=== PATIENT | female | born 1965 | race Caucasian/White ===

== ENCOUNTER → 2017-09-02 09:56 | Outpatient (POV) | payer BC, SELFPAY ==
[2017-09-02 10:11] VITALS: BP 137/92; PULSE 94; RESP 18; O2SAT 99
--- NOTE | 2017-09-02 13:48 | HMH.PMCON ---
Assessment and Plan (1) Facet arthropathy Current visit: Yes Status: Chronic Category: Medical Code(s): M46.90 - Unspecified inflammatory spondylopathy, site unspecified - Assessment and plan all Dx Assessment and Plan for all problems:: We will plan a medial branch block/facet joint injection L4-L5 L5-S1 bilaterally. Patient is not on any anticoagulation therapy. Patient is continuing to do home stretching exercises. I will follow-up with the patient after her injection we will reassess her symptoms at that time. We will also call her in baclofen 10 mg 1 p.o. 3 times daily as needed. I discussed the risks of this medication with the patient and possible side effects. Patient has been instructed to call the office if she starts exhibiting any of these. This note was dictated using voice recognition software and may contain errors or omissions HPI - Data of Consult Consult date: 09/02/17 Requesting Physician: Quita Mohan APRN Primary Care Provider: Thaddeus Morales MD Family Provider: Referral Provider, MD - Consult Narrative Reason for consult: Low back pain History of present illness: Ms. Canales is a 51 year old female who presents today for consultation in regards to her low back pain and muscle spasms. Patient fell on the ice in 2013 and this is when she remembers her pain beginning. Patient states walking and sleeping increase her pain while rest decreases her pain. Patient states she has had extreme muscle spasms with no relief from gabapentin, Skelaxin, Flexeril. Patient also tried and failed TENS unit. Patient has been seen by Dr. Alfonso and was determined not a surgical candidate. Patient's tried and failed chiropractic therapy, physical therapy, massage therapy. Patient rates the pain a 5 out of 10 today. Patient also failed ibuprofen and medication therapies. Patient is interested in injection therapy to help alleviate her pain symptoms. Patient has a recent MRI showing facet hypertrophy bilaterally throughout her lumbar spine. States her pain is very axial in nature. Patient states that when she makes a twisting movement that is when her pain increases. Patient does not have radiation of pain down her legs. CC: Quita Mohan APRN [facility] History I have reviewed the patient's past medical history: Yes Other Medical History: Reports: Arthritis Other Surgeries: Yes: Cholecystectomy - *Social History Educational Level: Completed College Smoking Status: Never smoker Alcohol Intake: never Occupational Status: employed Housing: house - Psychiatric History Expresses thoughts of harming self/others: None Suicide Plan Description: No Plan *Family Hx:: Unable to obtain Review of Systems - Review of Systems ROS General: no recent weight change, no fever, no sleep disturbances Respiratory: no cough, no shortness of air, no recurring pulmonary infections Cardiovascular/Peripheral Vascular: No chest pain, No palpitations, no edema, no shortness of breath. Gastrointestinal: no incontinence, normal bowel movements reported Genitourinary: no incontinence Musculoskeletal: Back pain, muscle spasms Psychiatric: normal mood/ affect Neurological: [denies weakness in extremities], [denies balance issues] Meds Home Medications Medication Instructions Recorded Confirmed Type Naltrexone HCl/Bupropion HCl 1 each PO DAILY 09/02/17 09/02/17 History [Contrave ER 8-90 mg Tablet] Vortioxetine Hydrobromide 10 mg PO BID 09/02/17 09/02/17 History [Trintellix] Allergies Allergy/AdvReac Type Severity Reaction Status Date / Time Bumble Bee Allergy Severe DIFFICULTY Uncoded 03/12/17 15:02 BREATHING Objective Vital signs: Pulse Resp BP Pulse Ox 94 H 18 137/92 99 09/02/17 10:11 09/02/17 10:11 09/02/17 10:11 09/02/17 10:11 Narrative: Physical Exam General: Alert and oriented x3, no acute distress, pleasant and cooperative, [on room ai
--- NOTE | 2017-09-02 14:08 | P.CONS_ITS ---
Assessment and Plan (1) Facet arthropathy Current visit: Yes Status: Chronic Category: Medical Code(s): M46.90 - Unspecified inflammatory spondylopathy, site unspecified - Assessment and plan all Dx Assessment and Plan for all problems:: We will plan a medial branch block/facet joint injection L4-L5 L5-S1 bilaterally. Patient is not on any anticoagulation therapy. Patient is continuing to do home stretching exercises. I will follow-up with the patient after her injection we will reassess her symptoms at that time. We will also call her in baclofen 10 mg 1 p.o. 3 times daily as needed. I discussed the risks of this medication with the patient and possible side effects. Patient has been instructed to call the office if she starts exhibiting any of these. This note was dictated using voice recognition software and may contain errors or omissions HPI - Data of Consult Consult date: 09/02/17 Requesting Physician: Quita Mohan APRN Primary Care Provider: Thaddeus Morales MD Family Provider: Referral Provider, MD - Consult Narrative Reason for consult: Low back pain History of present illness: Ms. Canales is a 51 year old female who presents today for consultation in regards to her low back pain and muscle spasms. Patient fell on the ice in 2013 and this is when she remembers her pain beginning. Patient states walking and sleeping increase her pain while rest decreases her pain. Patient states she has had extreme muscle spasms with no relief from gabapentin, Skelaxin, Flexeril. Patient also tried and failed TENS unit. Patient has been seen by Dr. Alfonso and was determined not a surgical candidate. Patient's tried and failed chiropractic therapy, physical therapy, massage therapy. Patient rates the pain a 5 out of 10 today. Patient also failed ibuprofen and medication therapies. Patient is interested in injection therapy to help alleviate her pain symptoms. Patient has a recent MRI showing facet hypertrophy bilaterally throughout her lumbar spine. States her pain is very axial in nature. Patient states that when she makes a twisting movement that is when her pain increases. Patient does not have radiation of pain down her legs. CC: Quita Mohan APRN [facility] History I have reviewed the patient's past medical history: Yes Other Medical History: Reports: Arthritis Other Surgeries: Yes: Cholecystectomy - *Social History Educational Level: Completed College Smoking Status: Never smoker Alcohol Intake: never Occupational Status: employed Housing: house - Psychiatric History Expresses thoughts of harming self/others: None Suicide Plan Description: No Plan *Family Hx:: Unable to obtain Review of Systems - Review of Systems ROS General: no recent weight change, no fever, no sleep disturbances Respiratory: no cough, no shortness of air, no recurring pulmonary infections Cardiovascular/Peripheral Vascular: No chest pain, No palpitations, no edema, no shortness of breath. Gastrointestinal: no incontinence, normal bowel movements reported Genitourinary: no incontinence Musculoskeletal: Back pain, muscle spasms Psychiatric: normal mood/ affect Neurological: [denies weakness in extremities], [denies balance issues] Meds Home Medications Medication Instructions Recorded Confirmed Type Naltrexone HCl/Bupropion HCl 1 each PO DAILY 09/02/17 09/02/17 History [Contrave ER 8-90 mg Tablet] Vortioxetine Hydrobromide 10 mg PO BID 09/02/17 09/02/17 History [Tri
== END ==
PROVIDERS: PCP Internal Medicine Adolescent Medicine; Visit Provider Clinical Nurse Specialist Family Health
DX: M46.90 Unspecified inflammatory spondylopathy, site unspecified (principal)
CPT/HCPCS: 99202

== ENCOUNTER → 2017-10-14 08:57 | Outpatient (POV) | payer BC, SELFPAY ==
[2017-10-14 09:25] VITALS: BP 135/75; PULSE 83; RESP 18; O2SAT 98; BMI 45.4
--- NOTE | 2017-10-14 09:28 | HMH.PAINSOAP ---
[facility] Pain Management SOAP Note Subjective:: Patient is a pleasant 51-year-old white female who presents today for follow-up after recent lumbar medial branch block bilaterally at L3-L4 L4-L5 L5-S1. She states she had 90% relief of her pain she also had complete relief of her muscle spasms during this time. Patient states she was much more functional. Patient would like to repeat the branch block and potentially go for a rhizotomy of these levels. I believe that that would be beneficial for her. Patient's tried and failed conservative therapy including chiropractic therapy, physical therapy, massage therapy, medications, anti-inflammatories and muscle relaxers. Patient does take baclofen to help with some of her muscle spasms. Patient did not have to take this to her after her medial branch block. ROS General: no recent weight change, no fever, no sleep disturbances Respiratory: no cough, no shortness of air, no recurring pulmonary infections Cardiovascular/Peripheral Vascular: No chest pain, No palpitations, no edema, no shortness of breath. Gastrointestinal: no incontinence, normal bowel movements reported Genitourinary: no incontinence Musculoskeletal: Back pain Psychiatric: normal mood/ affect Neurological: [denies weakness in extremities], [denies balance issues] Objective:: Physical Exam General: Alert and oriented x3, no acute distress, pleasant and cooperative, [on room air] Lungs: Resps E/U, Symmetrical chest expansion, Eyes: PERRL Musculoskeletal: Flexion and extension of lumbar spine somewhat guarded secondary to pain, deep tendon reflexes normal, strength in upper and lower extremities [5/5], lightly antalgic gait noted, positive facet loading bilaterally of the lumbar spine Neurological: speech clear, concrete boom operator 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 Given the efficacy of the last injection I believe this would be beneficial. Patient may want to move forward with an RFA. Patient is not on any anticoagulation therapy. This note was dictated using voice recognition software and may contain errors or omissions
--- NOTE | 2017-10-14 09:31 | P.CONS_ITS ---
[facility] Pain Management SOAP Note Subjective:: Patient is a pleasant 51-year-old white female who presents today for follow-up after recent lumbar medial branch block bilaterally at L3-L4 L4-L5 L5-S1. She states she had 90% relief of her pain she also had complete relief of her muscle spasms during this time. Patient states she was much more functional. Patient would like to repeat the branch block and potentially go for a rhizotomy of these levels. I believe that that would be beneficial for her. Patient's tried and failed conservative therapy including chiropractic therapy, physical therapy, massage therapy, medications, anti-inflammatories and muscle relaxers. Patient does take baclofen to help with some of her muscle spasms. Patient did not have to take this to her after her medial branch block. ROS General: no recent weight change, no fever, no sleep disturbances Respiratory: no cough, no shortness of air, no recurring pulmonary infections Cardiovascular/Peripheral Vascular: No chest pain, No palpitations, no edema, no shortness of breath. Gastrointestinal: no incontinence, normal bowel movements reported Genitourinary: no incontinence Musculoskeletal: Back pain Psychiatric: normal mood/ affect Neurological: [denies weakness in extremities], [denies balance issues] Objective:: Physical Exam General: Alert and oriented x3, no acute distress, pleasant and cooperative, [ on room air] Lungs: Resps E/U, Symmetrical chest expansion, Eyes: PERRL Musculoskeletal: Flexion and extension of lumbar spine somewhat guarded secondary to pain, deep tendon reflexes normal, strength in upper and lower extremities [5/5], lightly antalgic gait noted, positive facet loading bilaterally of the lumbar spine Neurological: speech clear, 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 Given the efficacy of the last injection I believe this would be beneficial. Patient may want to move forward with an RFA. Patient is not on any anticoagulation therapy. This note was dictated using voice recognition software and may contain errors or omissions
== END ==
PROVIDERS: PCP Internal Medicine Adolescent Medicine; Visit Provider Clinical Nurse Specialist Family Health
DX: M47.816 Spondylosis without myelopathy or radiculopathy, lumbar region (principal)
CPT/HCPCS: 99212

== ENCOUNTER → 2017-11-11 15:06 | Outpatient (POV) | payer BC, SELFPAY ==
[2017-11-11 15:20] VITALS: BP 123/66; PULSE 84; RESP 18; O2SAT 98; BMI 46.3
--- NOTE | 2017-11-12 10:11 | P.CONS_ITS ---
[facility] Pain Management SOAP Note Subjective:: Patient is a pleasant 51-year-old white female who presents today for follow-up after most recent lumbar medial branch block. Patient had 100% relief for over 3 days. This is the patient's second successful medial branch block. Patient would like to move forward with a RFA of the L3-L4 L4-L5 L5-S1 levels. Patient states that her pain is slowly returning. 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 She rates her pain a 5 out of 10 today. ROS General: no recent weight change, no fever, no sleep disturbances Respiratory: no cough, no shortness of air, no recurring pulmonary infections Cardiovascular/Peripheral Vascular: No chest pain, No palpitations, no edema, no shortness of breath. Gastrointestinal: no incontinence, normal bowel movements reported Genitourinary: no incontinence Musculoskeletal: Back pain Psychiatric: normal mood/ affect Neurological: [denies weakness in extremities], [denies balance issues] Objective:: Physical Exam General: Alert and oriented x3, no acute distress, pleasant and cooperative, [ on room air] Lungs: Resps E/U, Symmetrical chest expansion, Eyes: PERRL Musculoskeletal: Flexion and extension of lumbar spine somewhat guarded secondary to pain, deep tendon reflexes normal, strength in upper and lower extremities [5/5], slightly antalgic gait noted Neurological: speech clear, citrix lead equal, no gross sensory deficits Assessment:: Degenerative disc disease of lumbar spine with lumbar spondylosis and facet arthropathy Plan:: We will schedule an RFA of the L3-L4 L4-L5 and L5-S1 levels. We will start with the right side in 2 weeks later we will complete the left side. Patient is not on any anticoagulation therapy. I will follow-up the patient after her RFA. This note was dictated using voice recognition software and may contain errors or omissions
== END ==
PROVIDERS: PCP Internal Medicine Adolescent Medicine; Visit Provider Clinical Nurse Specialist Family Health
DX: M51.36 Other intervertebral disc degeneration, lumbar region (principal); M47.896 Other spondylosis, lumbar region; M54.06 Panniculitis affecting regions of neck and back, lumbar region
CPT/HCPCS: 99213

== ENCOUNTER → 2018-05-03 09:53 | Outpatient (CLI) | payer BC, SELFPAY ==
[2018-05-03 10:19] LABS: Basophils # 0.1 K/mm3 (0-0.2); Basophils % 0.5 % (0.1-2.0); Eosinophils # 0.1 K/mm3 (0.0-0.4); Eosinophils % 1.3 % (0.1-12.0); Hematocrit 46.2 % (37.0-47.0); Hemoglobin 14.7 g/dL (12.2-16.2); Lymphocytes # 2.7 K/mm3 (0.7-4.5); Lymphocytes % 25.5 % (10-50); Mean Corpuscular HGB Conc 31.8 g/dL (31.8-35.4); Mean Corpuscular Hemoglobin 28.8 pg (27.0-31.2); Mean Corpuscular Volume 90.8 fl (81-99); Mean Platelet Volume 6.7 fl (7.4-10.4); Monocytes # 0.5 K/mm3 (0.1-1.0); Neutrophils # 7.3 K/mm3 (1.8-7.8); Neutrophils % 67.7 % (37.0-80.0); Platelet Count 386 K/mm3 (142-424); Red Blood Count 5.09 M/mm3 (4.20-5.40); Red Cell Distribution Width 14.8 % (11.5-17.5); White Blood Count 10.8 K/mm3 (4.8-10.8)
[2018-05-03 14:05] LABS: Alanine Aminotransferase 30 U/L (12-78); Albumin Level 3.4 gm/dL (3.4-5.0); Alkaline Phosphatase 98 U/L (46-116); Anion Gap 9.7 mEq/L (5-15); Aspartate Amino Transferase 16 U/L (15-37); Bilirubin,Total 0.3 mg/dL (0.2-1.0); Blood Urea Nitrogen 11 mg/dL (7-18); Calcium 9.1 mg/dL (8.5-10.1); Carbon Dioxide 32 mmol/L (21.0-32.0); Chloride 104 mmol/L (98-107); Chol/HDL Ratio 3.3 (1-3.5); Cholesterol 207 mg/dL (140-200); Creatinine,Serum 0.75 mg/dL (0.55-1.02); Estimated Glomerular Filt Rate 81 ml/min (>60); GFR (African American) 98 ML/MIN (>60); Globulin 3.5 gm/dl (1.3-3.2); Glucose 89 mg/dL (74-106); HDL Cholesterol 62 mg/dL (29-89); LDL Cholesterol 135 mg/dL (0-130); Potassium 4.7 mmoL/L (3.5-5.1); Sodium 141 mmol/L (136-145); Thyroid Stimulating Hormone 2.52 uIU/ml (0.358-3.740); Total Protein,Serum 6.9 gm/dL (6.4-8.2); Triglycerides 51 mg/dL (30-200); VLDL Cholesterol 10 mg/dL (0-40)
[2018-05-05 08:40] LABS: Vitamin B12 1308 pg/mL (232-1245)
== END ==
PROVIDERS: Visit Provider Internal Medicine Adolescent Medicine
DX: E78.5 Hyperlipidemia, unspecified (principal); E53.8 Deficiency of other specified B group vitamins; G47.30 Sleep apnea, unspecified
CPT/HCPCS: 36415; 80053; 80061; 82607; 84443; 85025

== ENCOUNTER → 2018-05-15 16:01 | Outpatient (CLI) | payer BC, SELFPAY ==
--- NOTE | 2018-05-15 16:04 | MM_ITS ---
MM Dig screening mamm BI w/CAD CAD Screening COMPARISON: Digital mammograms with CAD 10/12/2015 and 11/01/2011 INDICATION: There is a history of breast cancer patient maternal grandmother diagnosed before menopause. TECHNIQUE: Standard CC and MLO images were obtained. R2 CAD reviewed. FINDINGS: The breasts are composed primarily of fat with minimal scattered fibroglandular densities in each breast. Again noted are stable well-defined nodular densities in the outer quadrants of each breast. There is no new or suspicious lesion in either breast and there are no suspicious microcalcifications. There are stable nodes in both axilla. IMPRESSION: Fatty type breast parenchyma with no suspicious lesion seen BI-RADS Category: 2 Benign Finding(s) RECOMMENDED FOLLOW-UP: 1YR - 1 YEAR FOLLOW-UP (A letter has been sent to the patient regarding results of the study.)
== END ==
PROVIDERS: PCP Internal Medicine Adolescent Medicine; Visit Provider Internal Medicine Adolescent Medicine
DX: Z12.31 Encounter for screening mammogram for malignant neoplasm of breast (principal)
CPT/HCPCS: 77067

== ENCOUNTER → 2018-12-27 07:55 | Outpatient (CLI) | payer BC, SELFPAY ==
[2018-12-27 08:21] LABS: Basophils # 0.1 K/mm3 (0-0.2); Basophils % 0.6 % (0.1-2.0); Eosinophils # 0.2 K/mm3 (0.0-0.4); Eosinophils % 2.2 % (0.1-12.0); Hematocrit 46.1 % (37.0-47.0); Hemoglobin 13.8 g/dL (12.2-16.2); Lymphocytes # 2.1 K/mm3 (0.7-4.5); Lymphocytes % 19.8 % (10-50); Mean Corpuscular HGB Conc 29.8 g/dL (31.8-35.4); Mean Corpuscular Hemoglobin 28.1 pg (27.0-31.2); Mean Corpuscular Volume 94.3 fl (81-99); Mean Platelet Volume 7.5 fl (7.4-10.4); Monocytes # 0.6 K/mm3 (0.1-1.0); Monocytes % 5.9 % (1.7-9.3); Neutrophils # 7.7 K/mm3 (1.8-7.8); Neutrophils % 71.4 % (37.0-80.0); Platelet Count 403 K/mm3 (142-424); Red Blood Count 4.89 M/mm3 (4.20-5.40); Red Cell Distribution Width 15.5 % (11.5-17.5); White Blood Count 10.8 K/mm3 (4.8-10.8)
[2018-12-27 10:00] LABS: Alanine Aminotransferase 34 U/L (12-78); Albumin Level 3.3 gm/dL (3.4-5.0); Alkaline Phosphatase 93 U/L (46-116); Anion Gap 8.7 mEq/L (5-15); Aspartate Amino Transferase 26 U/L (15-37); Bilirubin,Total 0.3 mg/dL (0.2-1.0); Blood Urea Nitrogen 10 mg/dL (7-18); Calcium 8.3 mg/dL (8.5-10.1); Carbon Dioxide 31 mmol/L (21.0-32.0); Chloride 106 mmol/L (98-107); Chol/HDL Ratio 3.1 (1-3.5); Cholesterol 205 mg/dL (140-200); Estimated Glomerular Filt Rate 87 ml/min (>60); Free Thyroxine Index 2.4 ug/dL (5.93-13.13); GFR (African American) 106 ML/MIN (>60); Globulin 3.4 gm/dl (1.3-3.2); Glucose 99 mg/dL (74-106); HDL Cholesterol 66 mg/dL (29-89); LDL Cholesterol 128 mg/dL (0-130); Potassium 4.7 mmoL/L (3.5-5.1); Sodium 141 mmol/L (136-145); T4 (Thyroxine) 8.1 ug/dl (4.7-13.3); Total Protein,Serum 6.7 gm/dL (6.4-8.2); Triglycerides 55 mg/dL (30-200); Triiodothryronine (T3) Uptake 30 % (31-39); VLDL Cholesterol 11 mg/dL (0-40)
[2018-12-30 07:14] LABS: Vitamin B12 1036 pg/mL (232-1245)
== END ==
PROVIDERS: Visit Provider Internal Medicine Adolescent Medicine
DX: E78.5 Hyperlipidemia, unspecified (principal); E53.8 Deficiency of other specified B group vitamins; G47.30 Sleep apnea, unspecified
CPT/HCPCS: 36415; 80053; 80061; 82607; 84436; 84443; 84479; 85025

== ENCOUNTER → 2018-12-30 17:46 | Outpatient (CLI) | payer BC, SELFPAY | PROVIDERS: Visit Provider Podiatrist | DX: B35.1 Tinea unguium (principal) | CPT/HCPCS: 87220 ==

== ENCOUNTER → 2019-04-06 16:48 | Outpatient (CLI) | payer BC, SELFPAY ==
--- NOTE | 2019-04-06 16:52 | XR_ITS ---
PROCEDURE: XR FOOT WT BEARING LT 3V CLINICAL INDICATION: Comparison View COMPARISON: No exams were available for comparison FINDINGS: No fracture or dislocation. No lytic or blastic change. There is normal mineralization. The joint spaces are well-preserved. No significant degenerative/arthritic changes. No erosive changes evident. Other findings:Mild pes planus with small calcaneal spur. Minimal hypertrophic changes are present at the proximal aspect of the proximal phalanx of the great toe IMPRESSION: Mild pes planus with small calcaneal spur Dictated by: Edu Martínez MD 04/07/2019 05:12 Electronically signed by Edu Martínez MD in [place] 04/07/2019 05:12
--- NOTE | 2019-04-06 16:52 | XR_ITS ---
PROCEDURE: XR FOOT WT BEARING RT 3V CLINICAL INDICATION: pain COMPARISON: No exams were available for comparison FINDINGS: No fracture or dislocation. No lytic or blastic change. There is normal mineralization. The joint spaces are well-preserved. No significant degenerative/arthritic changes. No erosive changes evident. Other findings:There is mild pes planus. There is a small calcaneal spur. IMPRESSION: Mild pes planus and small calcaneal spur Dictated by: Edu Martínez MD 04/07/2019 05:11 Electronically signed by Edu Martínez MD in [place] 04/07/2019 05:11
== END ==
PROVIDERS: PCP Internal Medicine Adolescent Medicine; Visit Provider Podiatrist
DX: M79.672 Pain in left foot (principal); M79.671 Pain in right foot
CPT/HCPCS: 73630

== ENCOUNTER → 2019-08-24 11:18 | Outpatient (CLI) | payer BC, SELFPAY ==
--- NOTE | 2019-08-24 11:22 | XR_ITS ---
PROCEDURE: XR ELBOW RT MIN 3V CLINICAL INDICATION: RT ELBOW PAIN Posttraumatic pain COMPARISON: No exams were available for comparison FINDINGS: No fracture or dislocation. No lytic or blastic change. There is normal mineralization. The joint spaces are well-preserved. No significant degenerative/arthritic changes. No erosive changes evident. Other findings:There is a well-circumscribed calcific density along the lateral epicondyle and may be related to old injury. IMPRESSION: No acute findings. Dictated by: Edu Martínez MD 08/24/2019 11:31 Electronically signed by Edu Martínez MD in [place] 08/24/2019 11:31
== END ==
PROVIDERS: PCP Internal Medicine Adolescent Medicine; Visit Provider Internal Medicine Adolescent Medicine
DX: M25.521 Pain in right elbow (principal)
CPT/HCPCS: 73080

== ENCOUNTER → 2019-09-21 11:32 | Outpatient (CLI) | payer BC, SELFPAY ==
[2019-09-21 12:18] LABS: Basophils % 0.4 % (0.1-2.0); Eosinophils # 0.3 K/mm3 (0.0-0.4); Eosinophils % 2.5 % (0.1-12.0); Hematocrit 46.6 % (37.0-47.0); Hemoglobin 15.4 g/dL (12.2-16.2); Lymphocytes # 2.4 K/mm3 (0.7-4.5); Mean Corpuscular HGB Conc 33.1 g/dL (31.8-35.4); Mean Corpuscular Hemoglobin 29.8 pg (27.0-31.2); Mean Corpuscular Volume 90.2 fl (81-99); Mean Platelet Volume 7.4 fl (7.4-10.4); Monocytes # 0.6 K/mm3 (0.1-1.0); Monocytes % 5.3 % (1.7-9.3); Neutrophils # 8.6 K/mm3 (1.8-7.8); Neutrophils % 71.9 % (37.0-80.0); Platelet Count 369 K/mm3 (142-424); Red Blood Count 5.16 M/mm3 (4.20-5.40); Red Cell Distribution Width 15.1 % (11.5-17.5)
[2019-09-21 12:54] LABS: Chloride 104 mmol/L (98-107)
[2019-09-21 12:55] LABS: Potassium 4.6 mmoL/L (3.5-5.1); Sodium 139 mmol/L (136-145)
[2019-09-21 12:57] LABS: Alanine Aminotransferase 35 U/L (12-78); Aspartate Amino Transferase 33 U/L (14-36)
[2019-09-21 12:58] LABS: Albumin/Globulin Ratio 1.4 (1.1-1.8); Alkaline Phosphatase 88 U/L (38-126); Anion Gap 9.6 mEq/L (5-15); Bilirubin,Total 0.5 mg/dl (0.2-1.3); Calcium 9.1 mg/dl (8.4-10.2); Carbon Dioxide 30 mmol/L (22.0-30.0); Chol/HDL Ratio 2.9 (1-3.5); Cholesterol 208 mg/dl (140-200); Globulin 2.9 g/dL (1.3-3.2); Glucose 105 mg/dl (74-100); HDL Cholesterol 71 mg/dl (40-60); Total Protein,Serum 6.9 g/dl (6.3-8.2); Triglycerides 75 mg/dl (30-150); VLDL Cholesterol 15 mg/dL (0-40)
[2019-09-21 13:09] LABS: Direct LDL Cholesterol 130.33 mg/dL (100-129)
[2019-09-21 15:22] LABS: Blood Urea Nitrogen 11 mg/dl (7-17); Estimated Glomerular Filt Rate 65 ml/min (>60); GFR (African American) 79 ML/MIN (>60)
[2019-09-21 23:40] LABS: Hemoglobin A1C 5.9 % (4.0-6.0)
== END ==
PROVIDERS: Visit Provider Internal Medicine Adolescent Medicine
DX: E78.5 Hyperlipidemia, unspecified (principal); E66.01 Morbid (severe) obesity due to excess calories; E53.8 Deficiency of other specified B group vitamins; M47.816 Spondylosis without myelopathy or radiculopathy, lumbar region
CPT/HCPCS: 36415; 80053; 80061; 83036; 84443; 85025

== ENCOUNTER → 2019-10-29 08:55 | Outpatient (CLI) | payer BC, SELFPAY ==
--- NOTE | 2019-10-29 09:01 | MM_ITS ---
PROCEDURE: MM DIG SCREENING MAMM BI W/CAD Digital Breast Tomosynthesis Included CLINICAL INDICATION: SCREENING There is a history of breast cancer patient's paternal aunt just before menopause. COMPARISON: MG [facility] DIGITAL MAMM-SCREEN BILATERAL from 11/01/2011 MG [facility] DIG MAMM-SCREEN CHRISTINE from 10/12/2015 MG [facility] MM Dig screening mamm BI w/CAD from 05/15/2018 TECHNIQUE: Standard CC and MLO images and 3D Tomosynthesis was obtained. R2 CAD reviewed. FINDINGS: Scattered fibroglandular densities are seen throughout both breasts. There are stable benign-appearing nodular densities in each breast. Most if not all of these are likely intramammary nodes. Again noted are multiple. There is no suspicious lesion and no suspicious microcalcifications. Benign-appearing nodes in both axilla. IMPRESSION: Fibrofatty parenchyma with no suspicious lesions seen BI-RAD Category: 2 Benign Finding(s) FOLLOW-UP: 1YR 1 Year Follow-up (A letter has been sent to the patient regarding results of the study.) Dictated Dr. Bao Christiansen MD 10/30/2019 13:22 Dr. Bao Escobar MD in [place] 10/30/2019 13:22
--- NOTE | 2019-10-29 09:41 | MR_ITS ---
PROCEDURE: MR ELBOW RT WO CON CLINICAL INDICATION: RIGHT LATERAL EPICONDYLITIS PT fell and landed on elbow [id number] ago. Radial sided elbow pain. Pain when bending and extending. Pain worse when bending. Swelling around joint. Prior x-ray 08/24/2019 COMPARISON: CR XR ELBOW RT MIN 3V from 08/24/2019 TECHNIQUE: Routine multiplanar multi echo sequences are performed without gadolinium enhancement. FINDINGS: There is mild degree of motion artifact which somewhat obscures fine detail. There is some increased T2 signal along the olecranon with soft tissue thickening at this area suggesting olecranon bursitis or trauma. Small elbow joint effusion is present. The radial head has an unremarkable appearance. The lateral collateral ligament appears intact. There is increased T2 signal at the region of the common extensor tendon suggesting the lateral epicondylitis.. No fractures or dislocation. IMPRESSION: Small elbow joint effusion with findings compatible with lateral epicondylitis. Soft tissue thickening with increased T2 signal at the olecranon which could be due to trauma or olecranon bursitis. Dictated b Edu Martínez MD 11/02/2019 10:43 Edu Martínez MD in [place] 11/02/2019 10:43
== END ==
PROVIDERS: PCP Internal Medicine Adolescent Medicine; Visit Provider Internal Medicine Adolescent Medicine
DX: Z12.31 Encounter for screening mammogram for malignant neoplasm of breast (principal); M77.11 Lateral epicondylitis, right elbow
CPT/HCPCS: 73221; 77063; 77067

== ENCOUNTER 2019-11-23 13:00 | Outpatient (RCR) | payer BC, SELFPAY ==
--- NOTE | 2019-10-28 12:01 | HMH.OTOPEV ---
OT Inpatient Evaluation Rehab OT Outpatient Eval Start: 10/28/19 11:39 Freq: Status: Active Protocol: Document 10/28/19 11:39 KIMBERLYCARL (Rec: 10/28/19 12:01 NIYAH [id number]) Electronically Signed By Allyn Saleem OT 10/28/19 11:39 Outpatient Therapy Subjective History Subjective History 53 year old female referred to OP OT services for R elbow pain. Patient recently had R elbow pain after falling out of chair in August 2019. X-ray completed on August 2019 with no finding. Patient verbalize having MRI on 10/29/19 per PCP. Patient verbalize pain during R elbow extension, lifting any weight and difficulty sleeping at night. Chief Complaint Pain Symptom Type Ache,Throb Symptoms Relieved By Ice Symptoms Aggravated By Physical Activity Prior Functional Limitations None Current Functional Limitations Reaching,Lifting,Sleeping Symptom Description Constant and Continuous Level of pain today (0-10) 2 Pain scale - at its best (0-10) 2 Pain scale - at its worst (0-10) 7 Shoulder/Elbow Eval Shoulder Objective Measurements Elbow Objective Measurements Elbow ROM Right full ROM elbow exam standard right Elbow Extension Active Range of Motion ( 0 degrees) Elbow Flexion Active Range of Motion ( 150 degrees) Elbow Pronation of Forearm Range of 90 Motion (degrees) Elbow Supination of Forearm Range of 70 Motion (degrees) Left full ROM elbow exam standard right Elbow MMT Right Elbow Flexion Strength Grade 3+ Fair+ Brachialis Strength Grade (Flexion) 3+ Fair+ Elbow Special Tests Resistive Tennis Elbow (Cozen's) Test Positive Right OT Outpatient Assessment Impairments Problems/Impairments Impaired Range of Motion, Impaired Strength,Subjective C /O Pain Prognosis Rehab Potential Good Clinical Impression Consistent with Diagnosis Yes Short Term Goals Number of Weeks 2 Decreased Palpation Tenderness Yes Increase Range of Motion Yes: R elbow supination 80. Increase Strength Yes: R elbow strength 4- to 4/ 5 throughout. R project manager strength 50# Decrease Subjective C/O Pain Yes: 5/10 at worst Patient to be Ind w/ HEP Yes: AAROM with stretching Patient to be Ind w/ Advanced HEP Yes: Strengthening Nursing Home Goals [place]
== END 2019-11-23 14:00 | disposition home or self-care (01) ==
LOC: OT 13:00
PROVIDERS: PCP Internal Medicine Adolescent Medicine; Visit Provider Internal Medicine Adolescent Medicine
DX: M25.521 Pain in right elbow (principal)
CPT/HCPCS: 97014; 97033; 97035; 97110; 97164; 97165; 97530; G0283

== ENCOUNTER 2019-12-16 12:29 | Emergency (ER) | payer BC, SELFPAY ==
[2019-12-16 12:30] VITALS: BP 166/121; PULSE 93; RESP 18; TEMP 36.7; O2SAT 93; BMI 47.0
--- NOTE | 2019-12-16 12:37 | ECG_ITS ---
APPROVED REPORT Exam: Resting ECG HR:87 bpm ECG Measurements Heart Rate 87 AXES AL 134 P 63 QRSd 76 QRS 78 QT 376 T 61 QTc 452 <Conclusion> Normal sinus rhythm Normal ECG Electronically signed by : Thaddeus Morales, 12/19/2019 06:31:08
--- NOTE | 2019-12-16 12:41 | XR_ITS ---
PROCEDURE: XR CHEST 2V CLINICAL HISTORY: syncope COMPARISON: No exams were available for comparison FINDINGS: The cardiomediastinal silhouette and pulmonary vascularity are within normal limits. The lungs are clear without infiltrates, suspicious nodules, or pleural effusions. Degenerative changes thoracic spine IMPRESSION: No acute findings. Dictated by: Edu Martínez MD 12/16/2019 14:37 Edu Martínez MD in [place] 12/16/2019 14:37
--- NOTE | 2019-12-16 12:42 | CT_ITS ---
PROCEDURE: CT CERVICAL SPINE WO CON CLINICAL INDICATION: fall Neck injury with pain, contusion/abrasion or hematoma, cervical sprain/strain the COMPARISON: No exams were available for comparison TECHNIQUE: Axial images obtained with sagittal and coronal reformats. All CT scans at the facility use one or more dose reduction, viz: automated exposure control, ma/kV adjustment per patient size (including targeted exams where dose is matched to indication, i.e. head), or iterative reconstruction technique. Axial spiral CT scanning performed of the cervical spine beginning at the base of the skull and continuing to the upper T-spine. 3-D multiplanar reconstruction with 3-D manipulation of volumetric data set in image rendering was completed by the radiologist and/or technologist with the supervision of the radiologist on independent workstation. FINDINGS: There is normal alignment. No acute fracture or dislocation is evident. There is mild degenerative disc disease at C4-C5 and C5-C6 with anterior osteophytes at C5-C6. There is degenerative disc disease at C6-C7 with narrowing of the canal and with uncovertebral hypertrophy with bilateral foraminal narrowing as well as anterior osteophytes. There appears to be an old fracture of the spinous process of T1. The scattered small nodes are present in the neck. IMPRESSION: 1. No acute fracture. 2. Cervical spondylosis as described above. 3. Old spinous process fracture of T1 Dictated by: Edu Martínez MD 12/16/2019 13:55 Edu Martínez MD in [facility] 12/16/2019 13:55
--- NOTE | 2019-12-16 12:42 | CT_ITS ---
PROCEDURE: CT HEAD/BRAIN WO CON CLINICAL INDICATION: fall Head injury with headache/pain, contusion, abrasion or hematoma, dizziness, syncope COMPARISON: No exams were available for comparison TECHNIQUE: Axial images obtained. All CT scans at the facility use one or more dose reduction, viz: automated exposure control, ma/kV adjustment per patient size (including targeted exams where dose is matched to indication, i.e. head), or iterative reconstruction technique. FINDINGS: No midline shift mass effect or acute intracranial hemorrhage is evident. The lateral ventricles are slightly prominent. There are no previous studies to compare. There is a small right frontal scalp hematoma. No acute calvarial fracture, sinus air-fluid level, or mastoid effusion. IMPRESSION: 1. No acute intracranial findings. 2. Mild prominence of the lateral ventricles. This is of questionable clinical significance. MRI without and with contrast on outpatient basis may provide further evaluation. 3. Right frontal scalp hematoma Dictated by: Edu Martínez MD 12/16/2019 13:52 Edu Martínez MD in [place] 12/16/2019 13:52
--- NOTE | 2019-12-16 12:51 | HMH.EDGENADL ---
ED Disposition Clinical Impression: Vertigo, Near syncope Disposition: Home, Self-Care Condition on Discharge: Good Instructions: DI for Syncope in Adults (Fainting), DI for Vertigo Additional Instructions: Phenergan and Antivert as prescribed. Follow-up with your primary care provider within 1 to 2 days. Return if unable to walk, repetitive vomiting, loss of vision, problems with speech, numbness or weakness of arms or legs. Prescriptions: Promethazine HCl [Phenergan 25mg tab] 25 mg PO Q6HP PRN #10 tab PRN Reason: Nausea And Vomiting Transmission Status: Received by [id number] Meclizine HCl [Antivert 25mg tablet] 25 mg PO TIDP PRN #15 tab PRN Reason: Vertigo Transmission Status: Received by [id number] Referrals: Thaddeus Morales MD [Primary Care Provider] - - Critical Care Critical Care Time: No Attestation: On , the high probability of a clinically significant, sudden or life threatening deterioration of the following system(s) required my full and direct attention, intervention and personal management. The time I documented below is in addition to time spent performing reported procedures but includes the following listed in this critical care notation. Medical Decision Making - Medical Records Medical records reviewed: Yes: I reviewed the patient's medical records. - Diogenes Inquiry Pt receiving controlled substance: No Vital Signs: 12/16/19 12:30 12/16/19 13:00 12/16/19 13:30 Temperature 98.1 F Temperature Source Oral Pulse Rate Pulse Rate [Right] 93 H 86 81 Respiratory Rate 18 20 20 Blood Pressure Blood Pressure [Right Arm] 166/121 H 149/98 H 147/100 H Blood Pressure Mean [Right Arm] 136 115 115 Blood Pressure Source [Right Arm] Automatic Cuff Blood Pressure Position [Right Arm] Sitting Sitting 02 Sat by Pulse Oximetry 93 L 92 L 97 Oxygen Delivery Method Room Air Room Air 12/16/19 15:17 Temperature 98.1 F Temperature Source Oral Pulse Rate 79 Pulse Rate [Right] Respiratory Rate 19 Blood Pressure 152/99 H Blood Pressure [Right Arm] Blood Pressure Mean [Right Arm] Blood Pressure Source [Right Arm] Blood Pressure Position [Right Arm] 02 Sat by Pulse Oximetry Oxygen Delivery Method Room Air - Lab Data Lab results reviewed: Yes: I reviewed the patient's lab results. Lab Results 12/16/19 12:45: WBC 14.1 H, RBC 5.02, Hgb 15.2, Hct 45.4, MCV 90.5, MCH 30.3, MCHC 33.5, RDW 15.3, Plt Count 397, MPV 7.4, Neut % (Auto) 77.9, Lymph % (Auto) 15.0, Long % (Auto) 4.6, Eos % (Auto) 1.9, Baso % (Auto) 0.5, Neut # (Auto) 11.0 H, Lymph # (Auto) 2.1, Long # (Auto) 0.7, Eos # (Auto) 0.3, Baso # (Auto) 0.1 12/16/19 12:45: Sodium 140, Potassium 4.3, Chloride 107, Carbon Dioxide 26, Anion Gap 11.3, BUN 11, Creatinine 0.80, Estimated Creat Clear 77, Estimated GFR 74, Est GFR ( Amer) 90, Glucose 126 H, Calcium 8.9, Total Bilirubin 0.4, AST 30, ALT 32, Alkaline Phosphatase 92, Troponin I < 0.01, Total Protein 7.4, Albumin 4.0, Globulin 3.4 H, Albumin/Globulin Ratio 1.2 Result diagrams: 12/16/19 12:45 12/16/19 12:45 Orders (Tests/Meds): ED MEDICATIONS Discontinued Medications Generic Name Dose Route Start Last Admin Trade Name Freq PRN Reason Stop Dose Admin Meclizine HCl 25 mg 12/16/19 13:04 12/16/19 13:10 Antivert 25mg Tablet PO 12/16/19 13:05 25 mg ONCE ONE Administration Promethazine HCl 12.5 mg 12/16/19 13:04 12/16/19 13:10 Phenergan 25mg/Ml 1ml Vial IV 12/16/19 13:05 12.5 mg ONCE ONE Administration Sodium Chloride 25 ml 12/16/19 13:04 12/16/19 13:10 Sod Chlor 0.9% 25ml Bag IV 12/16/19 13:05 25 ml ONCE ONE Administration ORDERS Category Date Time Status Troponin I Q3H Lab 12/16/19 15:45 Ordered Troponin I Q3H Lab 12/16/19 18:45 Ordered - Radiology Data #1 Image(s): Chest Image Reviewed: Yes I reviewed the patient's radiology image Preliminary Findings: Normal/NAD - CT Data
[2019-12-16 12:56] LABS: Basophils # 0.1 K/mm3 (0-0.2); Basophils % 0.5 % (0.1-2.0); Eosinophils # 0.3 K/mm3 (0.0-0.4); Eosinophils % 1.9 % (0.1-12.0); Hematocrit 45.4 % (37.0-47.0); Hemoglobin 15.2 g/dL (12.2-16.2); Lymphocytes # 2.1 K/mm3 (0.7-4.5); Mean Corpuscular HGB Conc 33.5 g/dL (31.8-35.4); Mean Corpuscular Hemoglobin 30.3 pg (27.0-31.2); Mean Corpuscular Volume 90.5 fl (81-99); Mean Platelet Volume 7.4 fl (7.4-10.4); Monocytes # 0.7 K/mm3 (0.1-1.0); Monocytes % 4.6 % (1.7-9.3); Neutrophils % 77.9 % (37.0-80.0); Platelet Count 397 K/mm3 (142-424); Red Blood Count 5.02 M/mm3 (4.20-5.40); Red Cell Distribution Width 15.3 % (11.5-17.5); White Blood Count 14.1 K/mm3 (4.8-10.8)
[2019-12-16 12:58] LABS: Chloride 107 mmol/L (98-107); Sodium 140 mmol/L (136-145)
[2019-12-16 12:59] LABS: Potassium 4.3 mmoL/L (3.5-5.1)
[2019-12-16 13:00] VITALS: BP 149/98; PULSE 86; RESP 20; O2SAT 92
[2019-12-16 13:01] LABS: Alanine Aminotransferase 32 U/L (12-78); Alkaline Phosphatase 92 U/L (38-126); Aspartate Amino Transferase 30 U/L (14-36); Bilirubin,Total 0.4 mg/dl (0.2-1.3); Blood Urea Nitrogen 11 mg/dl (7-17); Creatinine Clearance Estimated 77 mL/min (50-200); Estimated Glomerular Filt Rate 74 ml/min (>60); GFR (African American) 90 ML/MIN (>60)
[2019-12-16 13:02] LABS: Albumin/Globulin Ratio 1.2 (1.1-1.8); Anion Gap 11.3 mEq/L (5-15); Calcium 8.9 mg/dl (8.4-10.2); Carbon Dioxide 26 mmol/L (22.0-30.0); Globulin 3.4 g/dL (1.3-3.2); Glucose 126 mg/dl (74-100); Total Protein,Serum 7.4 g/dl (6.3-8.2)
[2019-12-16 13:14] LABS: Troponin I < 0.01 ng/ml (0.00-0.034)
--- NOTE | 2019-12-16 13:14 | PC.NURSE ---
PT GONE TO CT
[2019-12-16 13:30] VITALS: BP 147/100; PULSE 81; RESP 20; O2SAT 97
[2019-12-16 15:17] VITALS: BP 152/99; PULSE 79; RESP 19; TEMP 36.7; O2SAT 100
== END 2019-12-16 15:21 | disposition home or self-care (01) ==
PROVIDERS: Emergency Provider Emergency Medicine; PCP Internal Medicine Adolescent Medicine
DX: R55 Syncope and collapse (principal); F33.1 Major depressive disorder, recurrent, moderate; F17.210 Nicotine dependence, cigarettes, uncomplicated; Z90.49 Acquired absence of other specified parts of digestive tract; W18.39XA Other fall on same level, initial encounter; Y92.019 Unspecified place in single-family (private) house as the place of occurrence of the external cause
CPT/HCPCS: 70450; 71046; 72125; 80053; 84484; 85025; 93005; 96374; 99284

== ENCOUNTER 2020-07-27 09:25 | Emergency (ER) | payer BC, SELFPAY ==
[2020-07-27 09:31] VITALS: BP 138/73; PULSE 90; RESP 17; TEMP 36.8; O2SAT 100; BMI 48.0
[2020-07-27 09:41] VITALS: BP 129/74; PULSE 93; RESP 16; TEMP 36.8
--- NOTE | 2020-07-27 09:41 | HMH.EDUTC ---
[facility] [place] Disposition Clinical Impression: Encounter for laboratory testing for COVID-19 virus Disposition: Home, Self-Care Condition on Discharge: Good Instructions: DI for COVID-19 (Suspected or Confirmed ), COVID-19: Testing and Tracing, Preventing the Spread of Coronavirus Discharge Instructions Additional Instructions: *Monitor Temp, Over the counter Motrin or Tylenol as directed/as needed Tylenol every 4 hours and Motrin every 6 hours (as long as your family doctor has told you that you can take it) for fever or pain. and straight to ER if unable to lower temp less than 101.0 after medication given Follow up IMMEDIATELY for new or worsening symptoms or no Noticeable improvement over the next 48-72 hours. 911 for difficulty breathing or swallowing You were tested for today for COVID19 your test result should be back in the next 24-48 hours, you may call to the [facility] to see if your test results are back in the next 48 hours [phone] [facility] hours are 9am-9pm You was given a handout with instructions for Self Quarantine and Self isolation for while you wait on test results and what to do if they are positive If you are positive the Health Dept will be contacting you also Referrals: Thaddeus Morales MD [Primary Care Provider] - As needed Time of Disposition: 09:43 Medical Decision Making - Diogenes Inquiry Pt receiving controlled substance: No Diogenes was queried for this patient: No Vital Signs: 07/27/20 09:31 07/27/20 09:41 Temperature 98.2 F 98.2 F Temperature Source Oral Pulse Rate 93 H Pulse Rate [Right] 90 Respiratory Rate 17 16 Blood Pressure 129/74 Blood Pressure [Right Arm] 138/73 Blood Pressure Mean [Right Arm] 94 Blood Pressure Source [Right Arm] Automatic Cuff Blood Pressure Position [Right Arm] Sitting 02 Sat by Pulse Oximetry 100 Oxygen Delivery Method Room Air Orders (Tests/Meds): ORDERS Category Date Time Status Covid-19 Nasal PCR ([facility]) Routine Lab 07/27/20 09:[address] [facility] HPI - General Stated complaint: covid test Time Seen by Provider: 07/27/20 09:42 Mode of Arrival: Ambulatory Source of Information: Patient Limitations: No Limitations Description of Symptoms (Recalled from Triage Doc. by RN): covid test for procedure. HEENT Symptoms (Recalled from RN notes): No Resp Symptoms (Recalled from RN notes): No Skin Symptoms (Recalled from RN notes): No MS Symptoms (Recalled from RN notes): No Functional Status (Recalled from RN notes): na - History of Present Illness Provider Complaint: Patient states that she is having procedure done on Saturday at [facility] and they wanted her to have a COVID test before they can do the procedure so she came in to get it Denies known exposure or any symptoms - Related Data Home Medications Medication Instructions Recorded Confirmed venlafaxine 225 mg tablet,extended 225 mg PO QHS 05/27/18 04/06/19 release 24 hr Previous Rx's Medication Instructions Recorded diclofenac sodium 1 % topical gel 4 g TOPICAL QID PRN #30 g 04/06/19 meloxicam 7.5 mg tablet 7.5 mg PO ONCE #30 tab 04/06/19 methylprednisolone 4 mg tablets in See Rx Instructions PO PER PKG DIR 04/06/19 a dose pack #21 tab Meclizine HCl [Antivert 25mg 25 mg PO TIDP PRN #15 tab 12/16/19 tablet] Promethazine HCl [Phenergan 25mg 25 mg PO Q6HP PRN #10 tab 12/16/19 tab] Allergies Allergy/AdvReac Type Severity Reaction Status Date / Time bumble bee Allergy Uncoded 12/30/18 15:06 - Worker's Comp Is this a Worker's Comp case?: No [facility] History - Hepatitis A Screen Drug use history?: No High risk sexual behaviors?: No History of sexually transmitted infection?: No Currently employed?: No Childcare worker?: No Do you have indoor plumbing?: Yes Do you have electricity?: Yes Attestation statement:: This patient has been screened for Hepatitis A risk factors. I have reviewed the patient's past medical history: Yes Medical History: Report
== END 2020-07-27 09:47 | disposition home or self-care (01) ==
PROVIDERS: Emergency Provider Nurse Practitioner; PCP Internal Medicine Adolescent Medicine
DX: Z20.822 Contact with and (suspected) exposure to COVID-19 (principal)
CPT/HCPCS: 99202; G0463; U0003

== ENCOUNTER → 2021-02-22 08:26 | Outpatient (CLI) | payer BC, SELFPAY | PROVIDERS: PCP Radiology Diagnostic Radiology; Visit Provider Nurse Practitioner | DX: Z20.822 Contact with and (suspected) exposure to COVID-19 (principal) | CPT/HCPCS: C9803; U0003; U0005 ==

== ENCOUNTER → 2021-03-01 12:43 | Outpatient (CLI) | payer BC, SELFPAY ==
--- NOTE | 2021-03-01 12:48 | XR_ITS ---
PROCEDURE: XR KNEE RT 3V CLINICAL INDICATION: RT KNEE PAIN COMPARISON: No exams were available for comparison FINDINGS: No fracture or dislocation. No lytic or blastic change. There are mild osteoarthritic changes involving the medial compartment. May be a small suprapatellar effusion. IMPRESSION: Mild osteoarthritis with possible small suprapatellar effusion Dictated by: Edu Martínez MD 03/01/2021 13:57 Edu Martínez MD in [place] 03/01/2021 13:57
== END ==
PROVIDERS: PCP Internal Medicine Adolescent Medicine; Visit Provider Internal Medicine Adolescent Medicine
DX: M25.561 Pain in right knee (principal)
CPT/HCPCS: 73562

== ENCOUNTER → 2021-04-06 08:56 | Outpatient (CLI) | payer BC, SELFPAY ==
--- NOTE | 2021-04-06 09:00 | XR_ITS ---
FINAL REPORT CLINICAL HISTORY: right knee pain osteoarthritis, pain x several mos COMPARISON: 03/01/2021 FINDINGS: RIGHT KNEE Four views demonstrate no acute fracture or dislocation. There are mild degenerative changes. A large joint effusion is present. No soft tissue abnormality is seen. IMPRESSION: Large joint effusion. Reviewed, Interpreted and Dictated by Edward Santoyo III, MD Transcribed by Rashida Hernandez Authenticated by Edward Santoyo III, MD on 04/06/2021 10:05:42 AM [facility]
== END ==
PROVIDERS: PCP Internal Medicine Adolescent Medicine; Visit Provider Orthopaedic Surgery
DX: M25.561 Pain in right knee (principal)
CPT/HCPCS: 73564

== ENCOUNTER 2021-06-30 10:30 | Outpatient (RCR) | payer BC, SELFPAY | END 2021-06-30 10:35 | disposition home or self-care (01) | LOC: PT 10:30 | PROVIDERS: PCP Internal Medicine Adolescent Medicine; Visit Provider Orthopaedic Surgery | DX: M25.561 Pain in right knee (principal); M23.91 Unspecified internal derangement of right knee | CPT/HCPCS: 97033; 97035; 97110; 97163; 97164 ==

== ENCOUNTER 2021-07-25 12:12 | Emergency (ER) | payer BC, SELFPAY ==
[2021-07-25 13:45] VITALS: BP 160/89; PULSE 91; RESP 18; TEMP 36.7; O2SAT 95; BMI 47.0
--- NOTE | 2021-07-25 14:03 | HMH.EDUTC ---
[facility] [place] Disposition Clinical Impression: Thrush Disposition: Home, Self-Care Condition on Discharge: Good Instructions: DI for Thrush, Nystatin, Thrush-Adult Additional Instructions: Drink plenty of fluids. Take tylenol for discomfort Take the medications as directed. Follow up with your regular doctor. GO TO THE ER FOR ANY WORSENING SYMPTOMS Swish the nystatin around in your mouth then spit it out. If your throat was involved, you could swallow it, but that does not seem like the case at this time. Prescriptions: Fluconazole [Diflucan 150mg tab] 150 mg PO ONCE #1 tab Transmission Status: Received by [facility] Nystatin [Nystatin Susp 500,000 Units/5mL Udc] 5 ml PO QID 7 Days #140 ml Transmission Status: Received by [facility] Referrals: Thaddeus Morales MD [Primary Care Provider] - Time of Disposition: 14:13 Medical Decision Making - Medical Records Medical records reviewed: No: I reviewed the patient's medical records. - Diogenes Inquiry Pt receiving controlled substance: No Vital Signs: 07/25/21 13:45 07/25/21 14:21 Temperature 98.1 F 98.1 F Temperature Source Oral Pulse Rate 97 H Pulse Rate [Left] 91 H Respiratory Rate 18 18 Blood Pressure 160/89 H Blood Pressure [Right Arm] 160/89 H Blood Pressure Mean [Right Arm] 112 02 Sat by Pulse Oximetry 95 [facility] [place] HPI - General Stated complaint: possible oral thrush Time Seen by Provider: 07/25/21 14:00 Mode of Arrival: Ambulatory Source of Information: Patient Limitations: No Limitations Description of Symptoms (Recalled from Triage Doc. by RN): started 1 month ago. raw feeling in throat, top of mouth, inside of lips HEENT Symptoms (Recalled from RN notes): Yes Resp Symptoms (Recalled from RN notes): No Skin Symptoms (Recalled from RN notes): No MS Symptoms (Recalled from RN notes): No Functional Status (Recalled from RN notes): wnl - History of Present Illness Provider Complaint: She states that she has a white coating on her tongue and inside her cheeks. - Related Data Home Medications Medication Instructions Recorded Confirmed venlafaxine 225 mg tablet,extended 225 mg PO QHS 03/05/19 01/13/22 release 24 hr Previous Rx's Medication Instructions Recorded diclofenac sodium 1 % topical gel 4 g TOPICAL QID PRN #30 g 04/06/19 meloxicam 7.5 mg tablet 7.5 mg PO ONCE #30 tab 04/06/19 methylprednisolone 4 mg tablets in See Rx Instructions PO PER PKG DIR 04/06/19 a dose pack #21 tab Meclizine HCl [Antivert 25mg 25 mg PO TIDP PRN #15 tab 12/16/19 tablet] Promethazine HCl [Phenergan 25mg 25 mg PO Q6HP PRN #10 tab 12/16/19 tab] Fluconazole [Diflucan 150mg tab] 150 mg PO ONCE #1 tab 07/25/21 Nystatin [Nystatin Susp 500,000 5 ml PO QID 7 Days #140 ml 07/25/21 Units/5mL Udc] Allergies Allergy/AdvReac Type Severity Reaction Status Date / Time bumble bee Allergy Uncoded 04/06/21 10:17 - Worker's Comp Is this a Worker's Comp case?: No [facility] History - Hepatitis A Screen Attestation statement:: This patient has been screened for Hepatitis A risk factors. I have reviewed the patient's past medical history: Yes Medical History: Reports:: Depression Denies:: Cancer, Diabetes Mellitus Type 1, Diabetes Mellitus Type 2, MRSA, Seizures Other Medical History: Reports: Arthritis Comment: facet arthropathy Laterality Cases: Bilateral: ACL Repair Other Surgeries: Yes: Cholecystectomy Amputation: No Fractures: No - Social History Smoking Status: Never smoker Tobacco Type: cigarettes # Packs/Day (cigarettes): 1 Alcohol Intake: never Substance Use Type: denies use Occupational Status: employed Housing: house Household Members: spouse - Psychiatric History Pschychiatric History:: Reports:: Depression Family Hx:: Coronary Artery Disease ROS Obtained: Yes All systems reviewed & no additional complaints - Constitutional Constitutional: Denies chills, Denies
[2021-07-25 14:21] VITALS: BP 160/89; PULSE 97; RESP 18; TEMP 36.7
== END 2021-07-25 14:22 | disposition home or self-care (01) ==
PROVIDERS: Emergency Provider Nurse Practitioner Family; PCP Internal Medicine Adolescent Medicine
DX: B37.9 Candidiasis, unspecified (principal); M19.90 Unspecified osteoarthritis, unspecified site; F32.A Depression, unspecified; Z79.51 Long term (current) use of inhaled steroids; Z79.52 Long term (current) use of systemic steroids; Z79.899 Other long term (current) drug therapy; Z91.030 Bee allergy status; Z82.49 Family history of ischemic heart disease and other diseases of the circulatory system
CPT/HCPCS: 99213; G0463

== ENCOUNTER 2021-09-03 10:35 | Emergency (ER) | payer BC, SELFPAY ==
[2021-09-03 10:40] VITALS: BP 140/87; PULSE 101; RESP 20; TEMP 36.8; O2SAT 95; BMI 47.0
--- NOTE | 2021-09-03 11:01 | HMH.EDUTC ---
[facility] [place] Disposition Clinical Impression: Sinusitis Qualifiers: Sinusitis location: unspecified location Chronicity: unspecified Qualified Code(s): J32.9 - Chronic sinusitis, unspecified Disposition: Home, Self-Care Condition on Discharge: Good Instructions: Sinusitis, DI for Sinusitis, Sore Throat Additional Instructions: *Monitor Temp, Over the counter Motrin or Tylenol as directed/as needed Tylenol every 4 hours and Motrin every 6 hours (as long as your family doctor has told you that you can take it) for fever or pain. and straight to ER if unable to lower temp less than 101.0 after medication given *Warm salt water gargles may help to soothe the throat *Throat Lozenges *Warm fluids like tea with honey may help to soothe the throat *Sleep elevated *Humidifier/Vaporizer *Flonase 2 sprays in each nostril daily but be aware that it may take 2-3 days before you notice improvement *Bromfed may cause drowsiness. Know how it effects you (your child) before driving, caring for small child, or sending your child to school. Not other antihistamines/allergy medications while taking bromfed Your throat swab was sent for culture. Those results are typically sent to your primary care. Be sure to follow up in 2-3 days with your family doctor/primary care physician if no improvement so they can review those result and treat if necessary. If you don?t have a primary care doctor, I recommend you get one but in the mean time, you will have to return to a walk in clinic Follow up IMMEDIATELY for new or worsening symptoms or no Noticeable improvement over the next 48-72 hours. 911 for difficulty breathing or swallowing You were tested for today for COVID19 your test result should be back in the next 24-48 hours, your test results will be available for viewing on the [facility] My Health Portal Make sure to take your Vitamins Vit. C Vit D and Zinc if you can take them Prescriptions: Amoxicillin/Potassium Clav [Amox-Clav 875-125 mg Tablet] 1 tab PO BID #14 tab Transmission Status: [facility] methylPREDNISolone [Medrol 4mg tab] 4 mg PO DIRECTED #21 tab Transmission Status: Pending to [facility] Referrals: Thaddeus Morales MD [Primary Care Provider] - As needed Forms: Work/School Release Time of Disposition: 11:23 Medical Decision Making - Diogenes Inquiry Pt receiving controlled substance: No Diogenes was queried for this patient: No Vital Signs: 09/03/21 10:40 Temperature 98.2 F Temperature Source Oral Pulse Rate [Right Brachial] 101 H Respiratory Rate 20 Blood Pressure [Right Arm] 140/87 Blood Pressure Mean [Right Arm] 104 Blood Pressure Source [Right Arm] Automatic Cuff Blood Pressure Position [Right Arm] Sitting 02 Sat by Pulse Oximetry 95 Oxygen Delivery Method Room Air - Lab Data Lab results reviewed: Yes: I reviewed the patient's lab results. Lab Results 09/03/21 10:45: Group A Strep Rapid Negative Orders (Tests/Meds): ORDERS Category Date Time Status Strep Screen Confirmation Stat Micro 09/03/21 10:45 Received [facility] [place] HPI - General Stated complaint: Sore throat,congestion Time Seen by Provider: 09/03/21 11:01 Mode of Arrival: Ambulatory Source of Information: Patient Limitations: No Limitations Description of Symptoms (Recalled from Triage Doc. by RN): PATIENT C/O SORE THROAT, SINUS CONGESTION/DRAINAGE, AND COUGH SINCE SATURDAY HEENT Symptoms (Recalled from RN notes): Yes Resp Symptoms (Recalled from RN notes): Yes Skin Symptoms (Recalled from RN notes): No MS Symptoms (Recalled from RN notes): No Functional Status (Recalled from RN notes): WNL - History of Present Illness Provider Complaint: Patient states that she started feeling bad on Sat State that she was having sore throat, sinus congestion and pressure and cough State that feels like she is swallowing glass States feels like it does when she has strep throat - Related Data Home Medications Medication Instruc
[2021-09-03 11:16] LABS: Strep Scrn Group A (Rapid) Negative (Negative)
[2021-09-03 11:21] VITALS: BP 140/87; PULSE 101; RESP 20; TEMP 36.8; O2SAT 95
== END 2021-09-03 11:31 | disposition home or self-care (01) ==
PROVIDERS: Emergency Provider Nurse Practitioner; PCP Internal Medicine Adolescent Medicine
DX: J32.9 Chronic sinusitis, unspecified (principal)
CPT/HCPCS: 87430; 99212; C9803; G0463; U0003; U0005

== ENCOUNTER → 2022-05-04 11:08 | Outpatient (CLI) | payer BC, SELFPAY ==
--- NOTE | 2022-05-04 11:36 | XR_ITS ---
FINAL REPORT CLINICAL HISTORY: COUGH pre op COMPARISON: 12/16/2019 FINDINGS: Two views of the chest show lungs to be clear. Pulmonary vascularity is normal. Heart and mediastinum are unremarkable. No pleural effusion is present. IMPRESSION: No active disease. Reviewed, Interpreted and Dictated by Israel Devlin MD Transcribed by Rashida Hernandez Authenticated and [facility]
--- NOTE | 2022-05-04 11:52 | ECG_ITS ---
APPROVED REPORT Exam: Resting ECG HR:96 bpm ECG Measurements Heart Rate 96 AXES ID 138 P 62 QRSd 75 QRS 88 QT 336 T 33 QTc 390 Conclusion SINUS RHYTHM NONSPECIFIC T-WAVE ABNORMALITY BORDERLINE ECG UNCONFIRMED REPORT Electronically signed by : Thaddeus Morales MD 05/05/2022 12:08:56
[2022-05-04 12:03] LABS: Basophils # 0.1 K/mm3 (0-0.2); Eosinophils # 0.2 K/mm3 (0.0-0.4); Eosinophils % 1.2 % (0.1-12.0); Hematocrit 47.1 % (37.0-47.0); Hemoglobin 15.3 g/dL (12.2-16.2); Lymphocytes # 2.8 K/mm3 (0.7-4.5); Lymphocytes % 21.4 % (10-50); Mean Corpuscular HGB Conc 32.5 g/dL (31.8-35.4); Mean Corpuscular Hemoglobin 29.5 pg (27.0-31.2); Mean Corpuscular Volume 90.7 fl (81-99); Mean Platelet Volume 7.2 fl (7.4-10.4); Monocytes # 0.9 K/mm3 (0.1-1.0); Monocytes % 6.8 % (1.7-9.3); Neutrophils # 9.2 K/mm3 (1.8-7.8); Neutrophils % 69.6 % (37.0-80.0); Platelet Count 336 K/mm3 (142-424); Red Blood Count 5.19 M/mm3 (4.20-5.40); Red Cell Distribution Width 15.1 % (11.5-17.5); White Blood Count 13.2 K/mm3 (4.8-10.8)
[2022-05-04 12:39] LABS: Hemoglobin A1C 6.1 % (4.0-6.0)
[2022-05-04 13:07] LABS: Alanine Aminotransferase 41 U/L (12-78); Albumin Level 4.1 g/dl (3.5-5.0); Albumin/Globulin Ratio 1.5 (1.1-1.8); Alkaline Phosphatase 87 U/L (38-126); Anion Gap 10.6 mEq/L (5-15); Aspartate Amino Transferase 37 U/L (14-36); Bilirubin,Total 0.3 mg/dl (0.2-1.3); Blood Urea Nitrogen 15 mg/dl (7-17); Calcium 8.6 mg/dl (8.4-10.2); Carbon Dioxide 28 mmol/L (22.0-30.0); Chloride 108 mmol/L (98-107); Chol/HDL Ratio 3.4 (1-3.5); Cholesterol 202 mg/dl (140-200); Estimated Glomerular Filt Rate 74 ml/min (>60); GFR (African American) 89 ML/MIN (>60); Globulin 2.7 g/dL (1.3-3.2); Glucose 97 mg/dl (74-100); HDL Cholesterol 59 mg/dl (40-60); Potassium 4.6 mmoL/L (3.5-5.1); Sodium 142 mmol/L (136-145); Total Protein,Serum 6.8 g/dl (6.3-8.2); Triglycerides 78 mg/dl (30-150); VLDL Cholesterol 16 mg/dL (0-40)
[2022-05-04 13:18] LABS: Direct LDL Cholesterol 126.65 mg/dL (100-129); Total Iron Binding Capacity 391 ug/dL (265-497)
[2022-05-04 13:19] LABS: Intact Parathyroid Hormone 148.3 pg/mL (7.5-53.5)
[2022-05-04 13:37] LABS: Thyroid Stimulating Hormone 3.55 uIU/mL (0.465-4.68)
[2022-05-04 17:41] LABS: Iron 61 ug/dL (37-170)
[2022-05-04 18:18] LABS: Ferritin 44.1 ng/ml (11.1-264)
[2022-05-07 02:14] LABS: Vitamin B1 132.2 nmol/L (66.5-200.0)
[2022-05-12 07:58] LABS: Vitamin E Gamma Tocopherol 2.2 mg/L (0.5-5.5)
[2022-05-12 08:38] LABS: Vitamin A 30.1 ug/dL (20.1-62.0)
[2022-05-16 14:38] LABS: Methylmalonic Acid 358 nmol/L (0-378)
== END ==
LOC: LAB 11:11
PROVIDERS: PCP Internal Medicine Adolescent Medicine; Visit Provider Nurse Practitioner Family
DX: Z01.818 Encounter for other preprocedural examination (principal); E55.9 Vitamin D deficiency, unspecified; E66.9 Obesity, unspecified; Z68.42 Body mass index [BMI] 45.0-49.9, adult; Z79.899 Other long term (current) drug therapy
CPT/HCPCS: 36415; 71046; 80053; 80061; 82131; 82306; 82728; 82746; 83036; 83540; 83550; 83970; 84425; 84443; 84446; 84590; 85025; 93005

== ENCOUNTER → 2022-08-15 08:46 | Outpatient (CLI) | payer BC, SELFPAY ==
[2022-08-15 10:03] LABS: Alanine Aminotransferase 59 U/L (12-78); Albumin Level 4.1 g/dl (3.5-5.0); Albumin/Globulin Ratio 1.6 (1.1-1.8); Alkaline Phosphatase 88 U/L (38-126); Anion Gap 20.4 mEq/L (5-15); Aspartate Amino Transferase 52 U/L (14-36); Bilirubin,Total 0.5 mg/dl (0.2-1.3); Blood Urea Nitrogen 16 mg/dl (7-17); Calcium 9.2 mg/dl (8.4-10.2); Carbon Dioxide 24 mmol/L (22.0-30.0); Chloride 98 mmol/L (98-107); Estimated Glomerular Filt Rate 86 ml/min (>60); GFR (African American) 104 ML/MIN (>60); Globulin 2.6 g/dL (1.3-3.2); Glucose 92 mg/dl (74-100); Potassium 4.4 mmoL/L (3.5-5.1); Sodium 138 mmol/L (136-145); Total Protein,Serum 6.7 g/dl (6.3-8.2)
[2022-08-15 10:14] LABS: Intact Parathyroid Hormone 104.1 pg/mL (7.5-53.5)
[2022-08-15 10:21] LABS: 25-OH Vitamin D, Total 27.4 ng/mL (30-100)
[2022-08-15 11:35] LABS: Vitamin B12 > 1000 pg/mL (239-931)
== END ==
PROVIDERS: PCP Internal Medicine Adolescent Medicine; Visit Provider Internal Medicine Adolescent Medicine
DX: E53.8 Deficiency of other specified B group vitamins (principal); E55.9 Vitamin D deficiency, unspecified; Z79.899 Other long term (current) drug therapy
CPT/HCPCS: 36415; 80053; 82306; 82607; 83970

== ENCOUNTER → 2022-09-14 09:42 | Outpatient (CLI) | payer BC, SELFPAY ==
[2022-09-14 10:33] LABS: Basophils # 0.1 K/mm3 (0-0.2); Basophils % 0.7 % (0.1-2.0); Eosinophils # 0.2 K/mm3 (0.0-0.4); Eosinophils % 1.9 % (0.1-12.0); Hematocrit 47.7 % (37.0-47.0); Hemoglobin 15.4 g/dL (12.2-16.2); Lymphocytes % 19.9 % (10-50); Mean Corpuscular HGB Conc 32.2 g/dL (31.8-35.4); Mean Corpuscular Hemoglobin 28.9 pg (27.0-31.2); Mean Corpuscular Volume 89.8 fl (81-99); Mean Platelet Volume 8.4 fl (7.4-10.4); Monocytes # 0.7 K/mm3 (0.1-1.0); Neutrophils % 70.5 % (37.0-80.0); Platelet Count 317 K/mm3 (142-424); Red Blood Count 5.32 M/mm3 (4.20-5.40); Red Cell Distribution Width 14.5 % (11.5-17.5); White Blood Count 9.9 K/mm3 (4.8-10.8)
[2022-09-14 10:59] LABS: Alanine Aminotransferase 34 U/L (12-78); Albumin Level 3.9 g/dl (3.5-5.0); Albumin/Globulin Ratio 1.4 (1.1-1.8); Alkaline Phosphatase 75 U/L (38-126); Anion Gap 14.9 mEq/L (5-15); Aspartate Amino Transferase 40 U/L (14-36); Bilirubin,Total 0.4 mg/dl (0.2-1.3); Blood Urea Nitrogen 14 mg/dl (7-17); Carbon Dioxide 27 mmol/L (22.0-30.0); Chloride 104 mmol/L (98-107); Chol/HDL Ratio 3.4 (1-3.5); Cholesterol 169 mg/dl (140-200); Estimated Glomerular Filt Rate 103 ml/min (>60); GFR (African American) 125 ML/MIN (>60); Globulin 2.7 g/dL (1.3-3.2); Glucose 106 mg/dl (74-100); HDL Cholesterol 49 mg/dl (40-60); Potassium 3.9 mmoL/L (3.5-5.1); Sodium 142 mmol/L (136-145); Total Protein,Serum 6.6 g/dl (6.3-8.2); Triglycerides 74 mg/dl (30-150); VLDL Cholesterol 15 mg/dL (0-40)
[2022-09-14 11:14] LABS: Direct LDL Cholesterol 97.23 mg/dL (100-129)
[2022-09-14 11:15] LABS: Iron 71 ug/dL (37-170)
[2022-09-14 11:19] LABS: Free T4 (Free Thyroxine) 1.26 ng/dl (0.78-2.19)
[2022-09-14 11:20] LABS: 25-OH Vitamin D, Total 41.4 ng/mL (30-100)
[2022-09-14 11:32] LABS: Thyroid Stimulating Hormone 1.46 uIU/mL (0.465-4.68)
[2022-09-14 12:04] LABS: Ferritin 68.2 ng/ml (11.1-264)
[2022-09-14 12:17] LABS: Hemoglobin A1C 5.6 % (4.0-6.0)
[2022-09-14 12:25] LABS: Total Iron Binding Capacity 306 ug/dL (265-497)
[2022-09-15 19:35] LABS: Prealbumin 15 mg/dL (10-36)
[2022-09-18 15:27] LABS: Vitamin B1 140.4 nmol/L (66.5-200.0)
[2022-09-20 22:51] LABS: Vitamin A 23.8 ug/dL (20.1-62.0)
[2022-10-10 23:58] LABS: Methylmalonic Acid 140 nmol/L (0-378)
== END ==
PROVIDERS: PCP Internal Medicine Adolescent Medicine; Visit Provider Nurse Practitioner Family
DX: Z90.3 Acquired absence of stomach [part of] (principal)
CPT/HCPCS: 36415; 80053; 80061; 82306; 82728; 82746; 83036; 83540; 83550; 83921; 84134; 84425; 84439; 84443; 84590; 85025

== ENCOUNTER → 2022-11-30 08:14 | Outpatient (CLI) | payer BC, SELFPAY ==
--- NOTE | 2022-11-30 08:17 | FL_ITS ---
FINAL REPORT CLINICAL HISTORY: VOMITING gastric sleave surgery 3 months ago. fluoro time: 1.15 DAP 2704.12 FINDINGS: UPPER GI SERIES, SINGLE CONTRAST HISTORY: Status post gastric sleeve 5 months prior, vomiting. TECHNIQUE: The patient ingested thick and thin barium contrast. Spot and overhead films were performed. A total of 50 images were saved. FINDINGS: There is a small sliding type hiatal hernia identified. Motility is normal. There are postoperative changes of gastric sleeve. There is no leak or obstruction. No gastric filling defects are seen. The duodenal bulb and sweep appear unremarkable. There is gastroesophageal reflux to the thoracic inlet. 13 mm barium tablet passes easily through the esophagus and into the stomach. FLUOROSCOPY TIME: 1 minute 15 seconds Fluoro dose: 2704.12 DAP in uGym2 IMPRESSION: Small sliding-type hiatal hernia with gastroesophageal reflux. Postoperative changes of gastric sleeve without evidence of leak or obstruction. Reviewed, Interpreted and Dictated by Edward Santoyo III, MD Transcribed by Radha Kilgore PA-C Authenticated and [facility]
--- NOTE | 2022-11-30 09:11 | XR_ITS ---
FINAL REPORT CLINICAL HISTORY: VOMITING FINDINGS: ABDOMEN SINGLE VIEW There is a nonspecific, nonobstructive bowel gas pattern. No abnormal dilatation is identified. There is a moderate amount of retained stool throughout the colon. There is no abnormal calcification. IMPRESSION: Moderate stool burden. Reviewed, Interpreted and Dictated by Edward Santoyo III, MD Transcribed by Rashida Hernandez Authenticated and [facility]
== END ==
LOC: RAD 08:14
PROVIDERS: PCP Internal Medicine Adolescent Medicine; Visit Provider Nurse Practitioner Family
DX: R11.10 Vomiting, unspecified (principal); Z98.890 Other specified postprocedural states
CPT/HCPCS: 74018; 74240

== ENCOUNTER → 2023-02-22 10:31 | Outpatient (CLI) | payer BC, SELFPAY ==
[2023-02-27 06:13] LABS: Vitamin B1 97.9 nmol/L (66.5-200.0)
== END ==
PROVIDERS: PCP Internal Medicine Adolescent Medicine; Visit Provider Nurse Practitioner Family
DX: R63.8 Other symptoms and signs concerning food and fluid intake (principal)
CPT/HCPCS: 36415; 84425

== ENCOUNTER 2023-04-04 07:58 | Outpatient (CLI) | payer BC, SELFPAY ==
[2023-04-04 08:23] LABS: Basophils # 0.1 K/mm3 (0-0.2); Basophils % 0.8 % (0.1-2.0); Eosinophils # 0.1 K/mm3 (0.0-0.4); Eosinophils % 1.2 % (0.1-12.0); Hematocrit 48.6 % (37.0-47.0); Hemoglobin 15.9 g/dL (12.2-16.2); Lymphocytes # 1.9 K/mm3 (0.7-4.5); Lymphocytes % 19.8 % (10-50); Mean Corpuscular HGB Conc 32.8 g/dL (31.8-35.4); Mean Corpuscular Hemoglobin 30.6 pg (27.0-31.2); Mean Corpuscular Volume 93.4 fl (81-99); Monocytes # 0.5 K/mm3 (0.1-1.0); Monocytes % 4.8 % (1.7-9.3); Neutrophils # 7.2 K/mm3 (1.8-7.8); Neutrophils % 73.3 % (37.0-80.0); Platelet Count 358 K/mm3 (142-424); Red Blood Count 5.21 M/mm3 (4.20-5.40); Red Cell Distribution Width 14.1 % (11.5-17.5); White Blood Count 9.8 K/mm3 (4.8-10.8)
--- NOTE | 2023-04-04 08:49 | XR_ITS ---
FINAL REPORT CLINICAL HISTORY: acute pain, LT HIP PAIN COMPARISON: None FINDINGS: AP and frog leg views of the left hip were obtained. There is no prior exam for comparison. There is no acute fracture or dislocation. Mild degenerative changes present in the hips bilaterally and in the lower lumbar spine. Soft tissues are within normal limits. IMPRESSION: No acute osseous abnormality of the left hip. Mild degenerative change as described. Reviewed, Interpreted and Dictated by Edward Santoyo III, MD Transcribed by Triny Kingsley Authenticated and [facility]
--- NOTE | 2023-04-04 08:49 | XR_ITS ---
FINAL REPORT CLINICAL HISTORY: acute pain LT HIP PAIN,LOW BACK PAIN COMPARISON: 10/12/2015 FINDINGS: 5 views of the lumbar spine were obtained. There is no evidence of fracture or dislocation. The vertebral alignment is normal. Moderate degenerative changes present with multilevel osteophytes and facet osteoarthropathy. No paraspinous soft tissue abnormalities identified. Postoperative changes present in the right upper quadrant. IMPRESSION: No acute bony abnormality. Moderate degenerative change as described. Reviewed, Interpreted and Dictated by Edward Santoyo III, MD Transcribed by Triny Kingsley Authenticated and [facility]
--- NOTE | 2023-04-04 08:49 | XR_ITS ---
FINAL REPORT CLINICAL HISTORY: acute pain, LT SHOULDER PAIN,LT HIP PAIN COMPARISON: None FINDINGS: LEFT SHOULDER Three views demonstrate no acute fracture or dislocation. Mild acromioclavicular degenerative changes present. The visualized bony structures are well aligned. No soft tissue abnormality is seen. IMPRESSION: No acute process. Reviewed, Interpreted and Dictated by Edward Santoyo III, MD Transcribed by Triny Kingsley Authenticated and [facility]
[2023-04-04 08:56] LABS: Chloride 107 mmol/L (98-107)
[2023-04-04 08:57] LABS: Erythrocyte Sedimentation Rate 13 mm/hr (0-30); Potassium 4.2 mmoL/L (3.5-5.1); Sodium 141 mmol/L (136-145)
[2023-04-04 08:59] LABS: Alanine Aminotransferase 24 U/L (12-78); Albumin Level 3.9 g/dl (3.5-5.0); Albumin/Globulin Ratio 1.4 (1.1-1.8); Alkaline Phosphatase 69 U/L (38-126); Anion Gap 10.2 mEq/L (5-15); Aspartate Amino Transferase 31 U/L (14-36); Bilirubin,Total 0.6 mg/dl (0.2-1.3); Blood Urea Nitrogen 13 mg/dl (7-17); Calcium 9.1 mg/dl (8.4-10.2); Carbon Dioxide 28 mmol/L (22.0-30.0); Creatine Kinase 48 U/L (30-135); Estimated Glomerular Filt Rate 86 ml/min (>60); GFR (African American) 104 ML/MIN (>60); Globulin 2.7 g/dL (1.3-3.2); Glucose 104 mg/dl (74-100); Total Protein,Serum 6.6 g/dl (6.3-8.2)
[2023-04-04 09:05] LABS: C-Reactive Protein 16.8 mg/L (0-4)
[2023-04-04 09:30] LABS: Thyroid Stimulating Hormone 1.96 uIU/mL (0.465-4.68)
[2023-04-05 16:57] LABS: Aldolase 3.8 U/L (3.3-10.3)
== END 2023-04-04 23:59 ==
LOC: LAB 07:59
PROVIDERS: PCP Internal Medicine Adolescent Medicine; Visit Provider Internal Medicine Adolescent Medicine
DX: M25.512 Pain in left shoulder (principal); M25.552 Pain in left hip; G72.9 Myopathy, unspecified
CPT/HCPCS: 36415; 72110; 73030; 73502; 80053; 82085; 82550; 84443; 85025; 85651; 86140

== ENCOUNTER 2023-04-25 13:20 | Emergency (ER) | payer BC, SELFPAY ==
[2023-04-25 14:00] VITALS: BP 153/91; PULSE 67; RESP 18; TEMP 36.9; O2SAT 96; BMI 33.6
--- NOTE | 2023-04-25 14:14 | EXP.UTC ---
Discharge Plan Disposition Patient Disposition: Home, Self-Care Condition: Good Prescriptions Prescriptions: New amoxicillin [amoxicillin] 875 mg tablet 875 mg PO Q12H Qty: 20 0RF benzonatate [benzonatate] 100 mg capsule 100 mg PO TIDP PRN (Reason: Cough) Qty: 30 0RF methylprednisolone 4 mg Tablets,Dose Pack 4 mg PO DIRECTED 6 Days Qty: 21 0RF Rx Instructions: Take 1 pack as directed for 6 days Referrals Follow up/Referrals: Thaddeus Morales MD [Primary Care Provider] - See instructions Activity Restrictions/Add. Instructions Additional Instructions/Restrictions: Drink plenty of fluids. Take tylenol or ibuprofen for pain or fever. Take the medications as directed. Follow up with your regular doctor. GO TO THE ER FOR ANY WORSENING SYMPTOMS Clinical Impressions Clinical Impression: Pharyngitis Stand Alone Forms Stand Alone Forms: Work/School Release Instructions Patient Instructions: Sore Throat, DI for Pharyngitis/Tonsillopharyngitis -- Adult Discharge ED Provider: Hussein Givens [facility] General Stated complaint: sore throat body aches Time Seen by Provider: 04/25/23 14:14 History of Present Illness Provider Complaint: She states that since yesterday she has had sore throat, malaise, and chills. She has been exposed to both influenza and strep throat. Related Data Previous Rx's Medication Instructions Recorded amoxicillin 875 mg tablet 875 mg PO Q12H #20 tabs 04/25/23 benzonatate 100 mg capsule 100 mg PO TIDP PRN Cough #30 caps 04/25/23 methylprednisolone 4 mg tablets in 4 mg PO DIRECTED 6 days #21 tabs 04/25/23 a dose pack Allergies Allergy/AdvReac Type Severity Reaction Status Date / Time bee venom protein (honey bee) Allergy Verified 04/25/23 14:31 [facility] Disclaimer: The information contained in this section may have been updated after the patient was seen, as this information can be updated by other users. Social History Smoking Status: Never smoker second hand exposure: Yes alcohol intake: never substance use type: denies use current occupational status: other Travel in the last 8 weeks: None household members: spouse housing: house current occupational exposures/hazards: No ROS Obtained: Yes All systems reviewed & no additional complaints except as documented Constitutional Constitutional: Reports chills and Reports fever(s) Eyes Eyes: Denies eye discharge ENT Ears, Nose, Mouth, and Throat: Reports as per HPI Cardiovascular Cardiovascular: Denies chest pain Respiratory Respiratory: Denies chest congestion and Reports cough Gastrointestinal Gastrointestingal: Reports nausea; Denies abdominal pain, constipation, cramping, diarrhea or vomiting Musculoskeletal Musculoskeletal: Denies arthralgias Integumentary/Breasts Skin/Breast: Denies rash Neurologic Neurologic: Denies paresthesias Physical Exam General General appearance: alert and in no apparent distress Head Head exam: atraumatic, normocephalic and normal inspection Eye Eye exam: Present normal appearance, PERRL and EOMI ENT ENT exam: Present mucous membranes moist and normal external ear exam Expanded ENT Exam TM/Canal exam: Bilateral TM: erythema and bulging Nose exam: Absent sinus tenderness Mouth exam: Present normal external inspection; Absent drooling Teeth exam: Present normal inspection Throat exam: Present tonsillar erythema, tonsillomegaly and tonsillar exudate Neck Neck exam: Present normal inspection, full ROM and trachea midline; Absent tenderness, meningismus or lymphadenopathy Chest Chest inspection: Present normal inspection and symmetric chest wall rise; Absent tenderness Respiratory Respiratory exam: Present normal lung sounds bilaterally; Absent respiratory distress, wheezes or stridor Cardiovascular Cardiovascular exam: Present regular rate and normal rhythm; Absent systolic murmur or diastolic murmur Abdominal Exam Abdominal exam: Present soft and normal bowel sounds; Absent distention, tenderness, guarding, rebound or rigidity Extremities Exam Extremities exam: Present normal inspection and normal capillary refill; Absent calf tenderness Back Exam Back exam: Present normal inspection and full ROM; Absent tenderness, CVA tenderness (R) or CVA tenderness (L) Neurological Exam Neurological exam: Present alert, oriented X3 and CN II-XII intact Psychiatric Psychiatric exam: Present normal affect and normal mood Skin Skin exam: Present warm, dry, intact and normal color Medical Decision Making Medical Records Medical records reviewed: No I reviewed the patient's medical records. Diogenes Inquiry Pt receiving controlled substance: No Lab Data Lab results reviewed: Yes I reviewed the patient's lab results.
[2023-04-25 14:47] LABS: UTC Strep Screen (Rapid) Negative (Negative)
[2023-04-25 14:48] LABS: UTC Influenza A Antigen Negative (Negative); UTC Influenza B Antigen Negative (Negative)
[2023-04-25 14:54] VITALS: BP 153/91; PULSE 67; RESP 18; TEMP 36.9; O2SAT 96
== END 2023-04-25 14:54 | disposition home or self-care (01) ==
PROVIDERS: Emergency Provider Nurse Practitioner Family; PCP Internal Medicine Adolescent Medicine
DX: J02.9 Acute pharyngitis, unspecified (principal); R50.9 Fever, unspecified; R53.81 Other malaise; M79.18 Myalgia, other site; Z20.818 Contact with and (suspected) exposure to other bacterial communicable diseases; Z20.828 Contact with and (suspected) exposure to other viral communicable diseases
CPT/HCPCS: 87804; 87880; 99212; 99214; G0463

== ENCOUNTER 2023-06-20 17:00 | Outpatient (RCR) | payer BC, SELFPAY | END 2023-06-20 18:00 | disposition home or self-care (01) | LOC: PT 17:00 | PROVIDERS: PCP Internal Medicine Adolescent Medicine; Visit Provider Physician Assistant Surgical | DX: M51.36 Other intervertebral disc degeneration, lumbar region (principal); M70.62 Trochanteric bursitis, left hip | CPT/HCPCS: 97010; 97014; 97110; 97140; 97163; 97530; G0283 ==

== ENCOUNTER 2023-07-25 10:53 | Outpatient (CLI) | payer BC, SELFPAY ==
--- NOTE | 2023-07-25 11:04 | MR_ITS ---
FINAL REPORT TECHNIQUE: Multiplanar MR without contrast CLINICAL HISTORY: CHRONIC LOW BACK PAIN. NKI. FINDINGS: Sagittal images show normal vertebral height. Alignment is normal. There are abnormal marrow signal changes at T11 and L1, greater than typically seen with discogenic change. L1-2: Broad-based right paracentral and lateral disc protrusion results in right lateral canal stenosis. L2-3: Mild annular disc bulge without canal stenosis. L3-4: Moderate annular disc bulge with facet arthropathy. Moderate central canal stenosis and mild bilateral neural foraminal narrowing. L4-5: Moderate annular disc bulge with facet arthropathy. Moderate central canal stenosis and moderate bilateral neural foraminal narrowing. L5-S1: Mild annular disc bulge and facet arthropathy. IMPRESSION: Moderate multilevel degenerative disc disease with findings most pronounced on the right at L1-2 and centrally at L4-5. Abnormal marrow signal changes at T11 and to a lesser extent L1. Recommend MRI of the thoracic spine with and without contrast to further investigate. Reviewed, Interpreted and Dictated by Ralf Felix MD Transcribed by Rashida Hernandez Authenticated and [facility]
== END 2023-07-25 23:59 | disposition home or self-care (01) ==
LOC: RAD 10:54
PROVIDERS: PCP Internal Medicine Adolescent Medicine; Visit Provider Physician Assistant Surgical
DX: M54.50 Low back pain, unspecified (principal)
CPT/HCPCS: 72148; 76376

== ENCOUNTER 2023-08-05 07:07 | Outpatient (CLI) | payer BC, SELFPAY ==
[2023-08-05 07:58] LABS: Basophils # 0.1 K/mm3 (0-0.2); Basophils % 0.7 % (0.1-2.0); Eosinophils # 0.1 K/mm3 (0.0-0.4); Eosinophils % 1.7 % (0.1-12.0); Hematocrit 48.6 % (37.0-47.0); Hemoglobin 15.2 g/dL (12.2-16.2); Lymphocytes # 1.8 K/mm3 (0.7-4.5); Lymphocytes % 23.1 % (10-50); Mean Corpuscular HGB Conc 31.4 g/dL (31.8-35.4); Mean Corpuscular Hemoglobin 29.5 pg (27.0-31.2); Mean Corpuscular Volume 94.1 fl (81-99); Mean Platelet Volume 7.7 fl (7.4-10.4); Monocytes # 0.5 K/mm3 (0.1-1.0); Monocytes % 5.9 % (1.7-9.3); Neutrophils # 5.3 K/mm3 (1.8-7.8); Neutrophils % 68.5 % (37.0-80.0); Platelet Count 307 K/mm3 (142-424); Red Blood Count 5.16 M/mm3 (4.20-5.40); White Blood Count 7.7 K/mm3 (4.8-10.8)
[2023-08-05 09:11] LABS: Free T4 (Free Thyroxine) 1.17 ng/dl (0.78-2.19)
[2023-08-05 09:12] LABS: 25-OH Vitamin D, Total 28.1 ng/mL (30-100)
[2023-08-05 09:54] LABS: Chloride 108 mmol/L (98-107); Potassium 3.6 mmoL/L (3.5-5.1); Sodium 140 mmol/L (136-145)
[2023-08-05 09:56] LABS: Alanine Aminotransferase 20 U/L (12-78); Alkaline Phosphatase 71 U/L (38-126); Aspartate Amino Transferase 31 U/L (14-36); Bilirubin,Total 0.7 mg/dl (0.2-1.3); Blood Urea Nitrogen 14 mg/dl (7-17); Estimated Glomerular Filt Rate 74 ml/min (>60); GFR (African American) 89 ML/MIN (>60)
[2023-08-05 09:57] LABS: Anion Gap 11.6 mEq/L (5-15); Carbon Dioxide 24 mmol/L (22.0-30.0); Iron 103 ug/dL (37-170)
[2023-08-05 10:06] LABS: Total Iron Binding Capacity 278 ug/dL (265-497)
[2023-08-05 10:28] LABS: Thyroid Stimulating Hormone 2.61 uIU/mL (0.465-4.68)
[2023-08-05 10:32] LABS: Ferritin 104 ng/ml (11.1-264)
[2023-08-05 11:56] LABS: Hemoglobin A1C 5.3 % (4.0-6.0)
[2023-08-05 12:20] LABS: Albumin/Globulin Ratio 1.6 (1.1-1.8); Calcium 9.4 mg/dl (8.4-10.2); Globulin 2.5 g/dL (1.3-3.2); Glucose 93 mg/dl (74-100); Total Protein,Serum 6.5 g/dl (6.3-8.2)
[2023-08-05 13:32] LABS: Folate 2.89 ng/mL
[2023-08-06 07:11] LABS: Prealbumin 15 mg/dL (10-36)
[2023-08-10 14:19] LABS: Vitamin E Alpha Tocopherol 10.1 mg/L (7.0-25.1); Vitamin E Gamma Tocopherol 2.1 mg/L (0.5-5.5)
== END 2023-08-05 23:59 | disposition home or self-care (01) ==
PROVIDERS: PCP Internal Medicine Adolescent Medicine; Visit Provider Nurse Practitioner Family
DX: R11.10 Vomiting, unspecified (principal); Z90.3 Acquired absence of stomach [part of]; E55.9 Vitamin D deficiency, unspecified; Z79.899 Other long term (current) drug therapy
CPT/HCPCS: 36415; 80053; 82306; 82728; 82746; 83036; 83540; 83550; 84134; 84439; 84443; 84446; 84590; 85025

== ENCOUNTER 2023-09-18 08:19 | Outpatient (CLI) | payer BC, SELFPAY ==
--- NOTE | 2023-09-18 08:22 | MM_ITS ---
PROCEDURE INFORMATION: Exam: MG Bilateral Screening 3D Mammography Exam date and time: 09/18/2023 8:36 AM Age: 57 years old Clinical indication: Screening examination TECHNIQUE: Imaging protocol: Bilateral Screening tomosynthesis and 2D mammography including computer-aided detection (CAD) when performed. COMPARISON: 1. MG MM DIG SCREENING MAMM BI W/CAD 10/29/2019 9:02 AM 2. MG SCBI MM Dig screening mamm BI w/CAD 05/15/2018 4:12 PM FINDINGS: MAMMOGRAPHY: Breast composition: There are scattered areas of fibroglandular density. Mass: None. Architectural distortion: None. Calcifications: No suspicious calcifications. Asymmetric density: None. Skin thickening: None. Axillary adenopathy: None. IMPRESSION: No mammographic evidence of malignancy. Annual screening is recommended unless otherwise clinically indicated. ASSESSMENT: BI-RADS Category 1: Negative
== END 2023-09-18 23:59 | disposition home or self-care (01) ==
LOC: RAD 08:20
PROVIDERS: PCP Internal Medicine Adolescent Medicine; Visit Provider Internal Medicine Adolescent Medicine
DX: Z12.31 Encounter for screening mammogram for malignant neoplasm of breast (principal)
CPT/HCPCS: 77063; 77067

== ENCOUNTER 2023-11-12 07:16 | Outpatient (CLI) | payer BC, SELFPAY ==
[2023-11-12 07:48] LABS: Basophils # 0.1 K/mm3 (0-0.2); Basophils % 1.4 % (0.1-2.0); Eosinophils # 0.2 K/mm3 (0.0-0.4); Eosinophils % 2.6 % (0.1-12.0); Hematocrit 51.1 % (37.0-47.0); Hemoglobin 15.9 g/dL (12.2-16.2); Lymphocytes # 2.3 K/mm3 (0.7-4.5); Lymphocytes % 27.5 % (10-50); Mean Corpuscular HGB Conc 31.1 g/dL (31.8-35.4); Mean Corpuscular Hemoglobin 30.7 pg (27.0-31.2); Mean Corpuscular Volume 98.8 fl (81-99); Mean Platelet Volume 8.5 fl (7.4-10.4); Monocytes # 0.5 K/mm3 (0.1-1.0); Monocytes % 5.8 % (1.7-9.3); Neutrophils # 5.3 K/mm3 (1.8-7.8); Neutrophils % 62.6 % (37.0-80.0); Platelet Count 356 K/mm3 (142-424); Red Blood Count 5.17 M/mm3 (4.20-5.40); Red Cell Distribution Width 14.4 % (11.5-17.5); White Blood Count 8.5 K/mm3 (4.8-10.8)
[2023-11-12 08:32] LABS: Albumin Level 3.9 g/dl (3.5-5.0); Chloride 107 mmol/L (98-107); Potassium 4.6 mmoL/L (3.5-5.1); Sodium 139 mmol/L (136-145)
[2023-11-12 08:35] LABS: Alanine Aminotransferase 20 U/L (12-78); Albumin/Globulin Ratio 1.6 (1.1-1.8); Alkaline Phosphatase 59 U/L (38-126); Anion Gap 6.6 mEq/L (5-15); Aspartate Amino Transferase 27 U/L (14-36); Bilirubin,Total 0.8 mg/dl (0.2-1.3); Blood Urea Nitrogen 15 mg/dl (7-17); Carbon Dioxide 30 mmol/L (22.0-30.0); Cholesterol 215 mg/dl (140-200); Estimated Glomerular Filt Rate 74 ml/min (>60); GFR (African American) 89 ML/MIN (>60); Globulin 2.5 g/dL (1.3-3.2); Iron 88 ug/dL (37-170); Total Protein,Serum 6.4 g/dl (6.3-8.2); Triglycerides 55 mg/dl (30-150); VLDL Cholesterol 11 mg/dL (0-40)
[2023-11-12 08:36] LABS: Calcium 9.1 mg/dl (8.4-10.2); Chol/HDL Ratio 2.9 (1-3.5); Glucose 81 mg/dl (74-100); HDL Cholesterol 74 mg/dl (40-60)
[2023-11-12 08:46] LABS: Total Iron Binding Capacity 306 ug/dL (265-497)
[2023-11-12 08:47] LABS: Direct LDL Cholesterol 116.16 mg/dL (100-129)
[2023-11-12 08:52] LABS: Free T4 (Free Thyroxine) 1.25 ng/dl (0.78-2.19)
[2023-11-12 09:06] LABS: Thyroid Stimulating Hormone 3.34 uIU/mL (0.465-4.68)
[2023-11-12 09:10] LABS: Ferritin 75.8 ng/ml (11.1-264)
[2023-11-12 09:44] LABS: 25-OH Vitamin D, Total 30.3 ng/mL (30-100)
[2023-11-12 09:58] LABS: Hemoglobin A1C 5.1 % (4.0-6.0)
[2023-11-12 13:36] LABS: Folate 4.49 ng/mL
[2023-11-14 08:27] LABS: Prealbumin 19 mg/dL (10-36)
[2023-11-15 11:15] LABS: Vitamin B1 119.6 nmol/L (66.5-200.0)
[2023-11-18 15:11] LABS: Vitamin A 40.9 ug/dL (20.1-62.0); Vitamin E Alpha Tocopherol 11.9 mg/L (7.0-25.1); Vitamin E Gamma Tocopherol 2.6 mg/L (0.5-5.5)
[2023-11-20 16:13] LABS: Methylmalonic Acid 161 nmol/L (0-378)
== END 2023-11-12 23:59 | disposition home or self-care (01) ==
LOC: LAB 07:17
PROVIDERS: PCP Internal Medicine Adolescent Medicine; Visit Provider Nurse Practitioner Family
DX: E55.9 Vitamin D deficiency, unspecified (principal)
CPT/HCPCS: 36415; 80050; 80053; 80061; 82306; 82728; 82746; 83036; 83540; 83550; 83921; 84134; 84425; 84439; 84443; 84446; 84590; 85025

== ENCOUNTER 2023-11-20 16:13 | Outpatient (CLI) | payer BC, SELFPAY ==
--- NOTE | 2023-11-20 16:17 | CT_ITS ---
PROCEDURE INFORMATION: Exam: CT Abdomen And Pelvis Without Contrast Exam date and time: 11/20/2023 4:17 PM Age: 57 years old Clinical indication: Abdominal pain; Additional info: Lower abd pain. TECHNIQUE: Imaging protocol: Computed tomography of the abdomen and pelvis without contrast. Radiation optimization: All CT scans at this facility use at least one of these dose optimization techniques: automated exposure control; mA and/or kV adjustment per patient size (includes targeted exams where dose is matched to clinical indication); or iterative reconstruction. COMPARISON: CR XR HIP LT 2-3V W/PELVIS 04/04/2023 9:05 AM FINDINGS: Lungs: Lung bases are clear. Liver: Normal. No mass. Gallbladder and biliary ducts: Status post cholecystectomy. No evident bile duct dilatation allowing for prior cholecystectomy. Pancreas: Normal. No ductal dilation. Spleen: Normal. No splenomegaly. Adrenal glands: A 2.6 cm low-density left adrenal nodule with a density of -11 consistent with a fat containing adenoma. Kidneys and ureters: Normal. No hydronephrosis. Stomach and bowel: Multiple diverticula of the sigmoid. Associated wall thickening and adjacent Rocio sigmoidal fat stranding that potentially may be associated with a mildly inflamed diverticula suggesting diverticulitis. Gastric sleeve procedure. GI tract structures otherwise unremarkable with no evident wall thickening allowing for incomplete distention. Appendix: Appendix is normal. No evidence of appendicitis. Intraperitoneal space: Unremarkable. No free air. No significant fluid collection. Vasculature: Unremarkable. No abdominal aortic aneurysm. Lymph nodes: Unremarkable. No enlarged lymph nodes. Urinary bladder: Unremarkable as visualized. Reproductive: Enlarged right ovary measuring 5.4 x 4.3 x 4.2 cm. Bones/joints: Unremarkable. No acute fracture. Soft tissues: Unremarkable. IMPRESSION: 1. Diverticulosis. Associated thickening of the sigmoid with adjacent fat stranding suggesting possible diverticulitis in the proper clinical setting. 2. Enlarged inhomogeneous right ovary. This might be due to a hemorrhagic cyst but a developing mass also possible. Advise further assessment with trans abdominal and transvaginal ultrasound of the pelvis and including Doppler assessment. 3. Additional nonemergent findings as above. COMMENTS: Consistent with the [place]'s Incidental Findings Committee white paper (J Am Rachel Radiol 2017): For any incidental adrenal lesion greater than or equal to 1 cm but less than or equal to 4 cm classified in this report as benign, likely benign, or containing fat (including classification as an adenoma or myelolipoma), no follow-up imaging is recommended per consensus recommendations based on imaging criteria. Further lab evaluation could be pursued if warranted based on clinical findings.
== END 2023-11-20 23:59 | disposition home or self-care (01) ==
LOC: RAD 16:14
PROVIDERS: PCP Internal Medicine Adolescent Medicine; Visit Provider Internal Medicine Adolescent Medicine
DX: R10.9 Unspecified abdominal pain (principal)
CPT/HCPCS: 74176

== ENCOUNTER 2023-11-22 15:02 | Outpatient (CLI) | payer BC, SELFPAY ==
--- NOTE | 2023-11-22 15:07 | US_ITS ---
PROCEDURE: US TRANSVAGINAL CLINICAL INDICATION: COMPARISON: CT CT ABDOMEN PELVIS WO CON from 11/20/2023 FINDINGS: Transvaginal sonographic images of the pelvis were obtained. UTERUS: 6.5cm x 4.4cmx 3.5cm midline with a combined endometrial thickness of 7.4mm. There is a small anterior fibroid measuring 0.85 cm x 0.42 cm x 0.51 cm. There is a 2nd fibroid anteriorly measuring 0.92 cm x 1.0 cm x 0.78 cm LEFT OVARY: 3.1cmx2.1cmx2.2cm with a volume of 7.2ml. RIGHT OVARY: 5.7 cmx 4.5cmx3.8 cm enlarged with a volume of 50.1ml. Within the right ovary is an inhomogeneous solid-appearing mass with central echogenicity measuring 3.5 cm x 3.2 cm x 2.9 cm. A malignant neoplasm cannot be ruled out. Both ovaries are seen . Doppler flow to both ovaries are seen. There is no fluid in the cul-de-sac. IMPRESSION: 1. Midline uterus normal in shape and size. The endometrium appears slightly thickened for a postmenopausal woman measuring 7.4 mm. 2. There are 2 small anterior fibroids measuring 1.0 cm and 0.85 cm. 3. The left ovary is seen and appears atrophic. 4. The right ovary is enlarged and within the right ovary is a 3.5 cm inhomogeneous mass. A malignant neoplasm cannot be ruled out. 5. No fluid in the cul-de-sac. 6. Suggest a gynecology consult. Dictated by: Marcelo Gomez MD 11/22/2023 17:50 Marcelo Gomez MD in [place] 11/22/2023 17:50
== END 2023-11-22 23:59 | disposition home or self-care (01) ==
LOC: RAD 15:02
PROVIDERS: PCP Internal Medicine Adolescent Medicine; Visit Provider Internal Medicine Adolescent Medicine
DX: N83.201 Unspecified ovarian cyst, right side (principal)
CPT/HCPCS: 76830

== ENCOUNTER 2023-11-26 11:07 | Outpatient (CLI) | payer BC, SELFPAY ==
[2023-11-27 12:37] LABS: CA 19-9 9 U/mL (0-35); CEA 7.6 ng/mL (0.0-4.7); Cancer Antigen (CA) 125 6.2 U/mL (0.0-38.1)
== END 2023-11-26 23:59 | disposition home or self-care (01) ==
LOC: LAB 11:08
PROVIDERS: PCP Internal Medicine Adolescent Medicine; Visit Provider Internal Medicine Adolescent Medicine
DX: N83.8 Other noninflammatory disorders of ovary, fallopian tube and broad ligament (principal)
CPT/HCPCS: 36415; 82378; 86301; 86316

== ENCOUNTER 2023-12-10 08:35 | Outpatient (CLI) | payer BC, SELFPAY ==
--- NOTE | 2023-12-10 08:38 | XR_ITS ---
FINAL REPORT TECHNIQUE: Bone densitometry calculations of the lumbar spine and left hip were obtained. CLINICAL HISTORY: SCREENING FINDINGS: Using L1-4, the bone mineral density of the spine is 1.143 g/cm2, corresponding to T-score of 0.9. Using the left hip, the bone mineral density of the femoral neck is 0.796 g/cm2, corresponding to a T-score of -0.5. NOTE: T-score: Standard deviation compared with peak bone mass of young adult mean. *Following the recommendations of the International Society of Bone densitometry, classification of hip BMD is based on the lower of two T-scores; total hip or femoral neck. IMPRESSION: Normal bone mineral density of the lumbar spine and hip. Reviewed, Interpreted and Dictated by Israel Devlin MD Transcribed by Triny Kingsley Authenticated and [facility]
== END 2023-12-10 23:59 | disposition home or self-care (01) ==
LOC: RAD 08:35
PROVIDERS: PCP Internal Medicine Adolescent Medicine; Visit Provider Internal Medicine Adolescent Medicine
DX: Z13.820 Encounter for screening for osteoporosis (principal); Z12.4 Encounter for screening for malignant neoplasm of cervix
CPT/HCPCS: 77080

== ENCOUNTER 2024-07-22 11:00 | Outpatient (RCR) | payer BC, SELFPAY | END 2024-07-22 23:59 | disposition home or self-care (01) | LOC: PT 11:00 | PROVIDERS: PCP Internal Medicine Adolescent Medicine; Visit Provider Physician Assistant | DX: S20.20XA Contusion of thorax, unspecified, initial encounter (principal); S29.019A Strain of muscle and tendon of unspecified wall of thorax, initial encounter | CPT/HCPCS: 97014; 97035; 97110; 97140; 97163; 97530; G0283 ==

== ENCOUNTER 2024-11-20 10:30 | Outpatient (CLI) | payer BC, SELFPAY ==
--- OUTSIDE RECORDS SUMMARY | 2024-06-27 17:30 | XMS_ITS ---
Author Organization [facility] Address [address] [place] [address] Care Team Providers Care Gamb Cutter Name Role Phone Andrew Thaddeus Primary Care Provider Migration, Provider Unavailable Unavailable Allergies Allergen (clinical drug ingredient) Drug/Non Drug Allergy documented on EMR Reaction Allergy Type Onset Date Status BEE STINGS (uncoded) Unknown Allergy Active REASON FOR VISIT [facility] Encounter Medications Medication SIG (Take, Route, Frequency, Duration) Notes Start Date End Date Status Centrum Silver Women 50+ THERAPEUTIC MULTIPLE VITAMINS WITH MINERALS 1 TAB(S) ORALLY ONCE A DAY *Please review and pick correct strength-formulati on from [facility] options. If intended option is not shown, discontinue and re-order from Quick Search* Active Calcium Citrate 950 MG (200 MG ELEMENTAL CALCIUM) 1 TAB(S) ORALLY 2 TIMES A DAY *Please review and pick correct strength-formulati on from [employer]pan options. If intended option is not shown, discontinue and re-order from Quick Search* Active EpiPen 2-Jordon 0.3 MG/0.3ML 0.3 mg intramuscularly once prn prn 08/04/2012 Active Flonase Allergy Relief 50 MCG/ACT 2 spray(s) intranasally once a day; Duration: 30 day(s) prn 07/04/2020 Active Gemtesa 75 MG 1 tab(s) orally once a day; Duration: 30 day(s) 12/04/2023 Active Vitamin D2 50 MCG 1 CAP(S) ORALLY ONCE A DAY *Please review and pick correct strength-formulati on from [employer] options. If intended option is not shown, discontinue and re-order from Quick Search* Active Doxycycline Hyclate 100 MG 1 cap(s) orally 2 times a day; Duration: 10 days 04/29/2024 Active MiraLax - DIRECTED ORALLY ONCE A DAY *Please review and pick correct strength-formulati on from [employer] options. If intended option is not shown, discontinue and re-order from Quick Search* Active Amoxicillin-Pot Clavulanate 875-125 MG 1 tab(s) orally every 12 hours; Duration: 10 days 04/27/2024 Active Ondansetron HCl 8 MG 1 tab(s) orally 3 times a day prn Active Encounters Encounter Location Date Provider Diagnosis [facility] [address] [facility] [address] [facility] [address] [place] [address] 06/27/2024 Provider Migration Acute non-recurrent maxillary sinusitis J01.00 Assessments Encounter Date Diagnosis (ICD Code) Assessment Notes Treatment Notes Treatment Clinical Notes Section Notes 06/27/2024 Acute non-recurrent maxillary sinusitis (ICD-10 - J01.00) Plan Of Treatment Medication Medication Name Sig Start Date Stop Date Notes Doxycycline Hyclate 100 MG 1 cap(s) oral ly 2 times a day; Duration: 10 days 04/29/2024 Amoxicillin-Pot Clavulanate 875-125 MG 1 tab(s) orally every 12 hours; Duration: 10 days 04/27/2024 Next Appt Details Provider Name:Thaddeus Morales, 11/30/2024 02:30:00 PM, [address] [facility] [address] [facility], [address], [place], [address], Progress Notes * Wilma CANALES MDOB:[birth year] (58 yo F)Acc No.[id number]:06/27/2024 Patient: Wilma LAWRENCE Provider: Tristian Kramer :1965 A ge:58 Y S ex:Female Date:06/27/2024 Address:[address] [place], [place] [id number] Pcp:Thaddeus Morales Subjective: * Chief Complaints: * 1 . [facility] En[facility]. * Medical History: * Medications: T aking MiraLax - POWDER FOR RECONSTITUTION DIRECTED ORALLY ONCE A DAY , Notes to Pharmacist: *Please review and pick correct [facility]. If intended option is not shown, discontinue and re-order from Quick Search*, Taking Ondansetron HCl 8 MG Tablet 1 tab(s) orally 3 times a day , Notes to Pharmacist: prn, Taking Vitamin D2 50 MCG CAPSULE 1 CAP(S) ORALLY ONCE A DAY , Notes to Pharmacist: *Please review and pick correct strength-formulation [facility]. If intended option is not shown, discontinue and re-order from Quick Search*, Taking Centrum Silver Women 50+ THERAPEUTIC MULTIPLE VITAMINS WITH MINERALS TABLET 1 TAB(S) ORALLY ONCE A DAY , Notes to Pharmacist: *Please review and pick correct strength-[facility]ulation [facility]. If intended option is not shown, discontinue and re-order from Quick Search*, Taking Calcium Citrate 950 MG (200 MG ELEMENTAL CALCIUM) TABLET 1 TAB(S) ORALLY 2 TIMES A DAY , Notes to Pharmacist: *Please review and pick correct strength-[facility]ulation [facility]. If intended option is not shown, discontinue and re-order from Quick Search*, Taking EpiPen 2-Jordon 0.3 MG/0.3ML Solution Auto-injector 0.3 mg intramuscularly once prn , Notes to Pharmacist: prn, Taking Flonase Allergy Relief 50 MCG/ACT Suspension 2 spray(s) intranasally once a day , Notes to Pharmacist: prn, Taking Gemtesa 75 MG Tablet 1 tab(s) orally once a day * Allergies: B EE STINGS. Objective: * Vitals: Assessment: * Assessment: 1. A cute non-recurrent maxillary sinusitis - J01.00 (Primary) Plan: * Treatment: 2. O thers Start Doxycycline Hyclate Capsule, 100 MG, 1 cap(s), orally, 2 times a day, 10 days, 20, Refills 0.? * * Electronic signature of Prov ider Migration on 11/23/2024 at 10:32 AM EDT Sign off status: Pending * Provider: Tristian norton Migration Date: 0 06/27/2024 Generated for Jacquelyn engle/Zena/Gracielaitting on: 0 11/23/2024 10:32 AM EDT
--- OUTSIDE RECORDS SUMMARY | 2024-10-06 07:30 | XMS_ITS ---
Author Organization [facility] Address [address] [place] [address] Care Team Providers Care Cutter Operator Tile Name Role Phone Thaddeus Morales Primary Care Provider [phone] Elaine Adams [phone] Allergies Allergen (clinical drug ingredient) Drug/Non Drug Allergy documented on EMR Reaction Allergy Type Onset Date Status BEE STINGS (uncoded) Unknown Allergy Active Results Component Value Reference Range Notes Urinalysis Reviewed date:10/06/2024 02:08:43 PM Interpretation: Performing Lab: Notes/Report: Color/Clarity dark yellow Leuk neg Nitrite neg Urobili 0.2 Protein 30 mg/dl pH 5.5 Blood moderate Sp. Gr. 1.025 Ketone trace Bili small Glucose neg CULTURE, URINE, ROUTINE (395 ) Reviewed date:10/08/2024 03:07:56 PM Interpretation: Performing Lab:[facility], [id number] [id number] Fred Reynoso Notes/Report: NON-FASTING CULTURE, URINE, ROUTINE SEE NOTE CULTURE, URINE, ROUTINE Micro Number: [id number] Test Status: Final Specimen Source: Urine Specimen Quality: Adequate Result: Mixed genital garrett isolated. These superficial bacteria are not indicative of a urinary tract infection. No further organism identification is warranted on this specimen. If clinically indicated, recollect clean-catch, mid-stream urine and transfer immediately to Urine Culture Transport Tube. REASON FOR VISIT UTI and burning Medications Medication SIG (Take, Route, Frequency, Duration) Notes Start Date End Date Status Macrobid 100 MG 1 capsule with food Orally every 12 hrs; Duration: 5 days 10/06/2024 Active Flonase Allergy Relief 50 MCG/ACT 2 [...] discontinue and re-order from Quick Search* Active Centrum Silver Women 50+ THERAPEUTIC MULTIPLE VITAMINS WITH MINERALS 1 TAB(S) ORALLY ONCE A DAY *Please review and pick correct strength-formulati on from TalkSessionspan options. If intended option is not shown, discontinue and re-order from Quick Search* Active Ondansetron HCl 8 MG 1 tab(s) orally 3 times a day prn Active EpiPen 2-Jordon 0.3 MG/0.3ML 0.3 mg intramuscularly once prn prn 08/04/2012 Active Calcium Citrate 950 MG (200 MG ELEMENTAL CALCIUM) 1 TAB(S) ORALLY 2 TIMES A DAY *Please review and pick correct strength-formulati on from TalkSessionspan options. If intended option is not shown, discontinue and re-order from Quick Search* Active Zepbound 15 MG/0.5ML 0.5 mL Subcutaneous Active Pyridium 200 MG 1 tablet after meals Orally Three times a day; Duration: 2 days 10/06/2024 Active MiraLax - DIRECTED ORALLY ONCE A DAY *Please review and pick correct strength-formulati on from Medispan options. If intended option is not shown, discontinue and re-order from Quick Search* Active Vital Signs Temperature 97.9 degrees Fahrenheit 10/07/19 25 Blood pressure systolic 130 mm Hg 10/07/19 25 Blood pressure diastolic 86 mm Hg 025 Heart Rate 88 /min 10/06/2024 Height 65.75 in 10/06/2024 Weight 169.4 lbs 10/06/2024 BMI 27.55 kg/m2 10/06/2024 Encounters Encounter Location Date Provider Diagnosis [facility] [address] [facility] [address] [place] [address] 10/06/2024 Elaine Adams Dysuria R30.0 and Gross hematuria R31.0 Assessments Encounter Date Diagnosis (ICD Code) Assessment Notes Treatment Notes Treatment Clinical Notes Section Notes 10/06/2024 Dysuria (ICD-10 - R30.0) We instructed her to increase her fluid intake to help with her symptoms. She was started on Macrobid twice a day for five days. She was also given a prescription for pyridium to help with the painful urination. She was instructed that if she notices any changes in her symptoms to f/u. At her next annual visit, we requested obtaining another urinalysis. Pending culture, the abx may be changed 10/06/2024 Gross hematuria (ICD-10 - R31.0) Plan Of Treatment Medication Medication Name Sig Start Date Stop Date Notes Macrobid 100 MG 1 capsule with food Orally every 12 hrs; Duration: 5 days 10/06/2024 Pyridium 200 MG 1 tablet after meals Orally Three times a day; Duration: 2 days 10/06/2024 Treatment Notes Assessment Notes Dysuria We instructed her to increase her fluid intake to help with her symptoms. She was started on Macrobid twice a day for five days. She was also given a prescription for pyridium to help with the painful urination. She was instructed that if she notices any changes in her symptoms to f/u. At her next annual visit, we requested obtaining another urinalysis. Next Appt Details Follow Up: prn, Reason: Provider Name:Thaddeus Morales, 11/30/2024 02:30:00 PM, [address] [facility] [address] [facility], [address], [place], [address], Progress Notes * Wilma CANALES MDOB:[birth year] (58 yo F)Acc No.[id number]:10/06/2024 Progress Notes Patient: Angélica SUMMERS Wilma Diamond Provider: FAB Mcnamara :1965 A ge:58 Y S ex:Female Date:10/06/2024 Address:[address] [place] [address], [id number] Pcp:Thaddeus Morales Subjective: * Chief Complaints: * 1 . UTI and burning. * HPI: g en: Ms. Canales presents to the office with a CC of dysuria. She states that these symptoms began earlier this morning around 2 a.m. She reports that the pain creates a pulsing sensation that she has experienced before with past UTIs. She noticed blood in her urine. She denies a burning sensation or fevers and chills. She increased her water intake which did help relieve the pulsing sensation. She has chronic low back pain, but she did not notice any increase in back pain over the last night. * ROS: C ONSTITUTIONAL: Reviewed, No Symptoms Reported: Y es. D ERMATOLOGY: no R eli. G ASTROENTEROLOGY: no V omiting. n o D iarrhea. * Medical History: D epression, Squamous cell carcinoma, Normal mamm 09/2019 and 08/2023, Normal EGD 08/12, Right knee- ? torn meniscus. * Medications: T aking Zepbound 15 MG/0.5ML Solution Auto-injector 0.5 mL Subcutaneous , Taking MiraLax - POWDER FOR RECONSTITUTION DIRECTED ORALLY ONCE A DAY , Notes to Pharmacist: *Please review and pick correct strength-formulation from TalkSessionspan options. If intended option is not shown, discontinue and re-order from Quick Search*, Taking Ondansetron HCl 8 MG Tablet 1 tab(s) orally 3 times a day , Notes to Pharmacist: prn, Taking Vitamin D2 50 MCG CAPSULE 1 CAP(S) ORALLY ONCE A DAY , Notes to Pharmacist: *Please review and pick correct strength-formulation from TalkSessionspan options. If intended option is not shown, discontinue and re-order from Quick Search*, Taking Centrum Silver Women 50+ THERAPEUTIC MULTIPLE VITAMINS WITH MINERALS TABLET 1 TAB(S) ORALLY ONCE A DAY , Notes to Pharmacist: *Please review and pick correct strength-formulation from Medispan options. If intended option is not shown, discontinue and re-order from Quick Search*, Taking Calcium Citrate 950 MG (200 MG ELEMENTAL CALCIUM) TABLET 1 TAB(S) ORALLY 2 TIMES A DAY , Notes to Pharmacist: *Please review and pick correct strength-formulation from Medispan options. If intended option is not shown, discontinue and re-order from Quick Search*, Taking EpiPen 2-Jordon 0.3 MG/0.3ML Solution Auto-injector 0.3 mg intramuscularly once prn , Notes to Pharmacist: prn, Taking Flonase Allergy Relief 50 MCG/ACT Suspension 2 spray(s) intranasally once a day , Notes to Pharmacist: prn, Taking Gemtesa 75 MG Tablet 1 tab(s) orally once a day , Discontinued Amoxicillin-Pot Clavulanate 875-125 MG Tablet 1 tab(s) orally every 12 hours , Discontinued Doxycycline Hyclate 100 MG Capsule 1 cap(s) orally 2 times a day , Medication List reviewed and reconciled with the patient * Allergies: B EE STINGS. Objective: * Vitals: N urse: KJ, Pain: 2, Temp: 97.9, RR: 20, HR: 88, BP: 130/86, Ht: 65.75 , Wt: 169.4, BMI:27.55. * Examination: G eneral Examination: General P leasant and Cooperative, NAD on RA,. Heart: R egular Rate and Rhythm, no murmur, rubs or gallops. Lungs: L CTAB, No wheezes, crackles or rhonchi, Good air movement,. Abdomen: S oft, NTND, BSNA, No organomegaly or peritoneal signs., no CVA tenderness,. Assessment: * Assessment: 1. D ysuria - R30.0 (Primary) 2 . G ross hematuria - R31.0 Plan: * Treatment: Value Reference Range C ULTURE SEE NOTE - * This lab was reviewed by Ebonie Hand on 10/08/2024 at 15:07 PM EDT ?LAB: Urinalysis (Collection Date & Time - 10/06/2024)* Value Reference Range C olor/Clarity dark yellow * L euk neg * N itrite neg * U robili 0.2 * P rotein 30 mg/dl * p H 5.5 * B lood moderate * S p. Gr. 1.025 * K etone trace * B ronnie small * G lucose neg Notes: We instructed her to increase her fluid intake to help with her symptoms. She was started onMacrobid twice a day for five days. She was also given a prescription for pyridium to help with thepainful urination. She was instructed that if she notices any changes in her symptoms to f/u. At her next annual visit, we requested obtaining another urinalysis.?? Clinical Notes: Pending culture, the abx may be changed?? * Procedure Codes: 8 1002 URINALYSIS, Modifiers: QW * Follow Up: p rn * * Sign off status: Completed true * Provider: FAB Mcnamara Date: 10/06/2024 Generated for Jacquelyn engle/Zena/Gracielaitting on: 11/23/2024 10:31 AM EDT History and Physical Notes * Examination Category Sub-Category Detail Notes Category Not es General Examination Heart: Regular Rate and Rhythm, no murmur, rubs or gallops Lungs: LCTAB, No wheezes, c rackles or rhonchi, Good air movement, Abdomen: Soft, NTND, BSNA, No organomegaly or peritoneal signs., no CVA tenderness, General Pleasant and Coopera tive, NAD on RA,
--- OUTSIDE RECORDS SUMMARY | 2024-11-23 10:32 | XMS_ITS | Encounter Summary ---
Author Organization [employer] ([place], [place], [place], [place]) Address [address] [place] [address] Care Team Providers Care Resource Economist Name Role Phone Unavailable Primary Care Provider Unavailabl e Encounter Details Date Type Department Care Team (Late st Contact Info) Description 07/29/2020 Transcribed Document [facility] [place] Family Medicine [address] [place] [address] ProviderOtilia MD [address] [place] [address] Social History Tobacco Use Types Packs/Day Years Used Date Smoking Tobacco: Never Assessed Comments Unknown Sex and Gender Information Value Date Recorded Sex Assigned at Not on file Legal Sex Female 4:36 PM CDT Gender Identity Not on file Sexual Orientation Not on file documented as of this encounter Miscellaneous Notes * Cerner Conversion Note - Otilia ProviderMD - 07/29/2020 11:04 AM CDT [place] [id number] LISAWILMA RICHARD :1965 Visit Time:07/29/2020 What to do next Instructions From Your Care Team Diet after Discharge: Resume usual diet as tolerated, Do not drink any alcoholic beverages, Drink at least 8-10 glasses of water per day Fluid Restriction after Discharge: _ Activity after Discharge: As tolerated, Rest and relax today, No strenuous activity Driving after Discharge: Do not drive for 24 hours May Return to Work/School: tomorrow Showering/Bathing: May shower, _ Notify Provider of: any questions or problems Follow-Up Appointments Follow Up with HARRIET GARCIA MD-AURA When Comments The office will contact you in 7-10 days with biopsy results. Follow up at next scheduled appointment. Where: [address] [place] [place] [address]- Medications What How Much When Instructions Next Dose buPROPion 300 Milligram(s) Oral Interval Every 24 Hours venlafaxine (venlafaxine 225 mg oral tablet, extended release) 1 Tablet(s) Oral Every Day Take your medications faithfully. Do NOT skip medication. Do NOT stop taking medications without the direction of a physician. Carry a list of your medications with you at all times, and take this medication list with you to your first follow up visit. Report any side effects. Avoid herbal remedies unless discussed with your physician. As part of your treatment plan, your physician may have prescribed a limited course of a controlled substance. This medication may be given to help people with moderate or severe pain or for other medical conditions, but there are risks involved with treatment. Common side effects may include nausea, constipation, drowsiness, sweating, itching, dry mouth, and rash. More serious side effects may include cognitive and motor impairment, like problems with thinking, concentrating, alertness, and movement (e.g. slowed reflexes), and driving and operating heavy machinery can be dangerous. It is important for you to talk to your physician if you have these side effects or questions. These controlled substances can produce physical dependence and be habit-forming if taken for an extended period of time, which means that the body has gotten used to them and may experience withdrawal symptoms if they are abruptly stopped. Withdrawal symptoms can include runny nose, sweating, goose bumps, diarrhea, abdominal cramping, rapid heartbeat, difficulty sleeping, and nervousness. Please dispose of unused and medications per pharmacy guidance. Education Materials Monitored Anesthesia Care, Care After These instructions provide you with information about caring for yourself after your procedure. Your health care provider may also give you more specific instructions. Your treatment has been planned according to current medical practices, but problems sometimes occur. Call your health care provider if you have any problems or questions after your procedure. What can I expect after the procedure? After your procedure, you may: ??? Feel sleepy for several hours. ??? Feel clumsy and have poor balance for several hours. ??? Feel forgetful about what happened after the procedure. ??? Have poor judgment for several hours. ??? Feel nauseous or vomit. ??? Have a sore throat if you had a breathing tube during the procedure. Follow these instructions at home: For at least 24 hours after the procedure: ??? Have a responsible adult stay with you. It is important to have someone help care for you until you are awake and alert. ??? Rest as needed. ??? Do not: ? Participate in activities in which you could fall or become injured. ? Drive. ? Use heavy machinery. ? Drink alcohol. ? Take sleeping pills or medicines that cause drowsiness. ? Make important decisions or sign legal documents. ? Take care of children on your own. Eating and drinking ??? Follow the diet that is recommended by your health care provider. ??? If you vomit, drink water, juice, or soup when you can drink without vomiting. ??? Make sure you have little or no nausea before eating solid foods. General instructions ??? Take [id number] and prescription medicines only as told by your health care provider. ??? If you have sleep apnea, surgery and certain medicines can increase your risk for breathing problems. Follow instructions from your health care provider about wearing your sleep device: ? Anytime you are sleeping, including during daytime naps. ? While taking prescription pain medicines, sleeping medicines, or medicines that make you drowsy. ??? If you smoke, do not smoke without supervision. ??? Keep all follow-up visits as told by your health care provider. This is important. Contact a health care provider if: ??? You keep feeling nauseous or you keep vomiting. ??? You feel light-headed. ??? You develop a rash. ??? You have a fever. Get help right away if: ??? You have trouble breathing. Summary ??? For several hours after your procedure, you may feel sleepy and have poor judgment. ??? Have a responsible adult stay with you for at least 24 hours or until you are awake and alert. This information is not intended to replace advice given to you by your health care provider. Make sure you discuss any questions you have with your health care provider. Document Revised: 06/09/2018 Document Reviewed: 07/01/2016 [employer] Patient Education ?? 2020 [employer] ESOPHAGOGASTRODUODENOSCOPY Care After Read the instructions outlined below and refer to this sheet over the next few days. These discharge instructions provide you with general information on caring for yourself after you leave the hospital. Your doctor may also give you specific instructions. While your treatment has been planned according to the most current medical practices available, unavoidable complications occasionally occur. If you have any problems or questions after discharge, call your doctor. HOME CARE INSTRUCTIONS: ACTIVITY: ??? You may resume your regular activity tomorrow, but move at a slower pace for the next 24 hours. ??? Take frequent rest periods for the next 24 hours. ??? Walking will help get rid of the air and reduce the bloated feeling in your belly (abdomen). ??? No driving for 24 hours because of the medication (sedation) used during the test. ??? You may shower. ??? Do not sign any important legal documents or operate any machinery for 24 hours (because of the sedation used during the test). NUTRITION: ??? Drink plenty of fluids. ??? You may resume your normal diet or as instructed by your doctor ??? Begin with a light meal and progress to your normal diet. Heavy or fried foods are harder to digest and may make you feel sick to your stomach (nauseated). ??? Avoid alcoholic beverages for 24 hours or as instructed. MEDICATIONS: ??? You may resume your normal medications unless your doctor tells you otherwise. WHAT TO EXPECT TODAY: ??? Some feelings of bloating in the abdomen. ??? Excessive burping today and passage of more gas than usual. ??? A sore throat can be normal. Use throat lozenges or gargle with warm salt water and drink plenty of fluids. FINDING OUT THE RESULTS OF YOUR TEST: ??? Not all test results are available during your visit. If you had biopsies or other tests done during your procedure, you can make an appointment with your doctor to get the results. Sometimes you may be instructed to call the doctor???s office for your results. It is important for you to follow up on all of your test results. SEEK IMMEDIATE MEDICAL CARE IF: ??? You cannot eat or drink. ??? You have worsening throat or chest pain. ??? You have dizziness, lightheadedness, or you faint. ??? You have severe nausea or vomiting. ??? You have a fever greater than 101. ??? You have chills. ??? You have severe abdominal pain or discomfort that gets worse throughout the day. ??? You have black, tarry, or bloody stools. Helicobacter Pylori Infection Helicobacter pylori infection is a bacterial infection in the stomach. Long-term (chronic) infection can cause stomach irritation (gastritis), ulcers in the stomach (gastric ulcers), and ulcers in the upper part of the intestine (duodenal ulcers). Having this infection may also increase your risk of stomach cancer and a type of white blood cell cancer (lymphoma) that affects the stomach. What are the causes? This infection is caused by the Helicobacter pylori (H. pylori) bacteria. Many healthy people have this bacteria in their stomach lining. The bacteria may also spread from person to person through contact with stool (feces) or saliva. It is not known why some people develop ulcers, gastritis, or cancer from the bacteria. What increases the risk? You are more likely to develop this condition if you: ??? Have family members with the infection. ??? Live with many other people, such as in a dormitory. ??? Are of , , or descent. What are the signs or symptoms? Most people with this infection do not have any symptoms. If you do have symptoms, they may include: ??? Heartburn. ??? Stomach pain. ??? Nausea. ??? Vomiting. The vomit may be bloody because of ulcers. ??? Loss of appetite. ??? Bad breath. How is this diagnosed? This condition may be diagnosed based on: ??? Your symptoms and medical history. ??? A physical exam. ??? Blood tests. ??? Stool tests. ??? A breath test. ??? A procedure that involves placing a tube with a camera on the end of it down your throat to examine your stomach and upper intestine (upper endoscopy). ??? Removing and testing a tissue sample from the stomach lining (biopsy). A biopsy may be taken during an upper endoscopy. How is this treated? This condition is treated by taking a combination of medicines (triple therapy) for several weeks. Triple therapy includes one medicine to reduce the amount of acid in your stomach and two types of antibiotic medicines. This treatment may reduce your risk of cancer. You may need to be tested for H. pylori again after treatment. In some cases, the treatment may need to be repeated if your treatment did not get rid of all the bacteria. Follow these instructions at home: ??? Take ntwj-[id number]-[id number] and prescription medicines only as told by your health care provider. ??? Take your antibiotics as told by your health care provider. Do not stop taking the antibiotics even if you start to feel better. ??? Return to your normal activities as told by your health care provider. Ask your health care provider what activities are safe for you. ??? Take steps to prevent future infections: ? Wash your hands often with soap and water. If soap and water are not available, use hand dextrine mixer. ? Do not eat food or drink water that may have had contact with stool or saliva. ??? Keep all follow-up visits as told by your health care provider. This is important. You may need tests to make sure your treatment worked. Contact a health care provider if your symptoms: ??? Do not get better with treatment. ??? Return after treatment. Summary ??? Helicobacter pylori infection is a stomach infection caused by the Helicobacter pylori (H. pylori) bacteria. ??? This infection can cause stomach irritation (gastritis), ulcers in the stomach (gastric ulcers), and ulcers in the upper part of the intestine (duodenal ulcers). ??? This condition is treated by taking a combination of medicines (triple therapy) for several weeks. ??? Take your antibiotics as told by your health care provider. Do not stop taking the antibiotics even if you start to feel better. This information is not intended to replace advice given to you by your health care provider. Make sure you discuss any questions you have with your health care provider. Document Revised: 07/02/2019 Document Reviewed: 03/04/2018 [employer] Patient Education ?? 2020 [employer] Emergency Awareness and Preventative Care STROKE is an EMERGENCY Every Minute Counts Act FAST and Check for these signs: FACE Does the face look uneven? ARM Does one arm drift down? SPEECH Does their speech sound strange? TIME Call at any sign of stroke Stroke Risk Factors Atrial Fibrillation (irregular heartbeat) Diabetes Family history of stroke Heart Disease Heavy alcohol use High Blood Pressure High Cholesterol Physical inactivity and obesity Smoking Cigarette Smoking The facts are clear, cigarette smoking will shorten your life. Smoking can cause many illnesses along the way. As a healthcare provider, we recommend that you stop smoking. Assistance with quitting is available by contacting 3-214-IUUFNOW. This is a free resource providing counseling, support, and referral. Or you may contact your personal physician. National Suicide Prevention Lifeline: The National Suicide Prevention Lifeline is a national network of local crisis centers that provides free and confidential emotional support to people in suicidal crisis or emotional distress 24 hours a day, 7 days a week. Don't Wait! Stop a Heart Attack Before it Starts What is a heart attack? A heart attack is damage or to a part of the heart from severely decreased or lack of blood flow to the heart. Over time, arteries can become narrow from the buildup of fat and cholesterol, which is called plaque. The plaque can rupture causing a blood clot to form. When the blood clot forms, the artery can become severely narrowed or completely blocked, causing a heart attack. Heart attack is the leading cause of in the [place]. 85% of muscle damage occurs within the first 2 hours. Delay in the recognition of heart attack symptoms increases the chances of . Know the early symptoms of a heart attack: Nausea Feeling of fullness in chest Jaw Pain Pain that travels down one or both arms Fatigue/being tired Anxiety Back Pain Chest pressure, squeezing, or discomfort Shortness of breath Sweating, or a cold sweat Feeling of impending doom There are unusual signs of a heart attack, too! Women, the elderly, and diabetics may present with atypical symptoms: Fainting/dizziness Weakness Confusion Risk Factors for a Heart Attack Some heart disease risk factors, such as age and family history, cannot be changed. Others, like smoking and lack of exercise, can be changed. Smoking High Cholesterol High Blood Pressure Family History Obesity Age Gender (Males are at higher risk) Lack of Exercise Diabetes Diet Stress Excessive Alcohol Intake If you or someone you know is experiencing the signs and symptoms of a heart attack, DON???T DELAY. Call immediately and seek help. If someone collapses, perform CPR! Do not attempt to drive if you are having symptoms of heart attack. Hands-Only CPR Why Hands-Only CPR? Hands-Only CPR has been shown to be as effective as conventional CPR for cardiac arrests that occur outside of a hospital. Survival depends on immediately receiving CPR from someone nearby. How do you perform Hands-Only CPR? There are two easy steps: Call 9-1-1 if you see a teen or adult collapse Push hard and fast in the center of the chest at a beat of 100 beats per minute. Save a life! 4 WAYS TO GET AHEAD OF SEPSIS SEPSIS is a MEDICAL EMERGENCY. Time matters! Infections put you and your family at risk for a life-threatening condition called sepsis. Sepsis is the body's extreme response to an infection. It is life-threatening, and without timely treatment, sepsis can rapidly lead to tissue damage, organ failure, and . Sepsis happens when an infection you already have-in your skin, lungs, urinary tract or somewhere else-triggers a chain reaction throughout your body. 1 PREVENT INFECTIONS Take good care of chronic conditions. Talk to your doctor about getting the recommended vaccines. 2 PRACTICE GOOD HYGIENE Wash your hands frequently. Keep cuts or open sores clean and covered until they are healed. 3 KNOW THE SYMPTOMS Confusion or disorientation Shortness of breath High heart rate Fever, shivering, or feeling very cold Extreme pain or discomfort Clammy or sweaty skin 4 ACT FAST Get medical care IMMEDIATELY if you suspect sepsis or if you have an infection that is not getting better or is getting worse. To learn more about sepsis and how to prevent infections, visit www.cdc.gov/sepsis. Test Results Laboratory or Other Results This Visit (last charted value for your 07/29/2020 visit) Hematology 07/29/2020 9:33 AM WBC: 13.2 K/uL -- Normal range between ( 3.9 and 10.0 ) RBC: 5.21 Million/uL -- Normal range between ( 3.93 and 5.22 ) Hct: 46.7 % -- Normal range between ( 34.1 and 44.9 ) Hgb: 14.7 Gram/dL -- Normal range between ( 11.2 and 15.7 ) Platelet Count: 365 K/uL -- Normal range between ( 163 and 369 ) MCH: 28.2 pg -- Normal range between ( 25.6 and 32.2 ) MCHC: 31.5 Gram/dL -- Normal range between ( 32.3 and 36.5 ) MCV: 89.6 fL -- Normal range between ( 79.0 and 94.8 ) Slide Review: No Eos %: 1.1 % -- Normal range between ( 1.0 and 7.0 ) Grady #: 1.13 K/uL -- Normal range between ( 0.24 and 0.82 ) Eos #: 0.15 K/uL -- Normal range between ( 0.04 and 0.54 ) Grady %: 8.6 % -- Normal range between ( 4.7 and 12.5 ) Baso %: 0.6 % -- Normal range between ( 0.0 and 1.0 ) Baso #: 0.08 K/uL -- Normal range between ( 0.01 and 0.08 ) RDW: 15.6 % -- Normal range between ( 11.6 and 14.4 ) Neut %: 67.8 % -- Normal range between ( 34.0 and 71.0 ) Neut #: 8.92 K/uL -- Normal range between ( 1.56 and 6.13 ) Lymph %: 21.3 % -- Normal range between ( 19.3 and 53.0 ) Lymph #: 2.80 K/uL -- Normal range between ( 1.18 and 3.74 ) MPV: 9.8 fL -- Normal range between ( 9.4 and 12.4 ) IG#: 0 x10(3)/uL IG%: 1 % -- Normal range between ( 0 and 1 ) General Chemistry 07/29/2020 9:33 AM Creatinine Level: 0.93 mg/dL -- Normal range between ( 0.55 and 1.02 ) Sodium Level: 141 mmol/L -- Normal range between ( 136 and 146 ) Potassium Level: 4.5 mmol/L -- Normal range between ( 3.5 and 5.1 ) Chloride Level: 109 mmol/L -- Normal range between ( 102 and 112 ) Carbon Dioxide Level: 26 mmol/L -- Normal range between ( 21 and 32 ) Anion Gap: 10 -- Normal range between ( 9 and 20 ) Bilirubin Total: 0.3 mg/dL -- Normal range between ( 0.2 and 1.3 ) Hgb A1C: 5.60 % -- Normal range between ( 4.20 and 6.30 ) A/G Ratio: 0.9 -- Normal range between ( 1.1 and 2.5 ) ALT: 36 Units/Liter -- Normal range between ( 12 and 78 ) AST: 25 Units/Liter -- Normal range between ( 5 and 37 ) Globulin: 3.9 Gram/dL -- Normal range between ( 1.5 and 4.5 ) Alk Phos: 104 Units/Liter -- Normal range between ( 27 and 136 ) eAVG Glucose: 114 mg/dL Bun/Creatinine: 11.8 -- Normal range between ( 8.0 and 20.0 ) Calcium Level: 8.5 mg/dL -- Normal range between ( 8.5 and 10.1 ) eGFR : >60 mL/min/1.73m2 eGFR NonAfrican: >60 mL/min/1.73m2 Glucose Level: 86 mg/dL -- Normal range between ( 74 and 106 ) Blood Urea Nitrogen: 11 mg/dL -- Normal range between ( 7 and 22 ) Protein Total: 7.3 Gram/dL -- Normal range between ( 6.4 and 8.2 ) Albumin Level: 3.4 Gram/dL -- Normal range between ( 3.4 and 5.0 ) Coagulation 07/29/2020 9:33 AM INR: 1.0 -- Normal range between ( 0.9 and 1.1 ) PTT: 26.2 Second(s) -- Normal range between ( 24.2 and 31.8 ) PT: 10.0 Second(s) -- Normal range between ( 9.6 and 11.5 ) Lipid Studies 07/29/2020 9:33 AM Cholesterol Tot: 211 mg/dL -- Normal range between ( 0 and 199 ) Cholesterol HDL: 65.0 mg/dL Cholesterol LDL Calculation: 132.2 mg/dL -- Normal range between ( 0.0 and 99.0 ) Cholesterol VLDL Calculation: 13.8 mg/dL -- Normal range between ( 5.0 and 40.0 ) Cholesterol/HDL Ratio: 3.2 -- Normal range between ( 0.0 and 3.2 ) Triglyceride: 69 mg/dL -- Normal range between ( 0 and 249 ) LDL/HDL Ratio: 2.0 -- Normal range between ( 0.0 and 3.2 ) Endocrinology 07/29/2020 9:33 AM TSH: 3.040 mcInt Units/mL -- Normal range between ( 0.358 and 3.740 ) T4 Total: 10.3 mcg/mL -- Normal range between ( 4.8 and 13.9 ) Patient Name:WILMA CANALES I have received this information and was given the opportunity to ask questions. Patient/Recapper Name: Patient/Recapper Signature: Relationship to Patient: Clinician/Hospital Recapper Signature: Date: documented in this encounter Plan of Treatment Not on file documented as of this encounter Visit Diagnoses Not on filedocumented in this encounter
--- OUTSIDE RECORDS SUMMARY | 2024-11-23 10:32 | XMS_ITS | Encounter Summary ---
Author Organization [employer] ([place], [place], [place], [place]) Address [address] [place] [address] Care Team Providers Care Hydrographer Name Role Phone Unavailable Primary Care Provider Unavailabl e Encounter Details Date Type Department Care Team (Late st Contact Info) Description 03/13/2019 Transcribed Document [facility] [place] Family Medicine [address] [place] [address] ProviderOtilia MD [address] [place] [address] Social History Tobacco Use Types Packs/Day Years Used Date Smoking Tobacco: Never Assessed Comments Unknown Sex and Gender Information Value Date Recorded Sex Assigned at Not on file Legal Sex Female 4:36 PM CDT Gender Identity Not on file Sexual Orientation Not on file documented as of this encounter Miscellaneous Notes * Cerner Conversion Note - Historical ProviderMD - 03/13/2019 12:19 PM PROJECT ACCOUNTANT [facility]z IntraOp Summary Primary Physician: HARRIET GARCIA MD-SUR Finalized Date/Time: 03/13/19 12:22:11 Pt. Name: STARLA GONZALEZ/Sex: 1965 Female Med Rec #: [id number] Physician: HARRIET GARCIA MD-SUR Financial #: [id number] Pt. Type: O Room/Bed: [facility] Admit/Disch: 03/13/19 09:47:00 - Institution: [facility] Nunez - Case Attendance Entry 1 Entry 2 Entry 3 Case Attendee HARRIET GARCIA WICKER, KAREN KIM, MARCOS WILSON Role Performed Surgeon/Proceduralist, LADIES LOCKER ROOM ATTENDANT/Nurse Career Technology Teacher Scrub, First First Time In 03/13/19 12:11:00 03/13/19 12:11:00 03/13/19 12:11:00 Time Out 03/13/19 12:22:00 03/13/19 12:22:00 03/13/19 12:22:00 Procedure Esophagogastroduodenosco Esophagogastroduodenosco Esophagogastroduodenosco py, Gastric Biopsy py, Gastric Biopsy py, Gastric Biopsy Other Attendee Superficial Wound Closed By: Last Modified By: LIZZIE SULLIVAN RN KULCHAR, KATHLEEN A, RN KULCHAR, KATHLEEN A, RN 03/13/19 12:21:41 03/13/19 12:21:41 03/13/19 12:21:41 Entry 4 Case Attendee LIZZIE SULLIVAN RN Role Performed Fractionating Still Operator, First Time In 03/13/19 12:11:00 Time Out 03/13/19 12:22:00 Procedure Esophagogastroduodenosco py, Gastric Biopsy Other Attendee Superficial Wound Closed By: Last Modified By: LIZZIE SULLIVAN RN 03/13/19 12:21:41 [facility] - Case Attendance Audit 03/13/19 12:21:41 Bulb Grower: KULCKA Modifier: KULCKA 1 <+> Time Out 1 <*> Procedure Esophagogastroduodenoscopy, Gastric Biopsy 2 <+> Time Out 2 <*> Procedure Esophagogastroduodenoscopy, Gastric Biopsy 3 <+> Time Out 3 <*> Procedure Esophagogastroduodenoscopy, Gastric Biopsy 4 <+> Time Out 4 <*> Procedure Esophagogastroduodenoscopy, Gastric Biopsy 03/13/19 12:18:39 Bulb Grower: KULCKA Modifier: KULCKA 1 <*> Procedure Esophagogastroduodenoscopy 2 <*> Procedure Esophagogastroduodenoscopy 3 <*> Procedure Esophagogastroduodenoscopy 4 <*> Procedure Esophagogastroduodenoscopy 03/13/19 12:13:40 Bulb Grower: KULCKA Modifier: KULCKA 1 <*> Procedure Esophagogastroduodenoscopy 2 <+> Time In 2 <*> Procedure Esophagogastroduodenoscopy 3 <+> Time In 3 <*> Procedure Esophagogastroduodenoscopy 4 <+> Time In 4 <*> Procedure Esophagogastroduodenoscopy 03/13/19 12:13:28 Bulb Grower: CHERYLANTHE Modifier: KULCKA 1 <*> Case Attendee HARRIET GARCIA MD-AURA 1 <*> Role Performed Surgeon/Proceduralist, First 1 <+> Time In 1 <*> Procedure Esophagogastroduodenoscopy <+> 2 Case Attendee <+> 2 Role Performed <+> 2 Procedure <+> 3 Case Attendee <+> 3 Role Performed <+> 3 Procedure <+> 4 Case Attendee <+> 4 Role Performed <+> 4 Procedure 03/13/19 10:34:27 Bulb Grower: ARNULFO Modifier: BRYANTHE 1 <*> Case Attendee ROLAND MANE MD-AURA 1 <*> Procedure Esophagogastroduodenoscopy [facility] - Case Times Entry 1 Patient In Room Time 03/13/19 12:11:00 Out Room Time 03/13/19 12:22:00 Anesthesia Start Time 03/13/19 12:11:00 Stop Time 03/13/19 12:20:00 Anesthesia Ready 03/13/19 12:13:00 Surgery / Procedure Times Start Time 03/13/19 12:19:00 Stop Time 03/13/19 12:20:00 Last Modified By: LIZZIE SULLIVAN RN 03/13/19 12:21:38 [facility] - Case Times Audit 03/13/19 12:21:38 Bulb Grower: KULCKA Modifier: KULCKA <+> 1 Out Room Time 03/13/19 12:20:57 Bulb Grower: KULCKA Modifier: KULCKA <+> 1 Stop Time <+> 1 Start Time <+> 1 Stop Time 03/13/19 12:13:59 Bulb Grower: KULCKA Modifier: KULCKA <+> 1 Anesthesia Ready [facility] - Cultures and Spec Summary Entry 1 Cultrures and Specimens Specimen Ordered: Yes Test(s) Routine/Path-Lab Requested/Final Disposition Last Modified By: LIZZIE SULLIVAN RN 03/13/19 12:19:00 General Comments: leonardo test [facility] - Delays Entry 1 Delay Reason Other Duration 0 Minute(s) Comment NO DELAY Last Modified By: LIZZIE SULLIVAN RN 03/13/19 12:13:31 [facility] - Departure from OR Entry 1 Integumentary Assessment Integumentary WDL Assessment WDL Transfer/Handoff Transfer to PACU Phase I Post-op Transport Stretcher/Gurney Via Patient Transport LIZZIE SULLIVAN, Accompanied by RNJUAN PABLO KAREN KIM, CRNA Last Modified By: LIZZIE SULLIVAN RN 03/13/19 12:13:49 [facility] - Endoscopy Details Entry 1 Abdomen Procedure Soft, Non-Tender Assessment Procedure Abdomen 03/13/19 12:14:00 Assessment D/T Radio Frequency Ablation Last Modified By: LIZZIE SULLIVAN RN 03/13/19 12:14:06 [facility] - Fire Risk Assessment Entry 1 Fire Info Surgical Site or 1- Yes Incision Above the Xyphoid Open O2 Source 1- Yes (Mask or Cannula) Available Ignition 1- Yes (ESU, Laser, Light Source) Fire Risk 3 Assessment Score Fire Score Fire Risk Yes Assessment Complete Fire Risk LIZZIE SULLIVAN RN Assessment Verified By Fire Risk 03/13/19 12:14:00 Assessment Verified Date/Time Fire Risk High Risk Protocol Yes Implemented Standard Fire Yes Safety Precautions Followed Last Modified By: LIZZIE SULLIVAN RN 03/13/19 12:14:14 [facility] - General Case Pulp Drier Firer 1 Case Information OR Endo 01 [facility] Case Level 1 Room Verified Yes Wound Class II - Clean-Contaminated Specialty SN General Anesthesia Type MAC ASA Class 3 Diagnosis Preop Diagnosis K21.9 Postop Same As Preop No Postop Diagnosis normal Last Modified By: LIZZIE SULLIVAN RN 03/13/19 12:21:05 [facility] - General Case Data Audit 03/13/19 12:21:05 Bulb Grower: HOSEA Modifier: KULCKA <+> 1 Postop Diagnosis 03/13/19 12:14:27 Bulb Grower: ARNULFO Modifier: KULCKA <+> 1 ASA Class <+> 1 Anesthesia Type <+> 1 Postop Same As Preop <+> 1 Room Verified [facility] - Intraoperative Assessment Entry 1 Valid History / Yes Physical in Chart Preoperative Yes Checklist Reviewed/Evaluated Allergies Reviewed Yes Patient is Latex No Sensitive Level of WDL Consciousness (WDL = Alert, Oriented to Person, Place, and Time) Present Upon IVs, ECG monitored Arrival to OR Last Modified By: LIZZIE SULLIVAN RN 03/13/19 12:14:37 [facility] - Intraoperative Equipment Entry 1 Equipment Intraop Monitoring Electrocardiogram Three lead placement (ECG) Electrode Placement Blood Pressure Arm, left upper Location Pulse Oximeter Hand, right Probe Site Antiembolic Devices Scopes Flexible Endoscopes Gastroscope Used Scope Serial [id number] Number/Identificatio n Number Photo/Video Documentation Photo Yes Video No Last Modified By: LIZZIE SULLIVAN RN 03/13/19 12:14:51 [facility] - Patient Positioning Entry 1 Procedure Esophagogastroduodenosco py, Gastric Biopsy Body Position Lateral, right side up Left Arm Position Resting at side Right Arm Position Resting at side Left Leg Position Other Right Leg Position Other Position Comments Right leg over left leg uncrossed Feet Uncrossed Yes Pressure Points Yes Checked Positioned By DELLA ALMEIDA CRNA Position Verified Positioning Yes Verified by Surgeon Last Modified By: LIZZIE SULLIVAN RN 03/13/19 12:18:41 [facility] - Patient Positioning Audit 03/13/19 12:18:41 Bulb Grower: RUSSELLLCKA Modifier: KULCKA 1 <*> Procedure Esophagogastroduodenoscopy [facility] - Sign In Entry 1 Patient, Site, Yes Procedure Identified Surgical Consent Yes Confirmed Surgical Site N/A Marked by person performing procedure Airway Hypothermia Risk No Warming Measures No Taken Last Modified By: LIZZIE SULLIVAN RN 03/13/19 12:13:44 [facility] - Sign In Audit 03/13/19 12:13:44 Bulb Grower: NICOLETTEKA Modifier: KULCKA <+> 1 Hypothermia Risk <+> 1 Warming Measures Taken [facility] - Sign Out Entry 1 RN Confirmation Surgical Yes Procedure(s) Identified Instrument, Sponge N/A and Sharps Counts Correct/Documented Equipment Problems N/A Documented Specimen Labeled Yes Correctly Urinary Catheter N/A Documented in IView Safety Checklist Yes Elements Complete? RN Sign Out LIZZIE SULLIVAN RN Signature RN Sign Out 03/13/19 12:21:00 Signature Date/Time Plan of Care Outcome - Fire Risk OUTCOME STATEMENT: Goal met Patient is free from injury related to surgical fire Plan of Care Outcome - Pt Positioning OUTCOME STATEMENT: Goal met Absence of signs and symptoms of positioning injury. Plan of Care Outcome - Skin Prep OUTCOME STATEMENT: Goal met Intraoperative care is consistent with measures to prevent infection Plan of Care Outcome - Xray/Images OUTCOME STATEMENT: N/A Absence of observable signs or symptoms of radiation injury Plan of Care Outcome - Counts OUTCOME STATEMENT: N/A Absence of signs and symptoms of injury related to extraneous objects Last Modified By: LIZZIE SULLIVAN RN 03/13/19 12:21:29 [facility] - Surgical Procedures Entry 1 Entry 2 Procedure Esophagogastroduodenosco Gastric Biopsy py Modifiers Additional Procedure Description Primary Procedure Yes No Primary Surgeon HARRIET GARCIA, HARIRET GARCIA MD-AURA -AURA Start 03/13/19 12:19:00 03/13/19 12:19:00 Stop 03/13/19 12:20:00 03/13/19 12:20:00 Physician States Cecum Reached Anesthesia Type MAC MAC Specialty SN General SN General Wound Class II - Clean-Contaminated II - Clean-Contaminated Last Modified By: LIZZIE SULLIVAN RN KULCHAR, KATHLEEN A, RN 03/13/19 12:21:11 03/13/19 12:21:11 [facility] - Surgical Procedures Audit 03/13/19 12:21:11 Bulb Grower: HOSEA Modifier: KULCKA <+> 1 Start <+> 1 Stop <+> 2 Start <+> 2 Stop 03/13/19 12:18:35 Bulb Grower: ARNULFO Modifier: KULCKA <+> 2 Procedure <+> 2 Primary Procedure <+> 2 Primary Surgeon <+> 2 Specialty <+> 2 Wound Class <+> 2 Anesthesia Type [facility] - Time Out Entry 1 Procedure to be Esophagogastroduodenosco Performed py, Gastric Biopsy Time Out Time Out Pause Time 03/13/19 12:17:00 All activity Yes suspended (unless life threatening emergency) Team Verbally Correct patient Confirms Information identity, Correct side and site are marked, Consent form is present and accurate, Agreement on the procedure to be done, Correct patient position Antibiotic N/A Prophylaxis Administered Or In Progress Within the Last 60 Minutes Beta Belkis N/A Administered Venous N/A Thromboembolism Prophylaxis Required Anticipated Critical Events Surgeon None expected Last Modified By: LIZZIE SULLIVAN RN 03/13/19 12:18:41 [facility] - Time Out Audit 03/13/19 12:18:41 Bulb Grower: RUSSELLLAINE Modifier: RUSSELLLAINE 1 <*> Procedure to be Performed Esophagogastroduodenoscopy Case Comments <None> Finalized By: LIZZIE SULLIVAN RN Document Signatures Signed By: LIZZIE SULLIVAN RN 03/13/19 12:22 Electronically signed by Martina [facility] Conversion A P Mechanic Cerner at 07/13/2022 6:20 PM CDT documented in this encounter Plan of Treatment Not on file documented as of this encounter Visit Diagnoses Not on filedocumented in this encounter
--- OUTSIDE RECORDS SUMMARY | 2024-11-23 10:32 | XMS_ITS | Encounter Summary ---
Author Organization [employer] ([place], [place], [place], [place]) Address [address] [place] [address] Care Team Providers Care Cheese Supervisor Name Role Phone Unavailable Primary Care Provider Unavailabl e Encounter Details Date Type Department Care Team (Late st Contact Info) Description 07/29/2020 Transcribed Document [facility] [place] Family Medicine [address] [place] [address] ProviderOtilia MD [address] [place] [address] Social History Tobacco Use Types Packs/Day Years Used Date Smoking Tobacco: Never Assessed Comments Unknown Sex and Gender Information Value Date Recorded Sex Assigned at Not on file Legal Sex Female 4:36 PM CDT Gender Identity Not on file Sexual Orientation Not on file documented as of this encounter Miscellaneous Notes * Cerner Conversion Note - Historical ProviderMD - 07/29/2020 10:01 AM CDT Pre Procedure Adult Entered On: 07/29/2020 10:06 EDT Performed On: 07/29/2020 10:01 EDT by MIGUEL ROBINS RN Height and Weight, Clinical Dosing Height Source : Stated Height Entry Format : Agency Height, Feet : 5 ft(Converted to: 152 cm, 60 Inch) Height, Inches : 7 Inch(Converted to: 0 ft 7 Inch, 17.78 cm) Clinical Height : 170.18 cm Weight Source : Standing scale Weight Entry Format : Agency Clinical Dosing Weight : 139.09 kg Weight, Pounds : 306 lb Body Surface Area (BSA) : 2.42 m2 Body Mass Index : 48 kg/m2 (>HHI) [place] Body Weight : 61 kg MIGUEL ROBINS RN - 07/29/2020 10:01 EDT Health Histories Smoking Status : Former smoker, quit more than 30 days ago Smokeless Tobacco Status : Never MIGUEL ROBINS RN - 07/29/2020 10:01 EDT Social History (As Of: 07/29/2020 10:06:54 EDT) Tobacco: 4 or less cigarettes(less than 1/4 pack)/day in last 30 days Smoking Status. Never Smokeless Tobacco Status. Years of Use: 20. Packs/Tins Daily: .5. (Last Updated: 03/13/2019 10:26:27 EST by Sandy Esparza RN) Former smoker, quit more than 30 days ago Smoking Status. Never Smokeless Tobacco Status. (Last Updated: 07/29/2020 10:00:52 EDT by MIGUEL ROBINS RN) Alcohol: Alcohol Use History No. Use in Last 12 Months: No. (Last Updated: 03/13/2019 10:27:03 EST by Sandy Esparza RN) Alcohol Use History No. (Last Updated: 07/29/2020 10:00:52 EDT by MIGUEL ROBINS RN) Substance Abuse: Drug Use Hx: No. Use in Last 12 Months: No. (Last Updated: 03/13/2019 10:27:20 EST by Sandy Esparza RN) Drug Use Hx: No. (Last Updated: 07/29/2020 10:00:52 EDT by MIGUEL ROBINS RN) Infectious Disease History Has the patient ever been tested for COVID-19? : Yes, Patient stated results Negative Date of COVID-19 test known? : Yes Date of COVID-19 Test : 07/27/2020 EDT Does patient have symptoms of COVID-19? : No COVID19 Screening : No Experiencing Infectious Disease Symptoms : No symptoms Physical contact outside [place] in the last 30 days : No Infectious Disease History : Chicken pox/Shingles, Influenza Tuberculosis Symptoms : None MIGUEL ROBINS RN - 07/29/2020 10:01 EDT COVID19 PreProcedure Screening Is this an Emergent or Add on Procedure? : No Date PreProcedure COVID-19 test known? : Yes Date of PreProcedure COVID-19 : 07/27/2020 EDT Has patient been isolated since the test : Yes Exposed to COVID19 symptoms since test? : N/A - PreProcedure, in-person visit MIGUEL ROBINS RN - 07/29/2020 10:01 EDT Anesthesia/Transfusion History Family History of Anesthesia Reaction : No prior transfusion(s) Transfusion History : Prior anesthesia without reaction Family History of Anesthesia Reaction : None MIGUEL ROBINS RN - 07/29/2020 10:01 EDT Functional Assessment Living Situation : Home Patient Lives With : Dependent Child/Children, Spouse Current Home Treatments : None MIGUEL ROBINS RN - 07/29/2020 10:01 EDT Baker Suicide Severity Rating Scale (C-SSRS) CSSRS Past Month Wish to be : No CSSRS Past Month Suicidal Thoughts : No CSSRS Lifetime Suicide Behavior : No Suicide Severity Rating Score : 0 Suicide Severity Rating : No Additional Care Required at this time MIGUEL ROBINS RN - 07/29/2020 10:01 EDT Psychosocial History Do You Have a History of the Following? : Depression Currently in Unsafe Situation : No MIGUEL ROBINS RN - 07/29/2020 10:01 EDT Advance Directive Patient has Advance Directive *Q : No, patient refuses Advance Directive information MIGUEL ROBINS RN - 07/29/2020 10:01 EDT General Info Want Family/Rep/Phys Notified of Admit : No Emergency Contact #1 : Bri Sousa Emergency Contact #1 Emergency Contact #1 Relationship : Friend Emergency Contact #2 : - Emergency Contact #2 Phone Number : - Emergency Contact #2 Relationship : - Primary Language : Turkmen Communication Barrier : None Seo Professional Needed : No MIGUEL ROBINS RN - 07/29/2020 10:01 EDT Sleep Apnea Risk Assmt Hx of Obstructive Sleep Apnea Diagnosis : No Snore Loudly : Yes Tired, Fatigued, or Sleepy During Day : No Observed Stopping Breathing During Sleep : No Have/Are Being Treated for Hypertension : No BMI Greater Than 35 kg/m2 : Yes Age over 50 Years Old : Yes Neck Circumference Greater Than 40 cm : No Gender Male : No STOP-BANG Sleep Apnea Risk Level Score : 3 MIGUEL ROBINS RN - 07/29/2020 10:01 EDT Lucian Scale Lucian Sensory Perception : No impairment Lucian Moisture : Rarely moist Lucian Activity : Walks frequently Lucian Mobility : No limitation Lucian Nutrition : Excellent Lucian Friction and Shear : No apparent problem Lucian Score : 23 MIGUEL ROBINS RN - 07/29/2020 10:01 EDT Pain Assessment Pain Assessment : Initial assessment Pain Scale Used : 0-10 Scale MIGUEL ROBINS RN - 07/29/2020 10:01 EDT Fall Risk Scales ABCs Fall Injury Risk Identification : Surgery ABC Fall Injury Risk : Moderate to high injury risk DEAN Hx Falls Immediate/Within 3 Months : Yes Dean Secondary Diagnosis : No DEAN Use of Ambulatory Aid : None DEAN IV Therapy or IV Access : Yes Dean Gait/Transferring : Normal, bedrest, immobile Dean Mental Status : Oriented to own ability Dean Fall Risk Score : 45 DEAN Fall Scale Risk Level : 25-45 Medium Risk Aurora Fall Interventions : Adequate lighting, Bed in low position, Call device within reach, Hourly comfort/safety rounds, Non-slip footwear, Personal items within reach, Upper side-rails up, Wheels locked, Wires/Cords secured MIGUEL ROBINS RN - 07/29/2020 10:01 EDT Valuables and Belongings Valuables and Belongings : Clothing, Personal items Clothing : Common streetwear Clothing Disposition : With patient Personal Items : Cell phone, Purse Personal Items Disposition : Bedside, With patient MIGUEL ROBINS RN - 07/29/2020 10:01 EDT Pain Scale Intensity : 0 MIGUEL ROBINS RN - 07/29/2020 10:01 EDT Image 4 - Images currently included in the form version of this document have not been included in the text rendition version of the form. documented in this encounter Plan of Treatment Not on file documented as of this encounter Visit Diagnoses Not on filedocumented in this encounter
--- OUTSIDE RECORDS SUMMARY | 2024-11-23 10:32 | XMS_ITS | Encounter Summary ---
Author Organization [facility] Address [address] [id number] Care Team Providers Care Management Intern Name Role Phone Thaddeus Morales MD Primary Care Provider [phone] Thaddeus Morales MD Unavailable [phone] Shelli Espinosa MD Unavailable [phone] Reason for Referral * Consultation (Routine) - Closed Specialty Diagnoses / Procedures Referred By Contac t Referred To Contact Urology Diagnoses Acquired female bladder prolapse Thaddeus Morales MD [address] [facility] [address] [place] [address] Phone: tel: fax: Shelli Espinosa MD [address] [facility] [address] [place] [address] Phone: tel: fax: Referral ID Status Reason Start Date Expiration Date V isits Requested Visits Authorized [id number] Closed Specialty Services Required 12/05/2023 06/05/2025 1 1 Encounter Details Date Type Department Care Team (Late st Contact Info) Description 12/05/2023 [facility] [address] [place] [address] Thaddeus Morales MD [address] [facility] [address] [place] [address] Acquired female bladder prolapse (Primary Dx) Social History Tobacco Use Types Packs/Day Years Used Date Smoking Tobacco: Former Cigarettes 0.5 24 0 05/09/1998 - 05/09/2022 Passive Smoke Exposure: Never Smokeless Tobacco: Never Alcohol Use Standard Drinks/Week Comments Never 0 (1 standard drink = 0.6 oz pur e alcohol) PHQ-2 Answer Date Recorded Patient Health Questionnaire-2 Score 0 11/29/2023 PHQ-2A Answer Date Recorded Depression Risk 0 11/28/2022 Comments No Sex and Gender Information Value Date Recorded Sex Assigned at Not on file Legal Sex Female 7:54 PM EDT Gender Identity Not on file Sexual Orientation Not on file documented as of this encounter Plan of Treatment Upcoming Encounters Date Type Department Care Team (Late st Contact Info) Description 12/21/2024 2:00 PM EDT Ancillary Procedure [facility] [address] [place] [address] 12/21/2024 2:30 PM EDT Office Visit [facility] [address] [place] [address] Amador Reynolds MD [address] [facility] [address] [place] [address] Scheduled Referrals Name Type Priority Associated Diagnoses Order Schedule Ambulatory referral to Urology Outpatient Referral Routine Acquired female bladder prolapse Ordered: 12/05/2023 documented as of this encounter Visit Diagnoses Diagnosis Acquired female bladder prolapse- Primary Cystocele, midline documented in this encounter Additional Health Concerns Assessment Noted Time A fall risk assessment has been complete d for the patient 11/29/2023 11:37 AM EDT documented as of this encounter Care Teams Management Intern Relationship Specialty Start Date End Date Thaddeus Morales MD [address] [place] [address] PCP - General 08/05/20 Thaddeus Morales MD [address] [place] [address] Referring Physician Internal Medicine 11/28/23 Shelli Espinosa MD [address] [id number] Surgeon Urology 02/12/24 documented as of this encounter
--- OUTSIDE RECORDS SUMMARY | 2024-11-23 10:32 | XMS_ITS | Encounter Summary ---
Author Organization [employer] ([place], [place], [place], [place]) Address [address] [place] [address] Care Team Providers Care Industrial Boilermaker Name Role Phone Unavailable Primary Care Provider Unavailabl e Encounter Details Date Type Department Care Team (Late st Contact Info) Description 07/29/2020 Transcribed Document [facility] [place] [facility] Family Medicine [address] [place] [address] ProviderOtilia MD [address] [place] [address] Social History Tobacco Use Types Packs/Day Years Used Date Smoking Tobacco: Never Assessed Comments Unknown Sex and Gender Information Value Date Recorded Sex Assigned at Not on file Legal Sex Female 4:36 PM CDT Gender Identity Not on file Sexual Orientation Not on file documented as of this encounter Miscellaneous Notes * Cerner Conversion Note - Historical ProviderMD - 07/29/2020 11:15 AM CDT [facility] N[facility] PreOp Summary Primary Physician: HARRIET GARCIA MD-SUR Finalized Date/Time: 07/29/20 10:35:17 Pt. Name: WILMA CANALES/Sex: 1965 Female Med Rec #: [id number] Physician: HARRIET GARCIA MD-SUR Financial #: [id number] Pt. Type: E Room/Bed: N/1 Admit/Disch: 07/29/20 08:04:00 - Institution: [facility] Nune[facility] PreOp Case Times Entry 1 In Preop 07/29/20 09:57:00 Ready for Holding n/a Room Patient Ready for 07/29/20 10:35:00 Surgery Patient Out of Preop 07/29/20 10:35:00 Patient Out of n/a Holding Room [facility] PreOp Case Times Audit 07/29/20 10:35:14 Optical Worker: BRINDA Modifier: KELLYTD <+> 1 Patient Out of Preop <+> 1 Patient Ready for Surgery Finalized By: MIGUEL ROBINS, RN Document Signatures Signed By: MIGUEL ROBINS RN 07/29/20 10:35 Electronically signed by Martina [facility] Conversion Shear Tender Cerner at 07/13/2022 8:44 PM CDT documented in this encounter Plan of Treatment Not on file documented as of this encounter Visit Diagnoses Not on filedocumented in this encounter
--- OUTSIDE RECORDS SUMMARY | 2024-11-23 10:32 | XMS_ITS | Clinical Summary ---
Author Organization [facility] Address [address] [place] [address] Care Team Providers Care Software Development Specialist Name Role Phone Thaddeus Morales MD Primary Care Provider [phone] Thaddeus Morales MD Unavailable [phone] Shelli Espinosa MD Unavailable [phone] Allergies Active Allergy Reactions Criticality Noted Date Comments Bee Venom Unknown - Patient st ates they do not know rxn details High 11/28/2022 Swelling Oxybutynin Rash Low 02/12/2024 Medications ergocalciferol 1.25 MG (64205 UT) capsule 09/07/2022 Active Multiple Vitamin (multivitamin) tablet Take 1 tablet by mouth 1 (one) time each day. Active CALCIUM PO Take by mouth. Active ondansetron (Zofran) 8 MG tablet Take 1 tablet (8 mg) by mouth 3 (three) times a day. Active mirabegron ER (Myrbetriq) 50 MG tablet Take 1 tablet (50 mg) by mouth 1 (one) time each day. 30 tablet 11 02/12/2024 Active estradiol (Estrace) 0.1 MG/GM vaginal creamIndications :Urinary urgency,Urge incontinence,Vag inal atrophy Insert 1 gram into the vagina 3x/week 30 g 11 02/12/2024 Active Active Problems Problem Noted Date Diagnosed Date Urge incontinence 02/12/2024 Urinary urgency 02/12/2024 Stress incontinence 02/12/2024 Vaginal atrophy 02/12/2024 Rectocele 02/12/2024 Cystocele with prolapse 02/12/2024 Complex cyst of right ovary 11/29/2023 Depression 11/28/2022 Secondary hyperparathyroidism 11/28/2022 H/O vitamin D deficiency 11/28/2022 H/O gastric sleeve 11/28/2022 Elbow pain 11/16/2019 2022 Back pain 12/27/2015 2022 DDD (degenerative disc disease), lumbar 12/27/19 16 2022 Facet hypertrophy of lumbar region 12/27/2015 2022 Family History Medical History Relation Name Comments Conversions - Other Other Back pro blem Relation Name Status Comments Other Social History Tobacco Use Types Packs/Day Years Used Date Smoking Tobacco: Former Cigarettes 0.5 24 0 05/09/1998 - 05/09/2022 Passive Smoke Exposure: Never Smokeless Tobacco: Never Tobacco Cessation:Counseling Given: Not Answered Alcohol Use Standard Drinks/Week Comments Never 0 (1 standard drink = 0.6 oz pur e alcohol) PHQ-2 Answer Date Recorded Patient Health Questionnaire-2 Score 0 03/02/2024 PHQ-2A Answer Date Recorded Depression Risk 0 11/28/2022 Comments No Sex and Gender Information Value Date Recorded Sex Assigned at Not on file Legal Sex Female 7:54 PM EDT Gender Identity Not on file Sexual Orientation Not on file Last Filed Vital Signs Vital Sign Reading Time Taken Comments Blood Pressure 136/80 06/08/2024 2:54 PM EDT Pulse 77 06/08/2024 2:54 PM EDT Temperature 36.2 C (97.2 F) 06/08/2024 2:54 PM EDT Respiratory Rate 18 06/08/2024 2:54 PM EDT Oxygen Saturation 97% 06/08/2024 2:54 PM EDT Inhaled Oxygen Concentration - - Weight 87.3 kg (192 lb 6.4 oz) 06/08/2024 2:54 P M EDT Height 170.2 cm (5' 7 ) 06/08/2024 2:54 PM EDT Body Mass Index 30.13 06/08/2024 2:54 PM EDT Plan of Treatment Upcoming Encounters Date Type Department Care Team (Late st Contact Info) Description 12/21/2024 2:00 PM EDT Ancillary Procedure [facility] [address] [place] [address] 12/21/2024 2:30 PM EDT Office Visit [facility] [address] [place] [phone] Amador Reynolds MD [address] [place] [phone] Health Maintenance Due Date Last Done Comments [facility]-HIV Screening 1964 [facility]-Hepatitis C Screening 1964 [facility]-Infant/Child/Adol SDOH Screenings 1964 [facility]- SDOH Screenings 1982 [facility]-Adult SDOH Screenings 1982 [facility]-Pap Smear 1985 [facility]-Cervical Cancer Screening 1994 [facility]-HPV/Cotest 1994 CT Colonography 2009 Colonoscopy 2009 FIT-DNA 2009 FIT 2009 FOBT 2009 Sigmoidoscopy 2009 [facility]-Colorectal Cancer Screening 2009 [facility]-Breast Cancer Screening 2014 [facility]-Pneumococcal Vaccine: 50+ Years (2 of 2 - PCV) 2014 04/27/2013 [facility]-Zoster Vaccines (2 of 2) 12/19/2022 10/24/2022 [facility]-Hepatitis B Vaccines (2 of 3 - 19+ 3-dose series) 09/17/2023 08/20/2023 [id number] Vaccine (3 - 2023- season) 2023 07/13/2020, 06/15/2020 [facility]-Influenza Vaccine (#1) 11/23/202412/01, 11/20/2023, 02/13/2023, Additional history exists [facility]-Depression Screening 03/02/2025 03/02/2024, 08/2022 [facility]-DTaP,Tdap,and Td Vaccines (2 - Td or Tdap) 05/07/2028 05/07/2018 [facility]-Hepatitis A Vaccines Aged Out 08/08/2018, 03/2017 No longer eligible based on patient's age to complete this topic [facility]-Obesity Intervention Completed 02/12/2024 HPV Vaccines Aged Out No longer eligi ble based on patient's age to complete this topic [facility]-HIB Vaccines Aged Out No longer e ligible based on patient's age to complete this topic [facility]-IPV Vaccines Aged Out No longer e ligible based on patient's age to complete this topic [facility]-Rotavirus Vaccines Aged Out No lo nger eligible based on patient's age to complete this topic Insurance ANTH Care Teams Software Development Specialist Relationship Specialty Start Date End Date Thaddeus Morales MD [address] [place], [place] [address] PCP - General 08/05/20 Thaddeus Morales MD [address] [place] [address] Referring Physician Internal Medicine 11/28/23 Shelli Espinosa MD [address] [place] [address] Surgeon Urology 02/12/24
--- OUTSIDE RECORDS SUMMARY | 2024-11-23 10:32 | XMS_ITS | Clinical Summary ---
Author Organization [employer] ([place], [place], [place], [place]) Address [address] [place] [address] Care Team Providers Care Concessionist Name Role Phone Unavailable Primary Care Provider Unavailabl e Social History Tobacco Use Types Packs/Day Years Used Date Smoking Tobacco: Never Assessed Comments Unknown Sex and Gender Information Value Date Recorded Sex Assigned at Not on file Legal Sex Female 4:36 PM CDT Gender Identity Not on file Sexual Orientation Not on file Plan of Treatment Not on file
--- OUTSIDE RECORDS SUMMARY | 2024-11-23 10:32 | XMS_ITS | Encounter Summary ---
Author Organization [employer] ([place], [place], [place], [place]) Address [address] [place] [address] Care Team Providers Care Conventions Assistant Name Role Phone Unavailable Primary Care Provider Unavailabl e Encounter Details Date Type Department Care Team (Late st Contact Info) Description 03/13/2019 Transcribed Document [facility] [place] Medicine [address] [place] [address] ProviderOtilia MD [address] [place] [address] Social History Tobacco Use Types Packs/Day Years Used Date Smoking Tobacco: Never Assessed Comments Unknown Sex and Gender Information Value Date Recorded Sex Assigned at Not on file Legal Sex Female 4:36 PM CDT Gender Identity Not on file Sexual Orientation Not on file documented as of this encounter Miscellaneous Notes * Cerner Conversion Note - Otilia ProviderMD - 03/13/2019 12:34 PM ENGINEER AUTOMATED EQUIPMENT Patient Education Materials Follows: Steps to Quit Smoking Smoking tobacco can be bad for your health. It can also affect almost every organ in your body. Smoking puts you and people around you at risk for many serious long-lasting (chronic) diseases. Quitting smoking is hard, but it is one of the best things that you can do for your health. It is never too late to quit. What are the benefits of quitting smoking? When you quit smoking, you lower your risk for getting serious diseases and conditions. They can include: ??? Lung cancer or lung disease. ??? Heart disease. ??? Stroke. ??? Heart attack. ??? Not being able to have children (infertility). ??? Weak bones (osteoporosis) and broken bones (fractures). If you have coughing, wheezing, and shortness of breath, those symptoms may get better when you quit. You may also get sick less often. If you are , quitting smoking can help to lower your chances of having a baby of low weight. What can I do to help me quit smoking? Talk with your doctor about what can help you quit smoking. Some things you can do (strategies) include: ??? Quitting smoking totally, instead of slowly cutting back how much you smoke over a period of time. ??? Going to in-person counseling. You are more likely to quit if you go to many counseling sessions. ??? Using resources and support systems, such as: ? Online chats with a counselor. ? Phone quitlines. ? Printed self-help materials. ? Support groups or group counseling. ? Text messaging programs. ? Mobile phone apps or applications. ??? Taking medicines. Some of these medicines may have nicotine in them. If you are or , do not take any medicines to quit smoking unless your doctor says it is okay. Talk with your doctor about counseling or other things that can help you. Talk with your doctor about using more than one strategy at the same time, such as taking medicines while you are also going to in-person counseling. This can help make quitting easier. What things can I do to make it easier to quit? Quitting smoking might feel very hard at first, but there is a lot that you can do to make it easier. Take these steps: ??? Talk to your family and friends. Ask them to support and encourage you. ??? Call phone quitlines, reach out to support groups, or work with a counselor. ??? Ask people who smoke to not smoke around you. ??? Avoid places that make you want (trigger) to smoke, such as: ? Bars. ? Parties. ? Smoke-break areas at work. ??? Spend time with people who do not smoke. ??? Lower the stress in your life. Stress can make you want to smoke. Try these things to help your stress: ? Getting regular exercise. ? Deep-breathing exercises. ? Yoga. ? Meditating. ? Doing a body scan. To do this, close your eyes, focus on one area of your body at a time from head to toe, and notice which parts of your body are tense. Try to relax the muscles in those areas. ??? Download or buy apps on your mobile phone or tablet that can help you stick to your quit plan. There are many free apps, such as Samba.me from the CDC (Centers for Disease Control and Prevention). You can find more support from smokefree.gov and other websites. This information is not intended to replace advice given to you by your health care provider. Make sure you discuss any questions you have with your health care provider. Document Released: 01/05/2010 Document Revised: 11/06/2016 Document Reviewed: 07/26/2015 [employer] Interactive Patient Education ? 2019 [employer]. Monitored Anesthesia Care, Care After These instructions [...] eating solid foods. General instructions ??? Take quyh-wap-gtwgblw and prescription medicines only as told by [...] have with your health care provider. Document Released: 07/01/2016 Document Revised: 10/25/2017 Document Reviewed: 07/01/2016 [employer] Interactive Patient Education ? 2019 [employer] Esophagogastroduodenoscopy, Care After Refer to this sheet in the next few weeks. These instructions provide you with information about caring for yourself after your procedure. Your health care provider may also give you more specific instructions. Your treatment has been planned according to current medical practices, but problems sometimes occur. Call your health care provider if you have any problems or questions after your procedure. What can I expect after the procedure? After the procedure, it is common to have: ??? A sore throat. ??? Nausea. ??? Bloating. ??? Dizziness. ??? Fatigue. Follow these instructions at home: ??? Do not eat or drink anything until the numbing medicine (local anesthetic) has worn off and your gag reflex has returned. You will know that the local anesthetic has worn off when you can swallow comfortably. ??? Do not drive for 24 hours if you received a medicine to help you relax (sedative). ??? If your health care provider took a tissue sample for testing during the procedure, make sure to get your test results. This is your responsibility. Ask your health care provider or the department performing the test when your results will be ready. ??? Keep all follow-up visits as told by your health care provider. This is important. Contact a health care provider if: ??? You cannot stop coughing. ??? You are not urinating. ??? You are urinating less than usual. Get help right away if: ??? You have trouble swallowing. ??? You cannot eat or drink. ??? You have throat or chest pain that gets worse. ??? You are dizzy or light-headed. ??? You faint. ??? You have nausea or vomiting. ??? You have chills. ??? You have a fever. ??? You have severe abdominal pain. ??? You have black, tarry, or bloody stools. This information is not intended to replace advice given to you by your health care provider. Make sure you discuss any questions you have with your health care provider. Document Released: 02/25/2013 Document Revised: 08/16/2016 Document Reviewed: 02/02/2016 [employer] Interactive Patient Education ? 2019 [employer] documented in this encounter Plan of Treatment Not on file documented as of this encounter Visit Diagnoses Not on filedocumented in this encounter
--- OUTSIDE RECORDS SUMMARY | 2024-11-23 10:32 | XMS_ITS | Encounter Summary ---
Author Organization [employer] ([place], [place], [place], [place]) Address [address] [place] [address] Care Team Providers Care Track Mechanic Name Role Phone Unavailable Primary Care Provider Unavailabl e Encounter Details Date Type Department Care Team (Late st Contact Info) Description 07/29/2020 Transcribed Document [facility] [place] Family Medicine [facility] [place] [address] ProviderOtilia MD [address] [place] [address] Social History Tobacco Use Types Packs/Day Years Used Date Smoking Tobacco: Never Assessed Comments Unknown Sex and Gender Information Value Date Recorded Sex Assigned at Not on file Legal Sex Female 4:36 PM CDT Gender Identity Not on file Sexual Orientation Not on file documented as of this encounter Miscellaneous Notes * Cerner Conversion Note - Otilia Nicolas MD - 07/29/2020 11:02 AM CDT Patient Education Materials Follows: Monitored Anesthesia Care, Care After These instructions [...] eating solid foods. General instructions ??? Take qxbk-ehm-iyrrrhf and prescription medicines only as told by [...] provider. Document Revised: 06/09/2018 Document Reviewed: 07/01/2016 [employer] Patient Education ? 2020 [employer] ESOPHAGOGASTRODUODENOSCOPY Care After Read the instructions outlined [...] call your doctor. HOME CARE INSTRUCTIONS: ACTIVITY: ?? You may resume your regular activity tomorrow, but move at a slower pace for the next 24 hours. ?? Take frequent rest periods for the next 24 hours. ?? Walking will help get rid of the air and reduce the bloated feeling in your belly (abdomen). ?? No driving for 24 hours because of the medication (sedation) used during the test. ?? You may shower. ?? Do not sign any important legal documents or operate any machinery for 24 hours (because of the sedation used during the test). NUTRITION: ?? Drink plenty of fluids. ?? You may resume your normal diet or as instructed by your doctor ?? Begin with a light meal and progress to your normal diet. Heavy or fried foods are harder to digest and may make you feel sick to your stomach (nauseated). ?? Avoid alcoholic beverages for 24 hours or as instructed. MEDICATIONS: ?? You may resume your normal medications unless your doctor tells you otherwise. WHAT TO EXPECT TODAY: ?? Some feelings of bloating in the abdomen. ?? Excessive burping today and passage of more gas than usual. ?? A sore throat can be normal. Use throat lozenges or gargle with warm salt water and drink plenty of fluids. FINDING OUT THE RESULTS OF YOUR TEST: ?? Not all test results are available during your visit. If you had biopsies or other tests done during your procedure, you can make an appointment with your doctor to get the results. Sometimes you may be instructed to call the doctor's office for your results. It is important for you to follow up on all of your test results. SEEK IMMEDIATE MEDICAL CARE IF: ?? You cannot eat or drink. ?? You have worsening throat or chest pain. ?? You have dizziness, lightheadedness, or you faint. ?? You have severe nausea or vomiting. ?? You have a fever greater than 101. ?? You have chills. ?? You have severe abdominal pain or discomfort that gets worse throughout the day. ?? You have black, tarry, or bloody stools. [...] Follow these instructions at home: ??? Take bmjv-vki-lvbaxmh and prescription medicines only as told by [...] and water are not available, use hand signalling and communications engineer. ? Do not eat food or drink [...] provider. Document Revised: 07/02/2019 Document Reviewed: 03/04/2018 [employer] Patient Education ? 2019 [employer] documented in this encounter Plan of Treatment Not on file documented as of this encounter Visit Diagnoses Not on filedocumented in this encounter
--- OUTSIDE RECORDS SUMMARY | 2024-11-23 10:32 | XMS_ITS | Encounter Summary ---
Author Organization [employer] ([place], [place], [place], [place]) Address [address] [place] [address] Care Team Providers Care Accounts Receivable Bookkeeper Name Role Phone Unavailable Primary Care Provider Unavailabl e Encounter Details Date Type Department Care Team (Late st Contact Info) Description 07/29/2020 Transcribed Document [facility] [place] Family Medicine [address] [place] [address] ProviderOtilia MD [facility] [place] [address] Social History Tobacco Use Types Packs/Day Years Used Date Smoking Tobacco: Never Assessed Comments Unknown Sex and Gender Information Value Date Recorded Sex Assigned at Not on file Legal Sex Female 4:36 PM CDT Gender Identity Not on file Sexual Orientation Not on file documented as of this encounter Miscellaneous Notes * Cerner Conversion Note - Historical ProviderMD - 07/29/2020 10:52 AM CDT [facility] IntraOp Summary Primary Physician: HARRIET GARCIA MD-SUR Finalized Date/Time: 07/29/20 10:54:27 Pt. Name: WILMA CANALES/Sex: 1965 Female Med Rec #: [id number] Physician: HARRIET GARCIA MD-SUR Financial #: [id number] Pt. Type: E Room/Bed: [facility] Admit/Disch: 07/29/20 08:04:00 - Institution: [facility] - Case Attendance Entry 1 Entry 2 Entry 3 Case Attendee HARRIET GARCIA Davis, Lizabeth, Rn Dara Blanchard MD-SUR HAIR SAMPLE MATCHER Role Performed Surgeon/Proceduralist, Doper, First Scrub, First First Time In 07/29/20 10:50:00 07/29/20 10:50:00 07/29/20 10:50:00 Time Out 07/29/20 10:56:00 07/29/20 10:56:00 07/29/20 10:56:00 Procedure Gastric Biopsy, Gastric Biopsy, Gastric Biopsy, Esophagogastroduodenosco Esophagogastroduodenosco Esophagogastroduodenosco py py py Other Attendee Superficial Wound Closed By: Last Modified By: Trena Martinez Rn Davis, Lizabeth, Rn Davis, Lizabeth, Rn 07/29/20 10:54:25 07/29/20 10:54:25 07/29/20 10:54:25 Entry 4 Entry 5 Case Attendee LUCIA NEFF DO-ANS GUNNING, CORTNEY, APRN, NAHOMY-ANS Role Performed Anesthesiologist of JACK MACHINE OPERATOR/Nurse Crinkling Machine Operator Record Time In 07/29/20 10:50:00 07/29/20 10:50:00 Time Out 07/29/20 10:56:00 07/29/20 10:56:00 Procedure Esophagogastroduodenosco Esophagogastroduodenosco py, Gastric Biopsy py Other Attendee Superficial Wound Closed By: Last Modified By: Trena Martinez Rn Davis, Lizabeth, Rn 07/29/20 10:54:25 07/29/20 10:54:25 [facility] - Case Attendance Audit 07/29/20 10:54:25 Rn Correctional: [id number] Modifier: [id number] <+> Time Out 1 <*> Procedure Gastric Biopsy, Esophagogastroduodenoscopy 2 <+> Time Out 2 <*> Procedure Gastric Biopsy, Esophagogastroduodenoscopy 3 <+> Time Out 3 <*> Procedure Gastric Biopsy, Esophagogastroduodenoscopy 4 <+> Time Out 4 <*> Procedure Esophagogastroduodenoscopy, Gastric Biopsy 5 <+> Time Out 5 <*> Procedure Esophagogastroduodenoscopy 07/29/20 10:50:33 Rn Correctional: [id number] Modifier: [id number] <+> Time In 1 <*> Procedure Gastric Biopsy, Esophagogastroduodenoscopy 2 <+> Time In 2 <*> Procedure Gastric Biopsy, Esophagogastroduodenoscopy 3 <+> Time In 3 <*> Procedure Gastric Biopsy, Esophagogastroduodenoscopy 4 <+> Time In 4 <*> Procedure Esophagogastroduodenoscopy, Gastric Biopsy <+> 5 Time In <+> 5 Procedure 07/29/20 10:31:59 Rn Correctional: [id number] Modifier: [id number] <*> Case Attendee Tristian DÍAZ MD-ANS 4 <*> Role Performed Anesthesiologist 4 <*> Procedure Gastric Biopsy, Esophagogastroduodenoscopy <+> 5 Case Attendee <+> 5 Role Performed 07/29/20 10:06:57 Rn Correctional: [id number] Modifier: [id number] <+> 1 Procedure <+> 2 Procedure <+> 3 Procedure <+> 4 Procedure [facility] - Case Times Entry 1 Patient In Room Time 07/29/20 10:50:00 Out Room Time 07/29/20 10:56:00 Anesthesia Start Time 07/29/20 10:50:00 Stop Time 07/29/20 10:56:00 Surgery / Procedure Times Start Time 07/29/20 10:52:00 Stop Time 07/29/20 10:54:00 Last Modified By: Trena Martinez Rn 07/29/20 10:54:17 [facility] - Case Times Audit 07/29/20 10:54:17 Rn Correctional: [id number] Modifier: [id number] <+> 1 Out Room Time <+> 1 Stop Time <+> 1 Stop Time 07/29/20 10:52:26 Rn Correctional: [id number] Modifier: [id number] <+> 1 Start Time [facility] - Cultures and Spec Summary Entry 1 Cultrures and Specimens Specimen Ordered: Yes Test(s) Routine/Path-Lab Requested/Final Disposition Last Modified By: Trena Martinez Rn 07/29/20 10:07:16 [facility] - Delays Entry 1 Delay Reason No Delay Duration 0 Minute(s) Last Modified By: Trena Martinez Rn 07/29/20 10:06:00 [facility] - Departure from OR Entry 1 Integumentary Assessment Integumentary WDL Assessment WDL Transfer/Handoff Transfer to PACU Phase I Handoff Method Bedside/Face to face Post-op Transport Stretcher/Gurney Via Patient Transport Trena Martinez, Rn Accompanied by Last Modified By: Trena Martinez Rn 07/29/20 10:06:02 [facility] [place] Endo - Endoscopy Details Entry 1 Abdomen Procedure Soft, Non-Tender Assessment Procedure Abdomen 07/29/20 10:50:00 Assessment D/T Radio Frequency Ablation Abdominal Pressure Last Modified By: Trena Martinez Rn 07/29/20 10:50:38 [facility] [place] Endo - Fire Risk Assessment Entry 1 Fire Info Surgical Site or 1- Yes Incision Above the Xyphoid Open O2 Source 1- Yes (Mask or Cannula) Available Ignition 1- Yes (ESU, Laser, Light Source) Fire Risk 3 Assessment Score Fire Score Fire Risk Yes Assessment Complete Fire Risk Trena Martinez Rn Assessment Verified By Fire Risk 07/29/20 10:50:00 Assessment Verified Date/Time Fire Risk High Risk Protocol Yes Implemented Standard Fire Yes Safety Precautions Followed Last Modified By: Trena Martinez Rn 07/29/20 10:07:00 [facility] [place] Endo - Fire Risk Assessment Audit 07/29/20 10:50:41 Rn Correctional: [id number] Modifier: [id number] <+> 1 Fire Risk Assessment Verified Date/Time [facility] [place] Endo - General Case Scalping Machine Operator 1 Case Information OR Endo 01 [facility] Case Level 1 Room Verified Yes Wound Class II - Clean-Contaminated Specialty General Anesthesia Type MAC ASA Class 3 Diagnosis Preop Diagnosis Dyspepsia, GERD Postop Diagnosis normal EGD Last Modified By: Trena Martinez Rn 07/29/20 10:50:57 [facility] [place] Endo - General Case Data Audit 07/29/20 10:54:12 Rn Correctional: [id number] Modifier: [id number] <+> 1 Postop Diagnosis 07/29/20 10:50:57 Rn Correctional: [id number] Modifier: [id number] <+> 1 ASA Class [facility] - Intraoperative Assessment Entry 1 Handoff Method Other Valid History / Yes Physical in Chart Preoperative Yes Checklist Reviewed/Evaluated Allergies Reviewed Yes Patient is Latex No Sensitive Isolation Not applicable Precautions Noted Level of WDL Consciousness (WDL = Alert, Oriented to Person, Place, and Time) Present Upon IVs, ECG monitored Arrival to OR Last Modified By: Trena Martinez Rn 07/29/20 10:06:29 [facility] [place] Endo - Intraoperative Equipment Entry 1 Type Scope Equipment Intraop Monitoring Electrocardiogram Three lead placement (ECG) Electrode Placement Blood Pressure Arm, left upper Location Pulse Oximeter Hand, right Probe Site Antiembolic Devices Scopes Flexible Endoscopes Gastroscope Used Scope Serial [id number] Number/Identificatio n Number Photo/Video Documentation Photo Yes Video No Last Modified By: Trena Martinez Rn 07/29/20 10:51:06 [facility] - Patient Positioning Entry 1 Procedure Esophagogastroduodenosco py, Gastric Biopsy Body Position Lateral, right side up Left Arm Position Resting at side Right Arm Position Resting at side Left Leg Position Other Right Leg Position Other Position Comments Right leg over left leg uncrossed Feet Uncrossed Yes Pressure Points Yes Checked Positioned By Trena Martinez Rn, Dara Blanchard, HAIR SAMPLE MATCHER Position Verified Positioning Yes Verified by Anesthesia Positioning Yes Verified by Surgeon Last Modified By: Trena Martinez Rn 07/29/20 10:06:32 [facility] - Patient Positioning Audit 07/29/20 10:06:59 Rn Correctional: [id number] Modifier: [id number] <*> Procedure Esophagogastroduodenoscopy [facility] - Sign In Entry 1 Patient, Site, Yes Procedure Identified Surgical Consent Yes Confirmed Relevant Surgical Yes Documents Available Surgical Site N/A Marked by person performing procedure Medication Checks Yes Completed Allergies No Airway Difficult No Airway/Aspiration Risk Difficult No Airway/Aspiration Intervention Equipment Available Blood Loss Risk No Blood Loss No Intervention Equipment Prepared and Ready Blood Identifiers Not applicable Verified Per Policy Hypothermia Risk No Warming Measures Yes Taken Last Modified By: Trena Martinez Rn 07/29/20 10:06:36 [facility] - Sign Out Entry 1 RN Confirmation Surgical Yes Procedure(s) Identified Instrument, Sponge N/A and Sharps Counts Correct/Documented Equipment Problems N/A Documented Specimen Labeled Yes Correctly Urinary Catheter N/A Documented in IView Safety Checklist Yes Elements Complete? RN Sign Out Trena Martinez Rn Signature RN Sign Out 07/29/20 10:56:00 Signature Date/Time Plan of Care Outcome - [...] related to extraneous objects Last Modified By: Trena Martinez Rn 07/29/20 10:54:22 [facility] - Surgical Procedures Entry 1 Entry 2 Procedure Esophagogastroduodenosco Gastric Biopsy py Modifiers Additional Procedure Description Primary Procedure Yes No Primary Surgeon HARRIET GARCIA, HARRIET GARCIA MD-[facility] Start 07/29/20 10:52:00 07/29/20 10:52:00 Stop 07/29/20 10:54:00 07/29/20 10:54:00 Physician States Cecum Reached Anesthesia Type MAC MAC Specialty General General Wound Class II - Clean-Contaminated II - Clean-Contaminated Last Modified By: Trena Martinez Rn Davis, Lizabeth, Rn 07/29/20 10:06:54 07/29/20 10:06:54 [facility] - Surgical Procedures Audit 07/29/20 10:54:24 Rn Correctional: [id number] Modifier: [id number] <+> 1 Start <+> 1 Stop <+> 2 Start <+> 2 Stop [facility] - Time Out Entry 1 Procedure to be Esophagogastroduodenosco Performed py Time Out Time Out Pause Time 07/29/20 10:51:00 All activity Yes suspended (unless life threatening [...] Events Surgeon None expected Last Modified By: Trena Martinez Rn 07/29/20 10:52:05 Case Comments <None> Finalized By: Trena Martinez Rn Document Signatures Signed By: Trena Martinez Rn 07/29/20 10:54 documented in this encounter Plan of Treatment Not on file documented as of this encounter Visit Diagnoses Not on filedocumented in this encounter
--- OUTSIDE RECORDS SUMMARY | 2024-11-23 10:32 | XMS_ITS | Encounter Summary ---
Author Organization [employer] ([place], [place], [place], [place]) Address [address] [place] [address] Care Team Providers Care Volunteer Services Manager Name Role Phone Unavailable Primary Care Provider Unavailabl e Encounter Details Date Type Department Care Team (Late st Contact Info) Description 03/13/2019 Transcribed Document [facility] [place] Family Medicine [address] [place] [address] ProviderOtilia MD [address] [place] [address] Social History Tobacco Use Types Packs/Day Years Used Date Smoking Tobacco: Never Assessed Comments Unknown Sex and Gender Information Value Date Recorded Sex Assigned at Not on file Legal Sex Female 4:36 PM CDT Gender Identity Not on file Sexual Orientation Not on file documented as of this encounter Miscellaneous Notes * Cerner Conversion Note - Historical ProviderMD - 03/13/2019 12:43 PM [employer] [place] [id number] LISA WILMAFANNIE RAMOS :1965 Visit Time:03/13/2019 What to do next Your Diagnosis Gastro-esophageal reflux disease without esophagitis, Gastro-esophageal reflux disease without esophagitis Instructions From Your Care Team Diet after Discharge: Resume usual diet as tolerated, Do not drink any alcoholic beverages, _ Fluid Restriction after Discharge: _ Activity after Discharge: _, Rest and relax today, No strenuous activity Lifting Restrictions: _ Weight Bearing: _ Bedrest: _ Driving after Discharge: Do not drive for 24 hours May Return to Work/School: Tomorrow Showering/Bathing: May shower, _ Notify Provider of: Any Questions or Concerns Wound/Incision Care after Discharge: _, _ Medical Equipment for Home Use: Home Health Services: Community Services: Follow-Up Appointments Follow Up with HARRIET GARCIA When Within As needed, only if needed Where: [address] [phone] Medications What How Much When Instructions Next Dose venlafaxine (venlafaxine 225 mg oral tablet, extended release) Every Day Take your medications faithfully. Do [...] and medications per pharmacy guidance. Education Materials Steps to Quit Smoking Smoking tobacco can [...] There are many free apps, such as QuitGuide from the CDC (Centers for Disease Control and Prevention). You can find more support from smokefree[employer] and other websites. This information is not intended to replace advice given to you by your health care provider. Make sure you discuss any questions you have with your health care provider. Document Released: 01/05/2010 Document Revised: 11/06/2016 Document Reviewed: 07/26/2015 [employer] Interactive Patient Education ?? 2019 [employer]. Monitored Anesthesia Care, Care After These instructions [...] eating solid foods. General instructions ??? Take xiiw-wso-liqfpre and prescription medicines only as told by [...] 07/01/2016 Document Revised: 10/25/2017 Document Reviewed: 07/01/2016 [employer] Interactive Patient Education ?? 2019 [employer] Esophagogastroduodenoscopy, Care After Refer to this [...] 02/25/2013 Document Revised: 08/16/2016 Document Reviewed: 02/02/2016 [employer] Interactive Patient Education ?? 2019 [employer]. Emergency Awareness and Preventative Care STROKE is [...] Assistance with quitting is available by contacting 1-013-GYXS-NOW. This is a free resource providing counseling, [...] CPR? There are two easy steps: Call if you see a teen or adult [...] This Visit (last charted value for your 03/13/2019 visit) Hematology 03/13/2019 8:47 AM WBC: 12.2 K/uL -- Normal range between ( 3.9 and 10.0 ) RBC: 5.07 Million/uL -- Normal range between ( 3.93 and 5.22 ) Hct: 45.1 % -- Normal range between ( 34.1 and 44.9 ) Hgb: 14.5 Gram/dL -- Normal range between ( 11.2 and 15.7 ) Platelet Count: 392 K/uL -- Normal range between ( 163 and 369 ) MCH: 28.6 pg -- Normal range between ( 25.6 and 32.2 ) MCHC: 32.2 Gram/dL -- Normal range between ( 32.3 and 36.5 ) MCV: 89.0 fL -- Normal range between ( 79.0 and 94.8 ) Slide Review: No Eos %: 1.6 % -- Normal range between ( 1.0 and 7.0 ) [place] #: 1.13 K/uL -- Normal range between ( 0.24 and 0.82 ) Eos #: 0.19 K/uL -- Normal range between ( 0.04 and 0.54 ) [place] %: 9.3 % -- Normal range between ( 4.7 and 12.5 ) Baso %: 0.7 % -- Normal range between ( 0.0 and 1.0 ) Baso #: 0.09 K/uL -- Normal range between ( 0.01 and 0.08 ) RDW: 15.5 % -- Normal range between ( 11.6 and 14.4 ) Neut %: 67.4 % -- Normal range between ( 34.0 and 71.0 ) Neut #: 8.22 K/uL -- Normal range between ( 1.56 and 6.13 ) Lymph %: 20.4 % -- Normal range between ( 19.3 and 53.0 ) Lymph #: 2.48 K/uL -- Normal range between ( 1.18 and 3.74 ) MPV: 9.7 fL -- Normal range between ( 9.4 and 12.4 ) IG#: 0 x10(3)/uL IG%: 1 % -- Normal range between ( 0 and 1 ) General Chemistry 03/13/2019 8:50 AM Hgb A1C: 5.80 % -- Normal range between ( 4.20 and 6.30 ) eAVG Glucose: 120 mg/dL 03/13/2019 8:48 AM Creatinine Level: 0.78 mg/dL -- Normal range between ( 0.55 and 1.02 ) Sodium Level: 139 mmol/L -- Normal range between ( 136 and 146 ) Potassium Level: 4.6 mmol/L -- Normal range between ( 3.5 and 5.1 ) Chloride Level: 104 mmol/L -- Normal range between ( 102 and 112 ) Carbon Dioxide Level: 33 mmol/L -- Normal range between ( 21 and 32 ) Anion Gap: 7 -- Normal range between ( 9 and 20 ) Bilirubin Total: 0.3 mg/dL -- Normal range between ( 0.2 and 1.3 ) A/G Ratio: 1.0 -- Normal range between ( 1.1 and 2.5 ) ALT: 37 Units/Liter -- Normal range between ( 12 and 78 ) AST: 18 Units/Liter -- Normal range between ( 5 and 37 ) Globulin: 3.6 Gram/dL -- Normal range between ( 1.5 and 4.5 ) Alk Phos: 101 Units/Liter -- Normal range between ( 27 and 136 ) Bun/Creatinine: 17.9 -- Normal range between ( 8.0 and 20.0 ) Calcium Level: 8.7 mg/dL -- Normal range between ( 8.5 and 10.1 ) eGFR : >60 mL/min/1.73m2 eGFR NonAfrican: >60 mL/min/1.73m2 Glucose Level: 87 mg/dL -- Normal range between ( 74 and 106 ) Blood Urea Nitrogen: 14 mg/dL -- Normal range between ( 7 and 22 ) Protein Total: 7.1 Gram/dL -- Normal range between ( 6.4 and 8.2 ) Albumin Level: 3.5 Gram/dL -- Normal range between ( 3.4 and 5.0 ) Coagulation 03/13/2019 8:48 AM INR: 0.9 -- Normal range between ( 0.9 and 1.1 ) PTT: 25.7 Second(s) -- Normal range between ( 24.5 and 30.1 ) PT: 9.6 Second(s) -- Normal range between ( 9.6 and 11.5 ) Lipid Studies 03/13/2019 8:48 AM Cholesterol Tot: 216 mg/dL -- Normal range between ( 0 and 199 ) Cholesterol HDL: 68.0 mg/dL Cholesterol LDL Calculation: 135.4 mg/dL -- Normal range between ( 0.0 and 99.0 ) Cholesterol VLDL Calculation: 12.6 mg/dL -- Normal range between ( 5.0 and 40.0 ) Cholesterol/HDL Ratio: 3.2 -- Normal range between ( 0.0 and 3.2 ) Triglyceride: 63 mg/dL -- Normal range between ( 0 and 249 ) LDL/HDL Ratio: 2.0 -- Normal range between ( 0.0 and 3.2 ) Endocrinology 03/13/2019 8:48 AM TSH: 1.880 mcInt Units/mL -- Normal range between ( 0.358 and 3.740 ) T4 Total: 10.2 mcg/mL -- Normal range between ( 4.8 and 13.9 ) Patient Name:WILMA CANALES I have received this information and was given the opportunity to ask questions. Patient/Applied Marine Physics Professor Name: Patient/Applied Marine Physics Professor Signature: Relationship to Patient: Clinician/Hospital Applied Marine Physics Professor Signature: Date: documented in this encounter Plan of Treatment Not on file documented as of this encounter Visit Diagnoses Not on filedocumented in this encounter
--- OUTSIDE RECORDS SUMMARY | 2024-11-23 10:32 | XMS_ITS | Encounter Summary ---
Author Organization [employer] ([place], [place], [place], [place]) Address [address] [place] [address] Care Team Providers Care Food Service Counter Clerk Name Role Phone Unavailable Primary Care Provider Unavailabl e Encounter Details Date Type Department Care Team (Late st Contact Info) Description 03/13/2019 Transcribed Document [facility] [place] [address] [place] [address] ProviderOtilia MD [address] [place] [address] Social History Tobacco Use Types Packs/Day Years Used Date Smoking Tobacco: Never Assessed Comments Unknown Sex and Gender Information Value Date Recorded Sex Assigned at Not on file Legal Sex Female 4:36 PM CDT Gender Identity Not on file Sexual Orientation Not on file documented as of this encounter Miscellaneous Notes * Cerner Conversion Note - Historical ProviderMD - 03/13/2019 10:27 AM VEST BACKER Pre Procedure Adult Entered On: 03/13/2019 10:35 EST Performed On: 03/13/2019 10:27 EST by Sandy Esparza RN Height and Weight, Clinical Dosing Height Source : Stated Height Entry Format : [place] Height, Feet : 5 ft(Converted to: 152 cm, 60 Inch) Height, Inches : 6 Inch(Converted to: 0 ft 6 Inch, 15.24 cm) Clinical Height : 167.64 cm Weight Source : Standing scale Weight Entry Format : [place] Clinical Dosing Weight : 132.73 kg Weight, Pounds : 292 lb Body Surface Area (BSA) : 2.35 m2 Body Mass Index : 47.2 kg/m2 (>HHI) [place] Body Weight : 59 kg Sandy Esparza RN - 03/13/2019 10:27 EST Health Histories Smoking Status : 4 or less cigarettes(less than 1/4 pack)/day in last 30 days Smokeless Tobacco Status : Never Desires Tobacco Cessation Medication : No Reason for No Tobacco Cessation Medication : Refuses FDA approved medications Sandy Esparza RN - 03/13/2019 10:27 EST Social History (As Of: 03/13/2019 10:35:08 EST) Tobacco: 4 or less cigarettes(less than 1/4 pack)/day in last 30 days Smoking Status. Never Smokeless Tobacco Status. Years of Use: 20. Packs/Tins Daily: .5. (Last Updated: 03/13/2019 10:26:27 EST by Sandy Esparza RN) Alcohol: Alcohol Use History No. Use in Last 12 Months: No. (Last Updated: 03/13/2019 10:27:03 EST by Sandy Esparza RN) Substance Abuse: Drug Use Hx: No. Use in Last 12 Months: No. (Last Updated: 03/13/2019 10:27:20 EST by Sandy Esparza RN) Infectious Disease History Infectious Disease History : Chicken pox/Shingles, Influenza Fever/Chills Last 48 Hours : No Travel To Regions with Travel Advisories : No Travel Outside [place] Within Last 30 Days : No Contact With Traveler to Advisory Region : No Tuberculosis Symptoms : None Sandy Esparza RN - 03/13/2019 10:27 EST Anesthesia/Transfusion History Family History of Anesthesia Reaction : No prior transfusion(s) Transfusion History : Prior anesthesia without reaction Family History of Anesthesia Reaction : None Sandy Esparza RN - 03/13/2019 10:27 EST Functional Assessment Living Situation : Home Patient Lives With : Spouse Current Home Treatments : None Sandy Esparza RN - 03/13/2019 10:27 EST [place] Suicide Severity Rating Scale (C-SSRS) CSSRS Past Month Wish to be : No CSSRS Past Month Suicidal Thoughts : No CSSRS Lifetime Suicide Behavior : No Suicide Severity Rating Score : 0 Suicide Severity Rating : No Additional Care Required at this time Sandy Esparza RN - 03/13/2019 10:27 EST Psychosocial History Currently in Unsafe Situation : No Sandy Esparza RN - 03/13/2019 10:27 EST Advance Directive Patient has Advance Directive *Q : No, patient refuses Advance Directive information Sandy Esparza RN - 03/13/2019 10:27 EST Teaching/Learning Assessment Barriers To Learning : None evident Individuals Taught : Patient, Friend Readiness to Learn : Cooperative Highest Level of Education : Post graduate degree(s) Baseline Knowledge of Topic : Limited Readiness to Learn : Explanation, Printed materials Learning Style Preferences Patient : Printed materials, Verbal explanation Learning Style Preferences Family : Printed materials, Verbal explanation Sandy Esparza RN - 03/13/2019 10:27 EST General Info Want Family/Rep/Phys Notified of Admit : Yes Name/Contact Info Fam/Rep Notified Adm : MATTY KIM Name/Contact Info Physician Notified Adm : NA Emergency Contact #1 : GURINDER Emergency Contact #1 Emergency Contact #1 Relationship : Emergency Contact #2 : NA Emergency Contact #2 Phone Number : NA Emergency Contact #2 Relationship : NA Information Obtained From : Patient Primary Language : Irish Communication Barrier : None Objects to Sharing Info w Family : No Sandy Esparza RN - 03/13/2019 10:27 EST Sleep Apnea Risk Assmt Hx of Obstructive Sleep Apnea Diagnosis : No Snore Loudly : Yes Tired, Fatigued, or Sleepy During Day : Yes Observed Stopping Breathing During Sleep : No Have/Are Being Treated for Hypertension : Yes BMI Greater Than 35 kg/m2 : Yes Age over 50 Years Old : Yes Neck Circumference Greater Than 40 cm : Yes Gender Male : No STOP-BANG Sleep Apnea Risk Level Score : 6 Sandy Esparza RN - 03/13/2019 10:27 EST Lucian Scale Lucian Sensory Perception : No impairment Lucian Moisture : Rarely moist Lucian Activity : Walks frequently Lucian Mobility : No limitation Lucian Nutrition : Adequate Lucian Friction and Shear : No apparent problem Lucian Score : 22 Sandy Esparza RN - 03/13/2019 10:27 EST Pain Assessment Pain Assessment : Initial assessment Pain Scale Goal : 7 Pain Scale Used : 0-10 Scale Sandy Esparza RN - 03/13/2019 10:27 EST Fall Risk Scales ABCs Fall Injury Risk Identification : None DEAN Hx Falls Immediate/Within 3 Months : No Dean Secondary Diagnosis : No DEAN Use of Ambulatory Aid : None DEAN IV Therapy or IV Access : Yes Dean Gait/Transferring : Normal, bedrest, immobile Dean Mental Status : Oriented to own ability Dean Fall Risk Score : 20 DEAN Fall Scale Risk Level : 0-24 Low Risk [place] Fall Interventions : Adequate lighting, Bed in low position, Personal items within reach, Reinforced to call for assistance before getting out of bed, Room free of clutter/spills, Upper side-rails up, Wheels locked, Wires/Cords secured Sandy Esparza RN - 03/13/2019 10:27 EST Valuables and Belongings Valuables and Belongings : Clothing Clothing : Common streetwear Clothing Disposition : Bedside Sandy Esparza RN - 03/13/2019 10:27 EST Pain Scale Intensity : 5 Sandy Esparza RN - 03/13/2019 10:27 EST Image 4 - Images currently included in the form version of this document have not been included in the text rendition version of the form. documented in this encounter Plan of Treatment Not on file documented as of this encounter Visit Diagnoses Not on filedocumented in this encounter
--- OUTSIDE RECORDS SUMMARY | 2024-11-23 10:32 | XMS_ITS | Encounter Summary ---
Author Organization [employer] ([place], [place], [place], [place]) Address [address] [place] [address] Care Team Providers Care Plumber Gasfitter Name Role Phone Unavailable Primary Care Provider Unavailabl e Encounter Details Date Type Department Care Team (Late st Contact Info) Description 03/13/2019 Transcribed Document [facility] [place] [address] [place] [address] ProviderOtilia MD [address] [place] [address] Social History Tobacco Use Types Packs/Day Years Used Date Smoking Tobacco: Never Assessed Comments Unknown Sex and Gender Information Value Date Recorded Sex Assigned at Not on file Legal Sex Female 4:36 PM CDT Gender Identity Not on file Sexual Orientation Not on file documented as of this encounter Miscellaneous Notes * Cerner Conversion Note - Historical ProviderMD - 03/13/2019 1:00 PM MILK 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 Name: WILMA CANALES/Sex: 1965 Female Med Rec #: [id number] Physician: HARRIET GARCIA MD-SUR Financial #: [id number] Pt. Type: O Room/Bed: [facility] [place] Admit/Disch: 03/13/19 09:47:00 - Institution: [facility] Nunez PreOp Case Times Entry 1 In Preop 03/13/19 10:16:00 Ready for Holding 03/13/19 10:43:00 Room Patient Ready for 03/13/19 10:43:00 Surgery Patient Out of Preop 03/13/19 10:43:00 Patient Out of 03/13/19 10:43:00 Holding Room [facility] PreOp Case Times Audit 03/13/19 10:43:23 System Development Engineer: LULI Modifier: [email or web address] <+> 1 Patient Out of Preop <+> 1 Patient Ready for Surgery <+> 1 Ready for Holding Room <+> 1 Patient Out of Holding Room Finalized By: Sandy Esparza RN Document Signatures Signed By: Sandy Esparza RN 03/13/19 10:43 documented in this encounter Plan of Treatment Not on file documented as of this encounter Visit Diagnoses Not on filedocumented in this encounter
--- OUTSIDE RECORDS SUMMARY | 2024-11-23 10:32 | XMS_ITS | Referral Summary ---
Author Organization [employer] ([place], [place], [place], [place]) Address [address] [place] [address] Care Team Providers Care Acute Care Clinical Nurse Specialist Name Role Phone Unavailable Primary Care Provider [...]
--- OUTSIDE RECORDS SUMMARY | 2024-11-23 10:32 | XMS_ITS | Encounter Summary ---
Author Organization [employer] ([place], [place], [place], [place]) Address [address] [place] [address] Care Team Providers Care Marketing Developer Name Role Phone Unavailable Primary Care Provider Unavailabl e Encounter Details Date Type Department Care Team (Late st Contact Info) Description 03/13/2019 Transcribed Document [facility] [place] [address] [place] [address] ProviderOtilia MD [address] [place] [address] Social History Tobacco Use Types [...] - Historical ProviderMD - 03/13/2019 12:19 PM LAND PLANNER DONYA Nunez PACU Summary Primary Physician: HARRIET GARCIA MD-SUR Finalized Date/Time: 03/13/19 12:56:25 Pt. Name: WILMA CANALES/Sex: 1965 Female Med Rec #: [id number] Physician: HARRIET GARCIA MD-SUR Financial #: [id number] Pt. Type: O Room/Bed: [facility] [place] Admit/Disch: 03/13/19 09:47:00 - Institution: DONYA Nunez PACU Case Times Entry 1 In PACU I 03/13/19 12:25:00 Ready for PACU 03/13/19 12:48:00 Discharge Discharge from PACU 03/13/19 12:56:00 I [facility]o PACU Case Times Audit 03/13/19 12:56:23 Brazing Machine Tender: ARNULFO [place]: ARNULFO <+> 1 Discharge from PACU I Finalized By: KANDI PEREZ RN Document Signatures Signed By: KANDI PEREZ RN 03/13/19 12:56 Electronically signed by Martina [facility] Conversion Speech Scientist Cerner at 07/13/2022 6:09 PM CDT documented in this encounter Plan of Treatment Not on file documented as of this encounter Visit Diagnoses Not on filedocumented in this encounter
--- OUTSIDE RECORDS SUMMARY | 2024-11-23 10:32 | XMS_ITS | Encounter Summary ---
Author Organization [employer] ([place], [place], [place], [place]) Address [address] [place] [address] Care Team Providers Care Hydraulic Technician Name Role Phone Unavailable Primary Care Provider Unavailabl e Encounter Details Date Type Department Care Team (Late st Contact Info) Description 07/29/2020 Transcribed Document [facility] [place] [address] [place] [address] ProviderOtilia MD [address] [place] [address] Social History Tobacco Use Types [...] - 07/29/2020 10:52 AM CDT DONYA Nunez PACU Summary Primary Physician: HARRIET GARCIA MD-SUR Finalized Date/Time: 07/29/20 11:28:02 Pt. Name: WILMA CANALES/Sex: 1965 Female Med Rec #: [id number] Physician: HARRIET GARCIA MD-SUR Financial #: [id number] Pt. Type: E Room/Bed: [facility] [place] Admit/Disch: 07/29/20 08:04:00 - Institution: DONYA Nunez PACU Case Times Entry 1 In PACU I 07/29/20 10:59:00 Ready for PACU 07/29/20 11:27:00 Discharge Discharge from PACU 07/29/20 11:34:00 I Finalized By: Marjan Goodwin, Rn Document Signatures Signed By: Marjan Goodwin Rn 07/29/20 11:28 Electronically signed by Demetris Mack Conversion Ladies' Locker Room Attendant Cerner at 07/13/2022 8:44 PM CDT documented in this encounter Plan of Treatment Not on file documented as of this encounter Visit Diagnoses Not on filedocumented in this encounter
--- OUTSIDE RECORDS SUMMARY | 2024-11-23 10:33 | XMS_ITS | Patient Health Record ---
Author Organization [facility] Address [address] [place] [address] Care Team Providers Care Equipment Superintendent Name Role Phone Sharonjohnathon Thaddeus Primary Care Provider Elaine Adams Unavailable [phone] Migration, Provider Unavailable Unavailable Allergies Allergen (clinical drug ingredient) Drug/Non Drug Allergy documented on EMR Reaction Allergy Type Onset Date Status BEE STINGS (uncoded) Unknown Allergy Active Results Component Value Reference Range Notes CULTURE, URINE, ROUTINE (395 ) Reviewed date:10/08/2024 03:07:56 PM Interpretation: Performing Lab:Alaina GALVEZ-Trevor [address] [facility] HospitalZornIX[address] Fred Reynoso Notes/Report: NON-FASTING CULTURE, URINE, ROUTINE SEE NOTE CULTURE, URINE, ROUTINE Micro Number: [id number] Test Status: Final Specimen Source: Urine Specimen Quality: Adequate Result: Mixed genital garrett isolated. These superficial bacteria are not indicative of a urinary tract infection. No further organism identification is warranted on this specimen. If clinically indicated, recollect clean-catch, mid-stream urine and transfer immediately to Urine Culture Transport Tube. Rapid Covid/Flu A-B Combo Reviewed date:04/27/2024 12:02:20 PM Interpretation: Performing Lab: Notes/Report: Rapid Covid neg Flu A neg Flu B neg THINPREP TIS PAP RFX HPV (92 087) Reviewed date:12/09/2023 02:02:58 PM Interpretation: Performing Lab:Alaina DURAN-[id number], [id number] Tyron Waller Notes/Report: NON-FASTING CLINICAL INFORMATION: Normal exam LMP: NA PREV. PAP: NA PREV. BX: NA SOURCE: Cervix STATEMENT OF ADEQUACY: Satisfactory for evaluation. Endocervical/transformation zone component absent. INTERPRETATION/RESULT: Cytology Results: Negative for intraepithelial lesion or malignancy. COMMENT: This Pap test has been evaluated with computer assisted technology. KITCHEN FOOD SERVER: CC CT (ASCP) CT Screening Location: [place] [id number] COMMENT EXPLANATORY NOTE: The Pap is a screening test for cervical cancer. It is not a diagnostic test and is subject to false negative and false positive results. It is most reliable when a satisfactory sample, regularly obtained, is submitted with relevant clinical findings and history, and when the Pap result is evaluated along with historic and current clinical information. Urinalysis Reviewed date:10/06/2024 02:08:43 PM Interpretation: Performing Lab: Notes/Report: Color/Clarity dark yellow Leuk neg Nitrite neg Urobili 0.2 Protein 30 mg/dl pH 5.5 Blood moderate Sp. Gr. 1.025 Ketone trace Bili small Glucose neg M-CA 19-9 Reviewed date:11/28/2023 01:57:45 PM Interpretation: Performing Lab: Notes/Report: CA199 9 0-35 U/mL [facility] Electrochemiluminescence Immunoassay (ECLIA) Values obtained with different assay methods or kits cannot be used interchangeably. Results cannot be interpreted as absolute evidence of the presence or absence of malignant disease. M-CEA Reviewed date:11/28/2023 01:57:45 PM Interpretation: Performing Lab: Notes/Report: CEA 7.6 0.0-4.7 ng/mL Nonsmokers <3.9 Smokers <5.6 [facility] Electrochemiluminescence Immunoassay (ECLIA) Values obtained with different assay methods or kits cannot be used interchangeably. Results cannot be interpreted as absolute evidence of the presence or absence of malignant disease. M-Cancer Antigen (CA) 125 Reviewed date:11/28/2023 01:57:45 PM Interpretation: Performing Lab: Notes/Report: CA125 6.2 0.0-38.1 U/mL [facility] Electrochemiluminescence Immunoassay (ECLIA) Values obtained with different assay methods or kits cannot be used interchangeably. Results cannot be interpreted as absolute evidence of the presence or absence of malignant disease. Performed at: [address] [id number] Assistant Professor Of Theater: Bob Sagastume PhD, Phone: [phone] Medications Medication SIG (Take, Route, Frequency, Duration) Notes Start Date End Date Status Vitamin D2 50 MCG 1 CAP(S) ORALLY ONCE A DAY *Please review and pick correct strength-formulati on from [employer] options. If intended option is not shown, discontinue and re-order from Quick Search* Active Centrum Silver Women 50+ THERAPEUTIC MULTIPLE VITAMINS WITH MINERALS 1 TAB(S) ORALLY ONCE A DAY *Please review and pick correct strength-formulati on from [employer]Help options. If intended option is not shown, discontinue and re-order from Quick Search* Active Macrobid 100 MG 1 capsule with food Orally every 12 hrs; Duration: 5 days 10/06/2024 Active Zepbound 15 MG/0.5ML 0.5 mL Subcutaneous Active Pyridium 200 MG 1 tablet after meals Orally Three times a day; Duration: 2 days 10/06/2024 Active MiraLax - DIRECTED ORALLY ONCE A DAY *Please review and pick correct strength-formulati on from [employer]Help options. If intended option is not shown, [...] a day; Duration: 30 day(s) 12/04/2023 Active Calcium Citrate 950 MG (200 MG ELEMENTAL CALCIUM) 1 TAB(S) ORALLY 2 TIMES A DAY *Please review and pick correct strength-formulati on from [employer] options. If intended option is not shown, discontinue and re-order from Quick Search* Active Immunizations Vaccine Route Administration Date Status Comme nts SHINGRIX IM Intramuscular 10/24/2022 Administered Pneumovax 23 Unknown 04/27/2013 Administered Influenza-Fluzone 3+years (NON-MEDICARE) IM Intramuscular 01/23/2017 Administered Influenza-Fluzone 3+years (NON-MEDICARE) Unknown 12/27/2017 Administered FLUZONE 6MO - OLDER IM Intramuscular 12/31/2018 Administer ed Fluvirin--Influenza vaccine 3+ year IM Intramuscular 01/21/2008 Administered Fluvirin--Influenza vaccine 3+ year IM Intramuscular 01/15/2012 Administered Flublok IM Intramuscular 11/23/2019 Administered Flublok IM Intramuscular 05/04/2021 Administered Flublok IM Intramuscular 11/20/2023 Administered Boostrix IM Intramuscular 05/07/2018 Administered Social History Tobacco Use: Social History Observation Description Date Details (start date - stop date) Former Smoker NA - NA Smoking: Question Answer Notes Are you a: former smoker How long has it been since you last smoked? 6-12 months Problems Problem Type SNOMED Code ICD Code Onset Dates Problem Status W/U Status Risk Notes Problem Tear film insufficiency (55856938) Dry eye syndrome of bilateral lacrimal glands (H04.123) Active confirmed Problem Seasonal allergic rhinitis (122802789) Other seasonal allergic rhinitis (J30.2) Active confirmed Problem Allergic rhinitis (00367712) Other allergic rhinitis (J30.89) Active confirmed Problem Vitamin B12 deficiency (336357828) Vitamin B12 deficiency (E53.8) Active confirmed Problem Vitamin D deficiency (77901113) Vitamin D deficiency (E55.9) Active confirmed Problem Morbid obesity (675343216) Morbid obesity (E66.01) Active confirmed Problem Hyperlipidemia (10837027) Hyperlipemia, idiopathic familial (E78.5) Active confirmed Problem Recurrent major depression (68668775) Recurrent major depression resistant to treatment (F33.9) Active confirmed Problem Moderate recurrent major depression (72748775) Moderate episode of recurrent major depressive disorder (F33.1) Active confirmed Problem Lumbosacral spondylosis without myelopathy (50071637) Osteoarthritis of lumbar spine, unspecified spinal osteoarthritis complication status (M47.816) Active confirmed Problem Mild recurrent major depression (79368289) Mild episode of recurrent major depressive disorder (F33.0) Active confirmed Problem Low back pain (finding) (513692920) Lower back pain (M54.5) Active confirmed Problem Adult health examination (268291232) Healthcare maintenance (Z00.00) Active confirmed Problem Smoking (75610518) Smoking (F17.200) Active confirmed Problem Sleep apnea (48358353) Sleep apnea in adult (G47.30) Active confirmed Problem Midline cystocele (814491603) Female bladder prolapse, acquired (N81.10) Active confirmed Problem Myopathy (905392334) Myopathy (G72.9) Active confirmed Problem Acute cough (0775418883294146 04) Acute cough (R05.1) Active confirmed Vital Signs Heart Rate 88 /min 10/06/2024 Temperature 97.9 degrees Fahrenheit 10/06/2024 Blood pressure diastolic 86 mm Hg 10/06/2024 Height 65.75 in 10/06/2024 Blood pressure systolic 130 mm Hg 10/06/2024 Weight 169.4 lbs 10/06/2024 BMI 27.55 kg/m2 10/06/2024 Encounters Encounter Location Date Provider Diagnosis [facility] [address] [place] [place] [address] 06/27/2024 Provider Migration Acute non-recurrent maxillary sinusitis J01.00 [facility] [address] [place] [address] 12/04/2023 Thaddeus Morales Female bladder prolapse, acquired N81.10 ; Pap smear for cervical cancer screening Z12.4 and Right ovarian enlargement N83.8 [facility] [address] [place] [address] 04/27/2024 Elaine Angie Acute cough R05.1 and Acute non-recurrent maxillary sinusitis J01.00 [facility] [address] [place] [address] 10/06/2024 Elaine Angie Dysuria R30.0 and Gross hematuria R31.0 [facility] [address] [address] 11/26/2023 Thaddeus Morales Ovarian mass, right N83.8 [facility] [address] [place] [address] 04/29/2024 Elaine Angie Assessments Encounter Date Diagnosis (ICD Code) Assessment Notes Treatment Notes Treatment Clinical Notes Section Notes 11/26/2023 Ovarian mass, right (ICD-10 - N83.8) 12/04/2023 Female bladder prolapse, acquired (ICD-10 - N81.10) Gemtesa samples given to see if they are effective. However, it is anticipated she will need urogynecology evaluation for possible surgical correction. Will refer to urogynecology at . 12/04/2023 Pap smear for cervical cancer screening (ICD-10 - Z12.4) Pap smear and pelvic exam performed today. Cervical samples obtained without difficulty. Will follow up with results. 04/27/2024 Acute non-recurrent maxillary sinusitis (ICD-10 - J01.00) Discussed the etiology and expected course of acute sinusitis. Discussed the rationale for antibiotics use and the importance of completing the Augmentin prescription as prescribed. Discussed supportive care with antihistamines and appropriate decongestants. Discussed the signs and symptoms of worsening infection that may indicate need for reassessment in clinic/ED. 04/27/2024 Acute cough (ICD-10 - R05.1) 06/27/2024 Acute non-recurrent maxillary sinusitis (ICD-10 - J01.00) 10/06/2024 Dysuria (ICD-10 - R30.0) We instructed [...] changed 10/06/2024 Gross hematuria (ICD-10 - R31.0) 12/04/2023 Right ovarian enlargement (ICD-10 - N83.8) Reassurance given that ovarian enlargement is not malignant and can be seen in post-menopausal women. Plan Of Treatment Pending Test Test Name Order Date X ray : Chest 06/13/2011 Mammogram : Diagnostic 10/24/2011 Rapid Strep 11/12/2007 DEXA Hip and Spine - Screening 4 DEXA Hip and Spine - Screening 4 Sleep Study 08/24/2016 Physical Therapy 10/23/2019 Physical Therapy 10/18/2015 CT Scan : Abdomen/Pelvis stone protocol 11/20/2023 Ultrasound : Gallbladder 01/25/2014 Mammogram : Bilateral 11/20/2023 H-CBC with AUTO DIFF 11/06/2011 H-VITAMIN B12 12/06/2011 H-CMP 01/21/2008 H-LIPID PANEL 10/22/2011 H-LIPID PANEL 01/21/2008 H-MONOSCREEN 11/12/2007 H-HELICOBACTER PYLORI IGM AB 01/25/2014 H-PERIPHERAL SMEAR REVIEW 12/11/2011 H-URINALYSIS 11/06/2011 C-ANTI MITOCHONDRIAL AB 08/24/2016 C-CBC 08/07/2016 C-CMP 08/07/2016 C-LIPID PANEL 08/07/2016 C-JESSICA 08/24/2016 C-HEPATITIS PANEL 08/24/2016 C-VITAMIN B12 08/07/2016 h-leutinizing hormone 10/12/2015 h-leutinizing hormone 10/22/2011 M-Creatine Kinase 04/03/2023 M-Parathyroid Hormone Intact 08/15/2022 M-Vitamin B12 08/13/2022 M-Vitamin B12 09/21/2019 M-Vitamin D 25 Hydroxy 08/15/2022 THINPREP PAP (REFL) (35461) 12/04/2023 Next Appt Details Provider Name:Thaddeus Morales, 11/30/2024 02:30:00 PM, [address] [facility] [address] [facility], [address], [place], [address], Insurance Providers Payer Name Payer Address Payer Phone Subscriber Number Group Number Insured Name Patient Relationship to Insured Coverage Start Date Coverage End Date [employer] [address] [place] [address] [phone] [id number] Wilma Murphy Self - patient is the insured Medications Administered Medication Instructions Date of Administration Dosage Notes Kenalog 40mg 06/21/2017 40 mg Triamcinolone Acetonide 40mg Injection 01/06/2018 1 mL Triamcinolone Acetonide 40mg Injection 01/18/2020 1 mL Medical (General) History Medical History History ICD Code depression squamous cell carcinoma Normal mamm 09/2019 and 08/2023 Normal EGD 08/12 Right knee- ? torn meniscus Surgical History Surgery Date(Month/Year) D and C - no problem with anesthesia 200 2 Bone spur -Left GRT toe 2006 carpal rachel- rt wrist 2009 Gallbladder removal 2013 rt arm-2 squamous cell places removed gastric sleeve 2022 Hospitalization History Reason Date(Month/Year) Gallbladder removal 2013
== END 2024-11-20 23:59 ==
LOC: LAB.DROPOF 11-23 10:30
PROVIDERS: PCP Nurse Practitioner; Visit Provider Nurse Practitioner
DX: N39.0 Urinary tract infection, site not specified (principal)
CPT/HCPCS: 87086

== ENCOUNTER 2024-12-23 13:57 | Outpatient (CLI) | payer BC, SELFPAY ==
--- OUTSIDE RECORDS SUMMARY | 2024-12-21 14:00 | XMS_ITS | Encounter Summary ---
Author Organization Healthcare Address [address] [place] [address] Care Team Providers Care Dining Room Server Name Role Phone Thaddeus Morales MD Primary Care Provider [phone] Thaddeus Morales MD Unavailable [phone] Shelli Espinosa MD Unavailable [phone] Encounter Details Date Type Department Care Team (Late st Contact Info) Description 12/21/2024 2:00 PM EDT Ancillary Procedure [facility] [address] [place] [address] Ovarian tumor Social History Tobacco Use Types [...] [address] [place] [phone] 12/20/2025 1:15 PM EDT Office Visit [facility] [address] [place] [address] Amador Reynolds MD [address] [place] [address] documented as of this encounter Procedures Procedure [...] Right ovary is fibrous/ heterogenous in appearance CA: 5 Left Ovary: Yes 2.7 X 1.3 X 1.7 cm Vol: 3.1 ml Left ovary is suboptimally visualized CA: 0 Free Fluid: Yes, Posterior cul-de sac fluid: 1 X 0.5 X 1.1 cm Vol: 0.3 ml Comments: Uterine position is retroverted Right ovary is fibrous/ heterogenous in appearance Left ovary is suboptimally visualized Cul-de sac fluid as described above Present for uncomplicated TVS. Gail [place] us Amador Reynolds MD IMG US PROCEDURES [...] documented as of this encounter Care Teams Dining Room Server Relationship Specialty Start Date End Date Thaddeus Morales MD [address] [facility] [address] [place] [address] PCP - General 08/05/20 Thaddeus Morales MD [address] [place] [address] Referring Physician Internal Medicine 11/28/23 Shelli Espinosa MD [address] [place] [address] Surgeon Urology 02/12/24 documented as of this encounter
--- OUTSIDE RECORDS SUMMARY | 2024-12-21 14:30 | XMS_ITS | Encounter Summary ---
Author Organization Healthcare Address [address] [place] [address] Care Team Providers Care Manual Writer Name Role Phone Thaddeus Morales MD Primary Care Provider [phone] Thaddeus Morales MD Unavailable [phone] Shelli Espinosa MD Unavailable [phone] Reason for Visit * Reason Comments Follow-up Encounter Details Date Type Department Care Team ([facility] st Contact Info) Description 12/21/2024 2:30 PM EDT Office Visit [facility] [address] [place] [address] Amador Reynolds MD [address] [facility] [address] [place] [address] Complex cyst of right ovary [...] ovary cyst, diverticulosis. No adenopathy or FF. IL750=0, CEA=7.6, QZ43-5=2. She presented with constipation. Had CT SCAN [...] Decompression Median Nerve At Carpal Tunnel from [employer] GALLBLADDER SURGERY N/A Gallbladder Surgery from [employer] SLEEVE GASTRECTOMY N/A 07/2022 Social History Socioeconomic [...] mouth., Disp: , Rfl: ergocalciferol 1.25 MG (18934 UT) capsule, , Disp: , Rfl: estradiol [...] nursing note reviewed. Exam conducted with a technical sales director present. Constitutional: Appearance: Normal appearance. HENT: Head: [...] appears heterogenous throughout comparable to fibroid texture IN: 5 Left Ovary: 3.3 X 1.3 X 1.4 cm Vol: 3.1 ml Left ovary appears unremarkable IN: 0 Free Fluid: Yes, Comments: Uterine Position [...] Right ovary is fibrous/ heterogenous in appearance IN: 5 Left Ovary: Yes 2.7 X 1.3 X 1.7 cm Vol: 3.1 ml Left ovary is suboptimally visualized IN: 0 Free Fluid: Yes, Posterior cul-de sac [...] right ovarian tumor. Vol=14 mL (43 mL). IN=5. Decreasing size. Possible myoma. Asymptomatic. Intermediate risk. [...] [address] [place] [address] 12/20/2025 1:15 PM EDT Office Visit [facility] [address] [place] [address] Amador Reynolds MD [address] [place] [address] Scheduled Orders Name Type Priority [...] documented as of this encounter Care Teams Manual Writer Relationship Specialty Start Date End Date Thaddeus Morales MD [address] [place] [address] PCP - General 08/05/20 Thaddeus Morales MD [address] [place], [place] [address] Referring Physician Internal Medicine 11/28/23 Shelli Espinosa MD [address] [place] [address] Surgeon Urology 02/12/24 documented as of this encounter
--- OUTSIDE RECORDS SUMMARY | 2024-12-23 13:59 | XMS_ITS | Encounter Summary ---
Author Organization [facility] Address [address] [id number] Care Team Providers Care Paper Grader Name Role Phone Thaddeus Morales MD Primary Care Provider [phone] Thaddeus Morales MD Unavailable [phone] Shelli Espinosa MD Unavailable [phone] Reason for Referral * Consultation (Routine) - Closed Specialty Diagnoses / Procedures Referred By Contac t Referred To Contact Urology Diagnoses Acquired female bladder prolapse Thaddeus Morales MD [address] [facility] [address] [place] [address] Phone: tel: fax: Shelli Espinosa MD [address] [facility] [address] [place] [address] Phone: tel: fax: Referral ID Status Reason Start Date Expiration Date V isits Requested Visits Authorized [id number] Closed Specialty Services Required 12/05/2023 06/05/2025 1 1 Encounter Details Date Type Department Care Team (Late st Contact Info) Description 12/05/2023 Community [facility] [address] [place] [address] Thaddeus Morales MD [address] [facility] [address] [place] [address] Acquired female bladder prolapse (Primary Dx) Social [...] [address] [place] [address] 12/20/2025 1:15 PM EDT Office Visit [facility] [address] [place] [address] Amador Reynolds MD [address] [facility] [address] [place] [address] Scheduled Referrals Name Type Priority Associated Diagnoses [...] documented as of this encounter Care Teams Paper Grader Relationship Specialty Start Date End Date Thaddeus Morales MD [address] [place] [address] PCP - General 08/05/20 Thaddeus Morales MD [address] [place] [address] Referring Physician Internal Medicine 11/28/23 Shelli Espinosa MD [address] [phone] Surgeon Urology 02/12/24 documented as of this encounter
--- OUTSIDE RECORDS SUMMARY | 2024-12-23 13:59 | XMS_ITS | Encounter Summary ---
Author Organization Healthcare Address [address] [place] [address] Care Team Providers Care Automation Machine Operator Name Role Phone Thaddeus Morales MD Primary Care Provider [phone] Thaddeus Morales MD Unavailable [phone] Shelli Espinosa MD Unavailable [phone] Encounter Details Date Type Department Care Team (Latest Contact Info) Description 12/21/2024 Travel Social History Tobacco Use Types Packs/Day Years [...] Gynecology [address] [place] [address] 12/20/2025 1:15 PM EDT Office Visit [facility] [address] [place] [address] Amador Reynolds MD [address] [place] [address] documented as of this encounter Visit Diagnoses Not on filedocumented in this encounter Additional Health Concerns Assessment Noted Time A fall risk assessment has been complete d for the patient 12/21/2024 2:33 PM EDT A Body Mass Index follow-up plan has been documented for the patient 02/12/2024 11:44 AM EST documented as of this encounter Care Teams Automation Machine Operator Relationship Specialty Start Date End Date Thaddeus Morales MD [address] [place] [address] PCP - General 08/05/20 Thaddeus Morales MD [address] [place] [address] Referring Physician Internal Medicine 11/28/23 Shelli Espinosa MD [address] [place] [address] Surgeon Urology 02/12/24 documented as of this encounter
--- OUTSIDE RECORDS SUMMARY | 2024-12-23 13:59 | XMS_ITS | Clinical Summary ---
Author Organization [facility] Address [address] [place] [address] Care Team Providers Care Custodian Name Role Phone Thaddeus Morales MD Primary Care Provider [phone] Thaddeus Morales MD Unavailable [phone] Shelli Espinosa MD Unavailable [phone] Allergies Active Allergy Reactions Criticality Noted Date Comments Bee Venom Unknown - Patient st ates they do not know rxn details High 11/28/2022 Swelling Oxybutynin Rash Low 02/12/2024 Medications ergocalciferol 1.25 MG (85388 UT) capsule 09/07/2022 Active Multiple Vitamin (multivitamin) [...] Facet hypertrophy of lumbar region 12/27/2015 2022 Encounters Date Type Department Care Team Description 12/21/2024 2:30 PM EDT Office Visit [facility] [address] [place] [address] Amador Reynolds MD Complex cyst of right ovary (Primary Dx) 12/21/2024 2:00 PM EDT Ancillary Procedure [facility] [address] [place] [address] Ovarian tumor 12/21/2024 Travel from Last 3 Months Family History Medical History Relation Name Comments [...] Mass Index 23.93 12/21/2024 2:32 PM EDT Plan of Treatment Upcoming Encounters Date Type Department Care Team (Late st Contact Info) Description 12/20/2025 12:30 PM EDT Ancillary Procedure [facility] [address] [place] [address] 12/20/2025 1:15 PM EDT Office Visit [facility] [address] [place] [address] Amador Reynolds MD [address] [place] [address] Health Maintenance Due Date Last Done Comments [...] [facility]-Zoster Vaccines (2 of 2) 12/19/2022 10/24/2022 [id number] Vaccine (3 - season) 2024 07/13/2020, 06/15/2020 [facility]-Influenza Vaccine (#1) 11/23/202412/01, 11/20/2023, 02/13/2023, Additional history exists [facility]-Depression Screening 12/21/2025 12/21/2024, 08/2022 [facility]-DTaP,Tdap,and Td Vaccines (2 - Td or Tdap) 05/07/2028 05/07/2018 [facility]-RSV Vaccine: 60+ Years or (1 - 1-dose 75+ series) 11/28/2039 [facility]-Hepatitis A Vaccines Aged Out 08/08/2018, 03/2017 [...] on patient's age to complete this topic Procedures Procedure Name Priority Date/Time Associated Diagnosis Comments US PELVIS TRANSVAGINAL Routine 12/21/2024 2:26 PM EDT Ovarian tumor from Last 3 Months Results * US Pelvis Transvaginal (12/21/2024 2:26 [...] Right ovary is fibrous/ heterogenous in appearance CO: 5 Left Ovary: Yes 2.7 X 1.3 X 1.7 cm Vol: 3.1 ml Left ovary is suboptimally visualized CO: 0 Free Fluid: Yes, Posterior cul-de sac fluid: 1 X 0.5 X 1.1 cm Vol: 0.3 ml Comments: Uterine position is retroverted Right ovary is fibrous/ heterogenous in appearance Left ovary is suboptimally visualized Cul-de sac fluid as described above Present for uncomplicated TVS. Gail Vidales Amador Reynolds MD [facility] US PROCEDURES Final Re sult from Last 3 Months Insurance ANTHEM Care Teams Custodian Relationship Specialty Start Date End Date Thaddeus Morales MD [address] [place] [address] PCP - General 08/05/20 Thaddeus Morales MD [address] [place] [address] Referring Physician Internal Medicine 11/28/23 Shelli Espinosa MD [address] [facility] [address] [place] [address] Surgeon Urology 02/12/24
--- NOTE | 2024-12-23 14:22 | MM_ITS ---
PROCEDURE INFORMATION: Exam: MG Bilateral Screening 3D Mammography Exam date and time: 12/23/2024 2:21 PM Age: 59 years old Clinical indication: Screening examination TECHNIQUE: Imaging protocol: Bilateral Screening tomosynthesis and 2D mammography including computer-aided detection (CAD) when performed. COMPARISON: MG MM DIG SCREENING MAMM BI W/CAD 09/18/2023 8:36 AM FINDINGS: MAMMOGRAPHY: Breast composition: There are scattered areas of fibroglandular density. Mass: No suspicious masses. Architectural distortion: None. Calcifications: No suspicious calcifications. Asymmetric density: None. Skin thickening: None. Axillary adenopathy: Question prominent right axillary lymph node which contains questionable calcification. IMPRESSION: Questionable prominent right axillary lymph node which may contain calcifications. Recommend further evaluation with right breast diagnostic mammogram including true 2D (non synthesized) right MLO view as well as right axillary ultrasound for further evaluation. Note should be made of the presence of any pigmented tattoos on the patient's right upper extremity, chest, or back. ASSESSMENT: BI-RADS Category 0: Incomplete- Need Additional Imaging Evaluation.
== END 2024-12-23 23:59 | disposition home or self-care (01) ==
LOC: RAD 13:57
PROVIDERS: PCP Internal Medicine Adolescent Medicine; Visit Provider Internal Medicine Adolescent Medicine
DX: Z12.31 Encounter for screening mammogram for malignant neoplasm of breast (principal); R92.323 Mammographic fibroglandular density, bilateral breasts; R92.8 Other abnormal and inconclusive findings on diagnostic imaging of breast
CPT/HCPCS: 77063; 77067

== ENCOUNTER 2024-12-25 07:57 | Outpatient (CLI) | payer BC, SELFPAY ==
--- OUTSIDE RECORDS SUMMARY | 2024-11-30 10:30 | XMS_ITS ---
Author Organization [facility] Address [address] [place] [address] Care Team Providers Care Implementation Coordinator Name Role Phone Thaddeus Morales Primary Care Provider REASON FOR VISIT pap, annual,labs,needs mammo Encounters Encounter Location Date Provider Diagnosis [facility] [address] [place] [address] 11/30/2024 Thaddeus Morales Plan Of Treatment Next Appt Details Provider Name:Thaddeus Morales, 01/14/2025 03:15:00 PM, [address] [place] [address], [phone], Progress Notes * Wilma CANALES MDOB:[birth year] (59 yo F)Acc No.[id number]:11/30/2024 Progress Notes Patient: Wilma LAWRENCE Provider: West Morales MD :1965 A ge:59 Y S ex:Female Date:11/30/2024 Address:[id number] Subjective: * Chief Complaints: * 1 . Pap, annual,labs,needs mammo. * Medical History: Objective: * Vitals: Assessment: Plan: * Treatment: * * Electronic signature of Alexis Morales MD FAAP on 12/25/2024 at 08:00 AM EDT Sign off status: Pending * Provider: S tephen Ivan Besson, MD Date: 0 11/30/2024 Generated for Jacquelyn engle/Zena/Clifford on: 1 08:00 AM EDT
--- OUTSIDE RECORDS SUMMARY | 2024-12-04 15:30 | XMS_ITS | Encounter Summary ---
Author Organization [email or web address] ([place], [place], [place], [place]) Address [address] [place] [address] Care Team Providers Care Public Weigher Name Role Phone Unavailable Primary Care Provider Unavailabl e Encounter Details Date Type Department Care Team (Latest Contact Info) Description 12/04/2024 3:30 PM EDT Procedure Visit [facility] Primary Care - [address] [address] Phylicia Christensen MD [address] [place] [address] Squamous cell carcinoma in situ (Primary [...] C44.622 . Comment [facility] Comment: CPT . [id number] Tissue 12/07/2024 10:2 7 AM EDT 12/08/2024 Narrative [facility] - 12/15/2024 4:06 AM EDT Performed at: - [facility] [address] [place] [id number] Apron Cleaner: Jose Chiang MD, Phone: [phone] Performed at: [facility] Dermatopathology Consult [address] [place] [id number] Apron Cleaner: Marixa Gibson , Phone: [phone] Resulting Agency Comment [id number] Phylicia Armenta MD PATHOLOGY/CYTOLOGY ORDERABLES Final Result [facility] documented in this encounter Visit Diagnoses Diagnosis Squamous cell carcinoma in situ- Primary Carcinoma in situ, site unspecified documented in this encounter
--- OUTSIDE RECORDS SUMMARY | 2024-12-21 05:40 | XMS_ITS ---
Author Organization [facility] Address [address] [facility] [address] [place] [address] Care Team Providers Care Minister Assistant Name Role Phone Thaddeus Morales Primary Care Provider REASON FOR VISIT Lab Order Encounters Encounter Location Date Provider Diagnosis [facility] [address] [place] [address] 12/21/2024 Thaddeus Morales Hyperlipemia, idiopathic familial E78.5 ; Vitamin B12 deficiency E53.8 ; Vitamin D deficiency E55.9 and Diabetes mellitus screening Z13.1 Assessments Encounter Date Diagnosis (ICD Code) Assessment Notes Treatment Notes Treatment Clinical Notes Section Notes 12/21/2024 Hyperlipemia, idiopathic familial (ICD-10 - E78.5) 12/21/2024 Vitamin B12 deficiency (ICD-10 - E53.8) 12/21/2024 Vitamin D deficiency (ICD-10 - E55.9) 12/21/2024 Diabetes mellitus screening (ICD-10 - Z13.1) Plan Of Treatment Pending Test Test Name Order Date M-Complete Blood Count Auto Diff 025 M-Comprehensive Metabolic Panel 12/22/19 25 M-Hemoglobin A1C 12/21/2024 M-Lipid Panel 12/21/2024 M-Vitamin B12 12/21/2024 M-Vitamin D 25 Hydroxy 12/21/2024 Next Appt Details Provider Name:Thaddeus Morales, 01/14/2025 03:15:00 PM, [address] [place] [address], [phone], Progress Notes * Wilma CANALES MDOB:[birth year] (59 yo F)Acc No.[id number]:12/21/2024 Patient: Wilma LAWRENCE :1965 A ge:59 Y S ex:Female Address:[address] [place] [address], [place] [address] Subjective: * Chief Complaints: * L ab Order * Medical History: * Surgical History: * Hospitalization/Major Diagno stic Procedure: * Medications: Objective: * Vitals: * Physical Examination: Assessment: * Assessment: 1. H yperlipemia, idiopathic familial - E78.5 (Primary) 2 . V itamin B12 deficiency - E53.8 3 . V itamin D deficiency - E55.9 4 . D iabetes mellitus screening - Z13.1 Plan: * Treatment: 2. V itamin B12 deficiency L AB: M-Complete Blood Count Auto Diff L AB: M-Comprehensive Metabolic Panel L AB: M-Hemoglobin A1C L AB: M-Lipid Panel L AB: M-Vitamin B12 L AB: M-Vitamin D 25 Hydroxy 3. V itamin D deficiency L AB: M-Complete Blood Count Auto Diff L AB: M-Comprehensive Metabolic Panel L AB: M-Hemoglobin A1C L AB: M-Lipid Panel L AB: M-Vitamin B12 L AB: M-Vitamin D 25 Hydroxy 4. D iabetes mellitus screening L AB: M-Complete Blood Count Auto Diff L AB: M-Comprehensive Metabolic Panel L AB: M-Hemoglobin A1C L AB: M-Lipid Panel L AB: M-Vitamin B12 L AB: M-Vitamin D 25 Hydroxy * Procedure Codes: * true * Date: Generated for Jacquelyn engle/Zena/eTransmitting on: 1 08:00 AM EDT
--- OUTSIDE RECORDS SUMMARY | 2024-12-21 06:07 | XMS_ITS ---
Author Organization [facility] Address [address] [place] [address] Care Team Providers Care Lead Web Developer Name Role Phone Thaddeus Morales Primary Care Provider [phone] REASON FOR VISIT mammogram order Encounters Encounter Location Date Provider Diagnosis [facility] [address] [place] [address] 12/21/2024 Thaddeus Morales Breast cancer screening by mammogram Z12.31 Assessments Encounter Date Diagnosis (ICD Code) Assessment Notes Treatment Notes Treatment Clinical Notes Section Notes 12/21/2024 Breast cancer screening by mammogram (ICD-10 - Z12.31) Plan Of Treatment Pending Test Test Name Order Date Mammogram : Bilateral 12/21/2024 Next Appt Details Provider Name:Thaddeus Morales, 01/14/2025 03:15:00 PM, [address] [place] [address], [id number], Progress Notes * Wilma CANALES MDOB:[birth year] (59 yo F)Acc No.[id number]:12/21/2024 Patient: Angélica NANCYSTACEYWilma :1965 A ge:59 Y S ex:Female Address:[place] [address] Subjective: * Chief Complaints: * M ammogram order * Medical History: * Surgical History: * Hospitalization/Major Diagno stic Procedure: * Medications: Objective: * Vitals: * Physical Examination: Assessment: * Assessment: 1. B reast cancer screening by mammogram - Z12.31 Plan: * Treatment: * Procedure Codes: * true * Date: Generated for Jacquelyn engle/Zena/Clifford on: 08:00 AM EDT
--- OUTSIDE RECORDS SUMMARY | 2024-12-21 14:00 | XMS_ITS | Encounter Summary ---
Author Organization Healthcare Address [address] [place] [address] Care Team Providers Care School Psychology Professor Name Role Phone Thaddeus Morales MD Primary Care Provider [phone] Thaddeus Morales MD Unavailable [phone] Shelli Espinosa MD Unavailable [phone] Encounter Details Date Type Department Care Team (Late st Contact Info) Description 12/21/2024 2:00 PM EDT Ancillary Procedure [facility] [address] [place] [address] Ovarian tumor Social History Tobacco Use Types Packs/Day Years Used Date Smoking Tobacco: Former Cigarettes 0.5 24 0 05/09/1998 - 05/09/2022 Passive Smoke Exposure: Never Smokeless Tobacco: Never Alcohol Use Standard Drinks/Week Comments Never 0 (1 standard drink = 0.6 oz pur e alcohol) PHQ-2 Answer Date Recorded Patient Health Questionnaire-2 Score 0 12/21/2024 PHQ-2A Answer Date Recorded Depression Risk 0 11/28/2022 Comments No Sex and Gender Information Value Date Recorded Sex Assigned at Not on file Legal Sex Female 7:54 PM EDT Gender Identity Not on file Sexual Orientation Not on file documented as of this encounter Functional Status * Over the past 2 weeks, how often have you been bothered by any of the following problems? Question Answer Date of Assessment Author Little interest or pleasure in doing things Not at all 12/21/2024 2:33 PM EDT Cynthia Smith Feeling down, depressed, or hopeless Not at all 12/21/2024 2:33 PM EDT Cynthia Smith Patient Health Questionnaire -2 Score 0 12/21/2024 2:33 PM EDT Cynthia Smith documented as of this encounter Plan of Treatment Upcoming Encounters Date Type Department Care Team (Late st Contact Info) Description 12/20/2025 12:30 PM EDT Ancillary Procedure [facility] [address] [place] [address] 12/20/2025 1:15 PM EDT Office Visit [facility] [address] [place] [address] Amador Ryenolds MD [address] [place] [address] documented as of this encounter Procedures Procedure Name Priority Date/Time Associated Diagnosis Comments US PELVIS TRANSVAGINAL Routine 12/21/2024 2:26 PM EDT Ovarian tumor documented in this encounter Results * US Pelvis Transvaginal (12/21/2024 2:26 PM EDT) Anatomical Region Laterality Modality Pelvis Ultrasound Narrative 12/21/2024 2:45 PM EDT US Pelvis Transvaginal Wilma Canales Date of Exam: 12/21/2024 Date of : 1965 LMP: Patient's last menstrual period was 12/23/2013 (approximate). OB History: # 1 - Date: None, Sex: None, Weight: None, GA: None, Type: None, Apgar1: None, Apgar5: None, Living: None, Comments: None # 2 - Date: None, Sex: None, Weight: None, GA: None, Type: None, Apgar1: None, Apgar5: None, Living: None, Comments: None # 3 - Date: None, Sex: None, Weight: None, GA: None, Type: None, Apgar1: None, Apgar5: None, Living: None, Comments: None Pertinent Hx: Ovarian tumor [D49.59 (ICD-10-CM)] Uterine Measurements: Longitudinal: 5.5 cm AP Diameter: 3.5 cm Trans Diameter: 4.4 cm Vol: 44 ml Uterine Position: Retroverted Endometrial Thickness: 6.1 mm Right Ovary: Yes 3.5 X 2.7 X 2.9 cm Vol: 14.1 ml Right ovary is fibrous/ heterogenous in appearance LA: 5 Left Ovary: Yes 2.7 X 1.3 X 1.7 cm Vol: 3.1 ml Left ovary is suboptimally visualized LA: 0 Free Fluid: Yes, Posterior cul-de sac fluid: 1 X 0.5 X 1.1 cm Vol: 0.3 ml Comments: Uterine position is retroverted Right ovary is fibrous/ heterogenous in appearance Left ovary is suboptimally visualized Cul-de sac fluid as described above Present for uncomplicated TVS. Gail Vdiales us Amador Reynolds MD IMG US PROCEDURES Final Re sult documented in this encounter Visit Diagnoses Diagnosis Ovarian tumor documented in this encounter Additional Health Concerns Assessment Noted Time A fall risk assessment has been complete d for the patient 12/21/2024 2:33 PM EDT A Body Mass Index follow-up plan has been documented for the patient 02/12/2024 11:44 AM EST documented as of this encounter Care Teams School Psychology Professor Relationship Specialty Start Date End Date Thaddeus Morales MD [address] [facility] [address] [place] [address] PCP - General 08/05/20 Thaddeus Morales MD [address] [place] [address] Referring Physician Internal Medicine 11/28/23 Shelli Espinosa MD [address] [place] [address] Surgeon Urology 02/12/24 documented as of this encounter
--- OUTSIDE RECORDS SUMMARY | 2024-12-21 14:30 | XMS_ITS | Encounter Summary ---
Author Organization Healthcare Address [address] [place] [address] Care Team Providers Care Grocery Store Manager Name Role Phone Thaddeus Morales MD Primary Care Provider [phone] Thaddeus Morales MD Unavailable [phone] Shelli Espinosa MD Unavailable [phone] Reason for Visit * Reason Comments Follow-up Encounter Details Date Type Department Care Team ([facility] st Contact Info) Description 12/21/2024 2:30 PM EDT Office Visit [facility] [address] [place] [address] Amador Reynolds MD [address] [facility] [address] [place] [address] Complex cyst of right ovary (Primary Dx) Social History Tobacco Use Types [...] on file documented as of this encounter Last Filed Vital Signs Vital Sign Reading Time Taken Comments Blood Pressure 119/72 12/21/2024 2:32 PM EDT Pulse 84 12/21/2024 2:32 PM EDT Temperature 36.4 C (97.5 F) 12/21/2024 2:32 PM EDT Respiratory Rate 16 12/21/2024 2:32 PM EDT Oxygen Saturation 97% 12/21/2024 2:32 PM EDT Inhaled Oxygen Concentration - - Weight 69.3 kg (152 lb 12.5 oz) 12/21/2024 2:32 PM EDT Height 170.2 cm (5' 7 ) 12/21/2024 2:32 PM EDT Body Mass Index 23.93 12/21/2024 2:32 PM EDT documented in this encounter Functional Status * Over the [...] Cynthia Smith documented as of this encounter Miscellaneous Notes * Progress Notes - Amador Reynolds MD - 12/21/2024 2:30 PM EDT Images from the original note were not included. Patient ID: Wilma Canales is a 59 y.o. female Referring Physician: No referring provider defined for this encounter. Primary Care Provider: Thaddeus Morales MD History of Present Illness: Patient seen for 6 mo FU TVS for right ovarian tumor with a complex appearance on ultrasound. Now 3.5 cm was 6 cm. Two small fibroids. CT SCAN shows 3.5 cm right ovary cyst, diverticulosis. No adenopathy or FF. WQ397=4, CEA=7.6, HC52-0=8. She presented with constipation. Had CT SCAN and TVS showing right ovarian tumor. PMH Depression, SCC, obesity (lost 131 Lbs) Surgery Gastric sleeve surgery, Ortho Review of Systems Constitutional: Negative for fatigue and fever. HENT: Negative for lump/mass and trouble swallowing. Eyes: Negative for eye problems. Respiratory: Negative for cough and shortness of breath. Cardiovascular: Negative for chest pain and leg swelling. Gastrointestinal: Positive for constipation. Negative for abdominal distention, abdominal pain, nausea and vomiting. Endocrine: Negative for hot flashes. Genitourinary: Negative for frequency, hematuria, pelvic pain and vaginal bleeding. Musculoskeletal: Negative for arthralgias and myalgias. Skin: Negative for rash. Neurological: Negative for dizziness, extremity weakness and numbness. Hematological: Negative. Negative for adenopathy. Psychiatric/Behavioral: Negative for depression. The patient is not nervous/anxious. All other systems reviewed and are negative. Cancer Staging No matching staging information was found for the patient. [No matching plan found] History: Past Medical History: Diagnosis Date Hyperlipidemia Squamous cell carcinoma of multiple sites Vitamin D deficiency Past Surgical History: Procedure Laterality Date CARPAL TUNNEL RELEASE N/A Neuroplasty Decompression Median Nerve At Carpal Tunnel from [facility] GALLBLADDER SURGERY N/A Gallbladder Surgery from [facility] SLEEVE GASTRECTOMY N/A 07/2022 Social History Socioeconomic History Marital status: Spouse name: Not on file Number of children: Not on file Years of education: Not on file Highest education level: Not on file Occupational History Not on file Tobacco Use Smoking status: Former Current packs/day: 0.00 Average packs/day: 0.5 packs/day for 24.0 years (12.0 ttl pk-yrs) Types: Cigarettes Start date: 05/09/1998 Quit date: 05/09/2022 Years since quittin.6 Passive exposure: Never Smokeless tobacco: Never Vaping Use Vaping status: Never Used Substance and Sexual Activity Alcohol use: Never Drug use: Never Sexual activity: Not on file Other Topics Concern Not on file Social History Narrative Not on file Social Drivers of Health Financial Resource Strain: Not on file Food Insecurity: Not on file Transportation Needs: Not on file Physical Activity: Not on file Stress: Not on file Social Connections: Not on file Intimate Partner Violence: Not on file Housing Stability: Not on file Allergies Allergen Reactions Bee Venom Unknown - Patient states they do not know rxn details Swelling Oxybutynin Rash Current Outpatient Medications: CALCIUM PO, Take by mouth., Disp: , Rfl: ergocalciferol 1.25 MG (58578 UT) capsule, , Disp: , Rfl: estradiol (Estrace) 0.1 MG/GM vaginal cream, Insert 1 gram into the vagina 3x/week, Disp: 30 g, Rfl: 11 mirabegron ER (Myrbetriq) 50 MG tablet, Take 1 tablet (50 mg) by mouth 1 (one) time each day., Disp: 30 tablet, Rfl: 11 Multiple Vitamin (multivitamin) tablet, Take 1 tablet by mouth 1 (one) time each day., Disp: , Rfl: ondansetron (Zofran) 8 MG tablet, Take 1 tablet (8 mg) by mouth 3 (three) times a day., Disp: , Rfl: Family History Problem Relation Name Age of Onset Conversions - Other Other Back problem Tobacco Use: Medium Risk (12/21/2024) Patient History Smoking Tobacco Use: Former Smokeless Tobacco Use: Never Passive Exposure: Never Social History Substance and Sexual Activity Alcohol Use Never Social Connections: Not on file Employer: No address on file. Travel History Relevant International Travel History: Travel Screening No screening recorded since 11/28/23 0000 Travel History Travel since 10/29/23 No documented travel since 10/29/23 Relevant Domestic Travel History: N/A Immunizations Reviewed VACCINE / DOSE Flu Tetanus Pneumovax Shingles Objective Physical Exam: Vital Signs for this encounter: BSA: 1.81 meters squared Visit Vitals BP 119/72 (BP Location: Left arm, Patient Position: Sitting, BP Cuff Size: Large adult) Pulse 84 Temp 36.4 ??C (97.5 ??F) (Temporal) Resp 16 Ht 1.702 m (5' 7 ) Wt 69.3 kg (152 lb 12.5 oz) LMP 12/23/2013 (Approximate) SpO2 97% BMI 23.93 kg/m?? OB Status Postmenopausal Smoking Status Former BSA 1.81 m?? Physical Exam Vitals and nursing note reviewed. Exam conducted with a eye surgeon present. Constitutional: Appearance: Normal appearance. HENT: Head: Normocephalic and atraumatic. Nose: Nose normal. Mouth/Throat: Pharynx: Oropharynx is clear. Cardiovascular: Rate and Rhythm: Normal rate. Pulses: Normal pulses. Pulmonary: Effort: Pulmonary effort is normal. Breath sounds: Normal breath sounds. Abdominal: General: Abdomen is flat. Bowel sounds are normal. There is no distension. Palpations: Abdomen is soft. There is no mass. Tenderness: There is no abdominal tenderness. There is no guarding. Genitourinary: General: Normal vulva. Musculoskeletal: General: No swelling or tenderness. Cervical back: Normal range of motion and neck supple. Lymphadenopathy: Cervical: No cervical adenopathy. Skin: General: Skin is warm and dry. Findings: No rash. Neurological: General: No focal deficit present. Mental Status: She is alert and oriented to person, place, and time. Psychiatric: Mood and Affect: Mood normal. Behavior: Behavior normal. Thought Content: Thought content normal. Judgment: Judgment normal. Performance Status: Symptomatic; fully ambulatory Results: No results found for: WBC , ADJUSTEDWBC , HGB , HCT , PLT , LDH , CREATININE , AST , CA125 , CEA , AFPTM , CA199 , HCGTM 03/02/2024 US Pelvis Transvaginal Wilma Canales Date of Exam: 03/02/2024 Date of : 1965 LMP: Patient's last [...] None, Living: None, Comments: None Pertinent Hx: Pelvic mass Uterine Measurements: 7 x 4 x 4 cm Vol. 58 cm3 heterogenous; suspected diffuse adenomyosis throughout the myometrium Uterine Position: Midline Endometrial Thickness: sub optimal Right Ovary: Yes, extremely heterogenous - echo texture appears similar to a uterine fibroid 5 x 3 x 4 cm Vol. 43 cm3 Left Ovary: No Free Fluid: Yes, 0.288 cm3 Comments: Uterus appears heterogenous; suspected diffuse adenomyosis throughout the myometrium. Theendometrial lining is sub optimal. Ovaries as described above; right ovary is extremely heterogenous. Free fluid noted above. 06/08/2024 TVS US Pelvis Transvaginal Wilma Canales Date of Exam: 06/08/2024 Date of : 1965 LMP: Patient's last [...] None, Living: None, Comments: None Pertinent Hx: Bilateral ovarian cysts Uterine Measurements: Longitudinal: 6.1 cm AP Diameter: 3.4 cm Trans Diameter: 4.0 cm Vol: 44 ml Uterine Position: Axial Posterior cul de sac fluid noted: 1.3 X 0.6 X 1.2 cm Vol: 0.5 ml Uterus appears heterogenous in texture throughout Endometrial Thickness: 9.2 mm Right Ovary: 6 X 3.7 X 3.7 cm Vol: 43.3 ml Enlarged right ovary appears heterogenous throughout comparable to fibroid texture NC: 5 Left Ovary: 3.3 X 1.3 X 1.4 cm Vol: 3.1 ml Left ovary appears unremarkable NC: 0 Free Fluid: Yes, Comments: Uterine Position is axial Uterus appears heterogenous in texture throughout Enlarged right ovary appears heterogenous throughout comparable to fibroid texture Left ovary appears unremarkable Posterior cul de sac fluid noted: Vol: 0.5 ml 12/21/2024 TVS US Pelvis Transvaginal Wilma Canales Date of [...] Right ovary is fibrous/ heterogenous in appearance NC: 5 Left Ovary: Yes 2.7 X 1.3 X 1.7 cm Vol: 3.1 ml Left ovary is suboptimally visualized NC: 0 Free Fluid: Yes, Posterior cul-de sac fluid: 1 X 0.5 X 1.1 cm Vol: 0.3 ml Comments: Uterine position is retroverted Right ovary is fibrous/ heterogenous in appearance Left ovary is suboptimally visualized Cul-de sac fluid as described above Patient Active Problem List Diagnosis Back pain DDD (degenerative disc disease), lumbar Elbow pain Facet hypertrophy of lumbar region Depression Secondary hyperparathyroidism (CMS/HCC) H/O vitamin D deficiency H/O gastric sleeve Complex cyst of right ovary Urge incontinence Urinary urgency Stress incontinence Vaginal atrophy Rectocele Cystocele with prolapse Wilma was seen today for follow-up. Diagnoses and all orders for this visit: Complex cyst of right ovary (Primary) - US Pelvis Transvaginal; Future Assessment/Plan Problem: 3.5 cm (was 6) right ovarian tumor. Vol=14 mL (43 mL). NC=5. Decreasing size. Possible myoma. Asymptomatic. Intermediate risk. Normal CA125 and other markers Assessment and plan: TVS performed- decreased size. Reassurance FU 12 mo with TVS Problem: Obesity. Body mass index is 23.93 kg/m??. 130 lb wt loss Assessment and plan: Patient's obesity impacts all aspects of her medical care, including VTE risk,wound infection, pulmonary complications, and the difficulty of the surgical procedure. Team-based care includes nurse intake, history, discussion of results, appointment scheduling, lab orders, phlebotomy, and documentation. Encounter time 35 min. documented in this encounter Plan of Treatment Upcoming Encounters Date Type Department Care Team (Late st Contact Info) Description 12/20/2025 12:30 PM EDT Ancillary Procedure [facility] [address] [place] [address] 12/20/2025 1:15 PM EDT Office Visit [facility] [address] [place] [address] Amador Reynolds MD [address] [place] [address] Scheduled Orders Name Type Priority Associated Diagnoses Orde r Schedule US Pelvis Transvaginal Imaging Routine Complex cyst of right ovary 1 Occurrences starting 12/21/2024 until 06/20/2026 documented as of this encounter Visit Diagnoses Diagnosis Complex cyst of right ovary- Primary documented in this encounter Additional Health Concerns Assessment Noted Time A fall risk assessment has been complete d for the patient 12/21/2024 2:33 PM EDT A Body Mass Index follow-up plan has been documented for the patient 02/12/2024 11:44 AM EST documented as of this encounter Care Teams Grocery Store Manager Relationship Specialty Start Date End Date Thaddeus Morales MD [address] [place] [address] PCP - General 08/05/20 Thaddeus Morales MD [address] [place], [place] [address] Referring Physician Internal Medicine 11/28/23 Shelli Espinosa MD [address] [place] [address] Surgeon Urology 02/12/24 documented as of this encounter
--- OUTSIDE RECORDS SUMMARY | 2024-12-22 04:00 | XMS_ITS ---
Author Organization [facility] Address [address] [place] [address] Care Team Providers Care Materials Handling Coordinator Name Role Phone Thaddeus Morales Primary Care Provider [phone] Elaine Adams Unavailable [phone] Allergies Allergen (clinical drug ingredient) Drug/Non Drug Allergy documented on EMR Reaction Allergy Type Onset Date Status BEE STINGS (uncoded) Unknown Allergy Active Results Component Value Reference Range Notes CULTURE, URINE, ROUTINE (395 ) (Not yet reviewed by provider) Interpretation: Performing Lab:[facility] Fred Reynoso Notes/Report: NON-FASTING CULTURE, URINE, ROUTINE SEE NOTE CULTURE, URINE, ROUTINE Micro Number: [id number] Test Status: Final Specimen Source: Urine, clean catch Specimen Quality: Adequate Result: Mixed genital garrett isolated. These superficial bacteria are not indicative of a urinary tract infection. No further organism identification is warranted on this specimen. If clinically indicated, recollect clean-catch, mid-stream urine and transfer immediately to Urine Culture Transport Tube. Urinalysis Reviewed date:12/22/2024 09:50:13 AM Interpretation: Performing Lab: Notes/Report: Color/Clarity yellow Leuk neg Nitrite positive Urobili 1.0 Protein 100mg pH 5.0 Blood neg Sp. Gr. >=1.030 Ketone trace Bili small Glucose neg REASON FOR VISIT UTI- a lot of pressure Medications Medication SIG (Take, Route, Frequency, Duration) Notes Start Date End Date Status Pyridium 200 MG 1 tablet after meals Orally Three times a day as needed for dysuria; Duration: 3 days 12/22/2024 Active Zepbound 15 MG/0.5ML 0.5 mL Subcutaneous Active MiraLax - DIRECTED ORALLY ONCE A DAY *Please review and pick correct strength-formulati on from [employer] options. If intended option is not shown, discontinue and re-order from Quick Search* Active EpiPen 2-Jordon 0.3 MG/0.3ML 0.3 mg intramuscularly once prn prn 08/04/2012 Active Flonase Allergy Relief 50 MCG/ACT 2 spray(s) intranasally once a day; Duration: 30 day(s) prn 07/04/2020 Active Cefdinir 300 MG 300 mg Orally 2 time s a day; Duration: 7 days 12/22/2024 Active Gemtesa 75 MG 1 tab(s) orally once a day; Duration: 30 day(s) 12/04/2023 Active Calcium Citrate 950 MG (200 MG ELEMENTAL CALCIUM) 1 TAB(S) ORALLY 2 TIMES A DAY *Please review and pick correct strength-formulati on from [employer] options. If intended option is not shown, discontinue and re-order from Quick Search* Active Ondansetron HCl 8 MG 1 tab(s) orally 3 times a day prn Active Vitamin D2 50 MCG 1 CAP(S) ORALLY ONCE A DAY *Please review and pick correct strength-formulati on from [employer] options. If intended option is not shown, discontinue and re-order from Quick Search* Active Centrum Silver Women 50+ THERAPEUTIC MULTIPLE VITAMINS WITH MINERALS 1 TAB(S) ORALLY ONCE A DAY *Please review and pick correct strength-formulati on from [employer] options. If intended option is not shown, discontinue and re-order from Quick Search* Active Problems Problem Type SNOMED Code ICD Code Onset Dates Problem Status W/U Status Risk Notes Problem Urge urinary incontinence (79280450) Urge urinary incontinence (N39.41) Active confirmed Vital Signs Temperature 97.7 degrees Fahrenheit 12/23/19 25 Heart Rate 64 /min 12/22/2024 Blood pressure systolic 112 mm Hg 12/23/19 25 Blood pressure diastolic 78 mm Hg 025 Height 65.75 in 12/22/2024 Weight 152 lbs 12/22/2024 BMI 24.72 kg/m2 12/22/2024 Encounters Encounter Location Date Provider Diagnosis [facility] [address] [place] [address] 12/22/2024 Elaine Adams Suprapubic pain R10. 2 ; Acute UTI N39.0 and Urge urinary incontinence N39.41 Assessments Encounter Date Diagnosis (ICD Code) Assessment Notes Treatment Notes Treatment Clinical Notes Section Notes 12/22/2024 Suprapubic pain (ICD-10 - R10.2) 12/22/2024 Acute UTI (ICD-10 - N39.0) Discussed suspected UTI based on symptoms/UA results and need for treatment with antibiotics as well as good water intake. Discussed return precautions including fever, vomiting, intractable pain, etc. If this culture is again negative for significant growth, I would recommend FU with URO to discuss these recurring urinary symptoms She feels like the cephalosporin antibiotic she had relieved her symptoms better than Macrobid. We do not have a culture to consult. Will start cefdinir empirically as noted. 12/22/2024 Urge urinary incontinence (ICD-10 - N39.41) Plan Of Treatment Medication Medication Name Sig Start Date Stop Date Notes Pyridium 200 MG 1 tablet after meals Orally Three times a day as needed for dysuria; Duration: 3 days 12/22/2024 Cefdinir 300 MG 300 mg Orally 2 time s a day; Duration: 7 days 12/22/2024 Pending Test Test Name Order Date CULTURE, URINE, ROUTINE (395) 12/22/2024 Next Appt Details Follow Up: prn, Reason: Provider Name:Thaddeus Love Sharonjohnathon, 01/14/2025 03:15:00 PM, [address], [address], Progress Notes * Wilma CANALES MDOB:[birth year] (59 yo F)Acc No.[id number]:12/22/2024 Progress Notes Patient: Angélica CRUZSTACEY Wilma Diamond Provider: FAB Mcnamara :1965 A ge:59 Y S ex:Female Date:12/22/2024 Address:[address], [place] Pcp:Thaddeus Morales Subjective: * Chief Complaints: * 1 . UTI- a lot of pressure. * HPI: g en: Ms. Canales presents to the office with a CC of suprapubic pain. Treated in September with macrobid and again in October with keflex both with resolution of symptoms but both cultures without significant growth She states that these symptoms began about 48 hours ago and have progressed. She denies burning sensation or fevers and chills She has chronic low back pain, but she did not notice any increase in back pain She did see SENIOR ASP NET DEVELOPER, Dr Reynolds, yesterday for followup, ovarian mass size decreased and he had no new concerns Has consulted with URO in the past at regarding her UI but they did not guarantee that surgery to lift her bladder would relieve her UUI so she opted to hold off on surgical intervention. * ROS: C ONSTITUTIONAL: Reviewed, No Symptoms Reported: Y es. D ERMATOLOGY: no R eli. G ASTROENTEROLOGY: See HPI Y es. U ROLOGY: See HPI Y es. n o B lood in urine. U rinary incontinence yes. * Medical History: D epression, Squamous cell carcinoma, Normal mamm 09/2019 and 08/2023, Normal EGD 08/12, Right knee- ? torn meniscus. * Medications: T aking Zepbound 15 MG/0.5ML Solution Auto-injector 0.5 mL Subcutaneous , Taking MiraLax - POWDER FOR RECONSTITUTION DIRECTED ORALLY ONCE A DAY , Notes to Pharmacist: *Please review and pick correct strength-formulation from [employer] options. If intended option is not shown, discontinue and re-order from Quick Search*, Taking Ondansetron HCl 8 MG Tablet 1 tab(s) orally 3 times a day , Notes to Pharmacist: prn, Taking Vitamin D2 50 MCG CAPSULE 1 CAP(S) ORALLY ONCE A DAY , Notes to Pharmacist: *Please review and pick correct strength-formulation from [employer] options. If intended option is not shown, discontinue and re-order from Quick Search*, Taking Centrum Silver Women 50+ THERAPEUTIC MULTIPLE VITAMINS WITH MINERALS TABLET 1 TAB(S) ORALLY ONCE A DAY , Notes to Pharmacist: *Please review and pick correct strength-formulation from [employer] options. If intended option is not shown, discontinue and re-order from Quick Search*, Taking Calcium Citrate 950 MG (200 MG ELEMENTAL CALCIUM) TABLET 1 TAB(S) ORALLY 2 TIMES A DAY , Notes to Pharmacist: *Please review and pick correct strength-formulation from [employer] options. If intended option is not shown, discontinue and re-order from Quick Search*, Taking EpiPen 2-Jordon 0.3 MG/0.3ML Solution Auto-injector 0.3 mg intramuscularly once prn , Notes to Pharmacist: prn, Taking Flonase Allergy Relief 50 MCG/ACT Suspension 2 spray(s) intranasally once a day , Notes to Pharmacist: prn, Taking Gemtesa 75 MG Tablet 1 tab(s) orally once a day , Discontinued Macrobid 100 MG Capsule 1 capsule with food Orally every 12 hrs , Discontinued Pyridium 200 MG Tablet 1 tablet after meals Orally Three times a day , Medication List reviewed and reconciled with the patient * Allergies: B EE STINGS. Objective: * Vitals: N urse: KJ, Pain: 2, Temp: 97.7, RR: 18, HR: 64, BP: 112/78, Ht: 65.75 , Wt: 152, BMI:24.72. * Examination: G eneral Examination: General P leasant and Cooperative, NAD on RA,. Heart: R egular Rate and Rhythm, no murmur, rubs or gallops. Lungs: L CTAB, No wheezes, crackles or rhonchi, Good air movement,. Abdomen: S oft, ND, BSNA, No organomegaly or peritoneal signs., no CVA tenderness, mild suprapubic tenderness. Assessment: * Assessment: 1. A cute UTI - N39.0 (Primary) 2 . S uprapubic pain - R10.2 ?3. U rge urinary incontinence - N39.41 Plan: * Treatment: 2. S uprapubic pain L AB: Urinalysis (Collection Date & Time - 12/22/2024) Value Reference Range C olor/Clarity yellow * L euk neg * N itrite positive * U robili 1.0 * P rotein 100mg * p H 5.0 * B lood neg * S p. Gr. >=1.030 * K etone trace * B ronnie small * G lucose neg * Elizabeth Kerns 12/22/2024 08: 24:47 AM EDT > * Procedure Codes: 8 1002 URINALYSIS, Modifiers: QW * Follow Up: p rn * * Sign off status: Completed true * Provider: FAB Mcnamara Date: 0 12/22/2024 Generated for Printi ng/Zena/eTransmitting on: 1 07:59 AM EDT History and Physical Notes * Examination Category Sub-Category Detail Notes Category Not es General Examination Heart: Regular Rate and Rhythm, no murmur, rubs or gallops Lungs: LCTAB, No wheezes, c rackles or rhonchi, Good air movement, Abdomen: Soft, ND, BSNA, No o rganomegaly or peritoneal signs., no CVA tenderness, mild suprapubic tenderness General Pleasant and Coopera tive, NAD on RA,
--- OUTSIDE RECORDS SUMMARY | 2024-12-25 07:59 | XMS_ITS | Encounter Summary ---
Author Organization Healthcare Address [address] [place] [address] Care Team Providers Care University Tutor Name Role Phone Thaddeus Morales MD Primary Care Provider [phone] Thaddeus Morales MD Unavailable [phone] Shelli Espinosa MD Unavailable [phone] Encounter Details Date Type Department Care Team [...] [address] [place] [address] 12/20/2025 1:15 PM EDT Office Visit [facility] [address] [place] [phone] Amador Reynolds MD [address] [place] [address] documented as of this encounter Visit Diagnoses Not on filedocumented in this encounter Additional Health Concerns Assessment Noted Time A fall risk assessment has been complete d for the patient 12/21/2024 2:33 PM EDT A Body Mass Index follow-up plan has been documented for the patient 02/12/2024 11:44 AM EST documented as of this encounter Care Teams University Tutor Relationship Specialty Start Date End Date Thaddeus Morales MD [address] [place] [address] PCP - General 08/05/20 Thaddeus Morales MD [address] [place] [address] Referring Physician Internal Medicine 11/28/23 Shelli Espinosa MD [address] [place] [address] Surgeon Urology 02/12/24 documented as of this encounter
--- OUTSIDE RECORDS SUMMARY | 2024-12-25 07:59 | XMS_ITS | Encounter Summary ---
Author Organization [employer] ([place], [place], [place], [place]) Address [address] [place] [address] Care Team Providers Care Cane Packer Name Role Phone Unavailable Primary Care Provider Unavailabl e Encounter Details Date Type Department Care Team (Late st Contact Info) Description 03/13/2019 Transcribed Document [facility] [place] [address] [place] [address] ProviderOtilia MD [address] [place] [address] Social History Tobacco Use Types [...] - Historical ProviderMD - 03/13/2019 12:19 PM GRAPHIC TECHNICIAN [facility] Nunez PACU Summary Primary Physician: HARRIET GARCIA MD-SUR Finalized Date/Time: 03/13/19 12:56:25 Pt. Name: WILMA CANALES/Sex: 1965 Female Med Rec #: [id number] Physician: HARRIET GARCIA MD-SUR Financial #: [id number] Pt. Type: O Room/Bed: [facility] [place]/ Admit/Disch: 03/13/19 09:47:00 - Institution: DONYA Nunez PACU Case Times Entry 1 In PACU I 03/13/19 12:25:00 Ready for PACU 03/13/19 12:48:00 Discharge Discharge from PACU 03/13/19 12:56:00 I [facility] Endo PACU Case Times Audit 03/13/19 12:56:23 Check Weigher: ARNULFO Modifier: ARNULFO <+> 1 Discharge from PACU I Finalized By: KANDI PEREZ RN Document Signatures Signed By: KANDI PEREZ RN 03/13/19 12:56 Electronically signed by Martina [facility] Conversion Sand Operator Cerner at 07/13/2022 6:09 PM CDT documented in this encounter Plan of Treatment Not on file documented as of this encounter Visit Diagnoses Not on filedocumented in this encounter
--- OUTSIDE RECORDS SUMMARY | 2024-12-25 07:59 | XMS_ITS | Encounter Summary ---
Author Organization [employer] ([place], [place], [place], [place]) Address [address] [place] [address] Care Team Providers Care Airplane Mechanic Apprentice Name Role Phone Unavailable Primary Care Provider Unavailabl e Encounter Details Date Type Department Care Team (Late st Contact Info) Description 03/13/2019 Transcribed Document [facility] [place] [address] [place] [address] ProviderOtilia MD [address] [place] [address] Social History Tobacco Use Types [...] - Historical ProviderMD - 03/13/2019 1:00 PM TANNER ROTARY DRUM CONTINUOUS PROCESS DON[facility] Nunez PreOp Summary Primary Physician: HARRIET GARCIA MD-SUR Finalized Date/Time: 03/13/19 10:43:31 Pt. Name: WILMA CANALES/Sex: 1965 Female Med Rec #: [id number] Physician: HARRIET GARCIA MD-SUR Financial #: [id number] Pt. Type: O [place] [facility] [place] Admit/Disch: 03/13/19 09:47:00 - Institution: DONYA Nunez PreOp Case Times Entry 1 In Preop 03/13/19 10:16:00 Ready for Holding 03/13/19 10:43:00 Room Patient Ready for 03/13/19 10:43:00 Surgery Patient Out of Preop 03/13/19 10:43:00 Patient Out of 03/13/19 10:43:00 Holding Room [facility] PreOp Case Times Audit 03/13/19 10:43:23 Bacteriology Technician: LULI Modifier: [email or web address] <+> 1 Patient Out [...]
--- OUTSIDE RECORDS SUMMARY | 2024-12-25 07:59 | XMS_ITS | Encounter Summary ---
Author Organization [employer] ([place], [place], [place], [place]) Address [address] [place] [address] Care Team Providers Care Cyber Intel Planner Name Role Phone Unavailable Primary Care Provider Unavailabl e Encounter Details Date Type Department Care Team (Late st Contact Info) Description 03/13/2019 Transcribed Document [facility] [facility] [place] [address] ProviderOtilia MD [address] [place] [address] Social History Tobacco Use Types Packs/Day Years Used Date Smoking Tobacco: Never Assessed Comments Unknown Sex and Gender Information Value Date Recorded Sex Assigned at Not on file Legal Sex Female 4:36 PM CDT Gender Identity Not on file Sexual Orientation Not on file documented as of this encounter Miscellaneous Notes * Cerner Conversion Note - Otilia ProviderMD - 03/13/2019 12:43 PM BARREL LATHE OPERATOR INSIDE [place] [id number] WILMA CANALES :1965 Visit Time:03/13/2019 What to do next [...] As needed, only if needed Where: [address] [place] [address]- [phone] Medications What How Much When Instructions Next [...] 01/05/2010 Document Revised: 11/06/2016 Document Reviewed: 07/26/2015 [employer] Interactive Patient Education ?? 2019 Access [employer] 3. Monitored Anesthesia Care, Care After These instructions [...] eating solid foods. General instructions ??? Take zlpf-pms-hlxemxn and prescription medicines only as told by [...] 07/01/2016 Document Revised: 10/25/2017 Document Reviewed: 07/01/2016 [employer] Interactive Patient Education ?? 2019 [employer] Esophagogastroduodenoscopy, Care After Refer to this [...] 02/25/2013 Document Revised: 08/16/2016 Document Reviewed: 02/02/2016 [employer] Interactive Patient Education ?? 2019 Access [employer] 3. Emergency Awareness and Preventative Care STROKE is [...] Assistance with quitting is available by contacting 1-181-ITKU-NOW. This is a free resource providing counseling, [...] range between ( 1.0 and 7.0 ) [place] #: 1.13 K/uL -- Normal range between ( 0.24 and 0.82 ) [place] #: 0.19 K/uL -- Normal range between ( 0.04 and 0.54 ) [place] %: 9.3 % -- Normal range between [...] was given the opportunity to ask questions. Patient/Television Production Clerk Name: Patient/Television Production Clerk Signature: Relationship to Patient: Clinician/Hospital Television Production Clerk Signature: Date: documented in this encounter Plan of Treatment Not on file documented as of this encounter Visit Diagnoses Not on filedocumented in this encounter
--- OUTSIDE RECORDS SUMMARY | 2024-12-25 07:59 | XMS_ITS | Encounter Summary ---
Author Organization [employer] ([place], [place], [place], [place]) Address [address] [place] [address] Care Team Providers Care Grounds Maintenance Supervisor Name Role Phone Unavailable Primary Care Provider Unavailabl e Encounter Details Date Type Department Care Team (Late st Contact Info) Description 03/13/2019 Transcribed Document [facility] [place] Medicine [facility] [place] [address] ProviderOtilia MD [address] [place] [address] Social History Tobacco Use Types [...] - Historical ProviderMD - 03/13/2019 12:19 PM MANAGER TRANSPORTATION DONYA Nunez IntraOp Summary Primary Physician: HARRIET GARCIA MD-SUR Finalized Date/Time: 03/13/19 12:22:11 Pt. Name: WILMA CANALES/Sex: 1965 Female Med Rec #: [id number] Physician: HARRIET GARCIA MD-SUR Financial #: [id number] Pt. Type: O Room/Bed: [place] Admit/Disch: 03/13/19 09:47:00 - Institution: DONYA Nunez - Case Attendance Entry 1 Entry 2 Entry 3 Case Attendee HARRIET GARCIA WICKER, KAREN KIM, MARCOS WILSON Role Performed Surgeon/Proceduralist, TRACK SWEEPER/Nurse Speedboat Driver Scrub, First First Time In 03/13/19 12:11:00 03/13/19 12:11:00 03/13/19 12:11:00 Time Out 03/13/19 12:22:00 03/13/19 12:22:00 03/13/19 12:22:00 Procedure Esophagogastroduodenosco Esophagogastroduodenosco Esophagogastroduodenosco py, Gastric Biopsy py, Gastric Biopsy py, Gastric Biopsy Other Attendee Superficial Wound Closed By: Last Modified By: LIZZIE SULLIVAN RN KULCHAR, KATHLEEN A, LIZZIE INIGUEZ RN 03/13/19 12:21:41 03/13/19 12:21:41 03/13/19 12:21:41 Entry 4 Case Attendee LIZZIE SULLIVAN RN Role Performed Nephrologist, First Time In 03/13/19 12:11:00 Time Out 03/13/19 12:22:00 Procedure Esophagogastroduodenosco py, Gastric Biopsy Other Attendee Superficial Wound Closed By: Last Modified By: LIZZIE SULLIVAN RN 03/13/19 12:21:41 [facility] - Case Attendance Audit 03/13/19 12:21:41 Information Writer: KULCKA Modifier: KULCKA 1 <+> Time Out 1 <*> Procedure Esophagogastroduodenoscopy, Gastric Biopsy 2 <+> Time Out 2 <*> Procedure Esophagogastroduodenoscopy, Gastric Biopsy 3 <+> Time Out 3 <*> Procedure Esophagogastroduodenoscopy, Gastric Biopsy 4 <+> Time Out 4 <*> Procedure Esophagogastroduodenoscopy, Gastric Biopsy 03/13/19 12:18:39 Information Writer: KULCKA Modifier: KULCKA 1 <*> Procedure Esophagogastroduodenoscopy 2 <*> Procedure Esophagogastroduodenoscopy 3 <*> Procedure Esophagogastroduodenoscopy 4 <*> Procedure Esophagogastroduodenoscopy 03/13/19 12:13:40 Information Writer: KULCKA Modifier: KULCKA 1 <*> Procedure Esophagogastroduodenoscopy 2 <+> Time In 2 <*> Procedure Esophagogastroduodenoscopy 3 <+> Time In 3 <*> Procedure Esophagogastroduodenoscopy 4 <+> Time In 4 <*> Procedure Esophagogastroduodenoscopy 03/13/19 12:13:28 Information Writer: MELINAE Modifier: KULCKA 1 <*> Case Attendee HARRIET GARCIA MD-AURA 1 <*> Role Performed Surgeon/Proceduralist, First 1 <+> Time In 1 <*> Procedure Esophagogastroduodenoscopy <+> 2 Case Attendee <+> 2 Role Performed <+> 2 Procedure <+> 3 Case Attendee <+> 3 Role Performed <+> 3 Procedure <+> 4 Case Attendee <+> 4 Role Performed <+> 4 Procedure 03/13/19 10:34:27 Information Writer: ARNULFO Modifier: BRYANTHE 1 <*> Case Attendee [...] Endo - Case Times Audit 03/13/19 12:21:38 Information Writer: KULCKA Modifier: KULCKA <+> 1 Out Room Time 03/13/19 12:20:57 Information Writer: KULCKA Modifier: KULCKA <+> 1 Stop Time <+> 1 Start Time <+> 1 Stop Time 03/13/19 12:13:59 Information Writer: KULCKA Modifier: KULCKA <+> 1 Anesthesia Ready [...] Via Patient Transport LIZZIE SULLIVAN, Accompanied by RN, DELLA ALMEIDA CRNA Last Modified By: LIZZIE SULLIVAN RN [...] Modified By: LIZZIE SULLIVAN RN 03/13/19 12:14:14 E Endo - General Case Small Stock Facer 1 Case Information OR Endo 01 [facility] Case Level 1 Room Verified Yes Wound Class II - Clean-Contaminated Specialty SN General Anesthesia Type MAC ASA Class 3 Diagnosis Preop Diagnosis K21.9 Postop Same As Preop No Postop Diagnosis normal Last Modified By: LIZZIE SULLIVAN RN 03/13/19 12:21:05 E Endo - General Case Data Audit 03/13/19 12:21:05 Information Writer: HOSEA Modifier: KULCKA <+> 1 Postop Diagnosis 03/13/19 12:14:27 Information Writer: ARNULFO Modifier: KULCKA <+> 1 ASA Class <+> 1 Anesthesia Type <+> 1 Postop Same As Preop <+> 1 Room Verified E Endo - Intraoperative Assessment Entry 1 Valid [...] Endo - Patient Positioning Audit 03/13/19 12:18:41 Information Writer: HOSEA Modifier: RUSSELLLCKA 1 <*> Procedure Esophagogastroduodenoscopy [facility] - Sign In Entry 1 Patient, Site, Yes Procedure Identified Surgical Consent Yes Confirmed Surgical Site N/A Marked by person performing procedure Airway Hypothermia Risk No Warming Measures No Taken Last Modified By: LIZZIE SULLIVAN RN 03/13/19 12:13:44 [facility] - Sign In Audit 03/13/19 12:13:44 Information Writer: HOSEA Modifier: KULCKA <+> 1 Hypothermia Risk <+> [...] Primary Surgeon HARRIET GARCIA, HARRIET GARCIA MD-AURA -AURA Start 03/13/19 12:19:00 03/13/19 12:19:00 Stop 03/13/19 12:20:00 03/13/19 12:20:00 Physician States Cecum Reached Anesthesia Type MAC MAC Specialty SN General SN General Wound Class II - Clean-Contaminated II - Clean-Contaminated Last Modified By: LIZZIE SULLIVAN RN KULCHAR, KATHLEEN A, RN 03/13/19 12:21:11 03/13/19 12:21:11 [facility] - Surgical Procedures Audit 03/13/19 12:21:11 Information Writer: HOSEA Modifier: KULCKA <+> 1 Start <+> 1 Stop <+> 2 Start <+> 2 Stop 03/13/19 12:18:35 Information Writer: ARNULFO Modifier: KULCKA <+> 2 Procedure <+> [...] Endo - Time Out Audit 03/13/19 12:18:41 Information Writer: HOSEA Modifier: HOSEA 1 <*> Procedure to be Performed Esophagogastroduodenoscopy Case Comments <None> Finalized By: LIZZIE SULLIVAN RN Document Signatures Signed By: LIZZIE SULLIVAN RN 03/13/19 12:22 Electronically signed by Martina [facility] Conversion Health And Wellness Coach Cerner at 07/13/2022 6:20 PM CDT documented in this encounter Plan of Treatment Not on file documented as of this encounter Visit Diagnoses Not on filedocumented in this encounter
--- OUTSIDE RECORDS SUMMARY | 2024-12-25 07:59 | XMS_ITS | Encounter Summary ---
Author Organization [employer] ([place], [place], [place], [place]) Address [address] [place] [address] Care Team Providers Care Musician Instrumental Name Role Phone Unavailable Primary Care Provider Unavailabl e Encounter Details Date Type Department Care Team (Late st Contact Info) Description 03/13/2019 Transcribed Document [facility] [place] [facility] [place] [address] ProviderOtilia MD [address] [place] [address] Social History Tobacco Use Types [...] - Otilia ProviderMD - 03/13/2019 12:34 PM ELEVATOR BUILDER Patient Education Materials Follows: Steps to Quit [...] 01/05/2010 Document Revised: 11/06/2016 Document Reviewed: 07/26/2015 [email or web address] Interactive Patient Education ? 2019 Drawn to Scale. Monitored Anesthesia Care, Care After These instructions [...] eating solid foods. General instructions ??? Take bhxh-qvn-wphgeaz and prescription medicines only as told by [...] 07/01/2016 Document Revised: 10/25/2017 Document Reviewed: 07/01/2016 [email or web address] Interactive Patient Education ? 2019 [employer] Esophagogastroduodenoscopy, Care After Refer to this [...] 02/25/2013 Document Revised: 08/16/2016 Document Reviewed: 02/02/2016 [employer] Interactive Patient Education ? 2019 [employer] documented in this encounter Plan of Treatment Not on file documented as of this encounter Visit Diagnoses Not on filedocumented in this encounter
--- OUTSIDE RECORDS SUMMARY | 2024-12-25 07:59 | XMS_ITS | Encounter Summary ---
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 GAS Pre Procedure Adult Entered On: 03/13/2019 10:35 EST Performed On: 03/13/2019 10:27 EST by Sandy Esparza RN Height and Weight, Clinical Dosing Height Source : Stated Height Entry Format : [place] Height, Feet : 5 ft(Converted to: 152 cm, 60 Inch) Height, Inches : 6 Inch(Converted to: 0 ft 6 Inch, 15.24 cm) Clinical Height : 167.64 cm Weight Source : Standing scale Weight Entry Format : [place] Clinical Dosing Weight : 132.73 kg Weight, Pounds : 292 lb Body Surface Area (BSA) : 2.35 m2 Body Mass Index : 47.2 kg/m2 (>HHI) [place] Body Weight : 59 kg Sandy Esparza [...] Sandy Esparza RN - 03/13/2019 10:27 EST Banner Suicide Severity Rating Scale (C-SSRS) CSSRS Past [...] Preferences Family : Printed materials, Verbal explanation Snady Esparza RN - 03/13/2019 10:27 EST General [...] Obtained From : Patient Primary Language : Bangladeshi Communication Barrier : None Objects to Sharing [...] Scale Risk Level : 0-24 Low Risk [place] Fall Interventions : Adequate lighting, Bed in [...]
--- OUTSIDE RECORDS SUMMARY | 2024-12-25 08:00 | XMS_ITS | Clinical Summary ---
Author Organization [facility] Address [address] [place] [address] Care Team Providers Care Change Control Manager Name Role Phone Thaddeus Morales MD Primary Care Provider [phone] Thaddeus Morales MD Unavailable [phone] Shelli Espinosa MD Unavailable [phone] Allergies Active Allergy Reactions Criticality Noted Date Comments Bee Venom Unknown - Patient st ates they do not know rxn details High 11/28/2022 Swelling Oxybutynin Rash Low 02/12/2024 Medications ergocalciferol 1.25 MG (30680 UT) capsule 09/07/2022 Active Multiple Vitamin (multivitamin) [...] [address] [place] [address] Amador Reynolds MD Complex cyst of right ovary (Primary Dx) 12/21/2024 2:00 PM EDT Ancillary Procedure [facility] [address] [place] [address] Ovarian tumor 12/21/2024 Travel from Last 3 [...] [address] [place] [address] 12/20/2025 1:15 PM EDT Office Visit [facility] [address] [place] [address] Amador Reynolds MD [address] [place] [address] Health Maintenance Due Date Last Done Comments [...] UKY-Zoster Vaccines (2 of 2) 12/19/2022 10/24/2022 [id number] Vaccine (3 - season) 2024 07/13/2020, 06/15/2020 [...] Right ovary is fibrous/ heterogenous in appearance [place]: 5 Left Ovary: Yes 2.7 X 1.3 X 1.7 cm Vol: 3.1 ml Left ovary is suboptimally visualized [place]: 0 Free Fluid: Yes, Posterior cul-de sac fluid: 1 X 0.5 X 1.1 cm Vol: 0.3 ml Comments: Uterine position is retroverted Right ovary is fibrous/ heterogenous in appearance Left ovary is suboptimally visualized Cul-de sac fluid as described above Present for uncomplicated TVS. Gail Vidales Amador Reynolds MD [facility] [place] US PROCEDURES Final Re sult from Last 3 Months Insurance ANTHEM Care Teams Change Control Manager Relationship Specialty Start Date End Date Thaddeus Morales MD [address] [place] [address] PCP - General 08/05/20 Thaddeus Morales MD [address] [place] [address] Referring Physician Internal Medicine 11/28/23 Shelli Espinosa MD [address] [facility] [address] [place] [id number] Surgeon Urology 02/12/24
--- OUTSIDE RECORDS SUMMARY | 2024-12-25 08:00 | XMS_ITS | Data Portability ---
Author Organization [facility] & [place] [facility] ADMIN Address [address] [place] [id number] Care Team Providers Care Cold Storage Supervisor Name Role Phone MINDY DEJESUS Primary Care Provider [phone] Assessment No assessment recorded. 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 Not available Not available Not available Lab vitamin D, 25-hydrox y, total, serum 2024 025 [facility], [address], [address], [place], [address], 12/24/2024 13:09:14 CBC w/ auto diff 2024 025 [facility], [address], [address], [place], [address], 12/24/2024 13:09:16 CMP, serum or plasma 2024 025 [facility]ELIX [facility], [address], [address], [place], [address], 12/24/2024 13:09:14 HbA1c (hemoglob in A1c), blood 2024 025 [facility], [address], [address], [place], [address], 12/24/2024 13:09:15 TSH + free T4, serum 2024 025 [facility], [address], [address], [place], [address], 12/24/2024 13:09:15 lipid panel, serum 2024 025 [facility], [address], [address], [place], [address], 12/24/2024 13:09:13 iron + TIBC + ferritin, serum 2024 025 [facility], [address], [address], [place], [address], 12/24/2024 13:09:12 folate, serum 2024 025 [facility], [address], [address], [place], [address], 12/24/2024 13:09:16 prealbumi n, serum 2024 025 [facility], [address], [address], [place], [address], 12/24/2024 13:09:14 thiamine, QN, blood 2024 025 [facility], [address], [address], [place], [address], 12/24/2024 13:09:16 methylmal joelle, QN, serum or plasma 2024 025 [facility], [address], [address], [place], [address], 12/24/2024 13:09:15 vitamin E, serum 2024 025 FELIX [facility], [address], [address], [place], [address], 12/24/2024 13:09:16 vitamin A (retinol) , serum 2024 025 [facility], [address], [address], [place], [address], 12/24/2024 13:09:13 vitamin D, 25-hydrox y, total, serum 2024 025 [facility], [address], [address], [place], [address], 08/21/2024 20:36:04 CBC w/ auto diff 2024 025 [facility], [address], [address], [place], [address], 08/21/2024 20:35:59 CMP, serum or plasma 2024 025 [facility], [address], [address], [place], [address], 08/21/2024 20:36:00 HbA1c (hemoglob in A1c), blood 2024 025 [facility], [address], [address], [place], [address], 08/21/2024 20:36:02 TSH + free T4, serum 2024 025 [facility], [address], [address], [place], [address], 08/21/2024 20:35:59 lipid panel, serum 2024 025 [facility], [address], [address], [place], [address], 08/21/2024 20:36:01 iron + TIBC + ferritin, serum 2024 025 [facility], [address], [address], [place], [address], 08/21/2024 20:35:57 folate, serum 2024 025 [facility], [address], [address], [place], [address], 08/21/2024 20:36:03 prealbumi n, serum 2024 025 [facility], [address], [address], [place], [address], 08/21/2024 20:36:06 thiamine, QN, blood 2024 025 [facility], [address], [address], [place], [address], 08/21/2024 20:36:05 methylmal joelle, QN, serum or plasma 2024 025 [facility], [address], [address], [place], [address], 08/21/2024 20:36:05 vitamin E, serum 2024 025 [facility], [address], [address], [place], [address], 08/21/2024 20:36:01 vitamin A (retinol) , serum 2024 025 [facility], [address], [address], [place], [address], 08/21/2024 20:36:04 vitamin D, 25-hydrox y, total, serum 2024 025 [facility], [address], [address], [place], [address], 05/29/2024 16:13:23 CBC w/ auto diff 02/24/ 2025 02/24/2 025 [facility], [address], [address], [place], [address], 05/29/2024 16:13:18 CMP, serum or plasma 2024 025 [facility], [address], [address], [place], [address], 05/29/2024 16:13:19 HbA1c (hemoglob in A1c), blood 2024 025 [facility], [address], [address], [place], [address], 05/29/2024 16:13:21 TSH + free T4, serum 2024 025 [facility], [address], [address], [place], [address], 05/29/2024 16:13:17 lipid panel, serum 2024 025 [facility], [address], [address], [place], [address], 05/29/2024 16:13:20 iron + TIBC + ferritin, serum 2024 025 [facility], [address], [address], [place], [address], 05/29/2024 16:13:16 folate, serum 2024 025 [facility], [address], [address], [place], [address], 05/29/2024 16:13:22 prealbumi n, serum 2024 025 [facility], [address], [address], [place], [address], 05/29/2024 16:13:26 thiamine, QN, blood 2024 025 [facility], [address], [address], [place], [address], 05/29/2024 16:13:24 methylmal joelle, QN, serum or plasma 2024 025 [facility], [address], [address], [place], [address], 05/29/2024 16:13:25 vitamin E, serum 2024 025 [facility], [address], [address], [place], [address], 05/29/2024 16:13:20 vitamin A (retinol) , serum 2024 025 [facility], [address], [address], [place], [address], 05/29/2024 16:13:23 vitamin D, 25-hydrox y, total, serum 2023 024 [facility], [address], [address], [place], [address], 02/17/2024 14:37:37 iron + TIBC + ferritin, serum 2023 024 [facility], [address], [address], [place], [address], 02/17/2024 14:37:25 folate, serum 2023 024 [facility], [address], [address], [place], [address], 02/17/2024 14:37:35 prealbumi n, serum 2023 024 [facility], [address], [address], [place], [address], 02/17/2024 14:37:40 thiamine, QN, blood 2023 024 [facility], [address], [address], [place], [address], 02/17/2024 14:37:38 methylmal joelle, QN, serum or plasma 2023 024 [facility], [address], [address], [place], [address], 02/17/2024 14:37:39 vitamin E, serum 2023 024 [facility], [address], [address], [place], [address], 02/17/2024 14:37:32 vitamin A (retinol) , serum 2023 024 [facility], [address], [address], [place], [address], 02/17/2024 14:37:36 CBC w/ auto diff 2023 024 [facility], [address], [address], [place], [address], 02/17/2024 14:37:28 CMP, serum or plasma 2023 024 [facility], [address], [address], [place], [address], 02/17/2024 14:37:29 HbA1c (hemoglob in A1c), blood 2023 024 [facility], [address], [address], [place], [address], 02/17/2024 14:37:33 TSH + free T4, serum 2023 024 [facility], [address], [address], [place], [address], 02/17/2024 14:37:27 lipid panel, serum 2023 024 [facility], [address], [address], [place], [address], 02/17/2024 14:37:31 CBC w/ auto diff 2023 024 [email or web address] [facility], [address], [address], [place], [address], 11/18/2023 15:59:13 CMP, serum or plasma 2023 024 [email or web address] [facility], [address], [address], [place], [address], 11/18/2023 15:59:14 HbA1c (hemoglob in A1c), blood 2023 024 [email or web address] [facility], [address], [address], [place], [address], 11/18/2023 15:59:14 iron + TIBC + ferritin, serum 2023 024 [email or web address] [facility], [address], [address], [place], [address], 11/18/2023 15:59:14 folate, serum 2023 024 [email or web address] [facility], [address], [address], [place], [address], 11/18/2023 15:59:14 vitamin D, 25-hydrox y, total, serum 2023 024 [email or web address] [facility], [address], [address], [place], [address], 11/18/2023 15:59:14 vitamin E, serum 2023 024 [email or web address] [facility], [address], [address], [place], [address], 11/18/2023 15:59:15 vitamin A (retinol) , serum 2023 024 [email or web address] [facility], [address], [address], [place], [address], 11/18/2023 15:59:15 TSH + free T4, serum 2023 024 [email or web address] [facility], [address], [address], [place], [address], 11/18/2023 15:59:15 prealbumi n, serum 2023 024 [email or web address] [facility], [address], [address], [place], [address], 11/18/2023 15:59:15 thiamine, QN, blood 2023 024 FELIX [facility], [address], [address], [place], [address], 11/15/2023 12:42:16 methylmal joelle, QN, serum or plasma 2023 024 [email or web address] [facility], [address], [address], [place], [address], 11/18/2023 15:59:16 lipid panel, serum 2023 024 [email or web address] [facility], [address], [address], [place], [address], 11/18/2023 15:59:16 Referral None recorded. Procedures None recorded. Surgeries None recorded. Imaging None recorded. Medication Orders ondansetr on 4 mg disintegr ating tablet 2024 025 [facility], [address] [place] [address] West, RAGHAV Alex, [id number], 12/24/2024 13:17:41 Zepbound 12.5 mg/0.5 mL subcutane ous pen injector 2024 025 [facility], [address] [place] [address] S, RAGHAV Alex, [id number], 12/24/2024 13:17:40 Zepbound 12.5 mg/0.5 mL subcutane ous pen injector 2024 025 [facility], [address] [place] [address], RAGHAV Alex, [id number], 12/24/2024 09:22:28 ondansetr on 4 mg disintegr ating tablet 2024 025 [facility], [address] [place] [address], RAGHAV Alex, [id number], 11/20/2024 15:43:10 Zepbound 2.5 mg/0.5 mL subcutane ous pen injector 2024 025 [facility], [address] [place] [address] S, RAGHAV Alex, [id number], 08/18/2024 09:15:32 ondansetr on 4 mg disintegr ating tablet 2024 025 [facility], [address] [place] [address] S, RAGHAV Alex, [id number], 05/18/2024 09:50:10 ondansetr on 4 mg disintegr ating tablet 2023 024 FELIX [facility], [address] [facility] [address] [place], [id number], 02/10/2024 09:19:09 Reglan 5 mg tablet 2023 025 [facility], [address] [facility] [address] [place], [id number], 05/18/2024 09:42:53 ondansetr on 8 mg disintegr ating tablet 2023 024 [email or web address], [address] [facility] [address] [place], [id number], 12/24/2024 12:50:21 Patient TargetsNo targets recorded. Patient InstructionsNo instructions recorded. Reason for Referral None Reported. Results Created Date Observation Date Name Description Value Unit Range Abnormal Flag Note LastModifiedBy Organization Detail LastModifiedTime 02/10/2002/11/2024 FE+TI BC+FE R iron bind.cap.(TI BC) 313 ug/dL 250-45 0 normal Not Available [facility] ([facility]) [address] [place], [address], 02/17/2024 14:37:25 02/10/20 24 02/11/2024 FE+TI BC+FE R UIBC 207 ug/dL 131-42 5 normal Not Available [facility] ([facility]) [address] [place], [address], 02/17/2024 14:37:25 02/10/2002/11/2024 FE+TI BC+FE R iron 106 ug/dL 27-159 normal Not Available [facility] ([facility]) [address] [place], [address], 02/17/2024 14:37:25 02/10/20 24 02/11/2024 FE+TI BC+FE R iron saturation 34 % 15-55 normal Not Available [facility] ([facility]) [address] [facility], [place], [address], 02/17/2024 14:37:25 02/10/20 24 02/11/2024 FE+TI BC+FE R ferritin 126 NG/mL 15-150 normal Not Available [facility] ([facility]) [address] [facility], [place], [address], 02/17/2024 14:37:25 02/10/20 24 02/11/2024 TSH+F REE T4 TSH 2.260 uIU/m L 0.450- 4.500 normal Not Available [facility] ([facility]) [address] [facility], [place], [address], 02/17/2024 14:37:27 02/10/20 24 02/11/2024 TSH+F REE T4 T4,free(dire ct) 1.11 NG/dL 0.82-1 .77 normal Not Available [facility] ([facility]) [address] [facility], [place], [address], 02/17/2024 14:37:27 02/10/20 24 02/11/2024 CBC WITH DIFFE RENTI AL/PL ATELE T WBC 8.3 x10e3 /uL 3.4-10 .8 normal Eff ectiv e Decem 2023 [place] [id number] 5 WBC will be made* * non-o rdera ble as a stand -nolvia e order code. Not Available [facility] ([facility]) [address] [facility], [place], [address], 02/17/2024 14:37:28 02/10/20 24 02/11/2024 CBC WITH DIFFE RENTI AL/PL ATELE T RBC 5.05 x10e6 /uL 3.77-5 .28 normal Not Available [facility] ([facility]) [address] [place], [address], 02/17/2024 14:37:28 02/10/20 24 02/11/2024 CBC WITH DIFFE RENTI AL/PL ATELE T hemoglobin 15.2 g/dL 11.1-1 5.9 normal Not Available [facility] ([facility]) [address] [facility], [place], [address], 02/17/2024 14:37:28 02/10/20 24 02/11/2024 CBC WITH DIFFE RENTI AL/PL ATELE T hematocrit 47.1 % 34.0-4 6.6 above high normal Not Available [facility] ([facility]) [address] [place], [address], 02/17/2024 14:37:28 02/10/20 24 02/11/2024 CBC WITH DIFFE RENTI AL/PL ATELE T MCV 93 fL 79-97 normal Not Available [facility] ([facility]) [address] [place], [address], 02/17/2024 14:37:28 02/10/20 24 02/11/2024 CBC WITH DIFFE RENTI AL/PL ATELE T MCH 30.1 pg 26.6-3 3.0 normal Not Available [facility] ([facility]) [address] [place], [address], 02/17/2024 14:37:28 02/10/20 24 02/11/2024 CBC WITH DIFFE RENTI AL/PL ATELE T MCHC 32.3 g/dL 31.5-3 5.7 normal Not Available [facility] ([facility]) [address] [place], [address], 02/17/2024 14:37:28 02/10/20 24 02/11/2024 CBC WITH DIFFE RENTI AL/PL ATELE T RDW 13.0 % 11.7-1 5.4 Not Available [facility] ([facility]) [address] [place], [address], 02/17/2024 14:37:28 02/10/20 24 02/11/2024 CBC WITH DIFFE RENTI AL/PL ATELE T platelets 319 x10e3 /uL 150-45 0 normal Not Available [facility] ([facility]) [address] [facility], [place], [address], 02/17/2024 14:37:28 02/10/20 24 02/11/2024 CBC WITH DIFFE RENTI AL/PL ATELE T neutrophils 64 % not estab. normal Not Available [facility] ([facility]) [address] [facility], [place], [address], 02/17/2024 14:37:28 02/10/20 24 02/11/2024 CBC WITH DIFFE RENTI AL/PL ATELE T lymphs 24 % not estab. normal Not Available [facility] ([facility]) [address] [facility], [place], [address], 02/17/2024 14:37:28 02/10/20 24 02/11/2024 CBC WITH DIFFE RENTI AL/PL ATELE T monocytes 9 % not estab. normal Not Available [facility] ([facility]) [address] [facility], [place], [address], 02/17/2024 14:37:28 02/10/20 24 02/11/2024 CBC WITH DIFFE RENTI AL/PL ATELE T eos 2 % not estab. normal Not Available [facility] ([facility]) [address] [facility], [place], [address], 02/17/2024 14:37:28 02/10/20 24 02/11/2024 CBC WITH DIFFE RENTI AL/PL ATELE T basos 1 % not estab. 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 0 normal Not Available [facility] ([facility]) [address] [place], [address], 02/17/2024 14:37:28 02/10/20 24 02/11/2024 CBC WITH DIFFE RENTI AL/PL ATELE T lymphs (absolute) 2.0 x10e3 /uL 0.7-3. 1 normal Not Available [facility] ([facility]) [address] [place], [address], 02/17/2024 14:37:28 02/10/20 24 02/11/2024 CBC WITH DIFFE RENTI AL/PL ATELE T monocytes(ab solute) 0.8 x10e3 /uL 0.1-0. 9 normal Not Available [facility] ([facility]) [address] [place], [address], 02/17/2024 14:37:28 02/10/20 24 02/11/2024 CBC WITH DIFFE RENTI AL/PL ATELE T eos (absolute) 0.2 x10e3 /uL 0.0-0. 4 normal Not Available [facility] ([facility]) [address] [place], [address], 02/17/2024 14:37:28 02/10/20 24 02/11/2024 CBC WITH DIFFE RENTI AL/PL ATELE T baso (absolute) 0.1 x10e3 /uL 0.0-0. 2 normal Not Available [facility] ([facility]) [address] [place], [address], 02/17/2024 14:37:28 02/10/20 24 02/11/2024 CBC WITH DIFFE RENTI AL/PL ATELE T immature granulocytes 0 % not estab. Not Available [facility] ([facility]) [address] [facility], [place], [address], 02/17/2024 14:37:28 02/10/20 24 02/11/2024 CBC WITH DIFFE RENTI AL/PL ATELE T immature grans (abs) 0.0 x10e3 /uL 0.0-0. 1 Not Available [facility] ([facility]) [address] [facility], [place], [address], 02/17/2024 14:37:28 02/10/20 24 02/11/2024 CBC WITH DIFFE RENTI AL/PL ATELE T NRBC TITLE [employer]ERGARTEN TEACHER Not Available [facility] ([facility]) [address] [facility], [place], [address], 02/17/2024 14:37:28 02/10/20 24 02/11/2024 CBC WITH DIFFE RENTI AL/PL ATELE T hematology comments: TITLE [employer]ERGARTEN TEACHER Not Available [facility] ([facility]) [address] [facility], [place], [address], 02/17/2024 14:37:28 02/10/20 24 02/11/2024 COMP. METAB OLIC PANEL (14) glucose 82 mg/dL 70-99 normal Not Available [facility] ([facility]) [address] [facility], [place], [address], 02/17/2024 14:37:29 02/10/20 24 02/11/2024 COMP. METAB OLIC PANEL (14) BUN 13 mg/dL 6-24 normal Not Available [facility] ([facility]) [address] [place], [address], 02/17/2024 14:37:29 02/10/20 24 02/11/2024 COMP. METAB OLIC PANEL (14) creatinine 0.77 mg/dL 0.57-1 .00 normal Not Available [facility] ([facility]) [address], [place], [address], 02/17/2024 14:37:29 02/10/20 24 02/11/2024 COMP. METAB OLIC PANEL (14) eGFR 89 mL/mi n/1.7 3 >59 normal Not Available [facility] ([facility]) [address] [place], [address], 02/17/2024 14:37:29 02/10/20 24 02/11/2024 COMP. METAB OLIC PANEL (14) BUN/creatini ne ratio 17 9-23 normal Not Available [facility] ([facility]) [address] [facility] [place], [address], 02/17/2024 14:37:29 02/10/20 24 02/11/2024 COMP. METAB OLIC PANEL (14) sodium 141 mmol/ L 134-14 4 normal Not Available [facility] ([facility]) [address] [facility] [place], [address], 02/17/2024 14:37:29 02/10/20 24 02/11/2024 COMP. METAB OLIC PANEL (14) potassium 4.4 mmol/ L 3.5-5. 2 normal Not Available [facility] ([facility]) [address] [facility] [place], [address], 02/17/2024 14:37:29 02/10/20 24 02/11/2024 COMP. METAB OLIC PANEL (14) chloride 102 mmol/ L 96-106 normal Not Available [facility] ([place] [facility]) [address] [facility] [place], [address], 02/17/2024 14:37:29 02/10/20 24 02/11/2024 COMP. METAB OLIC PANEL (14) carbon dioxide, total 25 mmol/ L 20-29 normal Not Available [facility] ([facility]) [address] [facility] [place], [address], 02/17/2024 14:37:29 02/10/20 24 02/11/2024 COMP. METAB OLIC PANEL (14) calcium 9.3 mg/dL 8.7-10 .2 normal Not Available [facility] ([facility]) [address] [place], [address], 02/17/2024 14:37:29 02/10/20 24 02/11/2024 COMP. METAB OLIC PANEL (14) protein, total 6.4 g/dL 6.0-8. 5 normal Not Available [facility] ([facility]) [address] [place], [address], 02/17/2024 14:37:29 02/10/20 24 02/11/2024 COMP. METAB OLIC PANEL (14) albumin 4.1 g/dL 3.8-4. 9 normal Not Available [facility] ([facility] [address] [facility] [place], [address], 02/17/2024 14:37:29 02/10/20 24 02/11/2024 COMP. METAB OLIC PANEL (14) globulin, total 2.3 g/dL 1.5-4. 5 Not Available [facility] ([facility]) [address] [facility] [place], [address], 02/17/2024 14:37:29 02/10/20 24 02/11/2024 COMP. METAB OLIC PANEL (14) bilirubin, total 0.5 mg/dL 0.0-1. 2 normal Not Available [facility] ([facility]) [address] [facility] [place], [address], 02/17/2024 14:37:29 02/10/20 24 02/11/2024 COMP. METAB OLIC PANEL (14) alkaline phosphatase 69 IU/L 44-121 normal Not Available [facility] ([facility]) [address] [facility] [place], [address], 02/17/2024 14:37:29 02/10/20 24 02/11/2024 COMP. METAB OLIC PANEL (14) AST (SGOT) 18 IU/L 0-40 normal Not Available [facility] ([facility]) [address] [place], [address], 02/17/2024 14:37:29 02/10/20 24 02/11/2024 COMP. METAB OLIC PANEL (14) ALT (SGPT) 15 IU/L 0-32 normal Not Available [facility] ([facility]) [address] [place], [address], 02/17/2024 14:37:29 02/10/20 24 02/11/2024 LIPID PANEL cholesterol, total 210 mg/dL 100-19 9 above high normal Not Available [facility] ([facility]) [address] [place], [address], 02/17/2024 14:37:31 02/10/20 24 02/11/2024 LIPID PANEL triglyceride s 70 mg/dL 0-149 normal Not Available [facility] ([facility]) [address] [place], [address], 02/17/2024 14:37:31 02/10/20 24 02/11/2024 LIPID PANEL HDL cholesterol 70 mg/dL >39 normal Not Available [facility] ([facility]) [address] [place], [address], 02/17/2024 14:37:31 02/10/20 24 02/11/2024 LIPID PANEL VLDL cholesterol salomón 12 mg/dL 5-40 Not Available [facility] ([facility]) [address] [place], [address], 02/17/2024 14:37:31 02/10/20 24 02/11/2024 LIPID PANEL LDL chol calc ([facility]) 128 mg/dL 0-99 above high normal Not Available [facility] ([facility]) [address] [facility], [place], [address], 02/17/2024 14:37:31 02/10/20 24 02/11/2024 LIPID PANEL LDL calc comment: TITLE [employer]ERG[employer] TEACHER Not Available [facility] ([facility]) [address] [facility], [place], [address], 02/17/2024 14:37:31 02/10/20 24 02/17/2024 VITAM IN E vitamin E(alpha tocopherol) 11.6 mg/L 7.0-25 .1 Not Available [facility] ([facility]) [address] [facility], [place], [address], 02/17/2024 14:37:32 02/10/20 24 02/17/2024 VITAM IN E vitamin E(gamma tocopherol) 1.8 mg/L 0.5-5. 5 Refer ence inter vals for alpha and gamma -toco phero l deter mined from [facility], 2004- 2005. Indiv idual s with alpha -toco phero l level s less than 5.0 mg/L are consi dered vitam in E defic ient. Not Available [facility] ([facility]) [address] [facility], [place], [address], 02/17/2024 14:37:32 02/10/20 24 02/11/2024 HEMOG LOBIN A1C hemoglobin A1C 5.5 % 4.8-5. 6 normal Predi abete s: 5.7 - 6.4 Diabe thai: >6.4 Glyce rashi contr ol for adult s with diabe thai: <7.0 Not Available [facility] ([facility]) [address] [facility] [facility], [place], [address], 02/17/2024 14:37:33 02/10/20 24 02/11/2024 FOLAT E (FOLI C ACID) , SERUM folate (folic acid), serum 3.3 NG/mL >3.0 normal A serum folat e cheyanne ntrat ion of less than 3.1 ng/mL is consi dered to repre sent clini salomón defic iency . Not Available [facility] ([facility]) [address] [facility], [place], [address], 02/17/2024 14:37:34 02/10/20 24 02/17/2024 VITAM IN A, SERUM vitamin A 38.1 ug/dL 20.1-6 2.0 Refer ence inter vals for vitam in A deter mined from [facility] inter nal studi es. Indiv idual s with vitam in A less than 20 ug/dL are consi dered vitam in A defic ient and those with serum cheyanne ntrat ions less than 10 ug/dL are consi dered sever sincere defic ient. This test was devel oped and its perfo rmanc e brenna cteri stics deter mined by [facility]. It has not been clear ed or appro ron by the Food and Drug Admin istra tion. Not Available [facility] ([facility]) [address] [facility], [place], [address], 02/17/2024 14:37:36 02/10/20 24 02/11/2024 VITAM IN D, 25-HY DROXY vitamin D, 25-hydroxy 20.9 NG/mL 30.0-1 00.0 below low normal Vitam in D defic iency has been defin ed by the Insti tute of Medic ine and an Endoc rine Socie ty pract ice guide line as a level of serum 25-OH vitam in D less than 20 ng/mL (1,2) . The Endoc rine Socie ty went on to furth er defin e vitam in D insuf ficie ncy as a level betwe en 21 and 29 ng/mL (2). 1. IOM (Inst itute of Medic ine). 2009. Dieta ry refer ence intak es for calci um and D. Supa willis [place]: The Nat [facility] Press . 2. Elvira zee MF, Alvaro ribeiro NC, Joya off-F errar i KING, et al. Evalu ation , treat ment, and preve ntion of vitam in D defic iency : an Endoc rine Socie ty clini salomón pract ice guide line. JCEM. 2010; 96(7) :1911 -30. Not Available [facility] ([facility]) [address] [facility], [place], [address], 02/17/2024 14:37:37 02/10/20 24 02/13/2024 VITAM IN B1 (THIA MINE) , BLOOD vit. B1, whole blood 115.6 nmol/ L 66.5-2 00.0 Not Available [facility] ([facility]) [address] [place], [address], 02/17/2024 14:37:38 02/10/20 24 02/12/2024 METHY LMALO DAMIEN ACID, SERUM methylmaloni c acid, serum 127 nmol/ L 0-378 Not Available [facility] ([facility]) [address] [place], [address], 02/17/2024 14:37:39 02/10/20 24 02/11/2024 PREAL BUMIN prealbumin 20 mg/dL 10-36 Not Available [facility] ([facility]) [address] [place], [address], 02/17/2024 14:37:40 05/18/19 25 05/19/2024 FE+TI BC+FE R iron bind.cap.(TI BC) 297 ug/dL 250-45 0 normal Not Available [facility] ([facility]) [address] [place], [address], 05/29/2024 16:13:16 05/18/19 25 05/19/2024 FE+TI BC+FE R UIBC 211 ug/dL 131-42 5 normal Not Available [facility] ([facility]) [address] [place], [address], 05/29/2024 16:13:16 05/18/19 25 05/19/2024 FE+TI BC+FE R iron 86 ug/dL 27-159 normal Not Available [facility] ([facility]) [address] [place], [address], 05/29/2024 16:13:16 05/18/19 25 05/19/2024 FE+TI BC+FE R iron saturation 29 % 15-55 normal Not Available [facility] ([facility]) [address] [place], [address], 05/29/2024 16:13:16 05/18/19 25 05/19/2024 FE+TI BC+FE R ferritin 147 NG/mL 15-150 normal Not Available [facility] ([facility]) [address] [place], [address], 05/29/2024 16:13:16 05/18/1905/19/2024 TSH+F REE T4 TSH 1.890 uIU/m L 0.450- 4.500 normal Not Available [facility] ([facility]) [address] [place], [address], 05/29/2024 16:13:17 05/18/19 25 05/19/2024 TSH+F REE T4 T4,free(dire ct) 1.13 NG/dL 0.82-1 .77 normal Not Available [facility] ([facility]) [address] [place], [address], 05/29/2024 16:13:17 05/18/19 25 05/19/2024 CBC WITH DIFFE RENTI AL/PL ATELE T WBC 9.2 x10e3 /uL 3.4-10 .8 normal Not Available [facility] ([facility]) [address] [place], [address], 05/29/2024 16:13:18 05/18/19 25 05/19/2024 CBC WITH DIFFE RENTI AL/PL ATELE T RBC 5.24 x10e6 /uL 3.77-5 .28 normal Not Available [facility] ([facility]) [address] [place], [address], 05/29/2024 16:13:18 05/18/19 25 05/19/2024 CBC WITH DIFFE RENTI AL/PL ATELE T hemoglobin 15.9 g/dL 11.1-1 5.9 normal Not Available [facility] ([facility]) [address] [place], [address], 05/29/2024 16:13:18 05/18/19 25 05/19/2024 CBC WITH DIFFE RENTI AL/PL ATELE T hematocrit 48.1 % 34.0-4 6.6 above high normal Not Available [facility] ([facility]) [address] [place], [address], 05/29/2024 16:13:18 05/18/19 25 05/19/2024 CBC WITH DIFFE RENTI AL/PL ATELE T MCV 92 fL 79-97 normal Not Available [facility] ([facility]) [address] [place], [address], 05/29/2024 16:13:18 05/18/19 25 05/19/2024 CBC WITH DIFFE RENTI AL/PL ATELE T MCH 30.3 pg 26.6-3 3.0 normal Not Available [facility] ([facility]) [address] [place], [address], 05/29/2024 16:13:18 05/18/19 25 05/19/2024 CBC WITH DIFFE RENTI AL/PL ATELE T MCHC 33.1 g/dL 31.5-3 5.7 normal Not Available [facility] ([facility]) [address] [place], [address], 05/29/2024 16:13:18 05/18/19 25 05/19/2024 CBC WITH DIFFE RENTI AL/PL ATELE T RDW 13.0 % 11.7-1 5.4 Not Available [facility] ([facility]) [address] [facility], [place], [address], 05/29/2024 16:13:18 05/18/19 25 05/19/2024 CBC WITH DIFFE RENTI AL/PL ATELE T platelets 385 x10e3 /uL 150-45 0 normal Not Available [facility] ([facility]) [address] [facility], [place], [address], 05/29/2024 16:13:18 05/18/19 25 05/19/2024 CBC WITH DIFFE RENTI AL/PL ATELE T neutrophils 64 % not estab. normal Not Available [facility] ([facility]) [address] [facility], [place], [address], 05/29/2024 16:13:18 05/18/19 25 05/19/2024 CBC WITH DIFFE RENTI AL/PL ATELE T lymphs 24 % not estab. normal Not Available [facility] ([facility]) [address] [facility], [place], [address], 05/29/2024 16:13:18 05/18/19 25 05/19/2024 CBC WITH DIFFE RENTI AL/PL ATELE T monocytes 8 % not estab. normal Not Available [facility] ([facility]) [address] [facility], [place], [address], 05/29/2024 16:13:18 05/18/19 25 05/19/2024 CBC WITH DIFFE RENTI AL/PL ATELE T eos 2 % not estab. normal Not Available [facility] ([facility]) [address] [facility], [place], [address], 05/29/2024 16:13:18 05/18/19 25 05/19/2024 CBC WITH DIFFE RENTI AL/PL ATELE T basos 1 % not estab. normal Not Available [facility] ([facility]) [address] [place], [address], 05/29/2024 16:13:18 05/18/19 25 05/19/2024 CBC WITH DIFFE RENTI AL/PL ATELE T immature cells TITLE [employer]ERG[employer]ACHER Not Available [facility] ([facility]) [address] [facility], [place], [address], 05/29/2024 16:13:18 05/18/19 25 05/19/2024 CBC WITH DIFFE RENTI AL/PL ATELE T neutrophils (absolute) 6.0 x10e3 /uL 1.4-7. 0 normal Not Available [facility] ([facility]) [address] [place], [address], 05/29/2024 16:13:18 05/18/19 25 05/19/2024 CBC WITH DIFFE RENTI AL/PL ATELE T lymphs (absolute) 2.2 x10e3 /uL 0.7-3. 1 normal Not Available [facility] ([facility]) [address] [place], [address], 05/29/2024 16:13:18 05/18/19 25 05/19/2024 CBC WITH DIFFE RENTI AL/PL ATELE T monocytes(ab solute) 0.7 x10e3 /uL 0.1-0. 9 normal Not Available [facility] ([facility]) [address] [place], [address], 05/29/2024 16:13:18 05/18/19 25 05/19/2024 CBC WITH DIFFE RENTI AL/PL ATELE T eos (absolute) 0.2 x10e3 /uL 0.0-0. 4 normal Not Available [facility] ([facility]) [address] [place], [address], 05/29/2024 16:13:18 05/18/19 25 05/19/2024 CBC WITH DIFFE RENTI AL/PL ATELE T baso (absolute) 0.1 x10e3 /uL 0.0-0. 2 normal Not Available [facility] ([facility]) [address] [facility], [place], [address], 05/29/2024 16:13:18 05/18/19 25 05/19/2024 CBC WITH DIFFE RENTI AL/PL ATELE T immature granulocytes 1 % not estab. Not Available [facility] ([facility]) [address] [facility], [place], [address], 05/29/2024 16:13:18 05/18/19 25 05/19/2024 CBC WITH DIFFE RENTI AL/PL ATELE T immature grans (abs) 0.1 x10e3 /uL 0.0-0. 1 Not Available [facility] ([facility]) [address] [facility], [place], [address], 05/29/2024 16:13:18 05/18/19 25 05/19/2024 CBC WITH DIFFE RENTI AL/PL ATELE T NRBC TITLE [employer] Not Available [facility] ([facility]) [address] [facility], [place], [address], 05/29/2024 16:13:18 05/18/19 25 05/19/2024 CBC WITH DIFFE RENTI AL/PL ATELE T hematology comments: TITLE ONE [employer]ER[employer] TE[employer]ER Not Available [facility] ([facility]) [address] [facility], [place], [address], 05/29/2024 16:13:18 05/18/19 25 05/19/2024 COMP. METAB OLIC PANEL (14) glucose 93 mg/dL 70-99 normal Not Available [facility] ([facility]) [address] [place], [address], 05/29/2024 16:13:19 05/18/19 25 05/19/2024 COMP. METAB OLIC PANEL (14) BUN 13 mg/dL 6-24 normal Not Available [facility] ([facility]) [address] [facility] [place], [address], 05/29/2024 16:13:19 05/18/19 25 05/19/2024 COMP. METAB OLIC PANEL (14) creatinine 0.80 mg/dL 0.57-1 .00 normal Not Available [facility] ([facility]) [address] [facility] [place], [address], 05/29/2024 16:13:19 05/18/19 25 05/19/2024 COMP. METAB OLIC PANEL (14) eGFR 85 mL/mi n/1.7 3 >59 normal Not Available [facility] ([facility]) [address] [facility] [place], [address], 05/29/2024 16:13:19 05/18/19 25 05/19/2024 COMP. METAB OLIC PANEL (14) BUN/creatini ne ratio 16 9-23 normal Not Available [facility] ([facility]) [address] [facility], [place], [address], 05/29/2024 16:13:19 05/18/19 25 05/19/2024 COMP. METAB OLIC PANEL (14) sodium 141 mmol/ L 134-14 4 normal Not Available [facility] ([facility]) [address] [facility] [place], [address], 05/29/2024 16:13:19 05/18/19 25 05/19/2024 COMP. METAB OLIC PANEL (14) potassium 4.2 mmol/ L 3.5-5. 2 normal Not Available [facility] ([facility]) [address] [facility] [place], [address], 05/29/2024 16:13:19 05/18/19 25 05/19/2024 COMP. METAB OLIC PANEL (14) chloride 103 mmol/ L 96-106 normal Not Available [facility] ([facility]) [address] [facility] [place], [address], 05/29/2024 16:13:19 05/18/19 25 05/19/2024 COMP. METAB OLIC PANEL (14) carbon dioxide, total 24 mmol/ L 20-29 normal Not Available [facility] ([facility]) [address] [place], [address], 05/29/2024 16:13:19 05/18/19 25 05/19/2024 COMP. METAB OLIC PANEL (14) calcium 9.3 mg/dL 8.7-10 .2 normal Not Available [facility] ([facility]) [address] [place], [address], 05/29/2024 16:13:19 05/18/19 25 05/19/2024 COMP. METAB OLIC PANEL (14) protein, total 6.6 g/dL 6.0-8. 5 normal Not Available [facility] ([facility]) [address] [facility] [place], [address], 05/29/2024 16:13:19 05/18/19 25 05/19/2024 COMP. METAB OLIC PANEL (14) albumin 4.2 g/dL 3.8-4. 9 normal Not Available [facility] ([facility]) [address] [facility] [place], [address], 05/29/2024 16:13:19 05/18/19 25 05/19/2024 COMP. METAB OLIC PANEL (14) globulin, total 2.4 g/dL 1.5-4. 5 Not Available [facility] ([facility]) [address] [facility] [place], [address], 05/29/2024 16:13:19 05/18/19 25 05/19/2024 COMP. METAB OLIC PANEL (14) bilirubin, total 0.4 mg/dL 0.0-1. 2 normal Not Available [facility] ([facility]) [address] [facility] [place], [address], 05/29/2024 16:13:19 05/18/19 25 05/19/2024 COMP. METAB OLIC PANEL (14) alkaline phosphatase 76 IU/L 44-121 normal Not Available [facility] ([facility]) [address] [place], [address], 05/29/2024 16:13:19 05/18/19 25 05/19/2024 COMP. METAB OLIC PANEL (14) AST (SGOT) 19 IU/L 0-40 normal Not Available [facility] ([facility]) [address] [place], [address], 05/29/2024 16:13:19 05/18/19 25 05/19/2024 COMP. METAB OLIC PANEL (14) ALT (SGPT) 17 IU/L 0-32 normal Not Available [facility] ([facility]) [address] [place], [address], 05/29/2024 16:13:19 05/18/19 25 05/19/2024 LIPID PANEL cholesterol, total 210 mg/dL 100-19 9 above high normal Not Available [facility] ([facility]) [address] [place], [address], 05/29/2024 16:13:20 05/18/19 25 05/19/2024 LIPID PANEL triglyceride s 65 mg/dL 0-149 normal Not Available [facility] ([facility]) [address] [place], [address], 05/29/2024 16:13:20 05/18/19 25 05/19/2024 LIPID PANEL HDL cholesterol 67 mg/dL >39 normal Not Available [facility] ([facility]) [address] [place], [address], 05/29/2024 16:13:20 05/18/19 25 05/19/2024 LIPID PANEL VLDL cholesterol salomón 12 mg/dL 5-40 Not Available [facility] ([facility]) [address] [place], [address], 05/29/2024 16:13:20 05/18/19 25 05/19/2024 LIPID PANEL LDL chol calc ([facility]) 131 mg/dL 0-99 above high normal Not Available [facility] ([facility]) [address] [facility], [place], [address], 05/29/2024 16:13:20 05/18/19 25 05/19/2024 LIPID PANEL LDL calc comment: TITLE ONE [employer]ER[employer]ER Not Available [facility] ([facility]) [address] [facility], [place], [address], 05/29/2024 16:13:20 05/18/19 25 05/26/2024 VITAM IN E vitamin E(alpha tocopherol) 12.1 mg/L 7.0-25 .1 Not Available [facility] ([facility]) [address] [facility], [place], [address], 05/29/2024 16:13:20 05/18/19 25 05/26/2024 VITAM IN E vitamin E(gamma tocopherol) 2.3 mg/L 0.5-5. 5 Refer ence inter vals for alpha and gamma -toco phero l deter mined from [facility] and Nutri tion Exami natio n Surve y, 2004- 2005. Indiv idual s with alpha -toco phero l level s less than 5.0 mg/L are consi dered vitam in E defic ient. Not Available [facility] ([facility]) [address] [facility], [place], [address], 05/29/2024 16:13:20 05/18/19 25 05/19/2024 HEMOG LOBIN A1C hemoglobin A1C 5.7 % 4.8-5. 6 above high normal Predi abete s: 5.7 - 6.4 Diabe thai: >6.4 Glyce rashi contr ol for adult s with diabe thai: <7.0 Not Available [facility] ([facility]) [address] [facility], [place], [address], 05/29/2024 16:13:21 05/18/19 25 05/19/2024 FOLAT E (FOLI C ACID) , SERUM folate (folic acid), serum 4.3 NG/mL >3.0 normal A serum folat e cheyanne ntrat ion of less than 3.1 ng/mL is consi dered to repre sent clini salomón defic iency . Not Available [facility] ([facility]) [address], [place], [address], 05/29/2024 16:13:22 05/18/19 25 05/26/2024 VITAM IN A, SERUM vitamin A 34.3 ug/dL 20.1-6 2.0 Refer ence inter vals for vitam in A deter mined from [facility] inter nal studi es. Indiv idual s with vitam in A less than 20 ug/dL are consi dered vitam in A defic ient and those with serum cheyanne ntrat ions less than 10 ug/dL are consi dered sever sincere defic ient. This test was devel oped and its perfo rmanc e brenna cteri stics deter mined by [facility]. It has not been clear ed or appro ron by the Food and Drug Admin istra tion. Not Available [facility] ([facility]) [address] [facility], [place], [address], 05/29/2024 16:13:23 05/18/19 25 05/19/2024 VITAM IN D, 25-HY DROXY vitamin D, 25-hydroxy 20.1 NG/mL 30.0-1 00.0 below low normal Vitam in D defic iency has been defin ed by the Insti anjana of Medic ine and an Endoc rine Socie ty pract ice guide line as a level of serum 25-OH vitam in D less than 20 ng/mL (1,2) . The Endoc rine Socie ty went on to [facility] er defin e vitam in D insuf ficie ncy as a level betwe en 21 and 29 ng/mL (2). 1. IOM (Inst itute of Medic ine). 2010. Dieta ry refer ence intsaima es for calci um and D. Supa willis [place]: [facility] . 2. Elvira zee MF, Alvaro ribeiro NC, Joya off-F errar i KING, et al. Evalu ation , treat ment, and preve ntion of vitam in D defic iency : an Endoc rine Socie ty clini salomón pract ice guide line. JCEM. 2010; 96(7) :1911 -30. Not Available [facility] ([facility]) [address] [place], [address], 05/29/2024 16:13:23 05/18/19 25 05/29/2024 VITAM IN B1 (THIA MINE) , BLOOD vit. B1, whole blood 92.5 nmol/ L 66.5-2 00.0 Not Available [facility] ([facility]) [address] [place], [address], 05/29/2024 16:13:24 05/18/19 25 05/21/2024 METHY LMALO DAMIEN ACID, SERUM methylmaloni c acid, serum 148 nmol/ L 0-378 Not Available [facility] ([facility]) [address] [place], [address], 05/29/2024 16:13:25 05/18/19 25 05/19/2024 PREAL BUMIN prealbumin 18 mg/dL 10-36 Not Available [facility] ([facility]) [address] [place], [address], 05/29/2024 16:13:26 08/19/19 25 08/19/2024 FE+TI BC+FE R iron bind.cap.(TI BC) 278 ug/dL 250-45 0 normal Not Available [facility] ([facility]) [address] [place], [address], 08/21/2024 20:35:57 08/19/19 25 08/19/2024 FE+TI BC+FE R UIBC 193 ug/dL 131-42 5 normal Not Available [facility] ([facility]) [address] [place], [address], 08/21/2024 20:35:57 08/19/19 25 08/19/2024 FE+TI BC+FE R iron 85 ug/dL 27-159 normal Not Available [facility] ([facility]) [address] [place], [address], 08/21/2024 20:35:57 08/19/19 25 08/19/2024 FE+TI BC+FE R iron saturation 31 % 15-55 normal Not Available [facility] ([facility]) [address] [place], [address], 08/21/2024 20:35:57 08/19/19 25 08/19/2024 FE+TI BC+FE R ferritin 198 NG/mL 15-150 above high normal Not Available [facility] ([facility]) [address] [place], [address], 08/21/2024 20:35:57 08/19/19 25 08/19/2024 TSH+F REE T4 TSH 2.540 uIU/m L 0.450- 4.500 normal Not Available [facility] ([facility]) [address] [place], [address], 08/21/2024 20:35:59 08/19/1908/19/2024 TSH+F REE T4 T4,free(dire ct) 1.32 NG/dL 0.82-1 .77 normal Not Available [facility] ([facility]) [address] [place], [address], 08/21/2024 20:35:59 08/19/19 25 08/19/2024 CBC WITH DIFFE RENTI AL/PL ATELE T WBC 8.0 x10e3 /uL 3.4-10 .8 normal Not Available [facility] ([facility]) [address] [facility], [place], [address], 08/21/2024 20:35:59 08/19/1908/19/2024 CBC WITH DIFFE RENTI AL/PL ATELE T RBC 5.10 x10e6 /uL 3.77-5 .28 normal Not Available [facility] ([facility]) [address] [place], [address], 08/21/2024 20:35:59 08/19/19 25 08/19/2024 CBC WITH DIFFE RENTI AL/PL ATELE T hemoglobin 15.5 g/dL 11.1-1 5.9 normal Not Available [facility] ([facility]) [address] [place], [address], 08/21/2024 20:35:59 08/19/1908/19/2024 CBC WITH DIFFE RENTI AL/PL ATELE T hematocrit 48.1 % 34.0-4 6.6 above high normal Not Available [facility] ([facility]) [address] [place], [address], 08/21/2024 20:35:59 08/19/19 25 08/19/2024 CBC WITH DIFFE RENTI AL/PL ATELE T MCV 94 fL 79-97 normal Not Available [facility] ([facility]) [address] [place], [address], 08/21/2024 20:35:59 08/19/19 25 08/19/2024 CBC WITH DIFFE RENTI AL/PL ATELE T MCH 30.4 pg 26.6-3 3.0 normal Not Available [facility] ([facility]) [address] [place], [address], 08/21/2024 20:35:59 08/19/19 25 08/19/2024 CBC WITH DIFFE RENTI AL/PL ATELE T MCHC 32.2 g/dL 31.5-3 5.7 normal Not Available [facility] ([facility]) [address] [facility], [place], [address], 08/21/2024 20:35:59 08/19/19 25 08/19/2024 CBC WITH DIFFE RENTI AL/PL ATELE T RDW 13.2 % 11.7-1 5.4 Not Available [facility] ([facility]) [address] [facility], [place], [address], 08/21/2024 20:35:59 08/19/19 25 08/19/2024 CBC WITH DIFFE RENTI AL/PL ATELE T platelets 319 x10e3 /uL 150-45 0 normal Not Available [facility] ([facility]) [address] [facility], [place], [address], 08/21/2024 20:35:59 08/19/19 25 08/19/2024 CBC WITH DIFFE RENTI AL/PL ATELE T neutrophils 65 % not estab. normal Not Available [facility] ([facility]) [address] [facility], [place], [address], 08/21/2024 20:35:59 08/19/19 25 08/19/2024 CBC WITH DIFFE RENTI AL/PL ATELE T lymphs 23 % not estab. normal Not Available [facility] ([facility]) [address] [place], [address], 08/21/2024 20:35:59 08/19/19 25 08/19/2024 CBC WITH DIFFE RENTI AL/PL ATELE T monocytes 9 % not estab. normal Not Available [facility] ([facility]) [address] [place], [address], 08/21/2024 20:35:59 08/19/19 25 08/19/2024 CBC WITH DIFFE RENTI AL/PL ATELE T eos 2 % not estab. normal Not Available [facility] ([facility]) [address] [place], [address], 08/21/2024 20:35:59 08/19/19 25 08/19/2024 CBC WITH DIFFE RENTI AL/PL ATELE T basos 1 % not estab. normal Not Available [facility] ([facility]) [address] [facility], [place], [address], 08/21/2024 20:35:59 08/19/19 25 08/19/2024 CBC WITH DIFFE RENTI AL/PL ATELE T immature cells TITLE [employer] Not Available [facility] ([facility]) [address] [facility], [place], [address], 08/21/2024 20:35:59 08/19/19 25 08/19/2024 CBC WITH DIFFE RENTI AL/PL ATELE T neutrophils (absolute) 5.2 x10e3 /uL 1.4-7. 0 normal Not Available [facility] ([facility]) [address] [place], [address], 08/21/2024 20:35:59 08/19/19 25 08/19/2024 CBC WITH DIFFE RENTI AL/PL ATELE T lymphs (absolute) 1.8 x10e3 /uL 0.7-3. 1 normal Not Available [facility] ([facility]) [address] [facility], [place], [address], 08/21/2024 20:35:59 08/19/19 25 08/19/2024 CBC WITH DIFFE RENTI AL/PL ATELE T monocytes(ab solute) 0.7 x10e3 /uL 0.1-0. 9 normal Not Available [facility] ([facility]) [address] [place], [address], 08/21/2024 20:35:59 08/19/19 25 08/19/2024 CBC WITH DIFFE RENTI AL/PL ATELE T eos (absolute) 0.2 x10e3 /uL 0.0-0. 4 normal Not Available [facility] ([facility]) [address] [facility], [place], [address], 08/21/2024 20:35:59 08/19/19 25 08/19/2024 CBC WITH DIFFE RENTI AL/PL ATELE T baso (absolute) 0.1 x10e3 /uL 0.0-0. 2 normal Not Available [facility] ([facility]) [address] [facility], [place], [address], 08/21/2024 20:35:59 08/19/19 25 08/19/2024 CBC WITH DIFFE RENTI AL/PL ATELE T immature granulocytes 0 % not estab. Not Available [facility] ([facility]) [address] [facility], [place], [address], 08/21/2024 20:35:59 08/19/19 25 08/19/2024 CBC WITH DIFFE RENTI AL/PL ATELE T immature grans (abs) 0.0 x10e3 /uL 0.0-0. 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 METAB OLIC PANEL (14) glucose 87 mg/dL 70-99 normal Not Available [facility] ([facility]) [address] [place], [address], 08/21/2024 20:36:00 08/19/19 25 08/19/2024 COMP. METAB OLIC PANEL (14) BUN 15 mg/dL 6-24 normal Not Available [facility] ([facility]) [address] [facility], [place], [address], 08/21/2024 20:36:00 08/19/19 25 08/19/2024 COMP. METAB OLIC PANEL (14) creatinine 0.85 mg/dL 0.57-1 .00 normal Not Available [facility] ([facility]) [address] [facility], [place], [address], 08/21/2024 20:36:00 08/19/19 25 08/19/2024 COMP. METAB OLIC PANEL (14) eGFR 79 mL/mi n/1.7 3 >59 normal Not Available [facility] ([facility]) [address] [facility], [place], [address], 08/21/2024 20:36:00 08/19/19 25 08/19/2024 COMP. METAB OLIC PANEL (14) BUN/creatini ne ratio 18 9-23 normal Not Available [facility] ([facility]) [address] [facility], [place], [address], 08/21/2024 20:36:00 08/19/19 25 08/19/2024 COMP. METAB OLIC PANEL (14) sodium 142 mmol/ L 134-14 4 normal Not Available [facility] ([facility]) [address] [facility], [place], [address], 08/21/2024 20:36:00 08/19/19 25 08/19/2024 COMP. METAB OLIC PANEL (14) potassium 4.2 mmol/ L 3.5-5. 2 normal Not Available [facility] ([facility]) [address] [facility], [place], [address], 08/21/2024 20:36:00 08/19/19 25 08/19/2024 COMP. METAB OLIC PANEL (14) chloride 105 mmol/ L 96-106 normal Not Available [facility] ([facility]) [address] [facility] [place], [address], 08/21/2024 20:36:00 08/19/19 25 08/19/2024 COMP. METAB OLIC PANEL (14) carbon dioxide, total 21 mmol/ L 20-29 normal Not Available [facility] ([facility]) [address] [place], [address], 08/21/2024 20:36:00 08/19/19 25 08/19/2024 COMP. METAB OLIC PANEL (14) calcium 9.3 mg/dL 8.7-10 .2 normal Not Available [facility] ([facility]) [address] [facility] [place], [address], 08/21/2024 20:36:00 08/19/19 25 08/19/2024 COMP. METAB OLIC PANEL (14) protein, total 6.3 g/dL 6.0-8. 5 normal Not Available [facility] ([facility]) [address] [place], [address], 08/21/2024 20:36:00 08/19/19 25 08/19/2024 COMP. METAB OLIC PANEL (14) albumin 4.2 g/dL 3.8-4. 9 normal Not Available [facility] ([facility]) [address] [place], [address], 08/21/2024 20:36:00 08/19/19 25 08/19/2024 COMP. METAB OLIC PANEL (14) globulin, total 2.1 g/dL 1.5-4. 5 Not Available [facility] ([facility]) [address] [place], [address], 08/21/2024 20:36:00 08/19/19 25 08/19/2024 COMP. METAB OLIC PANEL (14) bilirubin, total 0.4 mg/dL 0.0-1. 2 normal Not Available [facility] ([facility]) [address] [facility] [place], [address], 08/21/2024 20:36:00 08/19/19 25 08/19/2024 COMP. METAB OLIC PANEL (14) alkaline phosphatase 64 IU/L 44-121 normal Not Available [facility] ([facility]) [address] [facility] [place], [address], 08/21/2024 20:36:00 08/19/19 25 08/19/2024 COMP. METAB OLIC PANEL (14) AST (SGOT) 22 IU/L 0-40 normal Not Available [facility] ([facility]) [address] [facility] [place], [address], 08/21/2024 20:36:00 08/19/19 25 08/19/2024 COMP. METAB OLIC PANEL (14) ALT (SGPT) 12 IU/L 0-32 normal Not Available [facility] ([facility]) [address] [place], [address], 08/21/2024 20:36:00 08/19/19 25 08/19/2024 LIPID PANEL cholesterol, total 218 mg/dL 100-19 9 above high normal Not Available [facility] ([facility]) [address] [place], [address], 08/21/2024 20:36:01 08/19/19 25 08/19/2024 LIPID PANEL triglyceride s 67 mg/dL 0-149 normal Not Available [facility] ([facility]) [address] [place], [address], 08/21/2024 20:36:01 08/19/19 25 08/19/2024 LIPID PANEL HDL cholesterol 57 mg/dL >39 normal Not Available [facility] ([facility]) [address] [place], [address], 08/21/2024 20:36:01 08/19/19 25 08/19/2024 LIPID PANEL VLDL cholesterol salomón 12 mg/dL 5-40 Not Available [facility] ([facility]) [address] [place], [address], 08/21/2024 20:36:01 08/19/19 25 08/19/2024 LIPID PANEL LDL chol calc ([facility]) 149 mg/dL 0-99 above high normal Not Available [facility] ([facility]) [address] [place], [address], 08/21/2024 20:36:01 08/19/19 25 08/19/2024 LIPID PANEL LDL calc comment: [employer] TE[employer]ER Not Available [facility] ([facility]) [address] [place], [address], 08/21/2024 20:36:01 08/19/19 25 08/21/2024 VITAM IN E vitamin E(alpha tocopherol) 12.6 mg/L 7.0-25 .1 Not Available [facility] ([facility]) [address] [place], [address], 08/21/2024 20:36:01 08/19/19 25 08/21/2024 VITAM IN E vitamin E(gamma tocopherol) 1.7 mg/L 0.5-5. 5 Refer ence inter vals for alpha and gamma -toco phero l deter mined from [facility] Exami natio n Surve y, 2004- 2005. Indiv idual s with alpha -toco phero l level s less than 5.0 mg/L are consi dered vitam in E defic ient. Not Available [facility] ([facility]) [address] [place], [address], 08/21/2024 20:36:01 08/19/19 25 08/19/2024 HEMOG LOBIN A1C hemoglobin A1C 5.1 % 4.8-5. 6 normal Predi abete s: 5.7 - 6.4 Diabe thai: >6.4 Glyce rashi contr ol for adult s with diabe thai: <7.0 Not Available [facility] ([facility]) [address] [facility], [place], [address], 08/21/2024 20:36:02 08/19/1908/19/2024 FOLAT E (FOLI C ACID) , SERUM folate (folic acid), serum 5.8 NG/mL >3.0 normal A serum folat e cheyanne ntrat ion of less than 3.1 ng/mL is consi dered to repre sent clini salomón defic iency . Not Available [facility] ([facility]) [address] [facility], [place], [address], 08/21/2024 20:36:03 08/19/1908/21/2024 VITAM IN A, SERUM vitamin A 35.8 ug/dL 20.1-6 2.0 Refer ence inter vals for vitam in A deter mined from [facility] inter nal studi es. Indiv idual s with vitam in A less than 20 ug/dL are consi dered vitam in A defic ient and those with serum cheyanne ntrat ions less than 10 ug/dL are consi dered sever sincere defic ient. This test was devel oped and its perfo rmanc e brenna cteri stics deter mined by [facility]. It has not been clear ed or appro ron by the Food and Drug Admin istra tion. Not Available [facility] ([facility]) [address] [facility], [place], [address], 08/21/2024 20:36:04 08/19/1908/19/2024 VITAM IN D, 25-HY DROXY vitamin D, 25-hydroxy 26.0 NG/mL 30.0-1 00.0 below low normal Vitam in D defic iency has been defin ed by the Insti tute of Medic ine and an Endoc rine Socie ty pract ice guide line as a level of serum 25-OH vitam in D less than 20 ng/mL (1,2) . The Endoc rine Socie ty went on to furth er defin e vitam in D insuf ficie ncy as a level betwe en 21 and 29 ng/mL (2). 1. IOM (Inst itute of Medic ine). 2010. Dieta ry refer ence intak es for calci um and D. Supa willis [place]: The [facility] . 2. Elvira zee MF, Alvaro ribeiro NC, Joya off-F errar i KING, et al. Evalu ation , treat ment, and preve ntion of vitam in D defic iency : an Endoc rine Socie ty clini salomón pract ice guide line. JCEM. 2010; 96(7) :1911 -30. Not Available [facility] ([facility]) [address] [place], [address], 08/21/2024 20:36:04 08/19/19 25 08/20/2024 VITAM IN B1 (THIA MINE) , BLOOD vit. B1, whole blood 89.2 nmol/ L 66.5-2 00.0 Not Available [facility] ([facility]) [address] [place], [address], 08/21/2024 20:36:05 08/19/19 25 08/20/2024 METHY LMALO DAMIEN ACID, SERUM methylmaloni c acid, serum 109 nmol/ L 0-378 Not Available [facility] ([facility]) [address] [place], [address], 08/21/2024 20:36:05 08/19/19 25 08/19/2024 PREAL BUMIN prealbumin 18 mg/dL 10-36 Not Available [facility] ([facility]) [address] [place], [address], 08/21/2024 20:36:06 Result Notes None recorded. Problems Name Problem SNOMED Code Status Onset Date Resolution Date Notes Provider Name and Address Organization Details Recorded Time Obesity 700818549 Active 2021 Jaylen Lima DNP, SALES PROCESS MANAGER, [employer]-C [address] , [place], [place], [address] [place] [address] , [place] - [facility] & [place] 2 08:18:05 Disorder of function of stomach 335988910 Active 2021 Jaylen Lima DNP, APRN, [employer]-C [address], [place], [place], [address] [place] [address] , [place] - [facility] - [place] & [place] 2 08:18:12 Depressive disorder 47011182 Active 2021 Jaylen Lima DNP, MALGORZATA, [employer]-C [address], [place], [place], [address] [place] [address] , [place] - [facility] & [place] 2 14:14:07 Unintentio nal weight gain 7573752108467 04 Active 2021 Jaylen Lima DNP, APRN, [employer]-C [address] , [place], [place], [address] [place] [address] , [place] - [facility] & [place] 2 14:14:41 Dyspnea on exertion 19726090 Active 2022 Ángel Reynoso MD [address], [place], [place], [address] [place] [address] , [place] - [facility] & [place] 3 11:23:58 Morbid obesity 538085266 Active 2022 Ángel Reynoso MD [address], [place], [place], [address] [place] [address] , [place] - [facility] & [place] 3 14:46:18 Laparoscop ic sleeve gastrectom y Active 2022 Jaylen Lima DNP, MALGORZATA, [employer]-C [address], [place], [place], [address] [place] [address] , [place] - [facility] & [place] 3 09:01:04 Nausea 983354876 Active 2022 Jaylen Lima DNP, APRN, [employer]-C [address], [place], [address] , [place] - [facility] - [place] & [place] 3 15:52:11 Vomiting 504976277 Active 2022 Jaylen Lima DNP, SALES PROCESS MANAGER, [employer]-C [address], [place], [address] , [place] - [facility] - [place] & [place] 3 15:52:16 Heartburn 45247332 Active 2022 Jaylen Lima DNP, SALES PROCESS MANAGER, [employer]-C [address], [place], [address] , [place] - [facility] - [place] & [place] 3 15:17:20 Constipati on 93989625 Active 2022 Jaylen Lima DNP, MALGORZATA, [employer]-C [address], [place], [address] , [place] - [facility] - [place] & [place] 3 14:44:42 Vitamin D deficiency 64669430 Active 2023 Jaylen Lima DNP, SALES PROCESS MANAGER, [employer]-C [address], [place], [address] , [place] - [facility] - [place] & [place] 4 09:12:45 Elevated blood-pres sure reading without diagnosis of hypertensi on 244667596 Active 2024 Jaylen Lima DNP, MALGORZATA, [employer]-C [address], [place], [place], [address] [place] [address] , [place] [facility] - [place] & [place] 5 09:42:58 Overweight 249163049 Active 2024 Jaylen Lima DNP, MALGORZATA, [employer]-C [address], [place], [place], [address] [place] [address] , [place] - [facility] - [place] & [place] 5 09:10:11 Problem Notes None recorded. Procedures Surgical History Date Name Laterality Status Provider Name and Address Organization Details Recorded Time laparoscopic sleeve gastrectomy completed Clark garner [place] - [facility] - [place] & [place] 3 08:27:33 esophagogastroduodenoscopy completed Liat Neri [place] - [facility] - [place] & [place] 3 14:00:08 cholecystectomy completed Erinn Lee [place] - [facility] - [place] & [place] 2 14:52:24 extraction of wisdom tooth completed Erinn Lee [place] - [facility] & [place] 2 14:52:31 Carpal tunnel surgery completed Edw kyungraymond Lima, DNP, SALES PROCESS MANAGER, [employer]-C [address], [place], [address] , [facility] - [facility] - [place] & [place] 2 12:43:39 Imaging Results None recorded. Procedure Notes None recorded. Medical Equipment None Reported. Allergies No known drug allergies Medications Name Sig Start Date Stop Date Status Note LastModified by Organization Details LastModified Time Prescriptio n - Renewal active Not Available Not Available Not Available celecoxib 200 mg capsule 05/09 completed Not Available Not Available Not Available cyclobenzap rine 10 mg tablet TAKE 1 TABLET BY MOUTH TWICE DAILY NEEDED 08/18 completed Not Available Not Available Not Available promethazin e-DM 6.25 mg-15 mg/5 mL oral syrup 08/08 completed Not Available Not Available Not Available nystatin 100,000 unit/mL oral suspension 01/29 completed Not Available Not Available Not Available venlafaxine ER 75 mg capsule,ext ended release 24 hr 05/09 completed Not Available Not Available Not Available doxycycline hyclate 100 mg capsule 08/18 completed Not Available Not Available Not Available azithromyci n 250 mg tablet TAKE 2 TABLETS BY MOUTH ON DAY 1, AND THEN TAKE 1 TABLET BY MOUTH ONCE A DAY ON DAY 2 THROUGH DAY 5 01/29 completed Not Available Not Available Not Available fluconazole 150 mg tablet 11/07 completed Not Available Not Available Not Available sucralfate 100 mg/mL oral suspension Take 10 mL 4 times a day by oral route for 30 days. 05/09 completed Not Available Not Available Not Available fluconazole 200 mg tablet 08/01 completed Not Available Not Available Not Available phenazopyri dine 200 mg tablet TAKE 1 TABLET BY MOUTH 3 TIMES A DAY NEEDED AFTER meals active Not Available Not Available No t Available prednisone 20 mg tablet 01/29 completed Not Available Not Available Not Available venlafaxine ER 150 mg capsule,ext ended release 24 hr 05/18 completed Not Available Not Available Not Available acyclovir 400 mg tablet 01/29 completed Not Available Not Available Not Available ondansetron 8 mg disintegrat ing tablet Place 1 tablet twice a day by transling ual route as needed, for nausea. 12/24 completed Not Available Not Available Not Available dexamethaso ne 0.5 mg/5 mL oral solution 08/01 completed Not Available Not Available Not Available amoxicillin 875 mg tablet 05/09 completed Not Available Not Available Not Available famotidine 20 mg tablet Take 1 tablet every day by oral route at bedtime for 30 days. 11/10 completed Not Available Not Available Not Available metoclopram darion 5 mg tablet Take 1 tablet twice a day by oral route as needed for 30 days. 05/18 completed Not Available Not Available Not Available methocarbam ol 750 mg tablet 11/10 completed Not Available Not Available Not Available promethazin e 12.5 mg rectal suppository Insert 1 supposito ry every 6-8 hours by rectal route as needed. 05/09 completed Not Available Not Available Not Available benzonatate 100 mg capsule 05/09 completed Not Available Not Available Not Available cephalexin 500 mg capsule TAKE 1 CAPSULE BY MOUTH 2 TIMES A DAY UNTIL GONE active Not Available Not Available No t Available gabapentin 300 mg capsule Take 1 capsule 3 times a day by oral route for 7 days. 08/14 completed Not Available Not Available Not Available omeprazole 20 mg capsule,del ayed release Take 1 capsule twice a day by oral route for 30 days. 05/09 completed Not Available Not Available Not Available ergocalcife rol (vitamin D2) 1,250 mcg (50,000 unit) capsule 11/07 completed Not Available Not Available Not Available Promethegan 25 mg rectal suppository 05/09 completed Not Available Not Available Not Available estradiol 0.01% (0.1 mg/gram) vaginal cream 05/18 completed Not Available Not Available Not Available methylpredn isolone 4 mg tablets in a dose pack TAKE BY MOUTH DIRECTED ON INSIDE OF PACKAGE 05/09 completed Not Available Not Available Not Available celecoxib 100 mg capsule Take by oral route for 7 days. 08/14 completed Not Available Not Available Not Available ondansetron 4 mg disintegrat ing tablet Place 1 tablet twice a day by transling ual route as needed for 30 days, for nausea. 2024 active Not Available Not Available Not Avai lable cefdinir 300 mg capsule TAKE 1 CAPSULE BY MOUTH 2 TIMES A DAY active Not Available Not Available No t Available amoxicillin 875 mg-potassiu m clavulanate 125 mg tablet TAKE 1 TABLET BY MOUTH TWICE DAILY 05/18 completed Not Available Not Available Not Available nitrofurant oin monohydrate /macrocryst als 100 mg capsule TAKE 1 CAPSULE BY MOUTH EVERY TWELVE HOURS WITH FOOD active Not Available Not Available No t Available chlorhexidi ne gluconate 0.12 % mouthwash 01/29 completed Not Available Not Available Not Available biotin 11/10 completed Not Available Not Available Not Available Vitamin D3 once daily 08/08 completed 3,000 IU Not Available Not Available Not Available multivitami n active Not Available Not Available Not Available cholecalcif gabriel (vitamin D3) 1,250 mcg (50,000 unit) capsule TAKE 1 CAPSULE BY MOUTH ONCE WEEKLY active Not Available Not Available No t Available diclofenac 1 % topical gel APPLY 2 GRAMS FOUR TIMES A DAY 12/24 completed Not Available Not Available Not Available Myrbetriq 50 mg tablet,exte nded release 05/18 completed Not Available Not Available Not Available Trintellix 10 mg tablet 01/29 completed Not Available Not Available Not Available Zepbound 10 mg/0.5 mL subcutaneou s pen injector inject 10 MG SUBCUTANE OUSLY ONCE WEEKLY 12/24 completed Not Available Not Available Not Available Zepbound 5 mg/0.5 mL subcutaneou s pen injector Inject 5 mg every week by subcutane ous route for 28 days. 08/18 completed Not Available Not Available Not Available Zepbound 2.5 mg/0.5 mL subcutaneou s pen injector active Not Available Not Available Not Available Zepbound 15 mg/0.5 mL subcutaneou s pen injector INJECT 15 MG SUBCUTANE OUSLY ONCE WEEKLY active Not Available Not Available No t Available Zepbound 12.5 mg/0.5 mL subcutaneou s pen injector Inject 12.5 mg every week by subcutane ous route for 30 days. 2024 active Not Available Not Available Not Avai lable Zepbound 7.5 mg/0.5 mL subcutaneou s pen injector inject 7.5 MG SUBCUTANE OUSLY ONCE WEEKLY 08/18 completed Not Available Not Available Not Available Vitals Date Recorded Body height Body temperature Heart rate Body mass index (BMI) Body weight Systolic And Diastolic Provider Name and Address Organization Details Last Updated DateTime 5 170.18 cm 98.5 [degF] 85 /min 29.9 kg/m2 44625.7 1 g 145/96 mm[Hg] Liat AVILEZ - NT [facility] & [place] 5 09:37:21 Date Recorded Body height Body mass index (BMI) Body weight Body temperature Heart rate Systolic And Diastolic Provider Name and Address Organization Details Last Updated DateTime 5 170.18 cm 27.4 kg/m2 50318.6 6 g 98.8 [degF] 88 /min 148/91 mm[Hg] Liat Arshad [facility] & [place] 5 09:02:18 Date Recorded Body height Body temperature Heart rate Body mass index (BMI) Body weight Systolic And Diastolic Provider Name and Address Organization Details Last Updated DateTime 4 170.18 cm 97.6 [degF] 89 /min 29.9 kg/m2 37072.7 8 g 138/96 mm[Hg] Liat AVILEZ - [facility] & [place] 4 15:12:48 Date Recorded Body height Body temperature Oxygen saturation Oxygen saturation in Arterial blood by Pulse oximetry Heart rate Body mass index (BMI) Body weight Systolic And Diastolic Provider Name and Address Organization Details Last Updated DateTime 5 170.18 cm 98.4 [degF] 96 % 96 % 81 /min 24 kg/m2 79761.9 9 g 130/92 mm[Hg] Lois AVILZE - NT [facility] & [place] 5 12:49:50 Date Recorded Body height Body mass index (BMI) Body weight Body temperature Heart rate Systolic And Diastolic Provider Name and Address Organization Details Last Updated DateTime 4 170.18 cm 30.3 kg/m2 51158.0 5 g 97.9 [degF] 73 /min 132/90 mm[Hg] Erinn Lee [place] - [facility] & [place] 4 09:11:23 Social History None recorded. Functional Status Question Answer Note LastModified by Organizat ion Details LastModified Time Do you use any illicit or recreational drugs? No [email or web address] Information not available 01/29/2022 What is your level of alcohol consumption? None [email or web address] Information not available 01/29/2022 Mental Status None recorded. Family History Relationship Description Onset Age of this Age Resolved Age Notes LastModified by Organization Details LastModified Time Father Hypertensive disorder [email or web address] Not available 09/2021 14:50:51 Father Cerebrovascu lar accident [email or web address] Not available 01/29/2022 14:51:16 Father Hypercholest erolemia [email or web address] Not available 09/2021 14:51:54 Mother Hypertensive disorder [email or web address] Not available 09/2021 14:50:51 Mother Hypercholest erolemia [email or web address] Not available 09/2021 14:51:54 Maternal Grandmother Hypertensive disorder [email or web address] Not available 09/2021 14:50:51 Maternal Grandmother Cerebrovascu lar accident [email or web address] Not available 01/29/2022 14:51:16 Maternal Grandmother Hypercholest erolemia [id number] Not available 09/2021 14:51:54 Paternal Grandmother Hypertensive disorder [email or web address] Not available 09/2021 14:50:51 Paternal Grandmother Heart disease [email or web address] Not available 09/2021 14:51:02 Paternal Grandmother Hypercholest erolemia [email or web address] Not available 09/2021 14:51:54 Maternal Grandfather Hypercholest erolemia [email or web address] Not available 09/2021 14:51:54 Paternal Grandfather Hypercholest erolemia [id number] Not available 09/2021 14:51:54 Medical History Condition Response Diabetes Y Muscle, Joint, or Bone Problems Y Headaches Y Kidney Stones Y Depression Y High Cholesterol Y Gynecological HistoryNo gynecological history recorded. Obstetrics History GPAL:G 0 P 0 0 0 0 Immunizations Vaccine Type Date Status Note Provider Nam e and Address Organization Details Recorded Time influenza, unspecified formulation 02/13/2023 completed Liat Neri null, [place] - [facility] - [place] & [place] 03/06/2023 14:00:07 influenza, unspecified formulation 12/02/2023 completed Liat Neri null, [place] [facility] - [place] & [place] 05/18/2024 09:34:56 Past Encounters Encounter ID Performer Location Encounter Start Date Encounter Closed Date Diagnosis/Indication Diagnosis SNOMED-CT Code Diagnosis ICD10 Code Diagnosis IMO Codes Diagnosis Note [id number] Jaylen Lima, DNP, SALES PROCESS MANAGER, [employer]-C [facility] [address] [place] [address] 02/01/2022 08:19:48 02/01/2022 12:55:42 Obesity 896852488 E66.9 The patient will be scheduled for the following. Initial intake lab work, cardiac clearance, and EGD. All risks complicati ons and alternativ es of the upper endoscopy were discussed with the patient and agreed upon. These include but are not limited to, over sedation, bleeding, perforatio n. Patient will be educated by the surgical weight loss team regarding if any medical managed weight loss will be required and they will follow this according to their recommenda tions. patient will follow-up in office after all testing has been completed Disorder o f function of stomach 975524025 K31.89 Depressive disorder 3548 9007 F32.A Unintentio nal weight gain 0261859207 93821 R63.5 [id number] Ángel Reynoso MD [facility] [address] [place] [address] 06/08/2022 10:17:37 06/08/2022 11:30:33 Pre-surgery evaluation 660001470 Z01.818 limited functional capacity will obtain a stress test for risk stratifica tion prior to surgery Dyspnea on exertion 6084 5006 R06.09 stress test pending Morbid obesity 828987421 E66.01 now considerin g surgery.Lo w-carbohyd rate and low-fat diet Increase exercise to 30 minutes a day. Increase fruits and fresh vegetable intake and decrease processed foods and sugars [id number] Jorge Rodriguez DO [facility] [address] [facility] [address] [facility] [place] [place] [address] 08/01/2022 07:16:00 08/01/2022 13:43:44 Morbid obesity 265264696 E66.01 Pre-surger y evaluation 767201830 Z01.818 Postoperative pain 41866 9007 G89.18 Dyspnea on exertion 6084 5006 R06.09 [id number] Jaylen Lima, DNP, SALES PROCESS MANAGER, [employer]-C [facility] [address] [facility] [address] [facility] [place], [place] [address] 08/14/2022 07:56:00 08/14/2022 10:34:23 Depressive disorder 40254262 F32.A Morbid obesity 179026874 E66.01 The patient is doing well. The patient is instructed to continue their vitamins as directed. They are to continue advancing their diet as directed. They may start exercising but keep lifting less than 25 pounds for 2 more weeks. I will see them back in 3 weeks or one month from surgery. We will order their first set of labs at that time. I summarized the expectatio ns for the upcoming year. We will check labs at their one month visit from surgery, 3 months from surgery as well as at 6, 9, and 12 months from surgery. These labs will be ordered on the day of their appointmen t. They have the option to come to the appointmen t fasting and labs can be drawn that day at the hospital. If not, I expect these labs to be drawn within the week of ordering them. If they choose to have [facility] they are to make sure that the labs are sent to my office. These labs will be reviewed once received and the patient will be called with any significan t abnormalit ies and how they should be addressed. If they would like a copy of their labs they are welcome to request these and we will send a copy to them. If their labs and vitamin levels are adequate at 12 months then they will need lab checks every 6mth-12mth . They consent to understand this plan and agree to comply. Intentiona l weight loss 240421563 R63.8 [id number] Jaylen Lima, DNP, SALES PROCESS MANAGER, [employer]-C [facility] [address] [facility] [address] [place] [address] 09/07/2022 10:05:35 09/07/2022 11:02:01 History of bariatric surgical procedure 541898003 Z98.84 Intentiona l weight loss 861592023 R63.8 History of gastrectomy 252863294 Z90.3 Advised qid intake 50% protein 7685-2207 calories/d y less than 100 carbs/dyPt will see dietitian today Patient is status post bariatric surgery and at increased risk for vitamin deficienci es and malnutriti on. Bariatric vitamin panel ordered today. Patient will be contacted to correct any vitamin deficienci es. Morbid obesity [id number] E66.01 The patient is doing well. The patient is instructed to continue their vitamins as directed. They are to continue advancing their diet as directed. They may start exercising but keep lifting less than 25 pounds for 2 more weeks. I will see them back in 3 weeks or one month from surgery. We will order their first set of labs at that time. I summarized the expectatio ns for the upcoming year. We will check labs at their one month visit from surgery, 3 months from surgery as well as at 6, 9, and 12 months from surgery. These labs will be ordered on the day of their appointmen t. They have the option to come to the appointmen t fasting and labs can be drawn that day at the hospital. If not, I expect these labs to be drawn within the week of ordering them. If they choose to have them drawn [facility] they are to make sure that the labs are sent to my office. These labs will be reviewed once received and the patient will be called with any significan t abnormalit ies and how they should be addressed. If they would like a copy of their labs they are welcome to request these and we will send a copy to them. If their labs and vitamin levels are adequate at 12 months then they will need lab checks every 6mth-12mth . They consent to understand this plan and agree to comply. Depressive disorder 1228 9007 F32.A [id number] Jaylen Lima, DNP, SALES PROCESS MANAGER, [employer] [facility] [address] [place] [address] 11/07/2022 14:54:40 11/07/2022 15:39:01 History of bariatric surgical procedure 075656283 Z98.84 Intentiona l weight loss 166435566 R63.8 History of gastrectomy 127705642 Z90.3 Advised qid intake 50% protein 7362-3171 calories/d y less than 100 carbs/dyLo ng discussion today of InBody results including PBF(percen t body fat) SMM (skeletal muscle mass) Visceral fat level level BMR Segmental Fat Analysis and Segmental Lean Analysis.E ncouraged pt to take minimal calories as per BMR and to anticipate changes in SMM and PBF values not just total weight.Fol low-up with Repeat MAXIMUS in 3mth suggested Patient is status post bariatric surgery and at increased risk for vitamin deficienci es and malnutriti on. Bariatric vitamin panel ordered today. Patient will be contacted to correct any vitamin deficienci es. Morbid obesity 848965553 E66.01 The patient is doing well. The patient is instructed to continue their vitamins as directed. They are to continue advancing their diet as directed.T hey may start exercising but keep lifting less than 25 pounds for 2 more weeks. I will see them back in 3 weeks or one month from surgery. We will order their first set of labs at that time.I summarized the expectatio ns for the upcoming year. We will check labs at their one month visit from surgery, 3 months from surgery as well as at 6, 9, and 12 months from surgery. These labs will be ordered on the day of their appointmen t. They have the option to come to the appointmen t fasting and labs can be drawn that day at the hospital. If not, I expect these labs to be drawn within the week of ordering them. If they choose to have them drawn [facility] they are to make sure that the labs are sent to my office. These labs will be reviewed once received and the patient will be called with any significan t abnormalit ies and how they should be addressed. If they would like a copy of their labs they are welcome to request these and we will send a copy to them. If their labs and vitamin levels are adequate at 12 months then they will need lab checks every 6mth-12mth . They consent to understand this plan and agree to comply. Nausea 848790355 R11.0 Vomiting 912620351 R11.1 0 [id number] Jaylen Lima, DNP, SALES PROCESS MANAGER, [employer] [facility] [address] [facility] [place] [address] 02/07/2023 13:52:57 02/07/2023 14:57:45 History of bariatric surgical procedure 751825820 Z98.84 Intentiona l weight loss 597241262 R63.8 History of gastrectomy 215803481 Z90.3 Advised qid intake 50% protein 4022-7597 calories/d y less than 100 carbs/dyLo ng discussion today of InBody results including PBF(percen t body fat) SMM (skeletal muscle mass) Visceral fat level level BMR Segmental Fat Analysis and Segmental Lean Analysis.E ncouraged pt to take minimal calories as per BMR and to anticipate changes in SMM and PBF values not just total weight.Fol low-up with Repeat MAXIMUS in 3mth suggested. Pt will see dietitian today. Patient is status post bariatric surgery and at increased risk for vitamin deficienci es and malnutriti on. Bariatric vitamin panel ordered today. Patient will be contacted to correct any vitamin deficienci es. Depressive disorder 6788 9009 F32.A Morbid obesity 976524045 E66.01 The patient is doing well. The patient is instructed to continue their vitamins as directed. They are to continue advancing their diet as directed.T hey may start exercising but keep lifting less than 25 pounds for 2 more weeks. I will see them back in 3 weeks or one month from surgery. We will order their first set of labs at that time.I summarized the expectatio ns for the upcoming year. We will check labs at their one month visit from surgery, 3 months from surgery as well as at 6, 9, and 12 months from surgery. These labs will be ordered on the day of their appointmen t. They have the option to come to the appointmen t fasting and labs can be drawn that day at the hospital. If not, I expect these labs to be drawn within the week of ordering them. If they choose to have them drawn [facility] they are to make sure that the labs are sent to my office. These labs will be reviewed once received and the patient will be called with any significan t abnormalit ies and how they should be addressed. If they would like a copy of their labs they are welcome to request these and we will send a copy to them. If their labs and vitamin levels are adequate at 12 months then they will need lab checks every 6mth-12mth . They consent to understand this plan and agree to comply. Nausea 767684378 R11.0 Vomiting 034123807 R11.1 0 Heartburn 59031291 R12 GERD-patie nt was reassured. We discussed lifestyle modificati ons in patient-di rected therapy which are designed to decrease distal esophageal acid exposure. Plan is to continue current proton pump inhibitor. Other lifestyle modificati ons include elevating the head of the bed on 15 cm of blocks or sleep on a wedge-shap ed bolster. Patient was encouraged to consume smaller meals and do not eat for 3 hours prior to lying recumbent. Ultimately patient has been advised to avoid large, high fat meals and avoid foods that may aggravate the problem. will see him body on with EGD with Dr. Rodriguez [id number] SAIGE JASSO BS, RDN, LD [facility] [address] [facility] [address] [place] [address] 02/07/2023 14:46:11 02/07/2023 15:12:38 Morbid obesity 345622906 E66.01 Pt has lost 88.5 lbs since sx bringing her BMI to 36. [id number] Jaylen Lima, DNP, SALES PROCESS MANAGER, [employer] [facility] [address] [facility] [address] [place] [address] 03/06/2023 13:45:41 03/06/2023 14:31:07 History of bariatric surgical procedure 314503343 Z98.84 Heartburn 16610948 R12 GERD-patie nt was reassured. We discussed lifestyle modificati ons in patient-di rected therapy which are designed to decrease distal esophageal acid exposure. Plan is to continue current proton pump inhibitor. Other lifestyle modificati ons include elevating the head of the bed on 15 cm of blocks or sleep on a wedge-shap ed bolster. Patient was encouraged to consume smaller meals and do not eat for 3 hours prior to lying recumbent. Ultimately patient has been advised to avoid large, high fat meals and avoid foods that may aggravate the problem. dietitian will speak with patient today. To discuss food portion size and timing of eating. Intentiona l weight loss 186525268 R63.8 Morbid obesity 552178490 E66.01 Constipation 28258995 K5 9.00 Constipati on- I recommende d a gradual increase in fiber; this can be done via adding high fiber containing foods through diet or through use of a fiber supplement . Encouraged the patient to consume adequate amounts of water each day; 8 oz glasses of water throughout the day. Encouraged the patient to consider engaging in 60 minutes of mild-to-mo derate intensity of physical activity each day. Should patient require laxative, milk of magnesia should be recommende d as a 1st line therapy: Start with 15-30 mL per day and patient was advised to titrate dose until soft, but not liquid stools are achieved. Vomiting 971746292 R11.1 0 [id number] STALIN REYES RDN, LD [facility] [address] [facility] [address] [facility] [place] [address] 03/06/2023 14:30:05 03/08/2023 03:53:48 History of bariatric surgical procedure 382923735 Z98.84 Discussed eating and drinking slowly and chewing thoroughly with small bites in small, frequent meals. Deficient knowledge of food and/or nutrition 0563812657 Z76.89 Provided recommenda tions for how to increase fiber intake. If this complicate s gastric emptying, will recommend switching back to low-fiber diet. [id number] Jaylen Lima, DNP, SALES PROCESS MANAGER, [employer] [facility] [address] [facility] [address] [facility] [place] [address] 05/09/2023 14:42:49 05/10/2023 11:29:09 History of bariatric surgical procedure 691006337 Z98.84 Intentiona l weight loss 944546687 R63.8 History of gastrectomy 158311301 Z90.3 Advised qid intake 50% protein 6894-7735 calories/d y less than 100 carbs/dy Long discussion today of InBody results including PBF(percen t body fat) SMM (skeletal muscle mass) Visceral fat level level BMR Segmental Fat Analysis and Segmental Lean Analysis. Encouraged pt to take minimal calories as per BMR and to anticipate changes in SMM and PBF values not just total weight. Follow-up with Repeat MAXIMUS in 3mth suggested Patient is status post bariatric surgery and at increased risk for vitamin deficienci es and malnutriti on. Bariatric vitamin panel ordered today. Patient will be contacted to correct any vitamin deficienci es. Obesity 692483090 E66.9 Depressive disorder 3548 9007 F32.A [id number] Jaylen Lima DNP, SALES PROCESS MANAGER, [employer] [facility] [address] [facility] [address] [place] [address] 08/09/2023 08:46:02 08/09/2023 09:31:44 History of bariatric surgical procedure 178896786 Z98.84 Intentiona l weight loss 970415007 R63.8 History of gastrectomy 571815347 Z90.3 Advised qid intake 50% protein 7893-4478 calories/d y less than 100 carbs/dyLo ng discussion today of InBody results including PBF(percen t body fat) SMM (skeletal muscle mass) Visceral fat level level BMR Segmental Fat Analysis and Segmental Lean Analysis.E ncouraged pt to take minimal calories as per BMR and to anticipate changes in SMM and PBF values not just total weight.Fol low-up with Repeat MAXIMUS in 3mth suggestedS he will see dietitian today.Jannie ent is status post bariatric surgery and at increased risk for vitamin deficienci es and malnutriti on. Bariatric vitamin panel ordered today. Patient will be contacted to correct any vitamin deficienci es. Depressive disorder 3548 9007 F32.A Vitamin D deficiency 347 22215 E55.9 [id number] Jaylen Lima DNP, SALES PROCESS MANAGER, [employer] [facility] [address] [place] [address] 11/11/2023 14:58:46 11/11/2023 16:03:15 History of bariatric surgical procedure 889968561 Z98.84 Intentiona l weight loss 037949551 R63.8 History of gastrectomy 721604837 Z90.3 Advised qid intake 50% protein 1683-8982 calories/d y less than 100 carbs/dy Long discussion today of InBody results including PBF(percen t body fat) SMM (skeletal muscle mass) Visceral fat level level BMR Segmental Fat Analysis and Segmental Lean Analysis. Encouraged pt to take minimal calories as per BMR and to anticipate changes in SMM and PBF values not just total weight. Follow-up with Repeat MAXIMUS in 3mth suggested Patient is status post bariatric surgery and at increased risk for vitamin deficienci es and malnutriti on. Bariatric vitamin panel ordered today. Patient will be contacted to correct any vitamin deficienci es. Vitamin D deficiency 347 48732 E55.9 Nausea 316545837 R11.0 Constipation 22339559 K5 9.00 Constipati on- I recommende d a gradual increase in fiber; this can be done via adding high fiber containing foods through diet or through use of a fiber supplement . Encouraged the patient to consume adequate amounts of water each day; 8 oz glasses of water throughout the day. Encouraged the patient to consider engaging in 60 minutes of mild-to-mo derate intensity of physical activity each day. Should patient require laxative, milk of magnesia should be recommende d as a 1st line therapy: Start with 15-30 mL per day and patient was advised to titrate dose until soft, but not liquid stools are achieved. [id number] Jaylen Lima, DNP, SALES PROCESS MANAGER, [employer] [facility] [address] [facility] [address] [place], [place] [address] 02/10/2024 08:58:56 02/10/2024 10:17:52 History of bariatric surgical procedure 067669016 Z98.84 Intentiona l weight loss 909376333 R63.8 History of gastrectomy 909449099 Z90.3 Advised qid intake 50% protein 6068-4808 calories/d y less than 100 carbs/dyLo ng discussion today of InBody results including PBF(percen t body fat) SMM (skeletal muscle mass) Visceral fat level level BMR Segmental Fat Analysis and Segmental Lean Analysis.E ncouraged pt to take minimal calories as per BMR and to anticipate changes in SMM and PBF values not just total weight. I did offer dietitian visit, but pt declines at this time.Follo w-up with Repeat MAXIMUS in 3mth suggested Patient is status post bariatric surgery and at increased risk for vitamin deficienci es and malnutriti on. Bariatric vitamin panel ordered today. Patient will be contacted to correct any vitamin deficienci es. At [facility] risk of nutritional deficit 619547701 Z91.89 Vitamin D deficiency 347 91468 E55.9 Nausea 333467481 R11.0 Unintentio nal weight gain 6010430023 57286 R63.5 Obesity 416906668 E66.9 [id number] Jaylen Lima, DNP, SALES PROCESS MANAGER, [employer] [facility] [address] [facility] [address] [place] [address] 05/18/2024 09:29:00 05/18/2024 10:00:36 History of bariatric surgical procedure 583422317 Z98.84 Advised qid intake 50% protein 1046-3440 calories/d y less than 100 carbs/dy Long discussion today of InBody results including PBF(percen t body fat) SMM (skeletal muscle mass) Visceral fat level level BMR Segmental Fat Analysis and Segmental Lean Analysis. Patient encouraged pt to take minimal calories as per BMR and to anticipate changes in SMM and PBF values not just total weight. Repeat MAXIMUS in 2-3mth suggested Patient is to have bariatric vitamin lab panel. Patient was reassured on today's visit. Dialogue content in great detail regarding the benefits of proper diet as well as regular and routine exercise. In regards to exercise, we discussed reaching target heart rate for least 20 minutes 3 times a week. We also highlighte d the importance of staying well hydrated. Proper handwashin g was also encouraged . Patient was advised to keep in close contact with their primary care provider and/or any specialty provider (s). The patient is instructed to continue their bariatric approved vitamins as directed.W e will contact patient with any deficienci es. Vitamin D deficiency 347 24193 E55.9 Intentiona l weight loss 026933748 R63.8 History of gastrectomy 162034781 Z90.3 Advised qid intake 50% protein 4298-1812 calories/d y less than 100 carbs/dy Long discussion today of InBody results including PBF(percen t body fat) SMM (skeletal muscle mass) Visceral fat level level BMR Segmental Fat Analysis and Segmental Lean Analysis. Encouraged pt to take minimal calories as per BMR and to anticipate changes in SMM and PBF values not just total weight. Follow-up with Repeat MAXIMUS in 3mth suggested Patient is status post bariatric surgery and at increased risk for vitamin deficienci es and malnutriti on. Bariatric vitamin panel ordered today. Patient will be contacted to correct any vitamin deficienci es. At [facility] risk of nutritional deficit 061793272 Z91.89 Elevated blood-pressure reading without diagnosis of hypertension 991403232 R03.0 Obesity 265519445 E66.9 Nausea 174574027 R11.0 [id number] Jaylen Lima, DNP, SALES PROCESS MANAGER, [employer] [facility] [address] [facility] [address] [facility] [place] [address] 08/18/2024 08:57:22 08/18/2024 09:20:58 History of bariatric surgical procedure 605623468 Z98.84 [id number] Advised qid intake 50% protein 4725-8754 calories/d y less than 100 carbs/dy Long discussion today of InBody results including PBF(percen t body fat) SMM (skeletal muscle mass) Visceral fat level level BMR Segmental Fat Analysis and Segmental Lean Analysis. Patient encouraged pt to take minimal calories as per BMR and to anticipate changes in SMM and PBF values not just total weight. Repeat MAXIMUS in 2-3mth suggested Patient is to have bariatric vitamin lab panel. Patient was reassured on today's visit. Dialogue content in great detail regarding the benefits of proper diet as well as regular and routine exercise. In regards to exercise, we discussed reaching target heart rate for least 20 minutes 3 times a week. We also highlighte d the importance of staying well hydrated. Proper handwashin g was also encouraged . Patient was advised to keep in close contact with their primary care provider and/or any specialty provider (s). The patient is instructed to continue their bariatric approved vitamins as directed.W e will contact patient with any deficienci es. Intentiona l weight loss 285171073 R63.8 History of gastrectomy 192228493 Z90.3 Advised qid intake 50% protein 5445-9630 calories/d y less than 100 carbs/dy Long discussion today of InBody results including PBF(percen t body fat) SMM (skeletal muscle mass) Visceral fat level level BMR Segmental Fat Analysis and Segmental Lean Analysis. Encouraged pt to take minimal calories as per BMR and to anticipate changes in SMM and PBF values not just total weight. Follow-up with Repeat MAXIMUS in 3mth suggested Patient is status post bariatric surgery and at increased risk for vitamin deficienci es and malnutriti on. Bariatric vitamin panel ordered today. Patient will be contacted to correct any vitamin deficienci es. At [facility] risk of nutritional deficit 774049463 Z91.89 Elevated blood-pressure reading without diagnosis of hypertension 877525737 R03.0 Vitamin D deficiency 347 14908 E55.9 Overweight 058601629 E66 .3 11064 Depressive disorder 3548 9007 F32.A [id number] Jaylen Lima, DNP, SALES PROCESS MANAGER, [employer] [facility] [address] [facility] [address] [place] [address] 12/24/2024 12:43:40 12/24/2024 13:16:22 History of bariatric surgical procedure 279663666 Z98.84 [id number] Advised qid intake 50% protein 3947-9158 calories/d y less than 100 carbs/dy Long discussion today of InBody results including PBF(percen t body fat) SMM (skeletal muscle mass) Visceral fat level level BMR Segmental Fat Analysis and Segmental Lean Analysis. Patient encouraged pt to take minimal calories as per BMR and to anticipate changes in SMM and PBF values not just total weight. Repeat MAXIMUS in 2-3mth suggested Patient is to have bariatric vitamin lab panel. Patient was reassured on today's visit. Dialogue content in great detail regarding the benefits of proper diet as well as regular and routine exercise. In regards to exercise, we discussed reaching target heart rate for least 20 minutes 3 times a week. We also highlighte d the importance of staying well hydrated. Proper handwashin g was also encouraged . Patient was advised to keep in close contact with their primary care provider and/or any specialty provider (s). The patient is instructed to continue their bariatric approved vitamins as directed.W e will contact patient with any deficienci es. Intentiona l weight loss 061582627 R63.8 History of gastrectomy 128840647 Z90.3 Advised qid intake 50% protein 3929-1636 calories/d y less than 100 carbs/dyLo ng discussion today of InBody results including PBF(percen t body fat) SMM (skeletal muscle mass) Visceral fat level level BMR Segmental Fat Analysis and Segmental Lean Analysis.E ncouraged pt to take minimal calories as per BMR and to anticipate changes in SMM and PBF values not just total weight. I did offer dietitian, but she declines at this time.Dorina w-up with Repeat MAXIMUS in 3mth suggested Patient is status post bariatric surgery and at increased risk for vitamin deficienci es and malnutriti on. Bariatric vitamin panel ordered today. Patient will be contacted to correct any vitamin deficienci es. At [facility] risk of nutritional deficit 520927624 Z91.89 Elevated blood-pressure reading without diagnosis of hypertension 136659358 R03.0 Vitamin D deficiency 347 30466 E55.9 Overweight 374127868 E66 .3 will decrease dose of Zepbound from 15 mg weekly to 12.5 mg weekly. Will follow up in 3 months, sooner if needed. Nausea 381206043 R11.0 Constipation 36753154 K5 9.00 Constipati on- I recommende d a gradual increase in fiber; this can be done via adding high fiber containing foods through diet or through use of a fiber supplement . Encouraged the patient to consume adequate amounts of water each day; 8 oz glasses of water throughout the day. Encouraged the patient to consider engaging in 60 minutes of mild-to-mo derate intensity of physical activity each day. Should patient require laxative, milk of magnesia should be recommende d as a 1st line therapy: Start with 15-30 mL per day and patient was advised to titrate dose until soft, but not liquid stools are achieved. Health Concerns Section Related Observation LastModified by Organization Detai ls LastModified Time None Recorded Concern Status LastModified by Organization Details LastModified Time None Recorded Advance Directives Directive None Recorded Payers Insurance Date Sequence Insurance Name Policy Number Policy Carballo Covered Member ID Carballo Member ID Guarantor Name 12/23/2024 1 [place] [id number] Sujit Canales [id number] Wilma Ally Notes Date Note Type Note Provider Name and Address Organization Details Recorded Time 11/11/2023 text/html ROS as noted in the HPI Patient presents the office today for routine 15 month follow-up status post bariatric gastric sleeve gastrectomy surgery performed on 2022. Patient doing well. Reports q.i.d. small meal intake. Reports >70g/dy protein intake and good hydration.Patient is drinking 40 ounces of water a day.Daily Calories 1800Taking routine vitamins as advised. Hx of Vit D deficiencyHeartburn/ gastroesophageal reflux: deniesPt Denies : abdominal pain, prandial issues Nausea, Vomiting, bowel (does have occasional episodes of constipation) or bladder issuesTotal Weight loss Since last office visit has been 22.5 lbsPt is happy with their quality of life after Weight loss Surgery. Today's InBody reveals a skeletal muscle mass = 61.5 lb,body fat mass = 76.5 lb,BMI = 29.9Percent body fat = 40.0Basal Metabolic Rate = 1492 kilo calories Jaylen Lima, CANDY, SALES PROCESS MANAGER, TITLE ONE KINDERGARTEN TEACHER-C [address] [facility], [place], [address], [facility] - [place] & [place] 11/12/2023 08:23:53 02/10/2024 text/html ROS as noted in the HPI Patient presents the office today for routine follow-up status post bariatric gastric sleeve gastrectomy surgery performed on 2022. Patient doing well. Reports q.i.d. small meal intake. Reports >70g/dy protein intake and good hydration.Patient is drinking 30 ounces of water a day.Daily Calories 1500-1700Taking routine vitamins as advised. Hx of Vit D deficiencyHeartburn/ gastroesophageal reflux: deniesPt Denies : abdominal pain, prandial issues Vomiting, bowel or bladder issuesTotal Weight gain Since last office visit has been 2.3 lbsPt is happy with their quality of life after Weight loss Surgery. Feels fatigued.She takes Miralax daily to help with constipation.Today's InBody reveals a skeletal muscle mass = 63.3 lb,body fat mass = 76.6 lb,BMI = 30.3Percent body fat = 39.6Basal Metabolic Rate = 1514 kilo calories Jaylen Lima DNP, SALES PROCESS MANAGER, TITLE ONE KINDERGARTEN TEACHER-C [address] , [place], [address], [facility] 02/10/2024 10:36:20 05/18/2024 text/html ROS as noted in the HPI Patient presents the office today for routine follow-up status post bariatric gastric sleeve gastrectomy surgery performed on 2022. Patient doing well. Reports q.i.d. small meal intake. Reports 70g/dy protein intake and good hydration.Patient is drinking 48 ounces of water a day.Daily Calories has not been countingTaking routine vitamins as advised. Hx of Vit D deficiencyHeartburn/ gastroesophageal reflux: deniesPt Denies : abdominal pain, prandial issues Nausea, Vomiting, bowel or bladder issuesTotal Weight loss Since last office visit has been 2.6 lbsPt is happy with their quality of life after Weight loss Surgery.She is wanting to try n GLP to assist with further weight lossToday's InBody reveals a skeletal muscle mass = 63.1 lb,body fat mass = 74.9 lb,BMI = 29.8Percent body fat = 39.3Basal Metabolic Rate = 1504 kilo calories Jaylen Lima DNP, MALGORZATA, TITLE ONE KINDERGARTEN TEACHER-C [address] , [place], [address], [facility] 05/18/2024 10:00:07 08/18/2024 text/html ROS as noted in the HPI Patient presents the office today for routine 24 month follow-up status post bariatric gastric sleeve gastrectomy surgery performed on 2022. Is also on MWL and taking Zepbound 10 mg per week. Patient doing well. Reports q.i.d. small meal intake. Reports 80g/dy protein intake and good hydration. Does not spaghetti or any types of breads. tolerate.Patient is drinking 56 ounces of water a day.Daily Calorie has not been counting.Taking routine vitamins as advised. Hx of Vit D deficiencyHeartburn/ gastroesophageal reflux: deniesPt Denies : abdominal pain, prandial issues Nausea, Vomiting, bowel or bladder issues. She does feel tired.Total Weight loss Since last office visit has been 15.6 lbsPt is happy with their quality of life after Weight loss Surgery. Today's InBody reveals a skeletal muscle mass = 55.8 lb,body fat mass = 70.5 lb,BMI = 27.4Percent body fat = 40.3Basal Metabolic Rate = 1394 kilo calories Jaylen Lima DNP, SALES PROCESS MANAGER, TITLE ONE KINDERGARTEN TEACHER-C [address], [place], [address], [facility] & [place] 08/18/2024 10:42:52 12/24/2024 text/html ROS as noted in the HPI Patient presents the office today for routine follow-up status post bariatric gastric sleeve gastrectomy surgery performed on 2022. Is also on MWL and taking Zepbound 15 mg per week. Patient doing well. She is happy with her current weight and would like to maintain current weight and try to come off GLP-therapy. Reports q.i.d. small meal intake. Reports 80-90g/dy protein intake and good hydration. Patient is drinking 32 ounces of water a day. Daily Calories hs not been counting, but est between 1300-1400Taking routine vitamins as advised. Hx of Vit D deficiencyHeartburn/ gastroesophageal reflux: deniesPt Denies : abdominal pain, prandial issues, Vomiting, or bladder issues. Has had some slight nausea and mild constipation. Has been using Miralax daily.Total Weight loss Since last office visit has been 21.9 lbsPt is happy with their quality of life after Weight loss Surgery.She will be seeing her PCP tomorrow and would like to get labs done there if possible.Today's InBody reveals a skeletal muscle mass = 55.1 lb,body fat mass = 49.1 lb,BMI = 24.0Percent body fat = 32.0Basal Metabolic Rate = 1390 kilo calories Jaylen Lima, CANDY, SALES PROCESS MANAGER, TITLE ONE KINDERGARTEN TEACHER-C [address] , [place], [address], [facility] & [place] 12/24/2024 13:32:15 OBGyn Episode No OBEpisode recorded.
--- OUTSIDE RECORDS SUMMARY | 2024-12-25 08:00 | XMS_ITS | Encounter Summary ---
Author Organization [employer] ([place], [place], [place], [place]) Address [address] [place] [address] Care Team Providers Care Benefits Advisor Name Role Phone Unavailable Primary Care Provider Unavailabl e Encounter Details Date Type Department Care Team (Late st Contact Info) Description 07/29/2020 Transcribed Document [facility] [place] [address] ProviderOtilia MD [address] [place] [address] Social History Tobacco Use Types Packs/Day Years Used Date Smoking Tobacco: Never Assessed Comments Unknown Sex and Gender Information Value Date Recorded Sex Assigned at Not on file Legal Sex Female 4:36 PM CDT Gender Identity Not on file Sexual Orientation Not on file documented as of this encounter Miscellaneous Notes * Cerner Conversion Note - Otilia ProviderMD - 07/29/2020 10:01 AM CDT Pre Procedure Adult Entered On: 07/29/2020 10:06 EDT Performed On: 07/29/2020 10:01 EDT by MIGUEL ROBINS RN Height and Weight, Clinical Dosing Height Source : Stated Height Entry Format : [place] Height, Feet : 5 ft(Converted to: 152 cm, 60 Inch) Height, Inches : 7 Inch(Converted to: 0 ft 7 Inch, 17.78 cm) Clinical Height : 170.18 cm Weight Source : Standing scale Weight Entry Format : [place] Clinical Dosing Weight : 139.09 kg Weight, Pounds : 306 lb Body Surface Area (BSA) : 2.42 m2 Body Mass Index : 48 kg/m2 (>HHI) [place] Body Weight : 61 kg MIGUEL ROBINS [...] MIGUEL ROBINS RN - 07/29/2020 10:01 EDT [place] Suicide Severity Rating Scale (C-SSRS) CSSRS Past [...] #2 Relationship : - Primary Language : Divehi Communication Barrier : None Network Architect Needed : No MIGUEL ROBINS RN - [...] Scale Risk Level : 25-45 Medium Risk Elliott Fall Interventions : Adequate lighting, Bed in [...]
--- OUTSIDE RECORDS SUMMARY | 2024-12-25 08:00 | XMS_ITS | Continuity of Care Document ---
Author Organization [place] - [place] [facility] Address [address] [place] [address] Care Team Providers Care Csr Retail Name Role Phone MINDY DEJESUS Primary Care Provider Assessment No assessment recorded. Plan of Treatment Reminders Order Date Submit Date Provider Last Modified By Organization Details Last Modified Time Details Appointments OV EST 20 2025 03:00P Dara Lima, DNP, DIE ASSEMBLER, DRESSING ROOM PORTER-C Not available Not available Not available Lab vitamin D, 25-hydrox y, total, serum 2024 025 [facility], [address], [address], [place], [address], 12/24/2024 13:09:14 CBC w/ auto diff 2024 025 [facility], [address], [address], [place], [address], 12/24/2024 13:09:16 CMP, serum or plasma 2024 025 [facility], [address], [address], [place], [address], 12/24/2024 13:09:14 HbA1c (hemoglob in A1c), blood 2024 025 [place] [facility], [address], [address], [place], [address], 12/24/2024 13:09:15 TSH + free T4, serum 2024 025 [facility], [address], [address], [place], [address], 12/24/2024 13:09:15 lipid panel, serum 2024 025 [facility], [address], [address], [place], [address], 12/24/2024 13:09:13 iron + TIBC + ferritin, serum 2024 025 [facility], [address], [address], [place], [address], 12/24/2024 13:09:12 folate, serum 2024 025 [facility], [address], [address], [place], [address], 12/24/2024 13:09:16 prealbumi n, serum 2024 025 [facility], [address], [address], [place], [address], 12/24/2024 13:09:14 thiamine, QN, blood 2024 025 [facility], [address], [address], [place], [address], 12/24/2024 13:09:16 methylmal joelle, QN, serum or plasma 2024 025 [facility], [address], [address], [place], [address], 12/24/2024 13:09:15 vitamin E, serum 2024 025 [facility], [address], [address], [place], [address], 12/24/2024 13:09:16 vitamin A (retinol) , serum 2024 [place] [facility], [address], [address], [place], [address], 12/24/2024 13:09:13 Referral None recorded. Procedures None recorded. Surgeries None recorded. Imaging None recorded. Medication Orders ondansetr on 4 mg disintegr ating tablet 2024 [facility], [address] [place] [address], [id number], 12/24/2024 13:17:41 Zepbound 12.5 mg/0.5 mL subcutane ous pen injector [address]24 [facility], [address] [place] [address], [id number], 12/24/2024 13:17:40 Patient TargetsNo targets recorded. Patient InstructionsNo instructions recorded. Reason for Referral None Reported. Problems Name Problem SNOMED Code Status Onset Date Resolution Date Notes Provider Name and Address Organization Details Recorded Time Obesity 924331220 Active 2021 Jaylen Lima DNP, DIE ASSEMBLER, DRESSING ROOM PORTER-C [address] , [place], [address] , [facility] & [place] 2 08:18:05 Disorder of function of stomach 331604531 Active 2021 Jaylen Lima DNP, DIE ASSEMBLER, DRESSING ROOM PORTER-C [address], [place], [address] , [facility] & [place] 2 08:18:12 Depressive disorder 59949185 Active 2021 Jaylen Lima DNP, DIE ASSEMBLER, DRESSING ROOM PORTER-C [address], [place], [address] , [place] - [facility] - [place] & [place] 2 14:14:07 Unintentio nal weight gain 0246077945730 04 Active 2021 Jaylen Lima DNP, DIE ASSEMBLER, DRESSING ROOM PORTER-C [address] [facility], [place], [address] , [place] - [facility] - [place] & [place] 2 14:14:41 Dyspnea on exertion 08081865 Active 2022 Ángel Reynoso MD [address] [facility], [place], [address] , [place] - [facility] - [place] & [place] 3 11:23:58 Morbid obesity 432554700 Active 2022 Ángel Reynoso MD [address] [facility], [place], [address] , [place] - [facility] - [place] & [place] 3 14:46:18 Laparoscop ic sleeve gastrectom y Active 2022 Jaylen Lima DNP, MALGORZATA, DRESSING ROOM PORTER-C [address] [facility], [place], [address] , [place] - [facility] - [place] & [place] 3 09:01:04 Nausea 256125815 Active 2022 Jaylen Lima DNP, DIE ASSEMBLER, DRESSING ROOM PORTER-C [address] [facility], [place], [address] , [place] - [facility] - [place] & [place] 3 15:52:11 Vomiting 184749596 Active 2022 Jaylen Lima DNP, DIE ASSEMBLER, DRESSING ROOM PORTER-C [address] [facility], [place], [address] , [place] - [facility] - [place] & [place] 3 15:52:16 Heartburn 47389538 Active 2022 Jaylen Lima DNP, DIE ASSEMBLER, DRESSING ROOM PORTER-C [address] [facility], [place], [address] , [place] - [facility] - [place] & [place] 3 15:17:20 Constipati on 87001326 Active 2022 Jaylen Lima DNP, DIE ASSEMBLER, DRESSING ROOM PORTER-C [address], [place], [place], [address] [place] [address] , [place] - [facility] - [place] & [place] 3 14:44:42 Vitamin D deficiency 83980362 Active 2023 Jaylen Lima DNP, APRN, DRESSING ROOM PORTER-C [address], [place], [place], [address] [place] [address] , [place] - [facility] & [place] 4 09:12:45 Elevated blood-pres sure reading without diagnosis of hypertensi on 757113927 Active 2024 Jaylen Lima DNP, MALGORZATA, DRESSING ROOM PORTER-C [address], [place], [place], [address] [place] [address] , [place] - [facility] & [place] 5 09:42:58 Overweight 339119835 Active 2024 Jaylen Lima DNP, APRN, DRESSING ROOM PORTER-C [address], [place], [place], [address] [place] [address] , [place] - [facility] & [place] 5 09:10:11 Problem Notes None recorded. Procedures Surgical History Date Name Laterality Status Provider Name and Address Organization Details Recorded Time laparoscopic sleeve gastrectomy completed Clark garner [facility] & [place] 3 08:27:33 esophagogastroduodenoscopy completed Liat Neri [facility] & [place] 3 14:00:08 cholecystectomy completed Erinn Lee [place] - [facility] & [place] 2 14:52:24 extraction of wisdom tooth completed Erinn Lee [place] - [facility] & [place] 2 14:52:31 Carpal tunnel surgery completed Molly Lima DNP, APRN, DRESSING ROOM PORTER-C [address], [place], [address] [place] [address] , [place] - [facility] & [place] 2 12:43:39 Imaging Results None recorded. Procedure [...] Vitals Date Recorded Body height Body temperature Oxygen saturation Oxygen saturation in Arterial blood by Pulse oximetry Heart rate Body mass index (BMI) Body weight Systolic And Diastolic Provider Name and Address Organization Details Last Updated DateTime 170.18 cm 98.4 [degF] 96 % 96 % 81 /min 24 kg/m2 15180.9 9 g 130/92 mm[Hg] Lois Espinosa [place] - [facility] - [place] & [place] 12:49:50 Social History None recorded. Functional Status Question Answer Note LastModified by Organizat ion Details LastModified Time Do you use any illicit or recreational drugs? No [email or web address] Information not available 01/29/2022 What is your level of alcohol consumption? None [email or web address] Information not available 01/29/2022 Mental Status None recorded. Family History Relationship Description Onset Age of this Age Resolved Age Notes LastModified by Organization Details LastModified Time Father Hypertensive disorder [email or web address] Not available 09/2021 14:50:51 Father Cerebrovascu lar accident [email or web address] Not available 01/29/2022 14:51:16 Father Hypercholest erolemia [email or web address] Not available 09/2021 14:51:54 Mother Hypertensive disorder [email or web address] Not available 09/2021 14:50:51 Mother Hypercholest erolemia [email or web address] Not available 09/2021 14:51:54 Maternal Grandmother Hypertensive disorder [email or web address] Not available 09/2021 14:50:51 Maternal Grandmother Cerebrovascu lar accident [email or web address] Not available 01/29/2022 14:51:16 Maternal Grandmother Hypercholest erolemia [email or web address] Not available 09/2021 14:51:54 Paternal Grandmother Hypertensive disorder [email or web address] Not available 09/2021 14:50:51 Paternal Grandmother Heart disease [email or web address] Not available 09/2021 14:51:02 Paternal Grandmother Hypercholest erolemia [email or web address] Not available 09/2021 14:51:54 Maternal Grandfather Hypercholest erolemia [email or web address] Not available 09/2021 14:51:54 Paternal Grandfather Hypercholest erolemia [email or web address] Not available 09/2021 14:51:54 Medical History Condition Response Diabetes Y Muscle, Joint, or Bone Problems Y Headaches Y Kidney Stones Y Depression Y High Cholesterol Y Gynecological HistoryNo gynecological history recorded. Obstetrics History GPAL:G 0 P 0 0 0 0 Immunizations Vaccine Type Date Status Note Provider Nam e and Address Organization Details Recorded Time influenza, unspecified formulation 02/13/2023 completed Liat milton, [place] - [facility] - [place] & [place] 03/06/2023 14:00:07 influenza, unspecified formulation 12/02/2023 completed Liat milton, RAGHAV - [facility] - [place] & [place] 05/18/2024 09:34:56 Past Encounters Encounter ID Performer Location Encounter Start Date Encounter Closed Date Diagnosis/Indication Diagnosis SNOMED-CT Code Diagnosis ICD10 Code Diagnosis IMO Codes Diagnosis Note [id number] Jaylen Lima, DNP, DIE ASSEMBLER, DRESSING ROOM PORTER-C [facility] Adv Surg [address] [facility] [place] [address] 12/24/2024 12:43:40 12/24/2024 13:16:22 History of bariatric surgical procedure 914607530 Z98.84 305264 Advised qid intake 50% protein 6856-0321 calories/d y less than 100 carbs/dy Long [...] any deficienci es. Intentiona l weight loss 443732057 R63.8 History of gastrectomy 583468182 Z90.3 Advised qid intake 50% protein 2377-7708 calories/d y less than 100 carbs/dyLo ng [...] offer dietitian, but she declines at this time.Follo w-up with Repeat MAXIMUS in 3mth suggested Patient is status post bariatric surgery and at increased risk for vitamin deficienci es and malnutriti on. Bariatric vitamin panel ordered today. Patient will be contacted to correct any vitamin deficienci es. At [facility] risk of nutritional deficit 583733757 Z91.89 Elevated blood-pressure reading without diagnosis of hypertension 464616717 R03.0 Vitamin D deficiency 347 40783 E55.9 Overweight 818590432 E66 .3 will decrease dose of Zepbound from 15 mg weekly to 12.5 mg weekly. Will follow up in 3 months, sooner if needed. Nausea 518227408 R11.0 Constipation 97347180 K5 9.00 Constipati on- I recommende d [...] by Organization Details LastModified Time None Recorded Payers Encounter Date Sequence Insurance Name Policy Number Policy Carballo Covered Member ID Carballo Member ID Guarantor Name 12/24/2024 1 [place] ESTELITA KUMARI [facility] [id number] Sujit Canales [id number] Wilma Canales Notes Date Note Type Note Provider Name and Address Organization Details Recorded Time 12/24/2024 text/html ROS as noted in the [...] vitamins as advised. Hx of Vit D deficiencyHeartbu rn/gastroesophage al reflux: deniesPt Denies : abdominal pain, prandial [...] Rate = 1390 kilo calories Jaylen Lima, DNP, DIE ASSEMBLER, DRESSING ROOM PORTER-C [address] , [place], [address], [place] [facility] - [place] & [place] 12/24/2024 13:32:15 OBGyn Episode No OBEpisode recorded.
--- OUTSIDE RECORDS SUMMARY | 2024-12-25 08:00 | XMS_ITS | Encounter Summary ---
Author Organization [employer] ([place], [place], [place], [place]) Address [address] [place] [address] Care Team Providers Care Tare Man Name Role Phone Unavailable Primary Care Provider Unavailabl e Encounter Details Date Type Department Care Team (Late st Contact Info) Description 07/29/2020 Transcribed Document [facility] [place] [address] [place] [address] ProviderOtilia MD [address] [place] [address] Social History Tobacco Use Types [...] Otilia ProviderMD - 07/29/2020 11:04 AM CDT [place] [id number] WILMA CANALES :1965 Visit Time:07/29/2020 What to do next [...] at next scheduled appointment. Where: [address] [place] [address]- Medications What How Much When Instructions Next [...] eating solid foods. General instructions ??? Take xldu-wly-gohmwrs and prescription medicines only as told by [...] provider. Document Revised: 06/09/2018 Document Reviewed: 07/01/2016 [employer] Patient Education ?? 2020 [employer]. ESOPHAGOGASTRODUODENOSCOPY Care After Read the instructions outlined [...] Follow these instructions at home: ??? Take rkpm-cui-xkijcbj and prescription medicines only as told by [...] and water are not available, use hand machine repair person. ? Do not eat food or drink [...] provider. Document Revised: 07/02/2019 Document Reviewed: 03/04/2018 [employer] Patient Education ?? 2020 [employer] Emergency Awareness and Preventative Care STROKE [...] Assistance with quitting is available by contacting 4-168-DZWYNOW. This is a free resource providing counseling, support, and referral. Or you may contact your personal physician. [place] Suicide Prevention Lifeline: The National Suicide Prevention [...] range between ( 1.0 and 7.0 ) [place] #: 1.13 K/uL -- Normal range between ( 0.24 and 0.82 ) [place] #: 0.15 K/uL -- Normal range between ( 0.04 and 0.54 ) [place] %: 8.6 % -- Normal range between [...] was given the opportunity to ask questions. Patient/Passenger Relations Representative Name: Patient/Passenger Relations Representative Signature: Relationship to Patient: Clinician/Hospital Passenger Relations Representative Signature: Date: documented in this encounter Plan of Treatment Not on file documented as of this encounter Visit Diagnoses Not on filedocumented in this encounter
--- OUTSIDE RECORDS SUMMARY | 2024-12-25 08:00 | XMS_ITS | Encounter Summary ---
Author Organization [facility] Address [address] [id number] Care Team Providers Care Member Of The Legislative Council Name Role Phone Thaddeus Morales MD Primary Care Provider [phone] Thaddeus Morales MD Unavailable [phone] Shelli Espinosa MD Unavailable [phone] Reason for Referral * Consultation (Routine) - Closed Specialty Diagnoses / Procedures Referred By Contac t Referred To Contact Urology Diagnoses Acquired female bladder prolapse Thaddeus Morales MD [address] [facility] [address] [place] [address] Phone: tel: fax: Shelli Espinosa MD [address] [facility] [address] [place] [address] Phone: tel: fax: Referral ID Status Reason Start Date Expiration Date V isits Requested Visits Authorized [id number] Closed Specialty Services Required 12/05/2023 06/05/2025 1 1 Encounter Details Date Type Department Care Team (Late st Contact Info) Description 12/05/2023 Community [facility] [address] [place] [address] Thaddeus Morales MD [address] [facility] [address] [place] [address] Acquired female bladder prolapse (Primary Dx) Social [...] [address] [place] [address] 12/20/2025 1:15 PM EDT Office Visit [facility] [address] [place] [address] Amador Reynolds MD [address] [facility] [address] [place] [address] Scheduled Referrals Name Type Priority Associated Diagnoses [...] documented as of this encounter Care Teams Member Of The Legislative Council Relationship Specialty Start Date End Date Thaddeus Morales MD [address] [place] [id number] PCP - General 08/05/20 Thaddeus Morales MD [address] [place] [id number] Referring Physician Internal Medicine 11/28/23 Shelli Espinosa MD [address] [id number] Surgeon Urology 02/12/24 documented as of this encounter
--- OUTSIDE RECORDS SUMMARY | 2024-12-25 08:00 | XMS_ITS | Encounter Summary ---
Author Organization [employer] ([place], [place], [place], [place]) Address [address] [place] [address] Care Team Providers Care Medical Records Coordinator Name Role Phone Unavailable Primary Care Provider Unavailabl e Encounter Details Date Type Department Care Team (Late st Contact Info) Description 07/29/2020 Transcribed Document [facility] [place] Family Medicine Formerly [facility] [place] [address] ProviderOtilia MD [address] [place] [address] Social History Tobacco Use Types [...] eating solid foods. General instructions ??? Take zwrm-xvc-euioknb and prescription medicines only as told by [...] provider. Document Revised: 06/09/2018 Document Reviewed: 07/01/2016 [employer] Patient Education ? 2020 [employer] ESOPHAGOGASTRODUODENOSCOPY Care After Read the instructions [...] Follow these instructions at home: ??? Take pbcg-afn-qywobvh and prescription medicines only as told by [...] and water are not available, use hand hospice director. ? Do not eat food or drink [...] provider. Document Revised: 07/02/2019 Document Reviewed: 03/04/2018 [employer] Patient Education ? 2020 [employer] documented in this encounter Plan of Treatment Not on file documented as of this encounter Visit Diagnoses Not on filedocumented in this encounter
--- OUTSIDE RECORDS SUMMARY | 2024-12-25 08:00 | XMS_ITS | Encounter Summary ---
Author Organization [employer] ([place], [place], [place], [place]) Address [address] [place] [address] Care Team Providers Care Office Clerk Routine Name Role Phone Unavailable Primary Care Provider Unavailabl e Encounter Details Date Type Department Care Team (Late st Contact Info) Description 07/29/2020 Transcribed Document [facility] [place] [facility] [place] [address] ProviderOtilia MD [address] [place] [address] Social History Tobacco Use Types Packs/Day Years Used Date Smoking Tobacco: Never Assessed Comments Unknown Sex and Gender Information Value Date Recorded Sex Assigned at Not on file Legal Sex Female 4:36 PM CDT Gender Identity Not on file Sexual Orientation Not on file documented as of this encounter Miscellaneous Notes * Cerner Conversion Note - Otilia ProviderMD - 07/29/2020 10:52 AM CDT DONYA Nunez PACU Summary Primary Physician: HARRIET GARCIA MD-SUR Finalized Date/Time: 07/29/20 11:28:02 Pt. Name: WILMA CANALES/Sex: 1965 Female Med Rec #: [id number] Physician: HARRIET GARCIA MD-SUR Financial #: [id number] Pt. Type: E Room/Bed: [facility] [place]/ Admit/Disch: 07/29/20 08:04:00 - Institution: [facility] PACU Case Times Entry 1 In PACU I 07/29/20 10:59:00 Ready for PACU 07/29/20 11:27:00 Discharge Discharge from PACU 07/29/20 11:34:00 I Finalized By: Marjan Goodwin, Rn Document Signatures Signed By: Marjan Goodwin Rn 07/29/20 11:28 documented in this encounter Plan of Treatment Not on file documented as of this encounter Visit Diagnoses Not on filedocumented in this encounter
--- OUTSIDE RECORDS SUMMARY | 2024-12-25 08:01 | XMS_ITS | Encounter Summary ---
Author Organization [email or web address] ([place], [place], [place], [place]) Address [address] [place] [address] Care Team Providers Care Cabinetmaker Apprentice Name Role Phone Unavailable Primary Care Provider Unavailabl e Encounter Details Date Type Department Care Team (Late st Contact Info) Description 12/15/2024 Documentation [facility] Primary Care - [facility] [address] [place] [address] Phylicia Christensen MD [address] [place] [address] Social History Tobacco Use Types Packs/Day Years Used Date Smoking Tobacco: Never Assessed Comments Unknown Sex and Gender Information Value Date Recorded Sex Assigned at Not on file Legal Sex Female 4:36 PM CDT Gender Identity Not on file Sexual Orientation Not on file documented as of this encounter Progress Notes * Karen Nguyen CMA - 12/15/2024 4:36 PM EDT Patient called office for results of biopsy, results given to patient. documented in this encounter Plan of Treatment Not on file documented as of this encounter Visit Diagnoses Not on filedocumented in this encounter
--- OUTSIDE RECORDS SUMMARY | 2024-12-25 08:01 | XMS_ITS | Encounter Summary ---
Author Organization [employer] ([place], [place], [place], [place]) Address [address] [place] [address] Care Team Providers Care Numerologist Name Role Phone Unavailable Primary Care Provider Unavailabl e Encounter Details Date Type Department Care Team (Late st Contact Info) Description 07/29/2020 Transcribed Document [facility] [place] Family Medicine Formerly [facility] [place] [address] ProviderOtilia MD [address] [place] [address] Social History Tobacco Use Types [...] WILMA CANALES/Sex: 1965 Female Med Rec #: [id number] Physician: HARRIET GARCIA MD-SUR Financial #: [id number] Pt. Type: E Room/Bed: [facility] Admit/Disch: 07/29/20 08:04:00 - Institution: [facility] [place] Enrique - Case Attendance Entry 1 Entry 2 Entry 3 Case Attendee HARRIET GARCIA Davis, Lizabeth, Rn House, Michelle, MD-SUR POULTRY FARMWORKER Role Performed Surgeon/Proceduralist, Advertising Consultant, First Scrub, First First Time In 07/29/20 10:50:00 05/07/21 10:50:00 07/29/20 10:50:00 Time Out 07/29/20 10:56:00 07/29/20 10:56:00 07/29/20 10:56:00 Procedure Gastric Biopsy, Gastric Biopsy, Gastric Biopsy, Esophagogastroduodenosco Esophagogastroduodenosco Esophagogastroduodenosco py py py Other Attendee Superficial Wound Closed By: Last Modified By: Trena Martinez, Trena Escobedo Rn Davis, Lizabeth, Rn 07/29/20 10:54:25 07/29/20 10:54:25 07/29/20 10:54:25 Entry 4 Entry 5 Case Attendee LUCIA NEFF DO-ANS GUNNING, CORTNEY, APRN, NAHOMY-ANS Role Performed Anesthesiologist of CONSERVATION ASSISTANT/Nurse Activity Leader Record Time In 07/29/20 10:50:00 07/29/20 10:50:00 Time Out 07/29/20 10:56:00 07/29/20 10:56:00 Procedure Esophagogastroduodenosco Esophagogastroduodenosco py, Gastric Biopsy py Other Attendee Superficial Wound Closed By: Last Modified By: Trena Martinez Rn Davis, Lizabeth, Rn 07/29/20 10:54:25 07/29/20 10:54:25 [facility] - Case Attendance Audit 07/29/20 10:54:25 Slot Router: [id number] Modifier: [id number] 1 <+> Time Out 1 <*> Procedure Gastric Biopsy, Esophagogastroduodenoscopy 2 <+> Time Out 2 <*> Procedure Gastric Biopsy, Esophagogastroduodenoscopy 3 <+> Time Out 3 <*> Procedure Gastric Biopsy, Esophagogastroduodenoscopy 4 <+> Time Out 4 <*> Procedure Esophagogastroduodenoscopy, Gastric Biopsy 5 <+> Time Out 5 <*> Procedure Esophagogastroduodenoscopy 07/29/20 10:50:33 Slot Router: [id number] Modifier: [id number] <+> Time In 1 <*> Procedure Gastric Biopsy, Esophagogastroduodenoscopy 2 <+> Time In 2 <*> Procedure Gastric Biopsy, Esophagogastroduodenoscopy 3 <+> Time In 3 <*> Procedure Gastric Biopsy, Esophagogastroduodenoscopy 4 <+> Time In 4 <*> Procedure Esophagogastroduodenoscopy, Gastric Biopsy <+> 5 Time In <+> 5 Procedure 07/29/20 10:31:59 Slot Router: [id number] Modifier: [id number] 4 <*> Case Attendee Tristian DÍAZ MD-ANS 4 <*> Role Performed Anesthesiologist 4 <*> Procedure Gastric Biopsy, Esophagogastroduodenoscopy <+> 5 Case Attendee <+> 5 Role Performed 07/29/20 10:06:57 Slot Router: [id number] Modifier: [id number] <+> 1 Procedure <+> 2 Procedure <+> [...] Endo - Case Times Audit 07/29/20 10:54:17 Slot Router: [id number] Modifier: [id number] <+> 1 Out Room Time <+> 1 Stop Time <+> 1 Stop Time 07/29/20 10:52:26 Slot Router: [id number] Modifier: [id number] <+> 1 Start Time [facility] - [...] Post-op Transport Stretcher/Gurney Via Patient Transport Trena Martinez Rn Accompanied by Last Modified By: Trena Martinez Rn 07/29/20 10:06:02 [facility] - Endoscopy Details Entry 1 Abdomen Procedure Soft, Non-Tender Assessment Procedure Abdomen 07/29/20 10:50:00 Assessment D/T Radio Frequency Ablation Abdominal Pressure Last Modified By: Trena Martinez Rn 07/29/20 10:50:38 [facility] - Fire Risk Assessment Entry [...] Modified By: Trena Martinez Rn 07/29/20 10:07:00 [facility] - Fire Risk Assessment Audit 07/29/20 10:50:41 Slot Router: [id number] Modifier: [id number] <+> 1 Fire Risk Assessment Verified Date/Time E Endo - General Case Patient Safety Tech 1 Case Information OR Endo 01 [facility] Case Level 1 Room Verified Yes Wound Class II - Clean-Contaminated Specialty General Anesthesia Type MAC ASA Class 3 Diagnosis Preop Diagnosis Dyspepsia, GERD Postop Diagnosis normal EGD Last Modified By: Trena Martinez Rn 07/29/20 10:50:57 E Endo - General Case Data Audit 07/29/20 10:54:12 Slot Router: [id number] Modifier: [id number] <+> 1 Postop Diagnosis 07/29/20 10:50:57 Slot Router: [id number] Modifier: [id number] <+> 1 ASA Class [facility] - [...] Modified By: Trena Martinez Rn 07/29/20 10:06:29 E Endo - Intraoperative Equipment Entry 1 Type [...] Positioned By Trena Martinez Rn, Dara Blanchard, POULTRY FARMWORKER Position Verified Positioning Yes Verified by Anesthesia Positioning Yes Verified by Surgeon Last Modified By: Trena Martinez Rn 07/29/20 10:06:32 [facility] End[facility] - Patient Positioning Audit 07/29/20 10:06:59 Slot Router: [id number] Modifier: [id number] 1 <*> Procedure Esophagogastroduodenoscopy [facility] - [...] Endo - Surgical Procedures Audit 07/29/20 10:54:24 Slot Router: [id number] Modifier: [id number] <+> 1 Start <+> 1 Stop <+> [...] Signed By: Trena Martinez Rn 07/29/20 10:54 Electronically signed by Demetris Mack Conversion Channel Marketing Program Manager Cerner at 07/13/2022 8:42 PM CDT documented in this encounter Plan of Treatment Not on file documented as of this encounter Visit Diagnoses Not on filedocumented in this encounter
--- OUTSIDE RECORDS SUMMARY | 2024-12-25 08:01 | XMS_ITS | Encounter Summary ---
Author Organization [employer] ([place], [place], [place], [place]) Address [address] [place] [address] Care Team Providers Care Mergers And Acquisitions Consultant Name Role Phone Unavailable Primary Care Provider Unavailabl e Encounter Details Date Type Department Care Team (Late st Contact Info) Description 07/29/2020 Transcribed Document [facility] [place] Family Medicine [address] [place] [address] ProviderOtilia MD [address] [place] [address] Social History Tobacco Use Types Packs/Day Years Used Date Smoking Tobacco: Never Assessed Comments Unknown Sex and Gender Information Value Date Recorded Sex Assigned at Not on file Legal Sex Female 4:36 PM CDT Gender Identity Not on file Sexual Orientation Not on file documented as of this encounter Miscellaneous Notes * Cerner Conversion Note - Otilia ProviderMD - 07/29/2020 11:15 AM CDT DONYA Nunez PreOp Summary Primary Physician: HARRIET GARCIA MD-SUR Finalized Date/Time: 07/29/20 10:35:17 Pt. Name: WILMA CANALES/Sex: 1965 Female Med Rec #: [id number] Physician: HARRIET GARCIA MD-SUR Financial #: [id number] Pt. Type: E Room/Bed: [facility] [place]/ Admit/Disch: 07/29/20 08:04:00 - Institution: DONYA Nunez PreOp Case Times Entry 1 In Preop 07/29/20 09:57:00 Ready for Holding n/a Room Patient Ready for 07/29/20 10:35:00 Surgery Patient Out of Preop 07/29/20 10:35:00 Patient Out of n/a Holding Room [facility] PreOp Case Times Audit 07/29/20 10:35:14 Creel Hand: BRINDA Modifier: [email or web address] <+> 1 Patient Out of Preop <+> 1 Patient Ready for Surgery Finalized By: MIGUEL ROBINS, RN Document Signatures Signed By: MIGUEL ROBINS RN 07/29/20 10:35 Electronically signed by Martina [facility] Conversion Demographer Cerner at 07/13/2022 8:44 PM CDT documented in this encounter Plan of Treatment Not on file documented as of this encounter Visit Diagnoses Not on filedocumented in this encounter
--- OUTSIDE RECORDS SUMMARY | 2024-12-25 08:01 | XMS_ITS | Patient Health Record ---
Author Organization [facility] Address [address] [place] [address] Care Team Providers Care Poultry And Fish Butcher Name Role Phone Thaddeus Morales Primary Care Provider [phone] Elaine Adams Unavailable [phone] Migration, Provider Unavailable Unavailable Allergies Allergen (clinical drug ingredient) Drug/Non Drug Allergy documented on EMR Reaction Allergy Type Onset Date Status BEE STINGS (uncoded) Unknown Allergy Active Results Component Value Reference Range Notes Urinalysis Reviewed date:12/22/2024 09:50:13 AM Interpretation: Performing Lab: Notes/Report: Color/Clarity yellow Leuk neg Nitrite positive Urobili 1.0 Protein 100mg pH 5.0 Blood neg Sp. Gr. >=1.030 Ketone trace Bili small Glucose neg CULTURE, URINE, ROUTINE (395 ) (Not yet reviewed by provider) Interpretation: Performing Lab:[facility], [facility] [facility], [facility] [id number] Fred Reynoso Notes/Report: NON-FASTING CULTURE, URINE, ROUTINE SEE NOTE CULTURE, URINE, ROUTINE Micro Number: [id number] Test Status: Final Specimen Source: Urine, clean [...] neg Flu A neg Flu B neg Urinalysis Reviewed date:10/06/2024 02:08:43 PM Interpretation: Performing Lab: Notes/Report: Color/Clarity dark yellow Leuk neg Nitrite neg Urobili 0.2 Protein 30 mg/dl pH 5.5 Blood moderate Sp. Gr. 1.025 Ketone trace Bili small Glucose neg CULTURE, URINE, ROUTINE (395 ) Reviewed date:10/08/2024 03:07:56 PM Interpretation: Performing Lab:CB, [facility] [place] [address], [facility] Center[facility]jaIH[address] Fred Reynoso Notes/Report: NON-FASTING CULTURE, URINE, ROUTINE SEE NOTE CULTURE, URINE, ROUTINE Micro Number: [id number] Test Status: Final Specimen Source: Urine Specimen Quality: Adequate Result: Mixed genital garrett isolated. These superficial bacteria are not indicative of a urinary tract infection. No further organism identification is warranted on this specimen. If clinically indicated, recollect clean-catch, mid-stream urine and transfer immediately to Urine Culture Transport Tube. Medications Medication SIG (Take, Route, Frequency, Duration) Notes Start Date End Date Status EpiPen 2-Jordon 0.3 MG/0.3ML 0.3 mg intramuscularly once prn prn 08/04/2012 Active Flonase Allergy Relief 50 MCG/ACT 2 spray(s) intranasally once a day; Duration: 30 day(s) prn 07/04/2020 Active Cefdinir 300 MG 300 mg Orally 2 time s a day; Duration: 7 days 12/22/2024 Active Pyridium 200 MG 1 tablet after meals Orally Three times a day as needed for dysuria; Duration: 3 days 12/22/2024 Active Gemtesa 75 MG 1 tab(s) orally once a day; Duration: 30 day(s) 12/04/2023 Active Zepbound 15 MG/0.5ML 0.5 mL Subcutaneous [...] Status Risk Notes Problem Tear film insufficiency (99703984) Dry eye syndrome of bilateral lacrimal glands (H04.123) Active confirmed Problem Seasonal allergic rhinitis (692970792) Other seasonal allergic rhinitis (J30.2) Active confirmed Problem Allergic rhinitis (72474193) Other allergic rhinitis (J30.89) Active confirmed Problem Vitamin B12 deficiency (795394271) Vitamin B12 deficiency (E53.8) Active confirmed Problem Vitamin D deficiency (61900174) Vitamin D deficiency (E55.9) Active confirmed Problem Morbid obesity (765874416) Morbid obesity (E66.01) Active confirmed Problem Hyperlipidemia (62549926) Hyperlipemia, idiopathic familial (E78.5) Active confirmed Problem Recurrent major depression (08232171) Recurrent major depression resistant to treatment (F33.9) Active confirmed Problem Moderate recurrent major depression (96600225) Moderate episode of recurrent major depressive disorder (F33.1) Active confirmed Problem Lumbosacral spondylosis without myelopathy (10489186) Osteoarthritis of lumbar spine, unspecified spinal osteoarthritis complication status (M47.816) Active confirmed Problem Mild recurrent major depression (22393908) Mild episode of recurrent major depressive disorder (F33.0) Active confirmed Problem Low back pain (finding) (187952316) Lower back pain (M54.5) Active confirmed Problem Urge urinary incontinence (11877472) Urge urinary incontinence (N39.41) Active confirmed Problem Adult health examination (460507702) Healthcare maintenance (Z00.00) Active confirmed Problem Smoking (17833276) Smoking (F17.200) Active confirmed Problem Sleep apnea (92472815) Sleep apnea in adult (G47.30) Active confirmed Problem Midline cystocele (945283594) Female bladder prolapse, acquired (N81.10) Active confirmed Problem Myopathy (680345793) Myopathy (G72.9) Active confirmed Problem Acute cough (7974205960766924 04) Acute cough (R05.1) Active confirmed Vital Signs Heart Rate 64 /min 12/22/2024 Temperature 97.7 degrees Fahrenheit 12/22/2024 Blood pressure diastolic 78 mm Hg 12/22/2024 Height 65.75 in 12/22/2024 Blood pressure systolic 112 mm Hg 12/22/2024 Weight 152 lbs 12/22/2024 BMI 24.72 kg/m2 12/22/2024 Encounters Encounter Location Date Provider Diagnosis [facility] [address] [place] [address] 06/27/2024 Provider Migration Acute non-recurrent maxillary sinusitis J01.00 [facility] [address] [place] [address] 04/27/2024 Elaine Adams Acute cough R05.1 an d Acute non-recurrent maxillary sinusitis J01.00 [facility] [address] [place] [address] 10/06/2024 Elaine Adams Dysuria R30.0 and Gross hematuria R31.0 [facility] [address] [facility] [address] [place] [address] 12/22/2024 Elaine Adams Suprapubic pain R10. 2 ; Acute UTI N39.0 and Urge urinary incontinence N39.41 [facility] [address] [facility] [address] [place], [place] [address] 04/29/2024 Elaine Adams [facility] [address] [facility] [address] [place], [place] [address] 12/21/2024 Thaddeus Andrew Hyperlipemia, idiopathic familial E78.5 ; Vitamin B12 deficiency E53.8 ; Vitamin D deficiency E55.9 and Diabetes mellitus screening Z13.1 [facility] [address] [facility] [place] [address] 12/21/2024 Thaddeusyandel Morales Breast cancer screening by mammogram Z12.31 [...] changed 10/06/2024 Gross hematuria (ICD-10 - R31.0) 06/27/2024 Acute non-recurrent maxillary sinusitis (ICD-10 - J01.00) 04/27/2024 Acute non-recurrent maxillary sinusitis (ICD-10 - J01.00) Discussed the etiology and expected course of acute sinusitis. Discussed the rationale for antibiotics use and the importance of completing the Augmentin prescription as prescribed. Discussed supportive care with antihistamines and appropriate decongestants. Discussed the signs and symptoms of worsening infection that may indicate need for reassessment in clinic/ED. 04/27/2024 Acute cough (ICD-10 - R05.1) 12/21/2024 Hyperlipemia, idiopathic familial (ICD-10 - E78.5) 12/22/2024 Suprapubic pain (ICD-10 - R10.2) 12/22/2024 [...] consult. Will start cefdinir empirically as noted. 12/21/2024 Breast cancer screening by mammogram (ICD-10 - Z12.31) 12/21/2024 Vitamin B12 deficiency (ICD-10 - E53.8) 12/21/2024 Vitamin D deficiency (ICD-10 - E55.9) 12/22/2024 Urge urinary incontinence (ICD-10 - N39.41) 12/21/2024 Diabetes mellitus screening (ICD-10 - Z13.1) [...] : Gallbladder 01/25/2014 Mammogram : Bilateral 11/20/2023 Mammogram : Bilateral 12/21/2024 H-CBC with AUTO DIFF 11/06/2011 H-VITAMIN B12 12/06/2011 H-CMP 01/21/2008 H-LIPID PANEL 10/22/2011 H-LIPID PANEL 01/21/2008 H-MONOSCREEN 11/12/2007 H-HELICOBACTER PYLORI IGM AB 01/25/2014 H-PERIPHERAL SMEAR REVIEW 12/11/2011 H-URINALYSIS 11/06/2011 C-ANTI MITOCHONDRIAL AB 08/24/2016 C-CBC 08/07/2016 C-CMP 08/07/2016 C-LIPID PANEL 08/07/2016 C-JESSICA 08/24/2016 C-HEPATITIS PANEL 08/24/2016 C-VITAMIN B12 08/07/2016 h-leutinizing hormone 10/22/2011 h-leutinizing hormone 10/12/2015 M-Complete Blood Count Auto Diff 025 M-Comprehensive Metabolic Panel 12/22/19 25 M-Hemoglobin A1C 12/21/2024 M-Creatine Kinase 04/03/2023 M-Lipid Panel 12/21/2024 M-Parathyroid Hormone Intact 08/15/2022 M-Vitamin B12 12/21/2024 M-Vitamin B12 08/13/2022 M-Vitamin B12 09/21/2019 M-Vitamin D 25 Hydroxy 12/21/2024 M-Vitamin D 25 Hydroxy 08/15/2022 CULTURE, URINE, ROUTINE (395) 12/22/2024 THINPREP PAP (REFL) (22911) 12/04/2023 Next Appt Details Provider Name:Thaddeus Morales, 01/14/2025 03:15:00 PM, [address] [place] [address], [phone], Insurance Providers Payer Name Payer Address Payer Phone Subscriber Number Group Number Insured Name Patient Relationship to Insured Coverage Start Date Coverage End Date [facility] [address] [place] [address] [id number] Wilma Murphy Self - patient is the [...] 200 2 Bone spur -Left GRT toe 2007 carpal rachel- rt wrist 2009 Gallbladder removal 2013 rt arm-2 squamous cell places removed gastric sleeve 2022 Hospitalization History Reason Date(Month/Year) Gallbladder removal 2013
--- OUTSIDE RECORDS SUMMARY | 2024-12-25 08:01 | XMS_ITS | Referral Summary ---
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 Social History Tobacco Use Types Packs/Day Years Used Date Smoking Tobacco: Never Assessed Comments Unknown Sex and Gender Information Value Date Recorded Sex Assigned at Not on file Legal Sex Female 4:36 PM CDT Gender Identity Not on file Sexual Orientation Not on file Plan of Treatment Not on file Procedures Procedure Name Priority Date/Time Associated Diagnosis Comments SPECIMEN TO PATHOLOGY (TISSUE EXAM) PATH REPORT AP Routine 12/07/2024 10:27 AM EDT Squamous cell carcinoma in situ LIPID PANEL Routine 07/29/2020 9:33 AM EDT from Last 3 Months or Most Recently Relevant to Health Maintenance Results * Specimen to pathology (12/07/2024 10:27 [...] C44.622 . Comment [facility] Comment: CPT . [id number] Tissue 12/07/2024 10:2 7 AM EDT 12/08/2024 Narrative [facility] - 12/15/2024 4:06 AM EDT Performed at: - [address] [id number] Pneumatic Drum Sander: Jose Chiang MD, Phone: [phone] Performed at: [facility] Dermatopathology Consult [address] [place] [id number] Pneumatic Drum Sander: Marixa Gibson , Phone: [phone] Resulting Agency Comment [id number] Phylicia Armenta MD PATHOLOGY/CYTOLOGY ORDERABLES Final Result [facility] * (ABNORMAL) LIPID PANEL (07/29/2020 9:33 AM EDT) Triglyceride 69 0 - 249 mg/dL 07/29/2020 2:37 PM EDT Cholesterol HDL 65.0 mg/dL 2:37 PM EDT Comment: Desirable > 60 mg/dl Increased Risk < 40 mg/dl Cholesterol Total 211(H) 0 - 199 mg/dL 07/29/2020 2:37 PM EDT Comment: 200 to 239 mg/dL Moderate (borderline) >239 mg/dL High Cholesterol VLDL Calculation 13.8 5.0 - 40.0 mg/dL 07/29/2020 2:37 PM EDT Comment:Calculated by Discer n Rule GL_CHEM_TRIG_CMNT Cholesterol LDL Calculation 132.2(H) 0.0 - 99.0 mg/dL 07/29/2020 2:37 PM EDT Comment: DESIRABLE <130 BORDERLINE 130 to 159 HIGH >=160 Cholesterol/HDL Ratio 3.2 0.0 - 3.2 07/29/2020 2:37 PM EDT LDL/HDL Ratio 2.0 0.0 - 3.2 07/29/2020 2:37 PM EDT Blood 07/29/2020 9:33 AM EDT 07/29/2020 1:[address] [facility] Historical Provider PATHOLOGY/CYTOLOGY ORDE ANA Final Result [facility] [address] [phone] from Last 3 Months or Most Recently Relevant to Health Maintenance Insurance BLUE CROSS/BLUE SHIELD
--- OUTSIDE RECORDS SUMMARY | 2024-12-25 08:01 | XMS_ITS | Clinical Summary ---
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 Encounters Date Type Department Care Team Description 12/15/[address] [address] Phylicia Christensen MD 12/04/2024 3:30 PM EDT Procedure Visit [address] [address] Phylicia Christensen MD Squamous cell carcinoma in situ (Primary Dx) from Last 3 Months Social History Tobacco Use Types Packs/Day Years Used Date Smoking Tobacco: Never Assessed Comments Unknown Sex and Gender Information Value Date Recorded Sex Assigned at Not on file Legal Sex Female 4:36 PM CDT Gender Identity Not on file Sexual Orientation Not on file Plan of Treatment Health Maintenance Due Date Last Done Comments CT Colonography 1965 Colonoscopy 1965 Colorectal Cancer Screening 1965 FOBT/FIT 1965 Fit-DNA (Cologuard) 1965 Sigmoidoscopy 1965 Depression Screening (12+) 1976 Tobacco Cessation Counseling and Screening (12+) 1976 Pap Smear 1985 Breast Cancer Screening 2004 Pneumococcal 50+ years (2 of 2 - PCV) 2014 04/27/2013 Shingles Vaccine (Zoster) (2 of 2) 12/19/20222022 COVID-19 VACCINE (2024-2 6 season) 2024 07/13/2020, 06/15/2020 Influenza Vaccine (#1) 2024 4, 05/04/2021, 11/23/2019, Additional history exists DTAP/TDAP/TD VACCINES (2 - T d or Tdap) 05/07/2028 05/07/2018 Procedures Procedure Name Priority Date/Time Associated Diagnosis [...] C44.622 . Comment [facility] Comment: CPT . [id number] Tissue 12/07/2024 10:2 7 AM EDT 12/08/2024 Narrative [facility] - 12/15/2024 4:06 AM EDT Performed at: [facility] [address] [place] [address] [id number] Bursar: Jose Chiang MD, Phone: [phone] Performed at: [address] [place] [address] Dermatopathology Consult [address] [place] [address] [id number] Bursar: Marixa Gibson , Phone: [phone] Resulting Agency Comment [id number] Phylicia Armenta MD PATHOLOGY/CYTOLOGY ORDERABLES Final Result [facility] * (ABNORMAL) LIPID PANEL (07/29/2020 9:33 AM [...] AM EDT 07/29/2020 1:[address] [facility] Historical Provider PATHOLOGY/CYTOLOGY LISSET PEREZ Final Result [facility] [address] [phone] from Last 3 Months or Most Recently Relevant to Health Maintenance Insurance BLUE CROSS/BLUE SHIELD
[2024-12-25 08:26] LABS: Hematocrit 42.0 % (37.0-47.0); Hemoglobin 14.3 g/dL (12.2-16.2); Immature Granulocytes % 0.3 %; Mean Corpuscular HGB Conc 34.0 g/dL (31.8-35.4); Mean Corpuscular Hemoglobin 31.2 pg (27.0-31.2); Mean Corpuscular Volume 91.7 fl (81-99); Nucleated Red Blood Cells % 0 %; Platelet Count 283 K/mm3 (142-424); Red Blood Count 4.58 M/mm3 (4.20-5.40); Red Cell Distribution Width-SD 48.0 fL; White Blood Count 7.0 K/mm3 (4.8-10.8)
[2024-12-25 08:49] LABS: Hemoglobin A1C 4.7 % (4.0-6.0)
[2024-12-25 09:02] LABS: Albumin Level 3.6 g/dl (3.5-5.0); Chloride 105 mmol/L (98-107); Potassium 4.1 mmoL/L (3.5-5.1); Sodium 139 mmol/L (136-145)
[2024-12-25 09:04] LABS: Alanine Aminotransferase 13 U/L (12-78); Albumin/Globulin Ratio 1.5 (1.1-1.8); Alkaline Phosphatase 52 U/L (38-126); Anion Gap 8.1 mEq/L (5-15); Aspartate Amino Transferase 22 U/L (14-36); Bilirubin,Total 0.7 mg/dl (0.2-1.3); Blood Urea Nitrogen 14 mg/dl (7-17); Carbon Dioxide 30 mmol/L (22.0-30.0); Creatinine,Serum 0.80 mg/dl (0.52-1.04); Estimated Glomerular Filt Rate 73 ml/min (>60); GFR (African American) 89 ML/MIN (>60); Globulin 2.4 g/dL (1.3-3.2); Total Protein,Serum 6.0 g/dl (6.3-8.2)
[2024-12-25 09:05] LABS: Calcium 9.4 mg/dl (8.4-10.2); Cholesterol 199 mg/dl (140-200); Glucose 90 mg/dl (74-100); HDL Cholesterol 55 mg/dl (40-60); Triglycerides 73 mg/dl (30-150)
[2024-12-25 10:11] LABS: 25-OH Vitamin D, Total 48.3 ng/mL (30-100)
[2024-12-25 10:44] LABS: Vitamin B12 944 pg/mL (239-931)
== END 2024-12-25 23:59 | disposition home or self-care (01) ==
LOC: LAB 07:58
PROVIDERS: PCP Internal Medicine Adolescent Medicine; Visit Provider Internal Medicine Adolescent Medicine
DX: E78.5 Hyperlipidemia, unspecified (principal); E53.8 Deficiency of other specified B group vitamins; E55.9 Vitamin D deficiency, unspecified; Z13.1 Encounter for screening for diabetes mellitus
CPT/HCPCS: 36415; 80053; 80061; 82306; 82607; 83036; 85025

== ENCOUNTER 2025-01-01 07:26 | Outpatient (CLI) | payer BC, SELFPAY ==
--- OUTSIDE RECORDS SUMMARY | 2024-12-04 15:30 | XMS_ITS | Encounter Summary ---
Author Organization [employer] ([place], [place], [place], [place]) Address [address] [place] [address] Care Team Providers Care Advisory Intern Name Role Phone Unavailable Primary Care Provider Unavailabl e Encounter Details Date Type Department Care Team (Latest Contact Info) Description 12/04/2024 3:30 PM EDT Procedure Visit [facility] - [address] [address] Phylicia Christensen MD [address] [place] [address] Squamous cell carcinoma in situ (Primary Dx) Social History Tobacco Use Types Packs/Day Years Used Date Smoking Tobacco: Never Assessed Comments Unknown Sex and Gender Information Value Date Recorded Sex Assigned at Not on file Legal Sex Female 4:36 PM CDT Gender Identity Not on file Sexual Orientation Not on file documented as of this encounter Progress Notes * Phylicia Armenta MD - 12/04/2024 3:30 PM EDT EXCISIONAL REMOVAL SKIN PROCEDURE INDICATIONS: on the R supraclavicular space, 11x13 mm, Raised, nonhealing irregular neoplasm concerning for squamous cell CONSENT: VERBAL OBTAINED LOCATION AND DIMENSION OF LESION TO BE EXCISED: See above, PROCEDURE: Area prepped and draped in sterile fashion; 2 cc lidocaine with epinephrine and 0.5 cc of HCO3 used for anesthesia. 15 blade scalpel Used for complete excisional removal 16x13 mm excisional diameter . Good hemostasis maintained with cautery. Closed with 5 superficial sutures of 4-0 ETHYLENE MONOFILAMENT. Minimal blood loss. Dressed with BACITRACIN ointment and adhesive bandage applied. Specimen sent for pathology. Pt tolerated procedure well. Complications: none IMPRESSION: squamous cell? Per path: WELL DIFFERENTIATED SQUAMOUS CELL CARCINOMA, KERATOACANTHOMA PATTERN, COMPLETELY EXCISED IN THESE SECTIONS. F/U in 12 days for suture removal. WOUND CARE INSTRUCTIONS REVIEWED AND HANDOUT GIVEN TO PATIENT. documented in this encounter Miscellaneous Notes * Result Encounter Note - Phylicia Armenta MD - 12/04/2024 3:30 PM EDT MAKE PATIENT AWARE OF RESULTS. It was squamous cell, but I got it all, margins clear Electronically signed by Phylicia Armenta MD - 12/15/2024 - 10:20 AM EDT * Result Encounter Note - Holly Lima CMA - 12/04/2024 3:30 PM EDT LMOM for R/C. * Result Encounter Note - Holly Lima CMA - 12/04/2024 3:30 PM EDT LM with for R/C yesterday, Results mailed to patient. documented in this encounter Plan of Treatment Not on file documented as of this encounter Procedures Procedure Name Priority Date/Time Associated Diagnosis Comments SPECIMEN TO PATHOLOGY (TISSUE EXAM) PATH REPORT AP Routine 12/07/2024 10:27 AM EDT Squamous cell carcinoma in situ documented in this encounter Results * Specimen to pathology (12/07/2024 10:27 AM EDT) . Comment [facility] Comment: Material submitted: . clavicle - RIGHT SUPRACLAVICULAR SPACE. Modifiers: right . Comment [facility] Comment: Clinical history: . PROBABLE SQUAMOUS CELL . Comment [facility] Comment: Diagnosis: WELL DIFFERENTIATED SQUAMOUS CELL CARCINOMA, KERATOACANTHOMA PATTERN, COMPLETELY EXCISED IN THESE SECTIONS. TMZ 12/11/2024 0704 Local . Comment [facility] Comment: Electronically signed: . Marixa Gibson MD, Dermatopathologist . Comment [facility] Comment: Gross description: . 1 Container, formalin-filled, labeled with patient identification. RIGHT SUPRACLAVICULAR SPACE: 1 ELLIPSE BIOPSY OF SHAY-BROWN SKIN MEASURING 1.4 X 1.1 X 0.6 CM. ON THE SURFACE IS A RAISED AND NODULAR 0.6 CM LESION. THE SURGICAL MARGIN IS INKED GREEN. THE SPECIMEN IS SECTIONED. IT IS SUBMITTED ENTIRELY IN CASSETTE(S) A1-A2. THE TIPS ARE SUBMITTED IN CASSETTE(S) A1. THERE ARE 5 PIECES TOTAL. ORT/ORT 12/09/2024 0548 Local Diagnosis ICD code Comment [facility] Comment: Pathologist provided ICD-10: C44.622 . Comment [facility] Comment: CPT . 184892 Tissue 12/07/2024 10:2 7 AM EDT 12/08/2024 Narrative [facility] - 12/15/2024 4:06 AM EDT Performed at: - [facility] [address] [place] [id number] Factory Engineer: Jose Chiang MD, Phone: [phone] Performed at: [facility] Dermatopathology Consult [address] [place] [id number] Factory Engineer: Marixa Gibson , Phone: [phone] Resulting Agency Comment [id number] Phylicia Armenta MD PATHOLOGY/CYTOLOGY ORDERABLES Final Result [facility] documented in this encounter Visit Diagnoses Diagnosis Squamous cell carcinoma in situ- Primary Carcinoma in situ, site unspecified documented in this encounter
--- OUTSIDE RECORDS SUMMARY | 2024-12-21 14:00 | XMS_ITS | Encounter Summary ---
Author Organization Healthcare Address [address] [place] [address] Care Team Providers Care Glassware Maker Name Role Phone Thaddeus Morales MD Primary Care Provider [phone] Thaddeus Morales MD Unavailable [phone] Shelli Espinosa MD Unavailable [phone] Encounter Details Date Type Department Care Team (Late st Contact Info) Description 12/21/2024 2:00 PM EDT Ancillary Procedure [facility] [address] [place] [address] Ovarian tumor Social History Tobacco Use Types [...] [address] [place] [address] 12/20/2025 1:15 PM EDT Office Visit [facility] [address] [place] [address] Amador Reynolds MD [address] [place] [address] documented as of this encounter Procedures Procedure [...] Right ovary is fibrous/ heterogenous in appearance MA: 5 Left Ovary: Yes 2.7 X 1.3 X 1.7 cm Vol: 3.1 ml Left ovary is suboptimally visualized MA: 0 Free Fluid: Yes, Posterior cul-de sac [...] documented as of this encounter Care Teams Glassware Maker Relationship Specialty Start Date End Date Thaddeus Morales MD [address] [facility] [address] [place] [address] PCP - General 08/05/20 Thaddeus Morales MD [address] [place] [address] Referring Physician Internal Medicine 11/28/23 Shelli Espinosa MD [address] [place] [address] Surgeon Urology 02/12/24 documented as of this encounter
--- OUTSIDE RECORDS SUMMARY | 2024-12-21 14:30 | XMS_ITS | Encounter Summary ---
Author Organization Healthcare Address [address] [place] [address] Care Team Providers Care Police Matron Name Role Phone Thaddeus Morales MD Primary Care Provider [phone] Thaddeus Morales MD Unavailable [phone] Shelli Espinosa MD Unavailable [phone] Reason for Visit * Reason Comments Follow-up Encounter Details Date Type Department Care Team ([facility] st Contact Info) Description 12/21/2024 2:30 PM EDT Office Visit [facility] [address] [place] [address] Amador Reynolds MD [address] [facility] [address] [place] [address] Complex cyst of right ovary [...] ovary cyst, diverticulosis. No adenopathy or FF. LJ780=1, CEA=7.6, JB38-9=2. She presented with constipation. Had CT SCAN [...] Decompression Median Nerve At Carpal Tunnel from [employer] GALLBLADDER SURGERY N/A Gallbladder Surgery from [employer] SLEEVE GASTRECTOMY N/A 07/2022 Social History Socioeconomic [...] mouth., Disp: , Rfl: ergocalciferol 1.25 MG (63392 UT) capsule, , Disp: , Rfl: estradiol [...] nursing note reviewed. Exam conducted with a racing mechanic present. Constitutional: Appearance: Normal appearance. HENT: Head: [...] appears heterogenous throughout comparable to fibroid texture SC: 5 Left Ovary: 3.3 X 1.3 X 1.4 cm Vol: 3.1 ml Left ovary appears unremarkable SC: 0 Free Fluid: Yes, Comments: Uterine Position [...] Right ovary is fibrous/ heterogenous in appearance SC: 5 Left Ovary: Yes 2.7 X 1.3 X 1.7 cm Vol: 3.1 ml Left ovary is suboptimally visualized SC: 0 Free Fluid: Yes, Posterior cul-de sac [...] right ovarian tumor. Vol=14 mL (43 mL). SC=5. Decreasing size. Possible myoma. Asymptomatic. Intermediate risk. [...] [address] [place] [address] 12/20/2025 1:15 PM EDT Office Visit [facility] [address] [place] [address] Amador Reynolds MD [address] [place] [address] Scheduled Orders Name Type Priority [...] documented as of this encounter Care Teams Police Matron Relationship Specialty Start Date End Date Thaddeus Morales MD [address] [place] [address] PCP - General 08/05/20 Thaddeus Morales MD [address] [place], [place] [address] Referring Physician Internal Medicine 11/28/23 Shelli Espinosa MD [address] [place] [address] Surgeon Urology 02/12/24 documented as of this encounter
--- OUTSIDE RECORDS SUMMARY | 2025-01-01 07:29 | XMS_ITS | Encounter Summary ---
Author Organization [employer] ([place], [place], [place], [place]) Address [address] [place] [address] Care Team Providers Care Advertising Clerk Name Role Phone Unavailable Primary Care Provider Unavailabl e Encounter Details Date Type Department Care Team (Late st Contact Info) Description 07/29/[address] [facility] [place] [facility] [place] [address] ProviderOtilia MD [address] [place] [address] Social History Tobacco Use Types [...] Source : Stated Height Entry Format : [place] Height, Feet : 5 ft(Converted to: 152 cm, 60 Inch) Height, Inches : 7 Inch(Converted to: 0 ft 7 Inch, 17.78 cm) Clinical Height : 170.18 cm Weight Source : Standing scale Weight Entry Format : [place] Clinical Dosing Weight : 139.09 kg Weight, Pounds : 306 lb Body Surface Area (BSA) : 2.42 m2 Body Mass Index : 48 kg/m2 (>HHI) [place] Body Weight : 61 kg MIGUEL ROBINS [...] MIGUEL ROBINS RN - 07/29/2020 10:01 EDT [place] Suicide Severity Rating Scale (C-SSRS) CSSRS Past [...] #2 Relationship : - Primary Language : Nepali Communication Barrier : None Car Pilot Needed : No MIGUEL ROBINS RN - [...] Scale Risk Level : 25-45 Medium Risk [place] Fall Interventions : Adequate lighting, Bed in [...]
--- OUTSIDE RECORDS SUMMARY | 2025-01-01 07:29 | XMS_ITS ---
Care Plan - [facility], [facility] Created on: January 01, 2025 Wilma Canales : 1965 Sex: Female Author Organization [facility] Address [address] [place] [address] Phone Care Team Providers Care Chuck Wagon Driver Name Role Phone ANJELICA SHAW, MINDY Primary Care Provider [phone] Dylan SHAW, Epifanio Unavailable [phone]
--- OUTSIDE RECORDS SUMMARY | 2025-01-01 07:29 | XMS_ITS | Encounter Summary ---
Author Organization [employer] ([place], [place], [place], [place]) Address [address] [place] [address] Care Team Providers Care Cable Installer Repairer Helper Name Role Phone Unavailable Primary Care Provider Unavailabl e Encounter Details Date Type Department Care Team (Late st Contact Info) Description 03/13/2019 Transcribed Document [facility] [facility] [place] [address] ProviderOtilia MD [address] [place] [address] Social History Tobacco Use Types [...] - Historical ProviderMD - 03/13/2019 10:27 AM HUMAN SERVICES PROGRAM SPECIALIST Pre Procedure Adult Entered On: 03/13/2019 10:35 EST Performed On: 03/13/2019 10:27 EST by Sandy Esparza RN Height and Weight, Clinical Dosing Height Source : Stated Height Entry Format : [place] Height, Feet : 5 ft(Converted to: 152 cm, 60 Inch) Height, Inches : 6 Inch(Converted to: 0 ft 6 Inch, 15.24 cm) Clinical Height : 167.64 cm Weight Source : Standing scale Weight Entry Format : [place] Clinical Dosing Weight : 132.73 kg Weight, Pounds : 292 lb Body Surface Area (BSA) : 2.35 m2 Body Mass Index : 47.2 kg/m2 (>HHI) [place] Body Weight : 59 kg Sandy Esparza [...] Sandy Esparza RN - 03/13/2019 10:27 EST [place] Suicide Severity Rating Scale (C-SSRS) CSSRS Past [...] Obtained From : Patient Primary Language : Latvian Communication Barrier : None Objects to Sharing [...] Scale Risk Level : 0-24 Low Risk [place] Fall Interventions : Adequate lighting, Bed in [...]
--- OUTSIDE RECORDS SUMMARY | 2025-01-01 07:29 | XMS_ITS | Encounter Summary ---
Author Organization [employer] ([place], [place], [place], [place]) Address [address] [place] [address] Care Team Providers Care Field Crop Ii Farmworker Name Role Phone Unavailable Primary Care Provider Unavailabl e Encounter Details Date Type Department Care Team (Late st Contact Info) Description 03/13/2019 Transcribed Document [facility] [place] [address] [place] [address] ProviderOtilia MD [address] [place] [address] Social History Tobacco Use Types [...] - Historical ProviderMD - 03/13/2019 12:19 PM RESIDENTIAL SALES EXECUTIVE DONYA Nunez PACU Summary Primary Physician: HARRIET GARCIA MD-SUR Finalized Date/Time: 03/13/19 12:56:25 Pt. Name: WILMA CANALES/Sex: 1965 Female Med Rec #: [id number] Physician: HARRIET GARCIA MD-SUR Financial #: [id number] Pt. Type: O Room/Bed: [facility] [place]/ Admit/Disch: 03/13/19 09:47:00 - Institution: DONYA Nunez PACU Case Times Entry 1 In PACU I 03/13/19 12:25:00 Ready for PACU 03/13/19 12:48:00 Discharge Discharge from PACU 03/13/19 12:56:00 I DONYA Endo PACU Case Times Audit 03/13/19 12:56:23 Pin Machine Tender: ARNULFO Modifier: ARNULFO <+> 1 Discharge from PACU I Finalized By: KANDI PEREZ RN Document Signatures Signed By: KANDI PEREZ RN 03/13/19 12:56 Electronically signed by Martina [facility] Conversion Manager Resort Cerner at 07/13/2022 6:09 PM CDT documented in this encounter Plan of Treatment Not on file documented as of this encounter Visit Diagnoses Not on filedocumented in this encounter
--- OUTSIDE RECORDS SUMMARY | 2025-01-01 07:29 | XMS_ITS | Encounter Summary ---
Author Organization [employer] ([place], [place], [place], [place]) Address [address] [place] [address] Care Team Providers Care Credit And Collections Analyst Name Role Phone Unavailable Primary Care Provider Unavailabl e Encounter Details Date Type Department Care Team (Late st Contact Info) Description 07/29/2020 Transcribed Document [facility] [place] [place] [address] [place] [address] ProviderOtilia MD [address] [place] [address] Social History Tobacco Use Types [...] Otilia ProviderMD - 07/29/2020 11:04 AM CDT [place] [id number] WILMA CANALES :1965 Visit Time:07/29/2020 What to [...] next scheduled appointment. Where: [address] [place] [address]- Medications What How Much When Instructions Next [...] eating solid foods. General instructions ??? Take cyyi-sqm-dqozlnu and prescription medicines only as told by [...] provider. Document Revised: 06/09/2018 Document Reviewed: 07/01/2016 [employer] Patient Education ?? 2020 [employer] ESOPHAGOGASTRODUODENOSCOPY Care After Read the instructions outlined [...] Follow these instructions at home: ??? Take ptpk-kbw-qcszwqg and prescription medicines only as told by [...] and water are not available, use hand administrative support technician. ? Do not eat food or drink [...] provider. Document Revised: 07/02/2019 Document Reviewed: 03/04/2018 [employer] Patient Education ?? 2020 [employer] Emergency Awareness and Preventative Care STROKE [...] Assistance with quitting is available by contacting 0-997-FQCANOW. This is a free resource providing counseling, support, and referral. Or you may contact your personal physician. [place] Suicide Prevention Lifeline: The National Suicide Prevention [...] range between ( 1.0 and 7.0 ) [place] #: 1.13 K/uL -- Normal range between ( 0.24 and 0.82 ) Eos #: 0.15 K/uL -- Normal range between ( 0.04 and 0.54 ) [place] %: 8.6 % -- Normal range between [...] was given the opportunity to ask questions. Patient/Bat Boy/Girl Name: Patient/Bat Boy/Girl Signature: Relationship to Patient: Clinician/Hospital Bat Boy/Girl Signature: Date: documented in this encounter Plan of Treatment Not on file documented as of this encounter Visit Diagnoses Not on filedocumented in this encounter
--- OUTSIDE RECORDS SUMMARY | 2025-01-01 07:29 | XMS_ITS | Continuity of Care Document ---
Author Organization [place] [facility] Address [address] [place] [address] Care Team Providers Care Manager Integration Name Role Phone MINDY DEJESUS Primary Care Provider [phone] Assessment No assessment recorded. Plan of Treatment Reminders Order Date Submit Date Provider Last Modified By Organization Details Last Modified Time Details Appointments OV EST 20 2025 03:00P Dara Lima, DNP, COPYRIGHT EXPERT, ROD POINTER-C Not available Not available Not available Lab vitamin D, 25-hydrox y, total, serum 2024 025 [facility]ELIX [facility], [address], [address], [place], [address], 12/31/2024 04:07:40 CBC w/ auto diff 2024 025 [facility]ELIX [facility], [address], [address], [place], [address], 12/31/2024 04:07:40 CMP, serum or plasma 2024 025 EGNAR [facility], [address], [address], [place], [address], 12/31/2024 04:07:40 HbA1c (hemoglob in A1c), blood 2024 025 EGNAR [facility], [address], [address], [place], [address], 12/31/2024 04:07:40 TSH + free T4, serum 2024 025 FELIX [facility], [address], [address], [place], [address], 12/31/2024 04:07:41 lipid panel, serum 2024 025 FELIX [facility], [address], [address], [place], [address], 12/31/2024 04:07:41 iron + TIBC + ferritin, serum 2024 025 [facility]ELIX [facility], [address], [address], [place], [address], 12/31/2024 04:07:39 folate, serum 2024 025 [facility]ELIX [facility], [address], [address], [place], [address], 12/31/2024 04:07:39 prealbumi n, serum 2024 025 [facility]ELIX [facility], [address], [address], [place], [address], 12/31/2024 04:07:40 thiamine, QN, blood 2024 025 [facility]ELIX [facility], [address], [address], [place], [address], 12/31/2024 04:07:40 methylmal joelle, QN, serum or plasma 2024 025 [facility]ELIX [facility], [address], [address], [place], [address], 12/31/2024 04:07:40 vitamin E, serum 2024 025 FELIX [facility], [address], [address], [place], [address], 12/31/2024 04:07:41 vitamin A (retinol) , serum 2024 EGNAR [facility], [address], [address], [place], [address], 12/31/2024 04:07:41 Referral None recorded. Procedures None recorded. Surgeries None recorded. Imaging None recorded. Medication Orders ondansetr on 4 mg disintegr ating tablet 2024 [facility], [address] [place] [address], [id number], 12/24/2024 13:17:41 Zepbound 12.5 mg/0.5 mL subcutane ous pen injector 2024 [facility], [address] [place] [address], [id number], 12/24/2024 13:17:40 Patient TargetsNo targets recorded. Patient InstructionsNo instructions recorded. Reason for Referral None Reported. Problems Name Problem SNOMED Code Status Onset Date Resolution Date Notes Provider Name and Address Organization Details Recorded Time Obesity 653473804 Active 2021 Jaylen Lima DNP, COPYRIGHT EXPERT, ROD POINTER-C [address] , [place], [address] , [facility] & [place] 2 08:18:05 Disorder of function of stomach 965205971 Active 2021 Jaylen Lima DNP, COPYRIGHT EXPERT, ROD POINTER-C [address], [place], [address] , [facility] & [place] 2 08:18:12 Depressive disorder 15965530 Active 2021 Jaylen Lima DNP, COPYRIGHT EXPERT, ROD POINTER-C [address], [place], [address] , [place] - [facility] - [place] & [place] 2 14:14:07 Unintentio nal weight gain 9903383892457 04 Active 2021 Jaylen Lima DNP, COPYRIGHT EXPERT, ROD POINTER-C [address] [facility], [place], [address] , [place] - [facility] - [place] & [place] 2 14:14:41 Dyspnea on exertion 73919182 Active 2022 Ángel Reynoso MD [address] [facility], [place], [address] , [place] - [facility] - [place] & [place] 3 11:23:58 Morbid obesity 633673961 Active 2022 Ángel Reynoso MD [address] [facility], [place], [address] , [place] - [facility] - [place] & [place] 3 14:46:18 Laparoscop ic sleeve gastrectom y Active 2022 Jaylen Lima DNP, MALGORZATA, ROD POINTER-C [address] [facility], [place], [address] , [place] - [facility] - [place] & [place] 3 09:01:04 Nausea 590303830 Active 2022 Jaylen Lima DNP, COPYRIGHT EXPERT, ROD POINTER-C [address] [facility], [place], [address] , [place] - [facility] - [place] & [place] 3 15:52:11 Vomiting 730745110 Active 2022 Jaylen Lima DNP, COPYRIGHT EXPERT, ROD POINTER-C [address] [facility], [place], [address] , [place] - [facility] - [place] & [place] 3 15:52:16 Heartburn 52165877 Active 2022 Jaylen Lima DNP, COPYRIGHT EXPERT, ROD POINTER-C [address] [facility], [place], [address] , [place] - [facility] - [place] & [place] 3 15:17:20 Constipati on 62324326 Active 2022 Jaylen Lima DNP, COPYRIGHT EXPERT, ROD POINTER-C [address], [place], [place], [address] [place] [address] , [place] - [facility] - [place] & [place] 3 14:44:42 Vitamin D deficiency 97994016 Active 2023 Jaylen Lima DNP, APRN, ROD POINTER-C [address], [place], [place], [address] [place] [address] , [place] - [facility] & [place] 4 09:12:45 Elevated blood-pres sure reading without diagnosis of hypertensi on 545046236 Active 2024 Jaylen Lima DNP, MALGORZATA, ROD POINTER-C [address], [place], [place], [address] [place] [address] , [place] - [facility] & [place] 5 09:42:58 Overweight 692915322 Active 2024 Jaylen Lima DNP, APRN, ROD POINTER-C [address], [place], [place], [address] [place] [address] , [place] - [facility] & [place] 5 09:10:11 Problem Notes None recorded. Procedures Surgical History Date Name Laterality Status Provider Name and Address Organization Details Recorded Time laparoscopic sleeve gastrectomy completed Clark garner [facility] & [place] 3 08:27:33 esophagogastroduodenoscopy completed Liat Neri [facility] & [place] 3 14:00:08 cholecystectomy completed Erinn Lee [place] [facility] & [place] 2 14:52:24 extraction of wisdom tooth completed Erinn Lee [place] - [facility] & [place] 2 14:52:31 Carpal tunnel surgery completed Molly Lima DNP, APRN, ROD POINTER-C [address], [place], [address] [place] [address] , [place] - [facility] & [place] 2 12:43:39 Imaging Results None recorded. Procedure [...] % 96 % 81 /min 24 kg/m2 66672.9 9 g 130/92 mm[Hg] Lois Espinosa [place] - [facility] - [place] & [place] 12:49:50 Social History None recorded. Functional Status Question Answer Note LastModified by Organizat ion Details LastModified Time Do you use any illicit or recreational drugs? No [email or web address] Information not available 01/29/2022 What is your level of alcohol consumption? None [email or web address] Information not available 01/29/2022 Mental Status None recorded. Family History Relationship Description Onset Age of this Age Resolved Age Notes LastModified by Organization Details LastModified Time Father Hypertensive disorder [email or web address] Not available 09/2021 14:50:51 Father Cerebrovascu lar accident Not available 01/29/2022 14:51:16 Father Hypercholest erolemia [email or web address] Not available 09/2021 14:51:54 Mother Hypertensive disorder Not available 09/2021 14:50:51 Mother Hypercholest erolemia [email or web address] Not available 09/2021 14:51:54 Maternal Grandmother Hypertensive disorder [email or web address] Not available 09/2021 14:50:51 Maternal Grandmother Cerebrovascu lar accident [email or web address] Not available 01/29/2022 14:51:16 Maternal Grandmother Hypercholest erolemia [id number] Not available 09/2021 14:51:54 Paternal Grandmother Hypertensive disorder [email or web address] Not available 09/2021 14:50:51 Paternal Grandmother Heart disease [email or web address] Not available 09/2021 14:51:02 Paternal Grandmother Hypercholest erolemia [id number] Not available 09/2021 14:51:54 Maternal Grandfather Hypercholest erolemia [id number] Not available 09/2021 14:51:54 Paternal Grandfather Hypercholest erolemia [email or web address] Not available 09/2021 14:51:54 Medical History Condition Response Kidney Stones Y Depression Y Muscle, Joint, or Bone Problems Y Headaches Y High Cholesterol Y Diabetes Y Gynecological HistoryNo gynecological history recorded. Obstetrics History GPAL:G 0 P 0 0 0 0 Immunizations Vaccine Type Date Status Note Provider Nam e and Address Organization Details Recorded Time influenza, unspecified formulation 02/13/2023 completed Liat milton, RAGHAV - [facility] - [place] & [place] 03/06/2023 14:00:07 influenza, unspecified formulation 12/02/2023 completed Liat milton, RAGHAV - [facility] - [place] & [place] 05/18/2024 09:34:56 Past Encounters Encounter ID Performer Location Encounter Start Date Encounter Closed Date Diagnosis/Indication Diagnosis SNOMED-CT Code Diagnosis ICD10 Code Diagnosis IMO Codes Diagnosis Note [id number] Jaylen Lima, DNP, COPYRIGHT EXPERT, ROD POINTER-C [facility] [address] [facility] [place] [address] 12/24/2024 12:43:40 12/24/2024 13:16:22 History of bariatric surgical procedure 446540098 Z98.84 216333 Advised qid intake 50% protein 1877-2954 calories/d y less than 100 carbs/dy Long [...] any deficienci es. Intentiona l weight loss 623898882 R63.8 History of gastrectomy 723764927 Z90.3 Advised qid intake 50% protein 9694-6931 calories/d y less than 100 carbs/dyLo ng [...] to correct any vitamin deficienci es. At [facility] risk of nutritional deficit 316804824 Z91.89 Elevated blood-pressure reading without diagnosis of hypertension 996109811 R03.0 Vitamin D deficiency 347 50246 E55.9 Overweight 238981937 E66 .3 will decrease dose of Zepbound from 15 mg weekly to 12.5 mg weekly. Will follow up in 3 months, sooner if needed. Nausea 799687416 R11.0 Constipation 58959716 K5 9.00 Constipati on- I recommende d [...] [employer] Member ID Guarantor Name 12/24/2024 1 [place]: ESTELITA KUMARI [facility] [id number] Sujit Canales [id number] Wilma Canales Notes Date Note Type [...] = 1390 kilo calories Jaylen Lima, DNP, COPYRIGHT EXPERT, ROD POINTER-C [address] , [place], [address], [place] [facility] - [place] & [place] 12/24/2024 13:32:15 OBGyn Episode No OBEpisode recorded.
--- OUTSIDE RECORDS SUMMARY | 2025-01-01 07:29 | XMS_ITS | Encounter Summary ---
Author Organization Healthcare Address [address] [place] [address] Care Team Providers Care Manager Quality Compliance Name Role Phone Thaddeus Morales MD Primary Care Provider [phone] Thaddeus Morales MD Unavailable [phone] Shelli Espinosa MD Unavailable [phone] Encounter Details Date Type Department Care Team [...] [address] [place] [address] 12/20/2025 1:15 PM EDT Office Visit [facility] [address] [place] [address] Amador Reynolds MD [address] [place] [address] documented as of this encounter Visit Diagnoses Not on filedocumented in this encounter Additional Health Concerns Assessment Noted Time A fall risk assessment has been complete d for the patient 12/21/2024 2:33 PM EDT A Body Mass Index follow-up plan has been documented for the patient 02/12/2024 11:44 AM EST documented as of this encounter Care Teams Manager Quality Compliance Relationship Specialty Start Date End Date Thaddeus Morales MD [address] [place] [address] PCP - General 08/05/20 Thaddeus Morales MD [address] [place] [address] Referring Physician Internal Medicine 11/28/23 Shelli Espinosa MD [address] [place] [address] Surgeon Urology 02/12/24 documented as of this encounter
--- OUTSIDE RECORDS SUMMARY | 2025-01-01 07:29 | XMS_ITS | Encounter Summary ---
Author Organization [employer] ([place], [place], [place], [place]) Address [address] [place] [address] Care Team Providers Care Burr Picker Name Role Phone Unavailable Primary Care Provider Unavailabl e Encounter Details Date Type Department Care Team (Late st Contact Info) Description 03/13/2019 Transcribed Document [facility] [place] [facility] [place] [address] ProviderOtilia MD [address] [place] [address] Social History Tobacco Use Types [...] - Otilia ProviderMD - 03/13/2019 12:34 PM FOUNDRY TENDER Patient Education Materials Follows: Steps to Quit [...] 01/05/2010 Document Revised: 11/06/2016 Document Reviewed: 07/26/2015 [employer] Interactive Patient Education ? 2019 [employer]. Monitored Anesthesia Care, Care After These instructions [...] eating solid foods. General instructions ??? Take oysw-obh-uotqmug and prescription medicines only as told by [...] 07/01/2016 Document Revised: 10/25/2017 Document Reviewed: 07/01/2016 [employer] Interactive Patient Education ? 2019 [employer] Esophagogastroduodenoscopy, Care After Refer to this [...] 02/25/2013 Document Revised: 08/16/2016 Document Reviewed: 02/02/2016 [employer] Interactive Patient Education ? 2019 [employer] documented in this encounter Plan of Treatment Not on file documented as of this encounter Visit Diagnoses Not on filedocumented in this encounter
--- OUTSIDE RECORDS SUMMARY | 2025-01-01 07:29 | XMS_ITS | Encounter Summary ---
Author Organization [employer] ([place], [place], [place], [place]) Address [address] [place] [address] Care Team Providers Care Jackspooler Name Role Phone Unavailable Primary Care Provider Unavailabl e Encounter Details Date Type Department Care Team (Late st Contact Info) Description 03/13/2019 Transcribed Document [facility] [place] Family Medicine [facility] [place] [address] ProviderOtilia MD [address] [place] [address] Social History Tobacco Use Types [...] - Historical ProviderMD - 03/13/2019 12:19 PM ORGANIZATIONAL DEVELOPMENT MANAGER DONYA Nunez IntraOp Summary Primary Physician: HARRIET GARCIA MD-SUR Finalized Date/Time: 03/13/19 12:22:11 Pt. Name: WILMA CANALES/Sex: 1965 Female Med Rec #: [id number] Physician: HARRIET GARCIA MD-SUR Financial #: [id number] Pt. Type: O Room/Bed: [facility] Admit/Disch: 03/13/19 09:47:00 - Institution: DONYA Nunez - Case Attendance Entry 1 Entry 2 Entry 3 Case Attendee HARRIET GARCIA WICKER, KAREN KIM, MARCOS WILSON Role Performed Surgeon/Proceduralist, WIRE PRODUCTS INSPECTOR/Nurse Health Care / Medical Job Titles Scrub, First First Time In 03/13/19 12:11:00 [...] Case Attendee LIZZIE SULLIVAN RN Role Performed Coat Finisher, First Time In 03/13/19 12:11:00 Time Out 03/13/19 12:22:00 Procedure Esophagogastroduodenosco py, Gastric Biopsy Other Attendee Superficial Wound Closed By: Last Modified By: LIZZIE SULLIVAN RN 03/13/19 12:21:41 [facility] - Case Attendance Audit 03/13/19 12:21:41 Leather Heel Breaster: KULCKA Modifier: KULCKA 1 <+> Time Out 1 <*> Procedure Esophagogastroduodenoscopy, Gastric Biopsy 2 <+> Time Out 2 <*> Procedure Esophagogastroduodenoscopy, Gastric Biopsy 3 <+> Time Out 3 <*> Procedure Esophagogastroduodenoscopy, Gastric Biopsy 4 <+> Time Out 4 <*> Procedure Esophagogastroduodenoscopy, Gastric Biopsy 03/13/19 12:18:39 Leather Heel Breaster: KULCKA Modifier: KULCKA 1 <*> Procedure Esophagogastroduodenoscopy 2 <*> Procedure Esophagogastroduodenoscopy 3 <*> Procedure Esophagogastroduodenoscopy 4 <*> Procedure Esophagogastroduodenoscopy 03/13/19 12:13:40 Leather Heel Breaster: KULCKA Modifier: KULCKA 1 <*> Procedure Esophagogastroduodenoscopy 2 <+> Time In 2 <*> Procedure Esophagogastroduodenoscopy 3 <+> Time In 3 <*> Procedure Esophagogastroduodenoscopy 4 <+> Time In 4 <*> Procedure Esophagogastroduodenoscopy 03/13/19 12:13:28 Leather Heel Breaster: MELINAE Modifier: KULCKA 1 <*> Case Attendee HARRIET GARCIA MD-AURA 1 <*> Role Performed Surgeon/Proceduralist, First 1 <+> Time In 1 <*> Procedure Esophagogastroduodenoscopy <+> 2 Case Attendee <+> 2 Role Performed <+> 2 Procedure <+> 3 Case Attendee <+> 3 Role Performed <+> 3 Procedure <+> 4 Case Attendee <+> 4 Role Performed <+> 4 Procedure 03/13/19 10:34:27 Leather Heel Breaster: ARNULFO Modifier: BRYANTHE 1 <*> Case Attendee [...] Endo - Case Times Audit 03/13/19 12:21:38 Leather Heel Breaster: KULCKA Modifier: KULCKA <+> 1 Out Room Time 03/13/19 12:20:57 Leather Heel Breaster: KULCKA Modifier: KULCKA <+> 1 Stop Time <+> 1 Start Time <+> 1 Stop Time 03/13/19 12:13:59 Leather Heel Breaster: KULCKA Modifier: KULCKA <+> 1 Anesthesia Ready [...] 03/13/19 12:14:14 E Endo - General Case Director Of Sports Medicine 1 Case Information OR Endo 01 [facility] Case Level 1 Room Verified Yes Wound Class II - Clean-Contaminated Specialty SN General Anesthesia Type MAC ASA Class 3 Diagnosis Preop Diagnosis K21.9 Postop Same As Preop No Postop Diagnosis normal Last Modified By: LIZZIE SULLIVAN RN 03/13/19 12:21:05 E Endo - General Case Data Audit 03/13/19 12:21:05 Leather Heel Breaster: HOSEA Modifier: KULCKA <+> 1 Postop Diagnosis 03/13/19 12:14:27 Leather Heel Breaster: ARNULFO Modifier: KULCKA <+> 1 ASA Class [...] Endo - Patient Positioning Audit 03/13/19 12:18:41 Leather Heel Breaster: HOSEA Modifier: RUSSELLLCKA 1 <*> Procedure Esophagogastroduodenoscopy [facility] - Sign In Entry 1 Patient, Site, Yes Procedure Identified Surgical Consent Yes Confirmed Surgical Site N/A Marked by person performing procedure Airway Hypothermia Risk No Warming Measures No Taken Last Modified By: LIZZIE SULLIVAN RN 03/13/19 12:13:44 [facility] - Sign In Audit 03/13/19 12:13:44 Leather Heel Breaster: HOSEA Modifier: KULCKA <+> 1 Hypothermia Risk [...] Endo - Surgical Procedures Audit 03/13/19 12:21:11 Leather Heel Breaster: HOSEA Modifier: KULCKA <+> 1 Start <+> 1 Stop <+> 2 Start <+> 2 Stop 03/13/19 12:18:35 Leather Heel Breaster: ARNULFO Modifier: KULCKA <+> 2 Procedure <+> [...] Endo - Time Out Audit 03/13/19 12:18:41 Leather Heel Breaster: HOSEA Modifier: HOSEA 1 <*> Procedure to be Performed Esophagogastroduodenoscopy Case Comments <None> Finalized By: LIZZIE SULLIVAN RN Document Signatures Signed By: LIZZIE SULLIVAN RN 03/13/19 12:22 Electronically signed by Martina [facility] Conversion Farm Machine Operator Cerner at 07/13/2022 6:20 PM CDT documented in this encounter Plan of Treatment Not on file documented as of this encounter Visit Diagnoses Not on filedocumented in this encounter
--- OUTSIDE RECORDS SUMMARY | 2025-01-01 07:29 | XMS_ITS | Encounter Summary ---
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 2019 [place]. Monitored Anesthesia Care, Care After These instructions [...] eating solid foods. General instructions ??? Take [id number] and prescription medicines only as told by [...] 07/01/2016 Document Revised: 10/25/2017 Document Reviewed: 07/01/2016 [employer] Interactive Patient Education ?? 2019 [employer] Esophagogastroduodenoscopy, Care After Refer to this [...] 02/25/2013 Document Revised: 08/16/2016 Document Reviewed: 02/02/2016 [employer] Interactive Patient Education ?? 2019 [place]. Emergency Awareness and Preventative Care STROKE is [...] Assistance with quitting is available by contacting 6-641-MVOM-NOW. This is a free resource providing counseling, [...] 0.04 and 0.54 ) [place] %: 9.3 % -- Normal range between [...] was given the opportunity to ask questions. Patient/Bar Staff Name: Patient/Bar Staff Signature: Relationship to Patient: Clinician/Hospital Bar Staff Signature: Date: documented in this encounter Plan of Treatment Not on file documented as of this encounter Visit Diagnoses Not on filedocumented in this encounter
--- OUTSIDE RECORDS SUMMARY | 2025-01-01 07:29 | XMS_ITS | Clinical Summary ---
Author Organization [facility] Address [address] [place] [address] Phone Care Team Providers Care Yard Caller Name Role Phone ANJELICA SHAW, MINDY Primary Care Provider [phone] Dylan SHAW, Epifanio Unavailable [phone] Reason for Visit and Chief Complaint Epidural Steroid Injection Problems Includes: Problems addressed during this encounter and other active Problems All Visits Onset Date Resolved Date Provider Condition S tatus Lower Back Pain 08/12/2023 SAI STOCK PA-C Active Last Documented On 4 2:57PM ; [facility], [facility] Joint Pain Hip Left 04/17/2023 Simon haro PA-C Active Last Documented On 4 9:59AM ; [facility] Joint Pain Right Knee 04/20/2021 Tiera Turner PA-C Active Last Documented On 2 10:25AM ; [facility], [facility] Plan of Treatment Future Appointments Date Time Location Provi ramon Follow Up 01/13/2025 3:30PM [facility] SCOTT Nguyen MD Last Documented On 5 9:31AM ; [facility], [facility] Epidural Steroid Injection 01/21/2025 3:00PM [facility] SCOTT Graff CRNA Last Documented On 5 11:48AM ; [facility], [facility] Assessments Includes: Assessments from this encounter No Assessments Recorded Medical Equipment - Implanted Devices Includes: Current Devices No Medical Equipment Recorded Medications Administered Includes: Administered Medications from this encounter No Administered Medications Recorded Results Includes: Results discussed during this encounter No Results Recorded For Specified Dates History of Present Illness Includes: History of Present Illness from this encounter No History of Present Illness Recorded Social History No Social History Recorded - Smoking Status Unknown Medical History Includes: Medical History addressed during this encounter No Medical History Recorded Family History Includes: Family History addressed during this encounter No Family History Recorded Review of Systems Includes: Review of Systems from this encounter No Review of Systems Recorded Mental Status Includes: Mental Status from this encounter No Mental Status Recorded Functional Status Includes: Functional Status from this encounter No Functional Status Recorded Physical Exam Includes: Physical Exam from this encounter No Physical Exam Recorded Allergies Includes: Active Allergies No Known Allergies Encounters Encounter Provider Location Date Check-In Time Check-Out Time Diagnosis Epidural Steroid Injection Vipul Graff CRNA 07/01/2024 9:55AM 11:59PM Insurance Includes: Active Insurance Policies Plan Name Member ID Group # Subscriber Relationship Effect alfredo Dates 1 - [facility] [id number] Wilma Canales Self 03/25/2021 - Unknown Clinical Notes Includes: Clinical Notes from this encounter No Clinical Notes Recorded
--- OUTSIDE RECORDS SUMMARY | 2025-01-01 07:29 | XMS_ITS | Clinical Summary ---
Author Organization [facility] Address [address] [place] [address] Care Team Providers Care Blocker Automatic Name Role Phone Thaddeus Morales MD Primary Care Provider [phone] Tahddeus Morales MD Unavailable [phone] Shelli Espinosa MD Unavailable [phone] Allergies Active Allergy Reactions Criticality Noted Date Comments Bee Venom Unknown - Patient st ates they do not know rxn details High 11/28/2022 Swelling Oxybutynin Rash Low 02/12/2024 Medications ergocalciferol 1.25 MG (89739 UT) capsule 09/07/2022 Active Multiple Vitamin (multivitamin) [...] [address] [place] [address] Amador Reynolds MD Complex cyst of right ovary (Primary Dx) 12/21/2024 2:00 PM EDT Ancillary Procedure [facility] [address] [place] [address] Ovarian tumor 12/21/2024 Travel from Last 3 [...] [address] [place] [address] 12/20/2025 1:15 PM EDT Office Visit [facility] [address] [place] [address] Amador Reynolds MD [address] [place] [address] Health Maintenance Due Date Last Done Comments [facility]-HIV Screening 1965 [facility]-Hepatitis C Screening 1965 [facility]-/Child/Adol SDOH Screenings 1965 [facility]- SDOH Screenings 1982 [facility]-Adult SDOH Screenings 1982 [facility]-Pap Smear 1985 [facility]-Cervical Cancer Screening 1994 [facility]-HPV/Cotest 1994 CT Colonography 2009 Colonoscopy 2009 FIT-DNA 2009 FIT 2009 FOBT 2009 Sigmoidoscopy 2009 [facility]-Colorectal Cancer Screening 2009 [facility]-Breast Cancer Screening 2014 [facility]-Pneumococcal Vaccine: 50+ Years (2 of 2 - PCV) 2014 04/27/2013 [facility]-Zoster Vaccines (2 of 2) 12/19/2022 10/24/2022 [id number] Vaccine (3 - season) 2024 07/13/2020, 06/15/2020 [...] Right ovary is fibrous/ heterogenous in appearance VT: 5 Left Ovary: Yes 2.7 X 1.3 X 1.7 cm Vol: 3.1 ml Left ovary is suboptimally visualized VT: 0 Free Fluid: Yes, Posterior cul-de sac fluid: 1 X 0.5 X 1.1 cm Vol: 0.3 ml Comments: Uterine position is retroverted Right ovary is fibrous/ heterogenous in appearance Left ovary is suboptimally visualized Cul-de sac fluid as described above Present for uncomplicated TVS. Gail Vidales Amador Reynolds MD [facility] [place] Final Re sult from Last 3 Months Insurance ANTHEM Care Teams Blocker Automatic Relationship Specialty Start Date End Date Thaddeus Morales MD [address] [place] [id number] PCP - General 08/05/20 Thaddeus Morales MD [address] [place] [id number] Referring Physician Internal Medicine 11/28/23 Shelli Espinosa MD [address] [facility] [address] [place] [id number] Surgeon Urology 02/12/24
--- OUTSIDE RECORDS SUMMARY | 2025-01-01 07:29 | XMS_ITS | Encounter Summary ---
Author Organization [employer] ([place], [place], [place], [place]) Address [address] [place] [address] Care Team Providers Care Bar Machine Operator Production Name Role Phone Unavailable Primary Care Provider Unavailabl e Encounter Details Date Type Department Care Team (Late st Contact Info) Description 03/13/[address] [facility] [place] Family Medicine [address] [place] [address] ProviderOtilia MD [address] [place] [address] Social History Tobacco Use Types [...] - Historical ProviderMD - 03/13/2019 1:00 PM HEDIS ABSTRACTOR DONYA Nunez PreOp Summary Primary Physician: HARRIET GARCIA MD-SUR Finalized Date/Time: 03/13/19 10:43:31 Pt. Name: WILMA CANALES/Sex: 1965 Female Med Rec #: [id number] Physician: HARRIET GARCIA MD-SUR Financial #: [id number] Pt. Type: O Room/Bed: [facility] [place]/ Admit/Disch: 03/13/19 09:47:00 - Institution: DONYA Nunez PreOp Case Times Entry 1 In Preop 03/13/19 10:16:00 Ready for Holding 03/13/19 10:43:00 Room Patient Ready for 03/13/19 10:43:00 Surgery Patient Out of Preop 03/13/19 10:43:00 Patient Out of 03/13/19 10:43:00 Holding Room [facility] PreOp Case Times Audit 03/13/19 10:43:23 Asphalt Tamper: LULI Modifier: [email or web address] <+> 1 Patient Out [...]
--- NOTE | 2025-01-01 07:30 | MM_ITS ---
PROCEDURE INFORMATION: Exam: US Right Breast, Complete MG Right Diagnostic Breast Tomosynthesis Exam date and time: 01/01/2025 7:35 AM Age: 59 years old Clinical indication: Recall on the basis of screening mammogram 12/23/2024 for further evaluation of question prominent right axillary lymph node which contains questionable calcification. TECHNIQUE: Imaging protocol: Complete ultrasound of all four quadrants of the right breast and the retroareolar regions, including ultrasound of the axilla when performed. Right Diagnostic tomosynthesis and 2D mammography including computer-aided detection (CAD) when performed. Unilateral or bilateral exam. COMPARISON: 1. MG MM DIG SCREENING MAMM BI W/CAD 12/23/2024 2:21 PM 2. MG MM DIG SCREENING MAMM BI W/CAD 09/18/2023 8:36 AM MG 10/29/2019 FINDINGS: MAMMOGRAPHY: Breast composition: There are scattered areas of fibroglandular density. Mass: No suspicious mass. Architectural distortion: None. Calcifications: No suspicious calcifications. Asymmetric density: None. Skin thickening: None. Axillary adenopathy: Better seen 2.4 cm right axillary lymph node with extensive related density which could be calcification or pigment. ULTRASOUND: Breast ultrasound findings: Ultrasound images of of the right breast including the retroareolar region, all 4 quadrants and the axilla demonstrates at 5 o'clock 1 cm from the nipple, oval hypoechoic avascular mass measuring 0.3 x 0.2 x 0.2 cm. At 9 o'clock 2 cm from the nipple, oval tubular mass, hypoechoic, avascular, may be dilated duct or related to a lymph node. Retroareolar, mildly dilated duct with no related debris. In the axilla, one lymph node demonstrates a heterogeneous pattern with no increased Doppler flow, measuring 2.2 x 1.5 x 2.0 cm, which likely corresponds to the recalled lymph node. Other visualized lymph nodes in the axilla are sonographically unremarkable. IMPRESSION: Recalled finding from screening corresponds to a lymph node which is probably calcified related to pigment is there is a history of chest or upper extremity tattoo, given no concerning findings in the remainder of the mammogram, correlate clinically and consider six-month follow-up right mammography unless otherwise clinically indicated. ASSESSMENT: BI-RADS Category 3: Probably benign.
--- OUTSIDE RECORDS SUMMARY | 2025-01-01 07:30 | XMS_ITS | Encounter Summary ---
Author Organization [employer] ([place], [place], [place], [place]) Address [address] [place] [address] Care Team Providers Care Washing Machine Striper Name Role Phone Unavailable Primary Care Provider Unavailabl e Encounter Details Date Type Department Care Team (Late st Contact Info) Description 07/29/2020 Transcribed Document [facility] [place] Family Medicine [address] [place] [address] ProviderOtilia MD [address] [place] [address] Social History Tobacco Use Types [...] WILMA CANALES/Sex: 1965 Female Med Rec #: [id number] Physician: HARRIET GARCIA MD-SUR Financial #: [id number] Pt. Type: E Room/Bed: [facility] [place]/ Admit/Disch: 07/29/20 08:04:00 - Institution: DONYA Nunez PreOp Case Times Entry 1 In Preop 07/29/20 09:57:00 Ready for Holding n/a Room Patient Ready for 07/29/20 10:35:00 Surgery Patient Out of Preop 07/29/20 10:35:00 Patient Out of n/a Holding Room [facility] PreOp Case Times Audit 07/29/20 10:35:14 Ski Production Supervisor: BRINDA Modifier: KELLYTD <+> 1 Patient Out of Preop <+> 1 Patient Ready for Surgery Finalized By: MIGUEL ROBINS, RN Document Signatures Signed By: MIGUEL ROBINS RN 07/29/20 10:35 Electronically signed by Martina [facility] Conversion Boat Engine Mechanic Cerner at 07/13/2022 8:44 PM CDT documented in this encounter Plan of Treatment Not on file documented as of this encounter Visit Diagnoses Not on filedocumented in this encounter
--- OUTSIDE RECORDS SUMMARY | 2025-01-01 07:30 | XMS_ITS | Encounter Summary ---
Author Organization [employer] ([place], [place], [place], [place]) Address [address] [place] [address] Care Team Providers Care Basting Machine Operator Name Role Phone Unavailable Primary Care Provider Unavailabl e Encounter Details Date Type Department Care Team (Late st Contact Info) Description 12/15/2024 Documentation [facility] Primary Care - [facility] [address] [place] [address] Phylicia Christensen MD [address] [place] [address] Social History Tobacco Use Types [...]
--- OUTSIDE RECORDS SUMMARY | 2025-01-01 07:30 | XMS_ITS | Clinical Summary ---
Author Organization [facility] Address [address] [place] [address] Phone Care Team Providers Care Non Linear Editor Name Role Phone ANJELICA SHAW, MINDY Primary Care Provider [phone] Dylan SHAW, Epifanio Unavailable [phone] Reason for Visit and Chief Complaint Epidural Steroid Injection Problems Includes: Problems addressed during this encounter and other active Problems All Visits Onset Date Resolved Date Provider Condition S tatus Lower Back Pain 08/12/2023 SAI STOCK PA-C Active Last Documented On 4 2:57PM ; [facility] Joint Pain Hip Left 04/17/2023 Simon haro PA-C Active Last Documented On 4 9:59AM ; [facility] Joint Pain Right Knee 04/20/2021 Tiera Turner PA-C Active Last Documented On 2 10:25AM ; [facility] Plan of Treatment Future Appointments Date Time Location Provi ramon Follow Up 01/13/2025 3:30PM [facility] Nguyen MD Last Documented On 5 9:31AM ; [facility] Epidural Steroid Injection 01/21/2025 3:00PM [facility] SCOTT Graff CRNA Last Documented On 5 11:48AM ; [facility] Assessments Includes: Assessments from this [...] Social History Recorded - Smoking Status Unknown Procedures and Surgical History Includes: Procedures from this encounter Procedures Code Diagnosis Performing Provider Service Location Service Date Lumbar epidural 21074 Spinal stenosis, lumbar region with neurogenic claudication Vipul Heltonrick Dajuan [facility] 07/01/2024 Last Documented On 5 10:44AM ; [facility] Triamcinolone/Kenalog, 10mg per cc [id number] Spinal stenosis, lumbar region with neurogenic claudication Vipul Graff CRNA [facility] 07/01/2024 Last Documented On 5 10:44AM ; [facility] Medical History Includes: Medical History addressed during [...] Check-Out Time Diagnosis Epidural Steroid Injection Vipul Greg Dajuan [facility] 07/02/19 25 11:27AM 11:38AM Insurance Includes: Active Insurance Policies Plan Name Member ID Group # Subscriber Relationship Effect alfredo Dates 1 - [facility] [id number] Wilma M Ally Kuhn 03/25/2021 - Unknown Clinical Notes Includes: Clinical Notes from this encounter No Clinical Notes Recorded
--- OUTSIDE RECORDS SUMMARY | 2025-01-01 07:30 | XMS_ITS | Clinical Summary ---
Author Organization [facility] , [facility] Address [address] [place] [address] Phone Care Team Providers Care Bull Riveter Name Role Phone ANJELICA SHAW, MINDY Primary Care Provider [phone] Dylan SHAW, Epifanio Unavailable [phone] Reason for Visit and Chief Complaint The Chief Complaint is: L3-4 jesse 3m fu Problems Includes: Problems addressed during this encounter and other active Problems Current Visit Onset Date Resolved Date Provider Radameso n Status Lower Back Pain 08/12/2023 SAI STOCK PA-C Active Last Documented On 4 2:57PM ; [facility], [facility] Past Visits Onset Date Resolved Date Provider Condition Status Joint Pain Hip Left 04/17/2023 Simon haro PA-C Active Last Documented On 4 9:59AM ; [facility], [facility] Joint Pain Right Knee 04/20/2021 Tiera EllsworthC Active Last Documented On 2 10:25AM ; [facility], [facility] Plan of Treatment Future Appointments Date Time Location Provi ramon Follow Up 01/13/2025 3:30PM [facility] SCOTT Nguyen MD Last Documented On 5 9:31AM ; [facility], [facility] Epidural Steroid Injection 01/21/2025 3:00PM [facility] SCOTT Graff CRNA Last Documented On 5 11:48AM ; [facility], [facility] Instructions to patient Intervention and counseling on cessation of tobacco use Last Documented On 5 8:06AM ; [facility], [facility] Lose weight Last Documented On 5 8:06AM ; [facility], [facility] Assessments Includes: Assessments from this encounter Findings L3-L4 spinal stenosis - Last Documented On 09/30/2024 11:54AM ; [facility] They are a 58-year-old female that is currently being treated for L3-L4 spinal stenosis. Since they continue to experience 50-60% or more pain relief with these periodic injections, it is very reasonable continue with that for now. Patient has noticed a she did not get as much improvement as she has had previous injections in she attributes this to a injury where she fell after being hit by her dog and was dealing with some contusion and musculoskeletal strains. She would like to repeat injection to see if she continues to have good efficacy over low back pain symptoms. Patient has had previous SI joint injections that did not provide any significant relief. We will get them scheduled for another injection as long as they are providing them good clinical results - Last Documented On 09/30/2024 11:54AM ; [facility], [facility] Instructions Includes: Instructions from this encounter Instructions to patient Intervention and counseling on cessation of tobacco use Last Documented On 5 8:06AM ; [facility] Lose weight Last Documented On 5 8:06AM ; [facility] Medical Equipment - Implanted Devices Includes: Current Devices No Medical Equipment Recorded Medications Includes: Medications discussed during this encounter and other current Medications Past Medications on file Cyclobenzaprine HCl 10 MG Or al Tablet 06/19/2024 - 07/09/2024 Provider: SAI Nice Diagnosis: twice a day p.r.n. Last Documented On 4:28PM By Reinaldo Stock ; [facility], [facility] Medications Administered Includes: Administered Medications from this encounter No Administered Medications Recorded Results Includes: Results discussed during this encounter No Results Recorded For Specified Dates History of Present Illness Includes: History of Present Illness from this encounter DAYRON Canales is a 58 year old female. - Allergy list reviewed - Problem list reviewed - Medication list reviewed - Patient pain level from 1-10: 7 - History of Home Exercise 08/12/2023 - History of Injections 09/03/2023 R SI 90% FOR 9WKS 12/06/2023 R SI 50% FOR 3 WKS 12/06/2023 L3-4 JESSE 90% 2 1/ MTHS - Review of medications documented This is a 58-year-old female following up with me on L3-L4 lumbar stenosis. Patient reports she has got about 50-60% improvement back pain symptoms with the last JESSE injection. Patient states most of her pain is in the lumbar spine as well as over the right SI joint. Patient had a previous right SI joint injection that provided minimal to no relief of her symptoms so they proceeded with JESSE injections which helped substantially. Patient states that her last injection she noticed not as much improvement but she thinks this is secondary to a fall she had when her dog ran her over. She was dealing with a lot of muscle pain at that time. Patient is hopeful to proceed with a repeat injection at this time to see if this provides her with more symptomatic relief. Social History Description Last Updated Yes, current smoker. quit 2021 4 Last Documented On 5 8:06AM ; [facility], [facility] Not using alcohol 02/26/2024 Last Documented On 5 8:06AM ; [facility], [facility] Not using drugs 02/26/2024 Last Documented On 5 8:06AM ; [facility], [facility] Tobacco non-user 04/17/2023 Last Documented On 5 8:06AM ; [facility], [facility] Caffeine use 04/17/2023 Last Documented On 5 8:06AM ; [facility], [facility] Not exercising regularly 04/17/2023 Last Documented On 5 8:06AM ; [facility], [facility] Recent change in diet 04/17/2023 Last Documented On 5 8:06AM ; [facility], [facility] Smoker 04/20/2021 Last Documented On 5 8:06AM ; [facility], [facility] Never drank alcohol 04/20/2021 Last Documented On 5 8:06AM ; [facility], [facility] Never used drugs 04/20/2021 Last Documented On 5 8:06AM ; [facility], [facility] Retired from work 04/20/2021 Last Documented On 5 8:06AM ; [facility], [facility] Smoking Status Unknown Procedures and Surgical History Includes: Procedures from this encounter Procedures Code Diagnosis Performing Provider Service L ocation Service Date use of tobacco assessment performed 1000F Last Documented On 5 8:06AM ; [facility], [facility] review of medications documented 1160F Last Documented On 5 8:06AM ; [facility], [facility] Surgical History Last Updated Past Surgical History: Gastric Sleeve Ferrara rgery 04/17/2023 Last Documented On 5 8:06AM ; [facility], [facility] History of History of Gallbladder 2023 Last Documented On 5 8:06AM ; [facility] Medical History Includes: Medical History addressed during this encounter Description Last Updated History of arthritis 04/17/2023 Last Documented On 5 8:06AM ; [facility] History of depression 04/17/2023 Last Documented On 5 8:06AM ; [facility] Recent immunization for flu 04/25/2021 Last Documented On 5 8:06AM ; [facility] Recent immunization for pneumococcal pne umonia 2014 04/20/2021 Last Documented On 5 8:06AM ; [facility] History of osteoporosis 04/20/2021 Last Documented On 5 8:06AM ; [facility] Family History Includes: Family History addressed during this encounter Description Last Updated Family history of heart disease 04/17/19 24 Last Documented On 5 8:06AM ; [facility] Family history of osteoporosis 4 Last Documented On 5 8:06AM ; [facility] Stroke / Seizures 04/17/2023 Last Documented On 5 8:06AM ; [facility] Maternal history of osteoporosis 022 Last Documented On 5 8:06AM ; [facility] Paternal grandmother's history of family history of heart disease 04/20/2021 Last Documented On 5 8:06AM ; [facility] Paternal history of family history of he art disease 04/20/2021 Last Documented On 5 8:06AM ; [facility] Paternal history of Stroke / Seizures Last Documented On 5 8:06AM ; [facility], [facility] Review of Systems Includes: Review of Systems from this encounter Systemic: Not feeling tired. Recent weight loss. No recent weight gain. Head: No headache and no sinus pain. Eyes: No vision problems and no Cataracts. Glasses/Contacts. No Glaucoma. Otolaryngeal: No hearing loss and no tinnitus. Cardiovascular: No chest pain or discomfort, no palpitations, no Hypertension, and no High Cholesterol. Pulmonary: No daytime asthma symptoms and no chronic cough. No wheezing. Gastrointestinal: No heartburn and no abdominal pain. No Indigestion, no Peptic Ulcer, no GI Stomach Bleed, no Ulcers, and no Acid Reflux. Endocrine: No hot flashes, no muscle weakness, no Diabetes, no Hypothyroid, and no Hyperthyroid. Hematologic: No easy bleeding, no tendency for easy bruising, and no Anemia. Musculoskeletal: Arthritis and lower back pain. No soft tissue swelling. Pain localized to one or more joints. Neurological: No dizziness, no convulsions, and no numbness. Psychological: No anxiety and no emotional lability. Depression. No insomnia. Not crying for no reason. Skin: No dry skin. No Ulcers, no Scars, and no rash. Allergic and Immunologic: Complaint of seasonal allergic reaction. Mental Status Includes: Mental Status from this encounter Description No anxiety Functional Status Includes: Functional Status from this encounter No Functional Status Recorded Physical Exam Includes: Physical Exam from this encounter Allergies Includes: Active Allergies No Known Allergies Encounters Encounter Provider Location Date Check-In Time Check- Out Time Diagnosis Follow Up Dara Cassidy PA-C [facility] 5 7:58AM 8:27AM Insurance Includes: Active Insurance Policies Plan Name Member ID Group # Subscriber Relationship Effect alfredo Dates 1 - [facility] [id number] Wilma Canales Self 03/25/2021 - Unknown Clinical Notes Includes: Clinical Notes from this encounter * Progress note Date Encounter Last Documented by 09/30/2024 Follow Up Last documented on 09/30/2024; 11:54 AM, Dara Cassidy PA-C; [facility] Active Problems & Conditions - Joint Pain in the Left Hip - Joint Pain in the Right Knee - Lower Back Pain Chief Complaint The Chief Complaint is: L3-4 jesse 3m fu. Referred Here Referred by LAST PCP VISIT 04/03/2023. History of Present Illness Wilma Canales is a 58 year old female. - Allergy list reviewed - Problem list reviewed - Medication list reviewed - Patient pain level from -: 7 - History of Home Exercise 08/12/2023 - History of Injections 09/03/2023 R SI 90% FOR 9WKS 12/06/2023 R SI 50% FOR 3 WKS 12/06/2023 L3-4 JESSE 90% 2 03/26 MTHS - Review of medications documented This is a 58-year-old female following up with me on L3-L4 lumbar stenosis. Patient reports she has got about 50-60% improvement back pain symptoms with the last JESSE injection. Patient states most of her pain is in the lumbar spine as well as over the right SI joint. Patient had a previous right SI joint injection that provided minimal to no relief of her symptoms so they proceeded with JESSE injections which helped substantially. Patient states that her last injection she noticed not as much improvement but she thinks this is secondary to a fall she had when her dog ran her over. She was dealing with a lot of muscle pain at that time. Patient is hopeful to proceed with a repeat injection at this time to see if this provides her with more symptomatic relief. Past Medical/Surgical History Reported: Immunization History: Recent immunization for flu 04/25/2021 and for pneumococcal pneumonia 2013. Diagnoses: Osteoporosis. Arthritis. Depression Procedural: Past Surgical History: Gastric Sleeve Surgery Surgical: - History of Gallbladder Social History Yes, current smoker. quit 2021. Current diet: Recent change in diet. Behavioral: Tobacco non-user. Caffeine: Caffeine use. Tobacco use: Smoker. Alcohol: Not using alcohol. Never drank alcohol. Drug Use: Not using drugs. Never used drugs. Habits: Not exercising regularly. Work: Retired from work. Allergies - No Known Allergies Family History Heart disease Stroke / Seizures Osteoporosis Paternal: Heart disease Stroke / Seizures Maternal: Osteoporosis Paternal grandmother's: Heart disease Review Of Systems Systemic: Not feeling tired. Recent weight loss. No recent weight gain. Head: No headache and no sinus pain. Eyes: No vision problems and no Cataracts. Glasses/Contacts. No Glaucoma. Otolaryngeal: No hearing loss and no tinnitus. Cardiovascular: No chest pain or discomfort, no palpitations, no Hypertension, and no High Cholesterol. Pulmonary: No daytime asthma symptoms and no chronic cough. No wheezing. Gastrointestinal: No heartburn and no abdominal pain. No Indigestion, no Peptic Ulcer, no GI Stomach Bleed, no Ulcers, and no Acid Reflux. Endocrine: No hot flashes, no muscle weakness, no Diabetes, no Hypothyroid, and no Hyperthyroid. Hematologic: No easy bleeding, no tendency for easy bruising, and no Anemia. Musculoskeletal: Arthritis and lower back pain. No soft tissue swelling. Pain localized to one or more joints. Neurological: No dizziness, no convulsions, and no numbness. Psychological: No anxiety and no emotional lability. Depression. No insomnia. Not crying for no reason. Skin: No dry skin. No Ulcers, no Scars, and no rash. Allergic and Immunologic: Complaint of seasonal allergic reaction. Physical Findings Gen: No acute distress, mood and affect are appropriate Pulmonary: breathing unlabored Gait: normal gait without assistance of an ambulatory device Spine exam: nontender to palpation of the cervical, throacic. Tenderness to palpation of the lumbar spine as well - right lower extremity: 5/5 in Rt hipflexors/extensors, knee flexors/extensors, ankle dorsiflexors and as the right SI joint planter flexors. - left lower extremity: 5/5 in Lt hipflexors/extensors, knee flexors/extensors, ankle dorsiflexors and planter flexors sensory is grossly intact in upper and lower extremity Bilateral 2+ palpable dorsalis pedis pulses Counseling/Education Tobacco non-user. use of tobacco assessment performed. intervention and counseling on cessation of tobacco use. - Lose weight Notes This dictation was done with voice recognition software and may contain errors and omissions. Practice Management Use of tobacco assessment performed Review of medications documented. Care Team - MINDY DEJESUS MD - CASE [employer] Health Reminders - Assess Tobacco Use satisfied 09/30/2024. User Defined 5 L3-L4 spinal stenosis They are a 58-year-old female that is currently being treated for L3-L4 spinal stenosis. Since they continue to experience 50-60% or more pain relief with these periodic injections, it is very reasonable continue with that for now. Patient has noticed a she did not get as much improvement as she has had previous injections in she attributes this to a injury where she fell after being hit by her dog and was dealing with some contusion and musculoskeletal strains. She would like to repeat injection to see if she continues to have good efficacy over low back pain symptoms. Patient has had previous SI joint injections that did not provide any significant relief. We will get them scheduled for another injection as long as they are providing them good clinical results
--- OUTSIDE RECORDS SUMMARY | 2025-01-01 07:30 | XMS_ITS | Clinical Summary ---
Author Organization [facility] , [facility] Address [address] [place] [address] Phone Care Team Providers Care Cardiac Rehabilitation Specialist Name Role Phone ANJELICA SHAW, MINDY Primary Care Provider [phone] Dylan SHAW, Epifanio Unavailable [phone] Reason for Visit and Chief Complaint Epidural Steroid Injection Problems Includes: Problems addressed during this encounter and other active Problems All Visits Onset Date Resolved Date Provider Condition S tatus Lower Back Pain 08/12/2023 SAI STOCK PA-C Active Last Documented On 4 2:57PM ; [facility], [facility] Joint Pain Hip Left 04/17/2023 Simon haro PA-C Active Last Documented On 4 9:59AM ; [facility] Joint Pain Right Knee 04/20/2021 Tiera Turner PA-C Active Last Documented On 2 10:25AM ; [facility], [facility] Plan of Treatment Future Appointments Date Time Location Provi ramon Follow Up 01/13/2025 3:30PM [facility] SCOTT Nguyen MD Last Documented On 5 9:31AM ; [facility], [facility] Epidural Steroid Injection 01/21/2025 3:00PM [facility]OTT Graff CRNA Last Documented On 5 11:48AM ; [facility], [facility] Assessments Includes: Assessments from this encounter No [...] Provider Service Location Service Date Lumbar epidural 95101 Spinal stenosis, lumbar region with neurogenic claudication Vipul Graff CRNA [facility] 10/12/2024 Last Documented On 5 11:45AM ; [facility] Triamcinolone/Kenalog, 10mg per cc [id number] Spinal stenosis, lumbar region with neurogenic claudication Vipul Graff CRNA [facility] 10/12/2024 Last Documented On 5 11:45AM ; [facility] Medical History Includes: Medical History addressed [...] Time Diagnosis Epidural Steroid Injection Vipul Graff [facility] 10/13/19 25 8:50AM 9:39AM Insurance Includes: Active Insurance Policies Plan Name Member ID Group # Subscriber Relationship Effect alfredo Dates 1 - [facility] [id number] Wilma M Ally Kuhn 03/25/2021 - Unknown Clinical Notes Includes: Clinical Notes from this encounter No Clinical Notes Recorded
--- OUTSIDE RECORDS SUMMARY | 2025-01-01 07:30 | XMS_ITS | Encounter Summary ---
Author Organization [employer] ([place], [place], [place], [place]) Address [address] [place] [address] Care Team Providers Care Judge Clerk Name Role Phone Unavailable Primary Care Provider Unavailabl e Encounter Details Date Type Department Care Team (Late st Contact Info) Description 07/29/[address] [facility] Family Medicine [facility] [place] [address] ProviderOtilia MD [address] [place] [address] Social History Tobacco Use Types [...] eating solid foods. General instructions ??? Take kbye-kkn-gygeuja and prescription medicines only as told by [...] provider. Document Revised: 06/09/2018 Document Reviewed: 07/01/2016 [employer] Patient Education ? 2020 [employer] ESOPHAGOGASTRODUODENOSCOPY Care After Read the instructions [...] Follow these instructions at home: ??? Take hmmi-yal-esityax and prescription medicines only as told by [...] and water are not available, use hand stapler machine. ? Do not eat food or drink [...] provider. Document Revised: 07/02/2019 Document Reviewed: 03/04/2018 [employer] Patient Education ? 2020 [employer] documented in this encounter Plan of Treatment Not on file documented as of this encounter Visit Diagnoses Not on filedocumented in this encounter
--- OUTSIDE RECORDS SUMMARY | 2025-01-01 07:30 | XMS_ITS | Data Portability ---
Author Organization [facility] & [facility] ADMIN Address [address] [place] [id number] Care Team Providers Care Auto Bumper Straightener Name Role Phone MINDY DEJESUS Primary Care Provider [phone] Assessment No assessment recorded. Plan of Treatment Reminders Order Date Submit Date Provider Last Modified By Organization Details Last Modified Time Details Appointments OV EST 20 2025 03:00P M Jaylen Lima, DNP, ADVANCED REGISTERED NURSE, ALUMNI RELATIONS MANAGER-C Not available Not available Not available Lab vitamin D, 25-hydrox y, total, serum 2024 025 [facility], [address], [address], [place], [address], 12/31/2024 04:07:40 CBC w/ auto diff 2024 025 [facility]ELIX [facility], [address], [address], [place], [address], 12/31/2024 04:07:40 CMP, serum or plasma 2024 025 [facility]ELIX [facility], [address], [address], [place], [address], 12/31/2024 04:07:40 HbA1c (hemoglob in A1c), blood 2024 025 [facility]ELIX [facility], [address], [address], [place], [address], 12/31/2024 04:07:40 TSH + free T4, serum 2024 025 [facility]ELIX [facility], [address], [address], [place], [address], 12/31/2024 04:07:41 lipid panel, serum 2024 025 [facility]ELIX [facility], [address], [address], [place], [address], 12/31/2024 04:07:41 iron + TIBC + ferritin, serum 2024 025 [facility], [address], [address], [place], [address], 12/31/2024 04:07:39 folate, serum 2024 025 [facility], [address], [address], [place], [address], 12/31/2024 04:07:39 prealbumi n, serum 2024 025 [facility], [address], [address], [place], [address], 12/31/2024 04:07:40 thiamine, QN, blood 2024 025 [facility], [address], [address], [place], [address], 12/31/2024 04:07:40 methylmal joelle, QN, serum or plasma 2024 025 [facility], [address], [address], [place], [address], 12/31/2024 04:07:40 vitamin E, serum 2024 025 FELIX [facility], [address], [address], [place], [address], 12/31/2024 04:07:41 vitamin A (retinol) , serum 2024 025 [facility]IX [facility], [address], [address], [place], [address], 12/31/2024 04:07:41 vitamin D, 25-hydrox y, total, serum 2024 025 [facility], [address], [address], [place], [address], 08/21/2024 20:36:04 CBC w/ auto diff 2024 025 [facility], [address], [address], [place], [address], 08/21/2024 20:35:59 CMP, serum or plasma 2024 025 [facility], [address], [address], [place], [address], 08/21/2024 20:36:00 HbA1c (hemoglob in A1c), blood 2024 025 [facility], [address], [address], [place], [address], 08/21/2024 20:36:02 TSH + free T4, serum 2024 025 [facility], [address], [address], [place], [address], 08/21/2024 20:35:59 lipid panel, serum 2024 025 [facility], [address], [address], [place], [address], 08/21/2024 20:36:01 iron + TIBC + ferritin, serum 2024 025 [facility], [address], [address], [place], [address], 08/21/2024 20:35:57 folate, serum 2024 025 [facility], [address], [address], [place], [address], 08/21/2024 20:36:03 prealbumi n, serum 2024 025 [facility], [address], [address], [place], [address], 08/21/2024 20:36:06 thiamine, QN, blood 2024 025 [facility], [address], [address], [place], [address], 08/21/2024 20:36:05 methylmal joelle, QN, serum or plasma 2024 025 [facility], [address], [address], [place], [address], 08/21/2024 20:36:05 vitamin E, serum 2024 025 [facility]IX [facility], [address], [address], [place], [address], 08/21/2024 20:36:01 vitamin A (retinol) , serum 2024 025 [facility], [address], [address], [place], [address], 08/21/2024 20:36:04 vitamin D, 25-hydrox y, total, serum 2024 025 [facility], [address], [address], [place], [address], 05/29/2024 16:13:23 CBC w/ auto diff 02/24/ 2025 02/24/2 025 [facility]IX [facility], [address], [address], [place], [address], 05/29/2024 16:13:18 CMP, serum or plasma 2024 025 [facility], [address], [address], [place], [address], 05/29/2024 16:13:19 HbA1c (hemoglob in A1c), blood 2024 025 [facility], [address], [address], [place], [address], 05/29/2024 16:13:21 TSH + free T4, serum 2024 025 [facility], [address], [address], [place], [address], 05/29/2024 16:13:17 lipid panel, serum 2024 025 [facility], [address], [address], [place], [address], 05/29/2024 16:13:20 iron + TIBC + ferritin, serum 2024 025 [facility], [address], [address], [place], [address], 05/29/2024 16:13:16 folate, serum 2024 025 [facility], [address], [address], [place], [address], 05/29/2024 16:13:22 prealbumi n, serum 2024 025 [facility], [address], [address], [place], [address], 05/29/2024 16:13:26 thiamine, QN, blood 2024 025 [facility], [address], [address], [place], [address], 05/29/2024 16:13:24 methylmal joelle, QN, serum or plasma 2024 025 [facility], [address], [address], [place], [address], 05/29/2024 16:13:25 vitamin E, serum 2024 025 [facility]IX [facility], [address], [address], [place], [address], 05/29/2024 16:13:20 vitamin A (retinol) , serum 2024 025 [facility]IX [facility], [address], [address], [place], [address], 05/29/2024 16:13:23 vitamin D, 25-hydrox y, total, serum 2023 024 [facility], [address], [address], [place], [address], 02/17/2024 14:37:37 iron + TIBC + ferritin, serum 2023 024 [facility], [address], [address], [place], [address], 02/17/2024 14:37:25 folate, serum 2023 024 [facility], [address], [address], [place], [address], 02/17/2024 14:37:35 prealbumi n, serum 2023 024 [facility], [address], [address], [place], [address], 02/17/2024 14:37:40 thiamine, QN, blood 2023 024 [facility], [address], [address], [place], [address], 02/17/2024 14:37:38 methylmal joelle, QN, serum or plasma 2023 024 [facility], [address], [address], [place], [address], 02/17/2024 14:37:39 vitamin E, serum 2023 024 [facility]IX [facility], [address], [address], [place], [address], 02/17/2024 14:37:32 vitamin A (retinol) , serum 2023 024 [facility], [address], [address], [place], [address], 02/17/2024 14:37:36 CBC w/ auto diff 2023 024 [facility], [address], [address], [place], [address], 02/17/2024 14:37:28 CMP, serum or plasma 2023 024 [facility], [address], [address], [place], [address], 02/17/2024 14:37:29 HbA1c (hemoglob in A1c), blood 2023 024 [facility], [address], [address], [place], [address], 02/17/2024 14:37:33 TSH + free T4, serum 2023 024 [facility], [address], [address], [place], [address], 02/17/2024 14:37:27 lipid panel, serum 2023 024 [facility]IX [facility], [address], [address], [place], [address], 02/17/2024 14:37:31 CBC w/ auto diff 2023 024 [email or web address] [facility], [address], [address], [place], [address], 11/18/2023 15:59:13 CMP, serum or plasma 2023 024 [facility], [address], [address], [place], [address], 11/18/2023 15:59:14 HbA1c (hemoglob in A1c), blood 2023 024 [email or web address] [facility], [address], [address], [place], [address], 11/18/2023 15:59:14 iron + TIBC + ferritin, serum 2023 024 [email or web address] [facility], [address], [address], [place], [address], 11/18/2023 15:59:14 folate, serum 2023 024 [email or web address] [facility], [address], [address], [place], [address], 11/18/2023 15:59:14 vitamin D, 25-hydrox y, total, serum 2023 024 [email or web address] [facility], [address], [address], [place], [address], 11/18/2023 15:59:14 vitamin E, serum 2023 024 [facility], [address], [address], [place], [address], 11/18/2023 15:59:15 vitamin A (retinol) , serum 2023 024 [email or web address] [facility], [address], [address], [place], [address], 11/18/2023 15:59:15 TSH + free T4, serum 2023 024 [email or web address] [facility], [address], [address], [place], [address], 11/18/2023 15:59:15 prealbumi n, serum 2023 024 [email or web address] [facility], [address], [address], [place], [address], 11/18/2023 15:59:15 thiamine, QN, blood 2023 024 [facility]ELIX [facility], [address], [address], [place], [address], 11/15/2023 12:42:16 methylmal joelle, QN, serum or plasma 2023 024 [email or web address] [facility], [address], [address], [place], [address], 11/18/2023 15:59:16 lipid panel, serum 2023 024 [email or web address] [facility], [address], [address], [place], [address], 11/18/2023 15:59:16 Referral None recorded. Procedures None recorded. Surgeries None recorded. Imaging None recorded. Medication Orders ondansetr on 4 mg disintegr ating tablet 2024 025 [facility], [address] [place] [address] [place], RAGHAV Alex, [id number], 12/24/2024 13:17:41 Zepbound 12.5 mg/0.5 mL subcutane ous pen injector 2024 025 [facility], [address] [place] [address] S, RAGHAV Alex, [id number], 12/24/2024 13:17:40 Zepbound 12.5 mg/0.5 mL subcutane ous pen injector 2024 025 [facility], [address] [place] [address], RAGHAV Alex, [id number], 12/24/2024 09:22:28 ondansetr on 4 mg disintegr ating tablet 2024 025 [facility], [address] [place] [address], RAGHAV Alex, [id number], 11/20/2024 15:43:10 Zepbound 2.5 mg/0.5 mL subcutane ous pen injector 2024 025 [facility], [address] [place] [address] S, RAGHAV Alex, [id number], 08/18/2024 09:15:32 ondansetr on 4 mg disintegr ating tablet 2024 025 [facility], [address] [place] [address] S, RAGHAV Alex, [id number], 05/18/2024 09:50:10 ondansetr on 4 mg disintegr ating tablet 2023 024 FELIX Alex [facility], [address] [facility] [address] [place], [id number], 02/10/2024 09:19:09 Reglan 5 mg tablet 2023 025 [facility], [address] [facility] [address] [place], [id number], 05/18/2024 09:42:53 ondansetr on 8 mg disintegr ating tablet 2023 024 [email or web address], [address] [facility] [address] [place], [id number], 12/24/2024 12:50:21 Patient TargetsNo targets recorded. Patient InstructionsNo instructions recorded. Reason for Referral None Reported. Results Created Date Observation Date Name Description Value Unit Range Abnormal Flag Note LastModifiedBy Organization Detail LastModifiedTime 02/10/2002/11/2024 FE+TI BC+FE R iron bind.cap.(TI BC) 313 ug/dL 250-45 0 normal Not Available [facility] ([facility]) [address] [place], [address], 02/17/2024 14:37:25 02/10/20 24 02/11/2024 FE+TI BC+FE R UIBC 207 ug/dL 131-42 5 normal Not Available [facility] ([facility]) [address] [place], [address], 02/17/2024 14:37:25 02/10/2002/11/2024 FE+TI BC+FE R iron 106 ug/dL 27-159 normal Not Available [facility] ([facility]) [address] [place], [address], 02/17/2024 14:37:25 02/10/20 24 02/11/2024 FE+TI BC+FE R iron saturation 34 % 15-55 normal Not Available [facility] ([facility]) [address] [facility], [place], [address], 02/17/2024 14:37:25 02/10/20 24 02/11/2024 FE+TI BC+FE R ferritin 126 NG/mL 15-150 normal Not Available [facility] ([facility]) [address] [facility], [place], [address], 02/17/2024 14:37:25 02/10/20 24 02/11/2024 TSH+F REE T4 TSH 2.260 uIU/m L 0.450- 4.500 normal Not Available [facility] ([facility]) [address] [facility], [place], [address], 02/17/2024 14:37:27 02/10/20 24 02/11/2024 TSH+F REE T4 T4,free(dire ct) 1.11 NG/dL 0.82-1 .77 normal Not Available [facility] ([facility]) [address] [facility], [place], [address], 02/17/2024 14:37:27 02/10/20 24 02/11/2024 CBC WITH DIFFE RENTI AL/PL ATELE T WBC 8.3 x10e3 /uL 3.4-10 .8 normal Eff ectiv e Decem 2023 [place] [id number] 5 WBC will be made* * non-o rdera ble as a stand -nolvia e order code. Not Available [facility] ([facility]) [address] [facility], [place], [address], 02/17/2024 14:37:28 02/10/20 24 02/11/2024 CBC WITH DIFFE RENTI AL/PL ATELE T RBC 5.05 x10e6 /uL 3.77-5 .28 normal Not Available [facility] ([facility]) [address] [place], [address], 02/17/2024 14:37:28 02/10/20 24 02/11/2024 CBC WITH DIFFE RENTI AL/PL ATELE T hemoglobin 15.2 g/dL 11.1-1 5.9 normal Not Available [facility] ([facility]) [address] [facility], [place], [address], 02/17/2024 14:37:28 02/10/20 24 02/11/2024 CBC WITH DIFFE RENTI AL/PL ATELE T hematocrit 47.1 % 34.0-4 6.6 above high normal Not Available [facility] ([facility]) [address] [place], [address], 02/17/2024 14:37:28 02/10/20 24 02/11/2024 CBC WITH DIFFE RENTI AL/PL ATELE T MCV 93 fL 79-97 normal Not Available [facility] ([facility]) [address] [place], [address], 02/17/2024 14:37:28 02/10/20 24 02/11/2024 CBC WITH DIFFE RENTI AL/PL ATELE T MCH 30.1 pg 26.6-3 3.0 normal Not Available [facility] ([facility]) [address] [place], [address], 02/17/2024 14:37:28 02/10/20 24 02/11/2024 CBC WITH DIFFE RENTI AL/PL ATELE T MCHC 32.3 g/dL 31.5-3 5.7 normal Not Available [facility] ([facility]) [address] [place], [address], 02/17/2024 14:37:28 02/10/20 24 02/11/2024 CBC WITH DIFFE RENTI AL/PL ATELE T RDW 13.0 % 11.7-1 5.4 Not Available [facility] ([facility]) [address] [place], [address], 02/17/2024 14:37:28 02/10/20 24 02/11/2024 CBC WITH DIFFE RENTI AL/PL ATELE T platelets 319 x10e3 /uL 150-45 0 normal Not Available [facility] ([facility]) [address] [facility], [place], [address], 02/17/2024 14:37:28 02/10/20 24 02/11/2024 CBC WITH DIFFE RENTI AL/PL ATELE T neutrophils 64 % not estab. normal Not Available [facility] ([facility]) [address] [facility], [place], [address], 02/17/2024 14:37:28 02/10/20 24 02/11/2024 CBC WITH DIFFE RENTI AL/PL ATELE T lymphs 24 % not estab. normal Not Available [facility] ([facility]) [address] [facility], [place], [address], 02/17/2024 14:37:28 02/10/20 24 02/11/2024 CBC WITH DIFFE RENTI AL/PL ATELE T monocytes 9 % not estab. normal Not Available [facility] ([facility]) [address] [facility], [place], [address], 02/17/2024 14:37:28 02/10/20 24 02/11/2024 CBC WITH DIFFE RENTI AL/PL ATELE T eos 2 % not estab. normal Not Available [facility] ([facility]) [address] [facility], [place], [address], 02/17/2024 14:37:28 02/10/20 24 02/11/2024 CBC WITH DIFFE RENTI AL/PL ATELE T basos 1 % not estab. normal Not Available [facility] ([facility]) [address] [facility], [place], [address], 02/17/2024 14:37:28 02/10/20 24 02/11/2024 CBC WITH DIFFE RENTI AL/PL ATELE T immature cells ALUMNI RELATIONS MANAGER Not Available [facility] ([facility]) [address] [place], [address], 02/17/2024 14:37:28 02/10/20 24 02/11/2024 CBC WITH DIFFE RENTI AL/PL ATELE T neutrophils (absolute) 5.3 x10e3 /uL 1.4-7. 0 normal Not Available [facility] ([facility]) [address] [place], [address], 02/17/2024 14:37:28 02/10/20 24 02/11/2024 CBC WITH DIFFE RENTI AL/PL ATELE T lymphs (absolute) 2.0 x10e3 /uL 0.7-3. 1 normal Not Available [facility] ([facility]) [address] [place], [address], 02/17/2024 14:37:28 02/10/20 24 02/11/2024 CBC WITH DIFFE RENTI AL/PL ATELE T monocytes(ab solute) 0.8 x10e3 /uL 0.1-0. 9 normal Not Available [facility] ([facility]) [address] [place], [address], 02/17/2024 14:37:28 02/10/20 24 02/11/2024 CBC WITH DIFFE RENTI AL/PL ATELE T eos (absolute) 0.2 x10e3 /uL 0.0-0. 4 normal Not Available [facility] ([facility]) [address] [place], [address], 02/17/2024 14:37:28 02/10/20 24 02/11/2024 CBC WITH DIFFE RENTI AL/PL ATELE T baso (absolute) 0.1 x10e3 /uL 0.0-0. 2 normal Not Available [facility] ([facility]) [address] [place], [address], 02/17/2024 14:37:28 02/10/20 24 02/11/2024 CBC WITH DIFFE RENTI AL/PL ATELE T immature granulocytes 0 % not estab. Not Available [facility] ([facility]) [address] [facility], [place], [address], 02/17/2024 14:37:28 02/10/20 24 02/11/2024 CBC WITH DIFFE RENTI AL/PL ATELE T immature grans (abs) 0.0 x10e3 /uL 0.0-0. 1 Not Available [facility] ([facility]) [address] [facility], [place], [address], 02/17/2024 14:37:28 02/10/20 24 02/11/2024 CBC WITH DIFFE RENTI AL/PL ATELE T NRBC ALUMNI RELATIONS MANAGER Not Available [facility] ([facility]) [address] [facility], [place], [address], 02/17/2024 14:37:28 02/10/20 24 02/11/2024 CBC WITH DIFFE RENTI AL/PL ATELE T hematology comments: ALUMNI RELATIONS MANAGER Not Available [facility] ([facility]) [address] [facility], [place], [address], 02/17/2024 14:37:28 02/10/20 24 02/11/2024 COMP. METAB OLIC PANEL (14) glucose 82 mg/dL 70-99 normal Not Available [facility] ([facility]) [address] [facility], [place], [address], 02/17/2024 14:37:29 02/10/20 24 02/11/2024 COMP. METAB OLIC PANEL (14) BUN 13 mg/dL 6-24 normal Not Available [facility] ([facility]) [address] [place], [address], 02/17/2024 14:37:29 02/10/20 24 02/11/2024 COMP. METAB OLIC PANEL (14) creatinine 0.77 mg/dL 0.57-1 .00 normal Not Available [facility] ([facility]) [address], [place], [address], 02/17/2024 14:37:29 02/10/20 24 02/11/2024 COMP. METAB OLIC PANEL (14) eGFR 89 mL/mi n/1.7 3 >59 normal Not Available [facility] ([facility]) [address] [place], [address], 02/17/2024 14:37:29 02/10/20 24 02/11/2024 COMP. METAB OLIC PANEL (14) BUN/creatini ne ratio 17 9-23 normal Not Available [facility] ([facility]) [address] [place], [address], 02/17/2024 14:37:29 02/10/20 24 02/11/2024 COMP. METAB OLIC PANEL (14) sodium 141 mmol/ L 134-14 4 normal Not Available [facility] ([facility]) [address] [place], [address], 02/17/2024 14:37:29 02/10/20 24 02/11/2024 COMP. METAB OLIC PANEL (14) potassium 4.4 mmol/ L 3.5-5. 2 normal Not Available [facility] ([facility]) [address] [place], [address], 02/17/2024 14:37:29 02/10/20 24 02/11/2024 COMP. METAB OLIC PANEL (14) chloride 102 mmol/ L 96-106 normal Not Available [facility] ([place] [facility]) [address] [place], [address], 02/17/2024 14:37:29 02/10/20 24 02/11/2024 COMP. METAB OLIC PANEL (14) carbon dioxide, total 25 mmol/ L 20-29 normal Not Available [facility] ([place] [facility]) [address] [place], [address], 02/17/2024 14:37:29 02/10/20 24 02/11/2024 COMP. METAB OLIC PANEL (14) calcium 9.3 mg/dL 8.7-10 .2 normal Not Available [facility] ([facility]) [address] [place], [address], 02/17/2024 14:37:29 02/10/20 24 02/11/2024 COMP. METAB OLIC PANEL (14) protein, total 6.4 g/dL 6.0-8. 5 normal Not Available [facility] ([facility]) [address] [place], [address], 02/17/2024 14:37:29 02/10/20 24 02/11/2024 COMP. METAB OLIC PANEL (14) albumin 4.1 g/dL 3.8-4. 9 normal Not Available [facility] ([facility]) [address] [place], [address], 02/17/2024 14:37:29 02/10/20 24 02/11/2024 COMP. METAB OLIC PANEL (14) globulin, total 2.3 g/dL 1.5-4. 5 Not Available [facility] ([facility]) [address] [place], [address], 02/17/2024 14:37:29 02/10/20 24 02/11/2024 COMP. METAB OLIC PANEL (14) bilirubin, total 0.5 mg/dL 0.0-1. 2 normal Not Available [facility] ([facility]) [address] [place], [address], 02/17/2024 14:37:29 02/10/20 24 02/11/2024 COMP. METAB OLIC PANEL (14) alkaline phosphatase 69 IU/L 44-121 normal Not Available [facility] ([facility]) [address] [place], [address], 02/17/2024 14:37:29 02/10/20 24 02/11/2024 COMP. METAB OLIC PANEL (14) AST (SGOT) 18 IU/L 0-40 normal Not Available [facility] ([facility]) [address] [place], [address], 02/17/2024 14:37:29 02/10/20 24 02/11/2024 COMP. METAB OLIC PANEL (14) ALT (SGPT) 15 IU/L 0-32 normal Not Available [facility] ([facility]) [address] [place], [address], 02/17/2024 14:37:29 02/10/20 24 02/11/2024 LIPID PANEL cholesterol, total 210 mg/dL 100-19 9 above high normal Not Available [facility] ([facility]) [address] [place], [address], 02/17/2024 14:37:31 02/10/20 24 02/11/2024 LIPID PANEL triglyceride s 70 mg/dL 0-149 normal Not Available [facility] ([facility]) [address] [place], [address], 02/17/2024 14:37:31 02/10/20 24 02/11/2024 LIPID PANEL HDL cholesterol 70 mg/dL >39 normal Not Available [facility] ([facility]) [address] [place], [address], 02/17/2024 14:37:31 02/10/20 24 02/11/2024 LIPID PANEL VLDL cholesterol salomón 12 mg/dL 5-40 Not Available [facility] ([facility]) [address] [place], [address], 02/17/2024 14:37:31 02/10/20 24 02/11/2024 LIPID PANEL LDL chol calc ([facility]) 128 mg/dL 0-99 above high normal Not Available [facility] ([facility]) [address] [facility], [place], [address], 02/17/2024 14:37:31 02/10/20 24 02/11/2024 LIPID PANEL LDL calc comment: [employer] Not Available [facility] ([facility]) [address] [facility], [place], [address], 02/17/2024 14:37:31 02/10/20 24 02/17/2024 VITAM IN E vitamin E(alpha tocopherol) 11.6 mg/L 7.0-25 .1 Not Available [facility] ([facility]) [address] [facility], [place], [address], 02/17/2024 14:37:32 02/10/20 24 02/17/2024 VITAM IN [...] in E defic ient. Not Available [facility] ([facility]) [address] [facility], [place], [address], 02/17/2024 14:37:32 02/10/20 24 02/11/2024 HEMOG LOBIN A1C hemoglobin A1C 5.5 % 4.8-5. 6 normal Predi abete s: 5.7 - 6.4 Diabe thai: >6.4 Glyce rashi contr ol for adult s with diabe thai: <7.0 Not Available [facility] ([facility]) [address] [facility], [place], [address], 02/17/2024 14:37:33 02/10/20 24 02/11/2024 FOLAT E (FOLI C ACID) , SERUM folate (folic acid), serum 3.3 NG/mL >3.0 normal A serum folat e cheyanne ntrat ion of less than 3.1 ng/mL is consi dered to repre sent clini salomón defic iency . Not Available [facility] ([facility]) [address] [facility], [place], [address], 02/17/2024 14:37:34 02/10/20 24 02/17/2024 VITAM IN [...] Drug Admin istra tion. Not Available [facility] ([facility] Lab) [address] [facility], [place], [address], 02/17/2024 14:37:36 02/10/20 24 02/11/2024 VITAM IN [...] Supa willis DC: The Nat [facility] Press . 2. Elvira zee MF, Alvaro ribeiro NC, Joya off-F errar i KING, et al. Evalu ation , treat ment, and preve ntion of vitam in D defic iency : an Endoc rine Socie ty clini salomón pract ice guide line. JCEM. 2010; 96(7) :1911 -30. Not Available [facility] ([facility]) [address] [facility], [place], [address], 02/17/2024 14:37:37 02/10/20 24 02/13/2024 VITAM IN B1 (THIA MINE) , BLOOD vit. B1, whole blood 115.6 nmol/ L 66.5-2 00.0 Not Available [facility] ([facility]) [address] [place], [address], 02/17/2024 14:37:38 02/10/20 24 02/12/2024 METHY LMALO DAMIEN ACID, SERUM methylmaloni c acid, serum 127 nmol/ L 0-378 Not Available [facility] ([facility]) [address] [place], [address], 02/17/2024 14:37:39 02/10/20 24 02/11/2024 PREAL BUMIN prealbumin 20 mg/dL 10-36 Not Available [facility] ([facility]) [address] [place], [address], 02/17/2024 14:37:40 05/18/19 25 05/19/2024 FE+TI BC+FE R iron bind.cap.(TI BC) 297 ug/dL 250-45 0 normal Not Available [facility] ([facility]) [address] [place], [address], 05/29/2024 16:13:16 05/18/19 25 05/19/2024 FE+TI BC+FE R UIBC 211 ug/dL 131-42 5 normal Not Available [facility] ([facility]) [address] [place], [address], 05/29/2024 16:13:16 05/18/19 25 05/19/2024 FE+TI BC+FE R iron 86 ug/dL 27-159 normal Not Available [facility] ([facility]) [address] [place], [address], 05/29/2024 16:13:16 05/18/19 25 05/19/2024 FE+TI BC+FE R iron saturation 29 % 15-55 normal Not Available [facility] ([facility]) [address] [place], [address], 05/29/2024 16:13:16 05/18/19 25 05/19/2024 FE+TI BC+FE R ferritin 147 NG/mL 15-150 normal Not Available [facility] ([facility]) [address] [place], [address], 05/29/2024 16:13:16 05/18/1905/19/2024 TSH+F REE T4 TSH 1.890 uIU/m L 0.450- 4.500 normal Not Available [facility] ([facility]) [address] [place], [address], 05/29/2024 16:13:17 05/18/19 25 05/19/2024 TSH+F REE T4 T4,free(dire ct) 1.13 NG/dL 0.82-1 .77 normal Not Available [facility] ([facility]) [address] [place], [address], 05/29/2024 16:13:17 05/18/19 25 05/19/2024 CBC WITH DIFFE RENTI AL/PL ATELE T WBC 9.2 x10e3 /uL 3.4-10 .8 normal Not Available [facility] ([facility]) [address] [place], [address], 05/29/2024 16:13:18 05/18/19 25 05/19/2024 CBC WITH DIFFE RENTI AL/PL ATELE T RBC 5.24 x10e6 /uL 3.77-5 .28 normal Not Available [facility] ([facility]) [address] [place], [address], 05/29/2024 16:13:18 05/18/19 25 05/19/2024 CBC WITH DIFFE RENTI AL/PL ATELE T hemoglobin 15.9 g/dL 11.1-1 5.9 normal Not Available [facility] ([facility]) [address] [place], [address], 05/29/2024 16:13:18 05/18/19 25 05/19/2024 CBC WITH DIFFE RENTI AL/PL ATELE T hematocrit 48.1 % 34.0-4 6.6 above high normal Not Available [facility] ([facility]) [address] [place], [address], 05/29/2024 16:13:18 05/18/19 25 05/19/2024 CBC WITH DIFFE RENTI AL/PL ATELE T MCV 92 fL 79-97 normal Not Available [facility] ([facility]) [address] [place], [address], 05/29/2024 16:13:18 05/18/19 25 05/19/2024 CBC WITH DIFFE RENTI AL/PL ATELE T MCH 30.3 pg 26.6-3 3.0 normal Not Available [facility] ([facility]) [address] [place], [address], 05/29/2024 16:13:18 05/18/19 25 05/19/2024 CBC WITH DIFFE RENTI AL/PL ATELE T MCHC 33.1 g/dL 31.5-3 5.7 normal Not Available [facility] ([facility]) [address] [place], [address], 05/29/2024 16:13:18 05/18/19 25 05/19/2024 CBC WITH DIFFE RENTI AL/PL ATELE T RDW 13.0 % 11.7-1 5.4 Not Available [facility] ([facility]) [address] [facility], [place], [address], 05/29/2024 16:13:18 05/18/19 25 05/19/2024 CBC WITH DIFFE RENTI AL/PL ATELE T platelets 385 x10e3 /uL 150-45 0 normal Not Available [facility] ([facility]) [address] [facility], [place], [address], 05/29/2024 16:13:18 05/18/19 25 05/19/2024 CBC WITH DIFFE RENTI AL/PL ATELE T neutrophils 64 % not estab. normal Not Available [facility] ([facility]) [address] [facility], [place], [address], 05/29/2024 16:13:18 05/18/19 25 05/19/2024 CBC WITH DIFFE RENTI AL/PL ATELE T lymphs 24 % not estab. normal Not Available [facility] ([facility]) [address] [facility], [place], [address], 05/29/2024 16:13:18 05/18/19 25 05/19/2024 CBC WITH DIFFE RENTI AL/PL ATELE T monocytes 8 % not estab. normal Not Available [facility] ([facility]) [address] [facility], [place], [address], 05/29/2024 16:13:18 05/18/19 25 05/19/2024 CBC WITH DIFFE RENTI AL/PL ATELE T eos 2 % not estab. normal Not Available [facility] ([facility]) [address] [facility], [place], [address], 05/29/2024 16:13:18 05/18/19 25 05/19/2024 CBC WITH DIFFE RENTI AL/PL ATELE T basos 1 % not estab. normal Not Available [facility] ([facility]) [address] [place], [address], 05/29/2024 16:13:18 05/18/19 25 05/19/2024 CBC WITH DIFFE RENTI AL/PL ATELE T immature cells ALUMNI RELATIONS MANAGER Not Available [facility] ([facility]) [address] [facility], [place], [address], 05/29/2024 16:13:18 05/18/19 25 05/19/2024 CBC WITH DIFFE RENTI AL/PL ATELE T neutrophils (absolute) 6.0 x10e3 /uL 1.4-7. 0 normal Not Available [facility] ([facility]) [address] [place], [address], 05/29/2024 16:13:18 05/18/19 25 05/19/2024 CBC WITH DIFFE RENTI AL/PL ATELE T lymphs (absolute) 2.2 x10e3 /uL 0.7-3. 1 normal Not Available [facility] ([facility]) [address] [place], [address], 05/29/2024 16:13:18 05/18/19 25 05/19/2024 CBC WITH DIFFE RENTI AL/PL ATELE T monocytes(ab solute) 0.7 x10e3 /uL 0.1-0. 9 normal Not Available [facility] ([facility]) [address] [place], [address], 05/29/2024 16:13:18 05/18/19 25 05/19/2024 CBC WITH DIFFE RENTI AL/PL ATELE T eos (absolute) 0.2 x10e3 /uL 0.0-0. 4 normal Not Available [facility] ([facility]) [address] [place], [address], 05/29/2024 16:13:18 05/18/19 25 05/19/2024 CBC WITH DIFFE RENTI AL/PL ATELE T baso (absolute) 0.1 x10e3 /uL 0.0-0. 2 normal Not Available [facility] ([facility]) [address] [facility], [place], [address], 05/29/2024 16:13:18 05/18/19 25 05/19/2024 CBC WITH DIFFE RENTI AL/PL ATELE T immature granulocytes 1 % not estab. Not Available [facility] ([facility]) [address] [facility], [place], [address], 05/29/2024 16:13:18 05/18/19 25 05/19/2024 CBC WITH DIFFE RENTI AL/PL ATELE T immature grans (abs) 0.1 x10e3 /uL 0.0-0. 1 Not Available [facility] ([facility]) [address] [facility], [place], [address], 05/29/2024 16:13:18 05/18/19 25 05/19/2024 CBC WITH DIFFE RENTI AL/PL ATELE T NRBC ALUMNI RELATIONS MANAGER Not Available [facility] ([facility]) [address] [facility], [place], [address], 05/29/2024 16:13:18 05/18/19 25 05/19/2024 CBC WITH DIFFE RENTI AL/PL ATELE T hematology comments: ALUMNI RELATIONS MANAGER Not Available [facility] ([facility]) [address] [facility], [place], [address], 05/29/2024 16:13:18 05/18/19 25 05/19/2024 COMP. METAB OLIC PANEL (14) glucose 93 mg/dL 70-99 normal Not Available [facility] ([facility]) [address] [place], [address], 05/29/2024 16:13:19 05/18/19 25 05/19/2024 COMP. METAB OLIC PANEL (14) BUN 13 mg/dL 6-24 normal Not Available [facility] ([facility]) [address] [facility], [place], [address], 05/29/2024 16:13:19 05/18/19 25 05/19/2024 COMP. METAB OLIC PANEL (14) creatinine 0.80 mg/dL 0.57-1 .00 normal Not Available [facility] ([facility]) [address] [place], [address], 05/29/2024 16:13:19 05/18/19 25 05/19/2024 COMP. METAB OLIC PANEL (14) eGFR 85 mL/mi n/1.7 3 >59 normal Not Available [facility] ([facility]) [address] [place], [address], 05/29/2024 16:13:19 05/18/19 25 05/19/2024 COMP. METAB OLIC PANEL (14) BUN/creatini ne ratio 16 9-23 normal Not Available [facility] ([facility]) [address] [facility], [place], [address], 05/29/2024 16:13:19 05/18/19 25 05/19/2024 COMP. METAB OLIC PANEL (14) sodium 141 mmol/ L 134-14 4 normal Not Available [facility] ([facility]) [address] [place], [address], 05/29/2024 16:13:19 05/18/19 25 05/19/2024 COMP. METAB OLIC PANEL (14) potassium 4.2 mmol/ L 3.5-5. 2 normal Not Available [facility] ([facility]) [address] [place], [address], 05/29/2024 16:13:19 05/18/19 25 05/19/2024 COMP. METAB OLIC PANEL (14) chloride 103 mmol/ L 96-106 normal Not Available [facility] ([facility]) [address] [place], [address], 05/29/2024 16:13:19 05/18/19 25 05/19/2024 COMP. METAB OLIC PANEL (14) carbon dioxide, total 24 mmol/ L 20-29 normal Not Available [facility] ([facility]) [address] [place], [address], 05/29/2024 16:13:19 05/18/19 25 05/19/2024 COMP. METAB OLIC PANEL (14) calcium 9.3 mg/dL 8.7-10 .2 normal Not Available [facility] ([facility]) [address] [place], [address], 05/29/2024 16:13:19 05/18/19 25 05/19/2024 COMP. METAB OLIC PANEL (14) protein, total 6.6 g/dL 6.0-8. 5 normal Not Available [facility] ([facility]) [address] [place], [address], 05/29/2024 16:13:19 05/18/19 25 05/19/2024 COMP. METAB OLIC PANEL (14) albumin 4.2 g/dL 3.8-4. 9 normal Not Available [facility] ([facility]) [address] [place], [address], 05/29/2024 16:13:19 05/18/19 25 05/19/2024 COMP. METAB OLIC PANEL (14) globulin, total 2.4 g/dL 1.5-4. 5 Not Available [facility] ([facility]) [address] [place], [address], 05/29/2024 16:13:19 05/18/19 25 05/19/2024 COMP. METAB OLIC PANEL (14) bilirubin, total 0.4 mg/dL 0.0-1. 2 normal Not Available [facility] ([facility]) [address] [place], [address], 05/29/2024 16:13:19 05/18/19 25 05/19/2024 COMP. METAB OLIC PANEL (14) alkaline phosphatase 76 IU/L 44-121 normal Not Available [facility] ([facility]) [address] [place], [address], 05/29/2024 16:13:19 05/18/19 25 05/19/2024 COMP. METAB OLIC PANEL (14) AST (SGOT) 19 IU/L 0-40 normal Not Available [facility] ([facility]) [address] [place], [address], 05/29/2024 16:13:19 05/18/19 25 05/19/2024 COMP. METAB OLIC PANEL (14) ALT (SGPT) 17 IU/L 0-32 normal Not Available [facility] ([facility]) [address] [place], [address], 05/29/2024 16:13:19 05/18/19 25 05/19/2024 LIPID PANEL cholesterol, total 210 mg/dL 100-19 9 above high normal Not Available [facility] ([facility]) [address] [place], [address], 05/29/2024 16:13:20 05/18/19 25 05/19/2024 LIPID PANEL triglyceride s 65 mg/dL 0-149 normal Not Available [facility] ([facility]) [address] [place], [address], 05/29/2024 16:13:20 05/18/19 25 05/19/2024 LIPID PANEL HDL cholesterol 67 mg/dL >39 normal Not Available [facility] ([facility]) [address] [place], [address], 05/29/2024 16:13:20 05/18/19 25 05/19/2024 LIPID PANEL VLDL cholesterol salomón 12 mg/dL 5-40 Not Available [facility] ([facility]) [address] [place], [address], 05/29/2024 16:13:20 05/18/19 25 05/19/2024 LIPID PANEL LDL chol calc ([facility]) 131 mg/dL 0-99 above high normal Not Available [facility] ([facility]) [address] [facility], [place], [address], 05/29/2024 16:13:20 05/18/19 25 05/19/2024 LIPID PANEL LDL calc comment: ALUMNI RELATIONS MANAGER Not Available [facility] ([facility]) [address] [facility], [place], [address], 05/29/2024 16:13:20 05/18/19 25 05/26/2024 VITAM IN E vitamin E(alpha tocopherol) 12.1 mg/L 7.0-25 .1 Not Available [facility] ([facility]) [address] [facility], [place], [address], 05/29/2024 16:13:20 05/18/19 25 05/26/2024 VITAM IN [...] in E defic ient. Not Available [facility] ([facility]) [address] [facility], [place], [address], 05/29/2024 16:13:20 05/18/19 25 05/19/2024 HEMOG LOBIN A1C hemoglobin A1C 5.7 % 4.8-5. 6 above high normal Predi abete s: 5.7 - 6.4 Diabe thai: >6.4 Glyce rashi contr ol for adult s with diabe thai: <7.0 Not Available [facility] ([facility]) [address] [facility], [place], [address], 05/29/2024 16:13:21 05/18/19 25 05/19/2024 FOLAT E (FOLI C ACID) , SERUM folate (folic acid), serum 4.3 NG/mL >3.0 normal A serum folat e cheyanne ntrat ion of less than 3.1 ng/mL is consi dered to repre sent clini salomón defic iency . Not Available [facility] ([facility]) [address], [place], [address], 05/29/2024 16:13:22 05/18/19 25 05/26/2024 VITAM IN [...] Drug Admin istra tion. Not Available [facility] ([facility]) [address] [facility], [place], [address], 05/29/2024 16:13:23 05/18/19 25 05/19/2024 VITAM IN [...] Endoc rine Socie ty went on to [facility] er defin e vitam in D insuf ficie ncy as a level betwe en 21 and 29 ng/mL (2). 1. IOM (Inst itute of Medic ine). 2010. Dieta ry refer ence intsaima es for calci um and D. Supa willis DC: [facility] . 2. Elvira zee MF, Alvaro ribeiro NC, Joya off-F errar i KING, et al. Evalu ation , treat ment, and preve ntion of vitam in D defic iency : an Endoc rine Socie ty clini salomón pract ice guide line. JCEM. 2010; 96(7) :1911 -30. Not Available [facility] ([facility]) [address] [place], [address], 05/29/2024 16:13:23 05/18/19 25 05/29/2024 VITAM IN B1 (THIA MINE) , BLOOD vit. B1, whole blood 92.5 nmol/ L 66.5-2 00.0 Not Available [facility] ([facility]) [address] [place], [address], 05/29/2024 16:13:24 05/18/19 25 05/21/2024 METHY LMALO DAMIEN ACID, SERUM methylmaloni c acid, serum 148 nmol/ L 0-378 Not Available [facility] ([facility]) [address] [place], [address], 05/29/2024 16:13:25 05/18/19 25 05/19/2024 PREAL BUMIN prealbumin 18 mg/dL 10-36 Not Available [facility] ([facility]) [address] [place], [address], 05/29/2024 16:13:26 08/19/19 25 08/19/2024 FE+TI BC+FE R iron bind.cap.(TI BC) 278 ug/dL 250-45 0 normal Not Available [facility] ([facility]) [address] [place], [address], 08/21/2024 20:35:57 08/19/19 25 08/19/2024 FE+TI BC+FE R UIBC 193 ug/dL 131-42 5 normal Not Available [facility] ([facility]) [address] [place], [address], 08/21/2024 20:35:57 08/19/19 25 08/19/2024 FE+TI BC+FE R iron 85 ug/dL 27-159 normal Not Available [facility] ([facility]) [address] [place], [address], 08/21/2024 20:35:57 08/19/19 25 08/19/2024 FE+TI BC+FE R iron saturation 31 % 15-55 normal Not Available [facility] ([facility]) [address] [place], [address], 08/21/2024 20:35:57 08/19/19 25 08/19/2024 FE+TI BC+FE R ferritin 198 NG/mL 15-150 above high normal Not Available [facility] ([facility]) [address] [place], [address], 08/21/2024 20:35:57 08/19/19 25 08/19/2024 TSH+F REE T4 TSH 2.540 uIU/m L 0.450- 4.500 normal Not Available [facility] ([facility]) [address] [place], [address], 08/21/2024 20:35:59 08/19/1908/19/2024 TSH+F REE T4 T4,free(dire ct) 1.32 NG/dL 0.82-1 .77 normal Not Available [facility] ([facility]) [address] [place], [address], 08/21/2024 20:35:59 08/19/19 25 08/19/2024 CBC WITH DIFFE RENTI AL/PL ATELE T WBC 8.0 x10e3 /uL 3.4-10 .8 normal Not Available [facility] ([facility]) [address] [facility], [place], [address], 08/21/2024 20:35:59 08/19/1908/19/2024 CBC WITH DIFFE RENTI AL/PL ATELE T RBC 5.10 x10e6 /uL 3.77-5 .28 normal Not Available [facility] ([facility]) [address] [place], [address], 08/21/2024 20:35:59 08/19/19 25 08/19/2024 CBC WITH DIFFE RENTI AL/PL ATELE T hemoglobin 15.5 g/dL 11.1-1 5.9 normal Not Available [facility] ([facility]) [address] [place], [address], 08/21/2024 20:35:59 08/19/1908/19/2024 CBC WITH DIFFE RENTI AL/PL ATELE T hematocrit 48.1 % 34.0-4 6.6 above high normal Not Available [facility] ([facility]) [address] [place], [address], 08/21/2024 20:35:59 08/19/19 25 08/19/2024 CBC WITH DIFFE RENTI AL/PL ATELE T MCV 94 fL 79-97 normal Not Available [facility] ([facility]) [address] [place], [address], 08/21/2024 20:35:59 08/19/19 25 08/19/2024 CBC WITH DIFFE RENTI AL/PL ATELE T MCH 30.4 pg 26.6-3 3.0 normal Not Available [facility] ([facility]) [address] [place], [address], 08/21/2024 20:35:59 08/19/19 25 08/19/2024 CBC WITH DIFFE RENTI AL/PL ATELE T MCHC 32.2 g/dL 31.5-3 5.7 normal Not Available [facility] ([facility]) [address] [facility], [place], [address], 08/21/2024 20:35:59 08/19/19 25 08/19/2024 CBC WITH DIFFE RENTI AL/PL ATELE T RDW 13.2 % 11.7-1 5.4 Not Available [facility] ([facility]) [address] [facility], [place], [address], 08/21/2024 20:35:59 08/19/19 25 08/19/2024 CBC WITH DIFFE RENTI AL/PL ATELE T platelets 319 x10e3 /uL 150-45 0 normal Not Available [facility] ([facility]) [address] [facility], [place], [address], 08/21/2024 20:35:59 08/19/19 25 08/19/2024 CBC WITH DIFFE RENTI AL/PL ATELE T neutrophils 65 % not estab. normal Not Available [facility] ([facility]) [address] [facility], [place], [address], 08/21/2024 20:35:59 08/19/19 25 08/19/2024 CBC WITH DIFFE RENTI AL/PL ATELE T lymphs 23 % not estab. normal Not Available [facility] ([facility]) [address] [place], [address], 08/21/2024 20:35:59 08/19/19 25 08/19/2024 CBC WITH DIFFE RENTI AL/PL ATELE T monocytes 9 % not estab. normal Not Available [facility] ([facility]) [address] [place], [address], 08/21/2024 20:35:59 08/19/19 25 08/19/2024 CBC WITH DIFFE RENTI AL/PL ATELE T eos 2 % not estab. normal Not Available [facility] ([facility]) [address] [place], [address], 08/21/2024 20:35:59 08/19/19 25 08/19/2024 CBC WITH DIFFE RENTI AL/PL ATELE T basos 1 % not estab. normal Not Available [facility] ([facility]) [address] [facility], [place], [address], 08/21/2024 20:35:59 08/19/19 25 08/19/2024 CBC WITH DIFFE RENTI AL/PL ATELE T immature cells ALUMNI RELATIONS MANAGER Not Available [facility] ([facility]) [address] [facility], [place], [address], 08/21/2024 20:35:59 08/19/19 25 08/19/2024 CBC WITH DIFFE RENTI AL/PL ATELE T neutrophils (absolute) 5.2 x10e3 /uL 1.4-7. 0 normal Not Available [facility] ([facility]) [address] [place], [address], 08/21/2024 20:35:59 08/19/19 25 08/19/2024 CBC WITH DIFFE RENTI AL/PL ATELE T lymphs (absolute) 1.8 x10e3 /uL 0.7-3. 1 normal Not Available [facility] ([facility]) [address] [facility], [place], [address], 08/21/2024 20:35:59 08/19/19 25 08/19/2024 CBC WITH DIFFE RENTI AL/PL ATELE T monocytes(ab solute) 0.7 x10e3 /uL 0.1-0. 9 normal Not Available [facility] ([facility]) [address] [place], [address], 08/21/2024 20:35:59 08/19/19 25 08/19/2024 CBC WITH DIFFE RENTI AL/PL ATELE T eos (absolute) 0.2 x10e3 /uL 0.0-0. 4 normal Not Available [facility] ([facility]) [address] [facility], [place], [address], 08/21/2024 20:35:59 08/19/19 25 08/19/2024 CBC WITH DIFFE RENTI AL/PL ATELE T baso (absolute) 0.1 x10e3 /uL 0.0-0. 2 normal Not Available [facility] ([facility]) [address] [facility], [place], [address], 08/21/2024 20:35:59 08/19/19 25 08/19/2024 CBC WITH DIFFE RENTI AL/PL ATELE T immature granulocytes 0 % not estab. Not Available [facility] ([facility]) [address] [facility], [place], [address], 08/21/2024 20:35:59 08/19/19 25 08/19/2024 CBC WITH DIFFE RENTI AL/PL ATELE T immature grans (abs) 0.0 x10e3 /uL 0.0-0. 1 Not Available [facility] ([facility]) [address] [facility], [place], [address], 08/21/2024 20:35:59 08/19/19 25 08/19/2024 CBC WITH DIFFE RENTI AL/PL ATELE T NRBC ALUMNI RELATIONS MANAGER Not Available [facility] ([facility]) [address] [place], [address], 08/21/2024 20:35:59 08/19/19 25 08/19/2024 CBC WITH DIFFE RENTI AL/PL ATELE T hematology comments: ALUMNI RELATIONS MANAGER Not Available [facility] ([facility]) [address] [place], [address], 08/21/2024 20:35:59 08/19/19 25 08/19/2024 COMP. METAB OLIC PANEL (14) glucose 87 mg/dL 70-99 normal Not Available [facility] ([facility]) [address] [place], [address], 08/21/2024 20:36:00 08/19/19 25 08/19/2024 COMP. METAB OLIC PANEL (14) BUN 15 mg/dL 6-24 normal Not Available [facility] ([facility]) [address] [facility], [place], [address], 08/21/2024 20:36:00 08/19/19 25 08/19/2024 COMP. METAB OLIC PANEL (14) creatinine 0.85 mg/dL 0.57-1 .00 normal Not Available [facility] ([facility]) [address] [facility], [place], [address], 08/21/2024 20:36:00 08/19/19 25 08/19/2024 COMP. METAB OLIC PANEL (14) eGFR 79 mL/mi n/1.7 3 >59 normal Not Available [facility] ([facility]) [address] [facility], [place], [address], 08/21/2024 20:36:00 08/19/19 25 08/19/2024 COMP. METAB OLIC PANEL (14) BUN/creatini ne ratio 18 9-23 normal Not Available [facility] ([facility]) [address] [facility], [place], [address], 08/21/2024 20:36:00 08/19/19 25 08/19/2024 COMP. METAB OLIC PANEL (14) sodium 142 mmol/ L 134-14 4 normal Not Available [facility] ([facility]) [address] [facility], [place], [address], 08/21/2024 20:36:00 08/19/19 25 08/19/2024 COMP. METAB OLIC PANEL (14) potassium 4.2 mmol/ L 3.5-5. 2 normal Not Available [facility] ([facility]) [address] [facility], [place], [address], 08/21/2024 20:36:00 08/19/19 25 08/19/2024 COMP. METAB OLIC PANEL (14) chloride 105 mmol/ L 96-106 normal Not Available [facility] ([facility]) [address] [facility] [place], [address], 08/21/2024 20:36:00 08/19/19 25 08/19/2024 COMP. METAB OLIC PANEL (14) carbon dioxide, total 21 mmol/ L 20-29 normal Not Available [facility] ([facility]) [address] [place], [address], 08/21/2024 20:36:00 08/19/19 25 08/19/2024 COMP. METAB OLIC PANEL (14) calcium 9.3 mg/dL 8.7-10 .2 normal Not Available [facility] ([facility]) [address] [place], [address], 08/21/2024 20:36:00 08/19/19 25 08/19/2024 COMP. METAB OLIC PANEL (14) protein, total 6.3 g/dL 6.0-8. 5 normal Not Available [facility] ([facility]) [address] [place], [address], 08/21/2024 20:36:00 08/19/19 25 08/19/2024 COMP. METAB OLIC PANEL (14) albumin 4.2 g/dL 3.8-4. 9 normal Not Available [facility] ([facility]) [address] [place], [address], 08/21/2024 20:36:00 08/19/19 25 08/19/2024 COMP. METAB OLIC PANEL (14) globulin, total 2.1 g/dL 1.5-4. 5 Not Available [facility] ([facility]) [address] [place], [address], 08/21/2024 20:36:00 08/19/19 25 08/19/2024 COMP. METAB OLIC PANEL (14) bilirubin, total 0.4 mg/dL 0.0-1. 2 normal Not Available [facility] ([facility]) [address] [place], [address], 08/21/2024 20:36:00 08/19/19 25 08/19/2024 COMP. METAB OLIC PANEL (14) alkaline phosphatase 64 IU/L 44-121 normal Not Available [facility] ([facility]) [address] [place], [address], 08/21/2024 20:36:00 08/19/19 25 08/19/2024 COMP. METAB OLIC PANEL (14) AST (SGOT) 22 IU/L 0-40 normal Not Available [facility] ([facility]) [address] [place], [address], 08/21/2024 20:36:00 08/19/19 25 08/19/2024 COMP. METAB OLIC PANEL (14) ALT (SGPT) 12 IU/L 0-32 normal Not Available [facility] ([facility]) [address] [place], [address], 08/21/2024 20:36:00 08/19/19 25 08/19/2024 LIPID PANEL cholesterol, total 218 mg/dL 100-19 9 above high normal Not Available [facility] ([facility]) [address] [place], [address], 08/21/2024 20:36:01 08/19/19 25 08/19/2024 LIPID PANEL triglyceride s 67 mg/dL 0-149 normal Not Available [facility] ([facility]) [address] [place], [address], 08/21/2024 20:36:01 08/19/19 25 08/19/2024 LIPID PANEL HDL cholesterol 57 mg/dL >39 normal Not Available [facility] ([facility]) [address] [place], [address], 08/21/2024 20:36:01 08/19/19 25 08/19/2024 LIPID PANEL VLDL cholesterol salomón 12 mg/dL 5-40 Not Available [facility] ([facility]) [address] [place], [address], 08/21/2024 20:36:01 08/19/19 25 08/19/2024 LIPID PANEL LDL chol calc ([facility]) 149 mg/dL 0-99 above high normal Not Available [facility] ([facility]) [address] [place], [address], 08/21/2024 20:36:01 08/19/19 25 08/19/2024 LIPID PANEL LDL calc comment: ALUMNI RELATIONS MANAGER Not Available [facility] ([facility]) [address] [place], [address], 08/21/2024 20:36:01 08/19/19 25 08/21/2024 VITAM IN E vitamin E(alpha tocopherol) 12.6 mg/L 7.0-25 .1 Not Available [facility] ([facility]) [address] [place], [address], 08/21/2024 20:36:01 08/19/19 25 08/21/2024 VITAM IN [...] in E defic ient. Not Available [facility] ([facility]) [address] [place], [address], 08/21/2024 20:36:01 08/19/19 25 08/19/2024 HEMOG LOBIN A1C hemoglobin A1C 5.1 % 4.8-5. 6 normal Predi abete s: 5.7 - 6.4 Diabe thai: >6.4 Glyce rashi contr ol for adult s with diabe thai: <7.0 Not Available [facility] ([facility]) [address] [facility], [place], [address], 08/21/2024 20:36:02 08/19/1908/19/2024 FOLAT E (FOLI C ACID) , SERUM folate (folic acid), serum 5.8 NG/mL >3.0 normal A serum folat e cheyanne ntrat ion of less than 3.1 ng/mL is consi dered to repre sent clini salomón defic iency . Not Available [facility] ([facility]) [address] [facility], [place], [address], 08/21/2024 20:36:03 08/19/1908/21/2024 VITAM IN A, SERUM [...] Drug Admin istra tion. Not Available [facility] ([facility]) [address] [facility], [place], [address], 08/21/2024 20:36:04 08/19/1908/19/2024 VITAM IN D, 25-HY [...] um and D. Supa willis [place]: The [facility] . 2. Elvira zee MF, Alvaro ribeiro [place], Joya off-F errar i KING, et al. Evalu ation , treat ment, and preve ntion of vitam in D defic iency : an Endoc rine Socie ty clini salomón pract ice guide line. JCEM. 2010; 96(7) :1911 -30. Not Available [facility] ([facility]) [address] [place], [address], 08/21/2024 20:36:04 08/19/19 25 08/20/2024 VITAM IN B1 (THIA MINE) , BLOOD vit. B1, whole blood 89.2 nmol/ L 66.5-2 00.0 Not Available [facility] ([facility]) [address] [place], [address], 08/21/2024 20:36:05 08/19/19 25 08/20/2024 METHY LMALO DAMIEN ACID, SERUM methylmaloni c acid, serum 109 nmol/ L 0-378 Not Available [facility] ([facility]) [address] [place], [address], 08/21/2024 20:36:05 08/19/19 25 08/19/2024 PREAL BUMIN prealbumin 18 mg/dL 10-36 Not Available [facility] ([facility]) [address] [place], [address], 08/21/2024 20:36:06 Result Notes None recorded. 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 Jaylen Lima DNP, APRN, ALUMNI RELATIONS MANAGER-C [address], [place], [place], [address] [place] [address] , [place] & [place] 2 08:18:12 Depressive disorder 61046780 Active 2021 Jaylen Lima DNP, MALGORZATA, ALUMNI RELATIONS MANAGER-C [address], [place], [place], [address] [place] [address] , [place] [facility] [facility] & [place] 2 14:14:07 Unintentio nal weight gain 5972298871417 04 Active 2021 Jaylen Lima DNP, APRN, ALUMNI RELATIONS MANAGER-C [address] , [place], [place], [address] [place] [address] , [place] [facility] [facility] & [place] 2 14:14:41 Dyspnea on exertion 55789803 Active 2022 Ángel Reynoso MD [address], [place], [place], [address] [place] [address] , [place] [facility] [facility] & [place] 3 11:23:58 Morbid obesity 937899784 Active 2022 Ángel Reynoso MD [address], [place], [place], [address] [place] [address] , [place] [facility] [facility] & [place] 3 14:46:18 Laparoscop ic sleeve gastrectom y Active 2022 Jaylen Lima DNP, MALGORZATA, ALUMNI RELATIONS MANAGER-C [address], [place], [address] [place] [address] , [place] [facility] [facility] & [place] 3 09:01:04 Nausea 539132462 Active 2022 Jaylen Lima DNP, APRN, ALUMNI RELATIONS MANAGER-C [address], [place], [address] , [place] - [place] & [place] 3 15:52:11 Vomiting 235052870 Active 2022 Jaylen Lima DNP, ADVANCED REGISTERED NURSE, ALUMNI RELATIONS MANAGER-C [address], [place], [address] , [place] - [place] & [place] 3 15:52:16 Heartburn 96409570 Active 2022 Jaylen Lima DNP, ADVANCED REGISTERED NURSE, ALUMNI RELATIONS MANAGER-C [address], [place], [address] , [place] & [place] 3 15:17:20 Constipati on 84182531 Active 2022 Jaylen Lima DNP, MALGORZATA, ALUMNI RELATIONS MANAGER-C [address], [place], [address] , [place] & [place] 3 14:44:42 Vitamin D deficiency 77603541 Active 2023 Jaylen Lima DNP, ADVANCED REGISTERED NURSE, ALUMNI RELATIONS MANAGER-C [address], [place], [address] , [place] & [place] 4 09:12:45 Elevated blood-pres sure reading without diagnosis of hypertensi on 354369529 Active 2024 Jaylen Lima DNP, MALGORZATA, ALUMNI RELATIONS MANAGER-C [address], [place], [place], [address] [place] [address] , [place] & [place] 5 09:42:58 Overweight 350792474 Active 2024 Jaylen Lima DNP, MALGORZATA, ALUMNI RELATIONS MANAGER-C [address], [place], [place], [address] [place] [address] , [place] & [place] 5 09:10:11 Problem Notes None recorded. Procedures Surgical History Date Name Laterality Status Provider Name and Address Organization Details Recorded Time laparoscopic sleeve gastrectomy completed Clark garner [place] - [place] - [place] & [place] 3 08:27:33 esophagogastroduodenoscopy completed Liat Neri [place] & [place] 3 14:00:08 cholecystectomy completed Erinn Lee [place] - [place] - [place] & [place] 2 14:52:24 extraction of wisdom tooth completed Erinn Lee [place] - [facility] & [place] 2 14:52:31 Carpal tunnel surgery completed Edw kyungraymond Lima, DNP, ADVANCED REGISTERED NURSE, ALUMNI RELATIONS MANAGER-C [address], [place], [address] , [facility] - [place] - [place] & [place] 2 12:43:39 Imaging Results None recorded. Procedure [...] cm 98.5 [degF] 85 /min 29.9 kg/m2 35598.7 1 g 145/96 mm[Hg] Liat AVILEZ - NT [facility] & [place] 5 09:37:21 Date Recorded Body height Body mass index (BMI) Body weight Body temperature Heart rate Systolic And Diastolic Provider Name and Address Organization Details Last Updated DateTime 5 170.18 cm 27.4 kg/m2 64178.6 6 g 98.8 [degF] 88 /min 148/91 mm[Hg] Liat Arshad [facility] & [place] 5 09:02:18 Date Recorded Body height Body temperature Heart rate Body mass index (BMI) Body weight Systolic And Diastolic Provider Name and Address Organization Details Last Updated DateTime 4 170.18 cm 97.6 [degF] 89 /min 29.9 kg/m2 17514.7 8 g 138/96 mm[Hg] Liat AVILEZ - [facility]NT [facility] & [place] 4 15:12:48 Date Recorded Body height Body temperature Oxygen saturation Oxygen saturation in Arterial blood by Pulse oximetry Heart rate Body mass index (BMI) Body weight Systolic And Diastolic Provider Name and Address Organization Details Last Updated DateTime 5 170.18 cm 98.4 [degF] 96 % 96 % 81 /min 24 kg/m2 37208.9 9 g 130/92 mm[Hg] Lois AVILEZ - NT [facility] & [place] 5 12:49:50 Date Recorded Body height Body mass index (BMI) Body weight Body temperature Heart rate Systolic And Diastolic Provider Name and Address Organization Details Last Updated DateTime 4 170.18 cm 30.3 kg/m2 60762.0 5 g 97.9 [degF] 73 /min 132/90 mm[Hg] Erinn Lee [place] - [facility] [facility] & [place] 4 09:11:23 Social History None recorded. Functional Status Question Answer Note LastModified by Organizat ion Details LastModified Time Do you use any illicit or recreational drugs? No [email or web address] Information not available 01/29/2022 What is your level of alcohol consumption? None [email or web address] Information not available 01/29/2022 Mental Status None recorded. Family History Relationship Description Onset Age of this Age Resolved Age Notes LastModified by Organization Details LastModified Time Father Hypertensive disorder [email or web address] Not available 09/2021 14:50:51 Father Cerebrovascu lar accident [email or web address] Not available 01/29/2022 14:51:16 Father Hypercholest erolemia [email or web address] Not available 09/2021 14:51:54 Mother Hypertensive disorder [email or web address] Not available 09/2021 14:50:51 Mother Hypercholest erolemia [email or web address] Not available 09/2021 14:51:54 Maternal Grandmother Hypertensive disorder [email or web address] Not available 09/2021 14:50:51 Maternal Grandmother Cerebrovascu lar accident [email or web address] Not available 01/29/2022 14:51:16 Maternal Grandmother Hypercholest erolemia [email or web address] Not available 09/2021 14:51:54 Paternal Grandmother Hypertensive disorder [email or web address] Not available 09/2021 14:50:51 Paternal Grandmother Heart disease [email or web address] Not available 09/2021 14:51:02 Paternal Grandmother Hypercholest erolemia [email or web address] Not available 09/2021 14:51:54 Maternal Grandfather Hypercholest erolemia [email or web address] Not available 09/2021 14:51:54 Paternal Grandfather Hypercholest erolemia [email or web address] Not available 09/2021 14:51:54 Medical History Condition [...] Liat Neri [place], [place] & [place] 03/06/2023 14:00:07 influenza, unspecified formulation 12/02/2023 completed Liat Neri [place], [place] & [place] 05/18/2024 09:34:56 Past Encounters Encounter ID Performer Location Encounter Start Date Encounter Closed Date Diagnosis/Indication Diagnosis SNOMED-CT Code Diagnosis ICD10 Code Diagnosis IMO Codes Diagnosis Note [id number] Jaylen Lima, DNP, ADVANCED REGISTERED NURSE, ALUMNI RELATIONS MANAGER-C [facility] [address] [place] [address] 02/01/2022 08:19:48 02/01/2022 12:55:42 Obesity 264225705 E66.9 The patient will be scheduled for [...] completed 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 Increase fruits and fresh vegetable intake and decrease processed foods and sugars [id number] Jorge Rodriguez DO [facility] [address] [facility] [address] [facility] [place], [place] [address] 08/01/2022 07:16:00 08/01/2022 13:43:44 Morbid obesity 141330412 E66.01 Pre-surger y evaluation 603109749 Z01.818 Postoperative pain 71822 9007 G89.18 Dyspnea on exertion 6084 5006 R06.09 [id number] Jaylen Lima, DNP, ADVANCED REGISTERED NURSE, ALUMNI RELATIONS MANAGER-C [facility] [address] [facility] [address] [facility], [place] [address] 08/14/2022 07:56:00 08/14/2022 10:34:23 Depressive disorder 07905838 F32.A Morbid obesity 870271663 E66.01 The patient is doing well. The [...] choose to have them drawn at another [facility] they are to make sure that the [...] agree to comply. Intentiona l weight loss 053946068 R63.8 [id number] Jaylen Lima, DNP, ADVANCED REGISTERED NURSE, ALUMNI RELATIONS MANAGER-C [facility] [address] [facility] [address] [place] [address] 09/07/2022 10:05:35 09/07/2022 11:02:01 History of bariatric surgical procedure 368169083 Z98.84 Intentiona l weight loss 967615677 R63.8 History of gastrectomy 551902504 Z90.3 Advised qid intake 50% protein 2305-5760 calories/d y less than 100 carbs/dyPt will see dietitian today Patient is status post bariatric surgery and at increased risk for vitamin deficienci es and malnutriti on. Bariatric vitamin panel ordered today. Patient will be contacted to correct any vitamin deficienci es. Morbid obesity 343749229 E66.01 The patient is doing well. The [...] choose to have them drawn at another [facility] they are to make sure that the [...] plan and agree to comply. Depressive disorder 5978 9007 F32.A [id number] Jaylen Lima, DNP, ADVANCED REGISTERED NURSE, ALUMNI RELATIONS MANAGER-C [facility] [address] [place] [address] 11/07/2022 14:54:40 11/07/2022 15:39:01 History of bariatric surgical procedure 040403612 Z98.84 Intentiona l weight loss 699030606 R63.8 History of gastrectomy 257569151 Z90.3 Advised qid intake 50% protein 3850-1382 calories/d y less than 100 carbs/dyLo ng [...] correct any vitamin deficienci es. Morbid obesity 296122276 E66.01 The patient is doing well. The [...] choose to have them drawn at another [facility] they are to make sure that the [...] this plan and agree to comply. Nausea 132395711 R11.0 Vomiting 014991033 R11.1 0 [id number] Jaylen Lima, DNP, ADVANCED REGISTERED NURSE, ALUMNI RELATIONS MANAGER-C [facility] [address] [place] [address] 02/07/2023 13:52:57 02/07/2023 14:57:45 History of bariatric surgical procedure 715231346 Z98.84 Intentiona l weight loss 592876414 R63.8 History of gastrectomy 087104235 Z90.3 Advised qid intake 50% protein 7770-1638 calories/d y less than 100 carbs/dyLo ng [...] correct any vitamin deficienci es. Depressive disorder 0169 9000 F32.A Morbid obesity 015198312 E66.01 The patient is doing well. The [...] choose to have them drawn at [facility] they are to make sure that the [...] this plan and agree to comply. Nausea 688972807 R11.0 Vomiting 251801921 R11.1 0 Heartburn 40882603 R12 GERD-patie nt was reassured. We discussed [...] body on with EGD with Dr. Rodriguez [id number] SAIGE JASSO BS, RDN, LD [facility] [address] [facility] [address] [facility] [address] 02/07/2023 14:46:11 02/07/2023 15:12:38 Morbid obesity 783975143 E66.01 Pt has lost 88.5 lbs since sx bringing her BMI to 36. [id number] Jaylen Lima, DNP, ADVANCED REGISTERED NURSE, ALUMNI RELATIONS MANAGER-C [facility] [address] [facility] [address] [place] [address] 03/06/2023 13:45:41 03/06/2023 14:31:07 History of bariatric surgical procedure 222993023 Z98.84 Heartburn 31970592 R12 GERD-patie nt was reassured. We discussed [...] timing of eating. Intentiona l weight loss 960733065 R63.8 Morbid obesity 528751258 E66.01 Constipation 67749581 K5 9.00 Constipati on- I recommende d [...] but not liquid stools are achieved. Vomiting 748409095 R11.1 [id number] REYES RDN, LD [facility] [address] [facility] [address] [place] [address] 03/06/2023 14:30:05 03/08/2023 03:53:48 History of bariatric surgical procedure 448570746 Z98.84 Discussed eating and drinking slowly and chewing thoroughly with small bites in small, frequent meals. Deficient knowledge of food and/or nutrition 4722912454 Z76.89 Provided recommenda tions for how to increase fiber intake. If this complicate s gastric emptying, will recommend switching back to low-fiber diet. [id number] Jaylen Lima, DNP, ADVANCED REGISTERED NURSE, ALUMNI RELATIONS MANAGER-C [facility] n [facility] Adv Surg [address] [facility] [address] [place] [address] 05/09/2023 14:42:49 05/10/2023 11:29:09 History of bariatric surgical procedure 463575022 Z98.84 Intentiona l weight loss 772310954 R63.8 History of gastrectomy 122255015 Z90.3 Advised qid intake 50% protein 8532-4364 calories/d y less than 100 carbs/dy Long [...] to correct any vitamin deficienci es. Obesity 688514068 E66.9 Depressive disorder 3548 9007 F32.A [id number] Jaylen Lima DNP, ADVANCED REGISTERED NURSE, ALUMNI RELATIONS MANAGER-C [facility] [address] [facility] [address] [place] [address] 08/09/2023 08:46:02 08/09/2023 09:31:44 History of bariatric surgical procedure 341904469 Z98.84 Intentiona l weight loss 621463062 R63.8 History of gastrectomy 507503652 Z90.3 Advised qid intake 50% protein 2229-8242 calories/d y less than 100 carbs/dyLo ng [...] 3548 9007 F32.A Vitamin D deficiency 347 95335 E55.9 [id number] Jaylen Lima DNP, ADVANCED REGISTERED NURSE, ALUMNI RELATIONS MANAGER-C [facility] [address] [place] [address] 11/11/2023 14:58:46 11/11/2023 16:03:15 History of bariatric surgical procedure 018002304 Z98.84 Intentiona l weight loss 896013529 R63.8 History of gastrectomy 892491494 Z90.3 Advised qid intake 50% protein 5192-2305 calories/d y less than 100 carbs/dy Long [...] vitamin deficienci es. Vitamin D deficiency 347 42127 E55.9 Nausea 302295546 R11.0 Constipation 19452464 K5 9.00 Constipati on- I recommende d [...] soft, but not liquid stools are achieved. [id number] Jaylen iLma, DNP, ADVANCED REGISTERED NURSE, ALUMNI RELATIONS MANAGER-C [facility] [address] [facility] [address] [place], [place] [address] 02/10/2024 08:58:56 02/10/2024 10:17:52 History of bariatric surgical procedure 762521807 Z98.84 Intentiona l weight loss 133978313 R63.8 History of gastrectomy 221926785 Z90.3 Advised qid intake 50% protein 8065-4226 calories/d y less than 100 carbs/dyLo ng [...] to correct any vitamin deficienci es. At [facility] risk of nutritional deficit 684948792 Z91.89 Vitamin D deficiency 347 65189 E55.9 Nausea 776608098 R11.0 Unintentio nal weight gain 2386946244 05371 R63.5 Obesity 348600088 E66.9 [id number] Jaylen Lima, DNP, ADVANCED REGISTERED NURSE, ALUMNI RELATIONS MANAGER-C [facility] S[facility] [address] [facility] [address] [place] [address] 05/18/2024 09:29:00 05/18/2024 10:00:36 History of bariatric surgical procedure 708604830 Z98.84 Advised qid intake 50% protein 3994-9825 calories/d y less than 100 carbs/dy Long [...] any deficienci es. Vitamin D deficiency 347 18298 E55.9 Intentiona l weight loss 995955680 R63.8 History of gastrectomy 590789881 Z90.3 Advised qid intake 50% protein 6655-6790 calories/d y less than 100 carbs/dy Long [...] to correct any vitamin deficienci es. At [facility] risk of nutritional deficit 093713523 Z91.89 Elevated blood-pressure reading without diagnosis of hypertension 736039028 R03.0 Obesity 902113890 E66.9 Nausea 681447881 R11.0 [id number] Jaylen Lima, DNP, ADVANCED REGISTERED NURSE, ALUMNI RELATIONS MANAGER-C [facility] [address] [facility] [address] [place] [address] 08/18/2024 08:57:22 08/18/2024 09:20:58 History of bariatric surgical procedure 676706998 Z98.84 004614 Advised qid intake 50% protein 6482-5485 calories/d y less than 100 carbs/dy Long [...] any deficienci es. Intentiona l weight loss 668535553 R63.8 History of gastrectomy 770180637 Z90.3 Advised qid intake 50% protein 3938-5813 calories/d y less than 100 carbs/dy Long [...] to correct any vitamin deficienci es. At [facility] risk of nutritional deficit 603676876 Z91.89 Elevated blood-pressure reading without diagnosis of hypertension 742277287 R03.0 Vitamin D deficiency 347 37823 E55.9 Overweight 696421370 E66 .3 [id number] Depressive disorder 3548 9007 F32.A [id number] Jaylen Lima, DNP, ADVANCED REGISTERED NURSE, ALUMNI RELATIONS MANAGER-C [facility] S[facility] [address] [facility] [address] [place] [address] 12/24/2024 12:43:40 12/24/2024 13:16:22 History of bariatric surgical procedure 546629095 Z98.84 [id number] Advised qid intake 50% protein 4405-5977 calories/d y less than 100 carbs/dy Long [...] any deficienci es. Intentiona l weight loss 049358228 R63.8 History of gastrectomy 299024233 Z90.3 Advised qid intake 50% protein 2999-2702 calories/d y less than 100 carbs/dyLo ng [...] to correct any vitamin deficienci es. At [facility] risk of nutritional deficit 416307845 Z91.89 Elevated blood-pressure reading without diagnosis of hypertension 371804452 R03.0 Vitamin D deficiency 347 13605 E55.9 Overweight 418236904 E66 .3 will decrease dose of Zepbound from 15 mg weekly to 12.5 mg weekly. Will follow up in 3 months, sooner if needed. Nausea 683018905 R11.0 Constipation 07830924 K5 9.00 Constipati on- I recommende d [...] Carball[employer] Member ID Guarantor Name 12/23/2024 1 BC-OR: ESTELITA [facility] [place] [id number] Sujit Canales [id number] Wilma Ally Notes Date Note Type [...] = 1492 kilo calories Jaylen Lima, CANDY, ADVANCED REGISTERED NURSE, ALUMNI RELATIONS MANAGER-C [id number] [facility], [place], [place], [id number], [facility] - [place] & [place] 11/12/2023 08:23:53 02/10/2024 text/html ROS as noted [...] = 1514 kilo calories Jaylen Lima DNP, ADVANCED REGISTERED NURSE, ALUMNI RELATIONS MANAGER-C [address] , [place], [address], [facility] 02/10/2024 10:36:20 05/18/2024 text/html ROS as [...] 1504 kilo calories Jaylen Lima DNP, MALGORZATA, ALUMNI RELATIONS MANAGER-C [address] , [place], [address], [facility] 05/18/2024 10:00:07 08/18/2024 text/html ROS as [...] = 1394 kilo calories Jaylen Lima DNP, ADVANCED REGISTERED NURSE, ALUMNI RELATIONS MANAGER-C [address], [place], [address], [facility] & [place] 08/18/2024 10:42:52 12/24/2024 text/html ROS as noted [...] = 1390 kilo calories Jaylen Lima, CANDY, ADVANCED REGISTERED NURSE, ALUMNI RELATIONS MANAGER-C [address] , [place], [address], [facility] & [place] 12/24/2024 13:32:15 OBGyn Episode No OBEpisode recorded.
--- OUTSIDE RECORDS SUMMARY | 2025-01-01 07:30 | XMS_ITS | Referral Summary ---
Author Organization [employer] ([place], [place], [place], [place]) Address [address] [place] [address] Care Team Providers Care Medication Tech Name Role Phone Unavailable Primary Care Provider Unavailabl e Encounters Date Type Department Care Team Description 12/15/[address] [address] Phylicia Christensen MD 12/04/2024 3:30 PM EDT Procedure Visit [address] [address] Phylicia Christensen MD Squamous cell [...] C44.622 . Comment [facility] Comment: CPT . [id number] Tissue 12/07/2024 10:2 7 AM EDT 12/08/2024 Narrative [facility] - 12/15/2024 4:06 AM EDT Performed at: - [address] [id number] Monogram Maker: Jose Chiang MD, Phone: [phone] Performed at: 02 [facility] Dermatopathology Consult [address] [place] [id number] Monogram Maker: Marixa Gibson , Phone: [phone] Resulting Agency Comment [id number] Phylicia Armenta MD PATHOLOGY/CYTOLOGY ORDERABLES Final [...] 9:33 AM EDT 07/29/2020 1:33 PM EDT [facility] Historical Provider PATHOLOGY/CYTOLOGY ORDE ANA Final Result [facility] [address] [phone] from Last 3 Months or Most Recently Relevant to Health Maintenance Insurance BLUE CROSS/BLUE SHIELD
--- OUTSIDE RECORDS SUMMARY | 2025-01-01 07:30 | XMS_ITS | Encounter Summary ---
Author Organization [employer] ([place], [place], [place], [place]) Address [address] [place] [address] Care Team Providers Care Trace Evidence Technician Name Role Phone Unavailable Primary Care Provider Unavailabl e Encounter Details Date Type Department Care Team (Late st Contact Info) Description 07/29/2020 Transcribed Document [facility] [place] [facility] [place] [address] ProviderOtilia MD [address] [place] [address] Social History Tobacco Use Types [...] WILMA CANALES/Sex: 1965 Female Med Rec #: [id number] Physician: HARRIET GARCIA MD-SUR Financial #: [id number] Pt. Type: E Room/Bed: [facility]/ Admit/Disch: 07/29/20 08:04:00 - Institution: [facility] PACU Case Times Entry 1 In PACU [...]
--- OUTSIDE RECORDS SUMMARY | 2025-01-01 07:30 | XMS_ITS | Encounter Summary ---
Author Organization [employer] ([place], [place], [place], [place]) Address [address] [place] [address] Care Team Providers Care Product Assembler Name Role Phone Unavailable Primary Care Provider Unavailabl e Encounter Details Date Type Department Care Team (Late st Contact Info) Description 07/29/2020 Transcribed Document [facility] [place] [facility] [place] [address] ProviderOtilia MD [address] [place] [address] Social History Tobacco Use Types [...] WILMA CANALES/Sex: 1965 Female Med Rec #: [id number] Physician: HARRIET GARCIA MD-SUR Financial #: [id number] Pt. Type: E Room/Bed: [facility] Admit/Disch: 07/29/20 08:04:00 - Institution: [facility] - Case Attendance Entry 1 Entry 2 Entry 3 Case Attendee HARRIET GARCIA Davis, Lizabeth, Rn House, Michelle, MD-SUR SPINDLE REPAIRER Role Performed Surgeon/Proceduralist, Bore Miner Operator, First Scrub, First First Time In 07/29/20 [...] CORTNEY, APRN, NAHOMY-ANS Role Performed Anesthesiologist of MANAGER HEAVY EQUIPMENT/Nurse Tucking Machine Operator Record Time In 07/29/20 10:50:00 07/29/20 10:50:00 Time Out 07/29/20 10:56:00 07/29/20 10:56:00 Procedure Esophagogastroduodenosco Esophagogastroduodenosco py, Gastric Biopsy py Other Attendee Superficial Wound Closed By: Last Modified By: Trena Martinez Rn Davis, Lizabeth, Rn 07/29/20 10:54:25 07/29/20 10:54:25 [facility] - Case Attendance Audit 07/29/20 10:54:25 Regional Driver: [id number] Modifier: [id number] <+> Time Out 1 <*> Procedure Gastric Biopsy, Esophagogastroduodenoscopy 2 <+> Time Out 2 <*> Procedure Gastric Biopsy, Esophagogastroduodenoscopy 3 <+> Time Out 3 <*> Procedure Gastric Biopsy, Esophagogastroduodenoscopy 4 <+> Time Out 4 <*> Procedure Esophagogastroduodenoscopy, Gastric Biopsy 5 <+> Time Out 5 <*> Procedure Esophagogastroduodenoscopy 07/29/20 10:50:33 Regional Driver: [id number] Modifier: [id number] <+> Time In 1 <*> Procedure Gastric Biopsy, Esophagogastroduodenoscopy 2 <+> Time In 2 <*> Procedure Gastric Biopsy, Esophagogastroduodenoscopy 3 <+> Time In 3 <*> Procedure Gastric Biopsy, Esophagogastroduodenoscopy 4 <+> Time In 4 <*> Procedure Esophagogastroduodenoscopy, Gastric Biopsy <+> 5 Time In <+> 5 Procedure 07/29/20 10:31:59 Regional Driver: [id number] Modifier: [id number] <*> Case Attendee Tristian DÍAZ MD-ANS 4 <*> Role Performed Anesthesiologist 4 <*> Procedure Gastric Biopsy, Esophagogastroduodenoscopy <+> 5 Case Attendee <+> 5 Role Performed 07/29/20 10:06:57 Regional Driver: [id number] Modifier: [id number] <+> 1 Procedure <+> 2 Procedure <+> [...] Endo - Case Times Audit 07/29/20 10:54:17 Regional Driver: [id number] Modifier: [id number] <+> 1 Out Room Time <+> 1 Stop Time <+> 1 Stop Time 07/29/20 10:52:26 Regional Driver: [id number] Modifier: [id number] <+> 1 Start Time [facility] - [...] - Fire Risk Assessment Audit 07/29/20 10:50:41 Regional Driver: [id number] Modifier: [id number] <+> 1 Fire Risk Assessment Verified Date/Time E Endo - General Case Cloth Carrier 1 Case Information OR Endo 01 [facility] Case Level 1 Room Verified Yes Wound Class II - Clean-Contaminated Specialty General Anesthesia Type MAC ASA Class 3 Diagnosis Preop Diagnosis Dyspepsia, GERD Postop Diagnosis normal EGD Last Modified By: Trena Martinez Rn 07/29/20 10:50:57 E Endo - General Case Data Audit 07/29/20 10:54:12 Regional Driver: [id number] Modifier: [id number] <+> 1 Postop Diagnosis 07/29/20 10:50:57 Regional Driver: [id number] Modifier: [id number] <+> 1 ASA Class [facility] - [...] Positioned By Trena Martinez Rn, Dara Blanchard, SPINDLE REPAIRER Position Verified Positioning Yes Verified by Anesthesia Positioning Yes Verified by Surgeon Last Modified By: Trena Martinez Rn 07/29/20 10:06:32 [facility] Endo - Patient Positioning Audit 07/29/20 10:06:59 Regional Driver: [id number] Modifier: [id number] 1 <*> Procedure Esophagogastroduodenoscopy [facility] - [...] Endo - Surgical Procedures Audit 07/29/20 10:54:24 Regional Driver: [id number] Modifier: [id number] <+> 1 Start <+> 1 Stop <+> [...]
--- OUTSIDE RECORDS SUMMARY | 2025-01-01 07:30 | XMS_ITS | Clinical Summary ---
Author Organization [facility] , [facility] Address [address] [place] [address] Phone Care Team Providers Care Equal Employment Opportunity Officer Name Role Phone ANJELICA SHAW, MINDY Primary Care Provider [phone] Dylan SHAW, Epifanio Unavailable [phone] Reason for Visit and Chief Complaint Epidural Steroid Injection Problems Includes: Problems addressed during this encounter and other active Problems All Visits Onset Date Resolved Date Provider Condition S tatus Lower Back Pain 08/12/2023 SAI STOCK PA-C Active Last Documented On 4 2:57PM ; [facility] Joint Pain Hip Left 04/17/2023 Simon haro PA-C Active Last Documented On 4 9:59AM ; [facility] Joint Pain Right Knee 04/20/2021 Tiera Turner PA-C Active Last Documented On 2 10:25AM ; [facility], [facility] Plan of Treatment Future Appointments Date Time Location Provi ramon Follow Up 01/13/2025 3:30PM [facility]OTT Nguyen MD Last Documented On 5 9:31AM ; [facility] Epidural Steroid Injection 01/21/2025 3:00PM [facility] Graff CRNA Last Documented On 5 11:48AM ; [facility] Assessments Includes: Assessments from this encounter [...] Diagnosis Epidural Steroid Injection Vipul Graff CRNA 10/12/2024 12:02PM 11:59PM Insurance Includes: Active Insurance Policies Plan Name Member ID Group # Subscriber Relationship Effect alfredo Dates 1 - [facility] [id number] Wilma Canales Self 03/25/2021 - Unknown Clinical Notes Includes: Clinical Notes from this encounter No Clinical Notes Recorded
--- OUTSIDE RECORDS SUMMARY | 2025-01-01 07:30 | XMS_ITS ---
Author Organization [facility] , [facility] Address [address] [place] [address] Phone Care Team Providers Care Executive Relations Specialist Name Role Phone ANJELICA SHAW, MINDY Primary Care Provider [phone] Dylan SHAW, Epifanio Unavailable [phone] Reason for Referral Date Encounter Description Provider Reason for Referral 05/22/21 Follow Up Tiera Salas PA-C Referra l To Physician - see pcp for bp Problems Includes: Active, inactive, and resolved Problems All Visits Onset Date Resolved Date Provider Condition S tatus Lower Back Pain 08/12/2023 SAI STOCK PA-C Active Last Documented On 4 2:57PM ; [facility], [facility] Joint Pain Hip Left 04/17/2023 Simon haro PA-C Active Last Documented On 4 9:59AM ; [facility], [facility] Joint Pain Right Knee 04/20/2021 Tiera Turner PA-C Active Last Documented On 2 10:25AM ; [facility], [facility] Plan of Treatment Referrals To Diagnosis Consult with Orthopedic Simon haro PA-C - [facility] [address] [address] - Overweight Note: 07/23/2023 IHR per SANJEEV mayer/ Reinaldo Stock after L spine MRI @ [facility]//AW Last Documented On 4 9:04AM ; [facility], [facility] Future Appointments Date Time Location Provi ramon Follow Up 01/13/2025 3:30PM [facility] SCOTT Nguyen MD Last Documented On 5 9:31AM ; [facility] Epidural Steroid Injection 01/21/2025 3:00PM [facility] Graff CRNA Last Documented On 5 11:48AM ; [facility] Instructions to patient Intervention and counseling on cessation of tobacco use Last Documented On 5 8:06AM ; [facility] Lose weight Last Documented On 5 8:06AM ; [facility] Intervention and counseling on cessation of tobacco use Last Documented On 5 10:00AM ; [facility] Lose weight Last Documented On 5 10:00AM ; [facility] Intervention and counseling on cessation of tobacco use Last Documented On 4 10:10AM ; [facility] Lose weight Last Documented On 4 10:04AM ; [facility] Lose weight Last Documented On 4 8:38AM ; [facility] Lose weight Last Documented On 4 2:57PM ; [facility] Lose weight Last Documented On 4 2:43PM ; [facility] Lose weight Last Documented On 4 1:18PM ; [facility] Intervention and counseling on cessation of tobacco use Last Documented On 2 2:59PM ; [facility] Lose weight Last Documented On 2 2:59PM ; [facility] Intervention and counseling on cessation of tobacco use Last Documented On 2 10:41AM ; [facility] Lose weight Last Documented On 2 10:41AM ; [facility] Assessments Includes: Assessments for all patient encounters Findings Encounter Date Overweight Follow Up with SAI Youssef 06/19/2024 Last Documented On 5 10:51AM ; [facility] Overweight Follow Up with SAI Youssef 02/26/2024 Last Documented On 4 11:24AM ; [facility] Overweight Follow Up with SAI Youssef 11/21/2023 Last Documented On 4 11:30AM ; [facility] Overweight IN HOUSE REFERRAL with SAI MELTON PA-C 08/12/2023 Last Documented On 4 4:05PM ; [facility] Overweight Follow Up with Simon Hester PA-C 06/19/2023 Last Documented On 4 9:02AM ; [facility] Overweight Physician Specified with Simon Hester PA-C 04/17/2023 Last Documented On 4 9:16AM ; [facility] Instructions Includes: Instructions for all patient encounters Instructions to patient Intervention and counseling on cessation of tobacco use Last Documented On 5 8:06AM ; [facility] Lose weight Last Documented On 5 8:06AM ; [facility] Intervention and counseling on cessation of tobacco use Last Documented On 5 10:00AM ; [facility] Lose weight Last Documented On 5 10:00AM ; [facility] Intervention and counseling on cessation of tobacco use Last Documented On 4 10:10AM ; [facility] Lose weight Last Documented On 4 10:04AM ; [facility] Lose weight Last Documented On 4 8:38AM ; [facility] Lose weight Last Documented On 4 2:57PM ; [facility] Lose weight Last Documented On 4 2:43PM ; [facility] Lose weight Last Documented On 4 1:18PM ; [facility] Intervention and counseling on cessation of tobacco use Last Documented On 2 2:59PM ; [facility] Lose weight Last Documented On 2 2:59PM ; [facility] Intervention and counseling on cessation of tobacco use Last Documented On 2 10:41AM ; [facility] Lose weight Last Documented On 2 10:41AM ; [facility] Medical Equipment - Implanted Devices Includes: Current and historical Devices No Medical Equipment Recorded Medications Includes: Current and historical Medications Past Medications on file Cyclobenzaprine HCl 10 MG Or al Tablet 06/19/2024 - 07/09/2024 Provider: SAI Nice Diagnosis: twice a day p.r.n. Last Documented On 5 4:28PM By Reinaldo Stock ; [facility], [facility] Venlafaxine HCl ER 150 MG Or al Capsule Extended Release 24 Hour 04/17/2023 - 04/23/2023 Provider: VERONA DEJESUS MD Diagnosis: Last Documented On 4 4:04PM By Reinaldo Stock ; [facility] Methocarbamol 750 MG Oral Tablet 04/17/2023 - 08/12/2023 Provider: Simon haro PA-C Diagnosis: 1 every bedtime Last Documented On 4 4:03PM By Reinaldo Stock ; [facility] Medrol 4 MG Oral Tablet Therapy Pack 04/17/2023 - 05/09/2023 Provider: Simon haro PA-C Diagnosis: take as directed Last Documented On 4 4:03PM By Reinaldo Stock ; [facility] Voltaren 1% External Gel 04/17/2023 - 08/12/2023 Provi ramon: Simon Hester PA-C Diagnosis: three times a day Apply 4 gr ams to affected area 3 times a day Last Documented On 4 4:04PM By Reinaldo Stock ; [facility] Venlafaxine HCl ER 150 MG Or al Capsule Extended Release 24 Hour 03/02/2021 - 04/17/2023 Provider: VERONA DEJESUS MD Diagnosis: Last Documented On 4 9:59AM By Tiffany Avendano ; [facility], [facility] Medications Administered Includes: Administered Medications in patient's chart No Administered Medications Recorded Vital Signs Includes: Vital Signs from 01/02/2024 through 01/01/2025 Vital Name 06/19/2024 10:47A 02/26/2024 10: 09A Height (in) 67 67 Weight (lb) 189 193 Body Mass Index 29.6 30.2 Body Surface Area 2 2 Note: PW PW Last Documented: On 06/19/2024 10:47A M ; [facility] On 02/26/2024 10:09AM ; [facility] Results Includes: Results from 01/02/2024 through 01/01/2025 No Results Recorded For Specified Dates History of Present Illness History of Present Illness not supported for this document type No History of Present Illness Recorded Social History Description Last Updated Yes, current smoker. quit 2021 4 Last Documented On 4 11:24AM ; [facility], [facility] Not using alcohol 02/26/2024 Last Documented On 4 11:24AM ; [facility], [facility] Not using drugs 02/26/2024 Last Documented On 4 11:24AM ; [facility], [facility] Tobacco non-user 04/17/2023 Last Documented On 4 9:20AM ; [facility], [facility] Caffeine use 04/17/2023 Last Documented On 4 9:20AM ; [facility], [facility] Not exercising regularly 04/17/2023 Last Documented On 4 9:20AM ; [facility], [facility] Recent change in diet 04/17/2023 Last Documented On 4 9:20AM ; [facility], [facility] Smoker 04/20/2021 Last Documented On 2 11:48AM ; [facility], [facility] Never drank alcohol 04/20/2021 Last Documented On 2 11:48AM ; [facility], [facility] Never used drugs 04/20/2021 Last Documented On 2 11:48AM ; [facility], [facility] Retired from work 04/20/2021 Last Documented On 2 11:48AM ; [facility], [facility] Smoking Status Unknown Procedures and Surgical History Includes: Procedures from 01/02/2024 through 01/01/2025 Procedures Code Diagnosis Performing Provider Service Location Service Date Triamcinolone/Ke nalog, 10mg per cc J3301 Spinal stenosis, lumbar region with neurogenic claudication Vipul Graff CRNA [facility] 10/12/2024 Last Documented On 5 11:45AM ; [facility], [facility] Lumbar epidural 54955 Spinal stenosis, lumbar region with neurogenic claudication Vipul Graff [employer] [facility] 10/12/2024 Last Documented On 5 11:45AM ; [facility] Triamcinolone/Kenalog, 10mg per cc J3301 Spinal stenosis, lumbar region with neurogenic claudication Vipul Graff [employer] [facility] 07/01/2024 Last Documented On 5 10:44AM ; [facility] Lumbar epidural 33360 Spinal stenosis, lumbar region with neurogenic claudication Vipul Graff [employer] [facility] 07/01/2024 Last Documented On 5 10:44AM ; [facility] Lumbar epidural 73076 Spinal stenosis, lumbar region with neurogenic claudication Vipul Graff [employer] [facility] 03/11/2024 Last Documented On 4 11:13AM ; [facility] Triamcinolone/Kenalog, 10mg per cc [id number] Spinal stenosis, lumbar region with neurogenic claudication Vipul Graff [employer] [facility] 03/11/2024 Last Documented On 4 11:13AM ; [facility] Surgical History Last Updated Past Surgical History: Gastric Sleeve Ferrara rgery 04/17/2023 Last Documented On 4 9:20AM ; [facility] History of History of Gallbladder 2023 Last Documented On 4 9:20AM ; [facility] Medical History Includes: Medical History in patient's chart Description Last Updated History of arthritis 04/17/2023 Last Documented On 4 9:20AM ; [facility] History of depression 04/17/2023 Last Documented On 4 9:20AM ; [facility], [facility] Recent immunization for flu 04/25/2021 Last Documented On 2 4:06PM ; [facility] Recent immunization for pneumococcal pne umonia 2014 04/20/2021 Last Documented On 2 11:48AM ; [facility], [facility] History of osteoporosis 04/20/2021 Last Documented On 2 11:48AM ; [facility], [facility] Family History Includes: Family History in patient's chart Description Last Updated Family history of heart disease 04/17/19 24 Last Documented On 4 9:20AM ; [facility], [facility] Family history of osteoporosis 4 Last Documented On 4 9:20AM ; [facility], [facility] Stroke / Seizures 04/17/2023 Last Documented On 4 9:20AM ; [facility], [facility] Maternal history of osteoporosis 022 Last Documented On 2 11:48AM ; [facility], [facility] Paternal grandmother's history of family history of heart disease 04/20/2021 Last Documented On 2 11:48AM ; [facility], [facility] Paternal history of family history of he art disease 04/20/2021 Last Documented On 2 11:48AM ; [facility], [facility] Paternal history of Stroke / Seizures Last Documented On 2 11:48AM ; [facility], [facility] Review of Systems Review of Systems not supported for this document type No Review of Systems Recorded Mental Status No Mental Status Recorded Functional Status No Functional Status Recorded Physical Exam Physical Exam not supported for this document type No Physical Exam Recorded Immunizations Includes: Immunizations in patient's chart Vaccine Dose # Date Site Reaction(s) Status Source Influenza 1 04/20/2021 Complete (Refused - Patient objection) [facility] Last Documented On 2 10:41AM ; [facility] PCV (Pneumovax 23) 1 03/25/2013 Complete ( Reported) Patient Last Documented On 2 10:41AM ; [facility] Td 1 11/23/2020 Complete (Reported) P atient Last Documented On 2 10:41AM ; [facility], [facility] Allergies Includes: Active, inactive, and resolved Allergies No Known Allergies Encounters Includes: Encounters from 01/02/2024 through 01/01/2025 Encounter Provider Location Date Check-In Time Check-Out Time Diagnosis Epidural Steroid Injection Vipul Graff CRNA 10/13/19 25 09/30/2024 12:02PM 09/30/2024 11:59PM Epidural Steroid Injection Vipul Graff [employer] [facility] 10/13/19 8:50AM 9:39AM Follow Up Dara Cassidy PA-C [facility] 10/01/19 7:58AM 8:27AM Epidural Steroid Injection Vipul Graff [employer] [facility] 07/02/19 11:27AM 11:38AM Epidural Steroid Injection Vipul Graff [facility] 07/02/19 25 06/19/2024 9:55AM 06/19/2024 11:59PM Follow Up SAI STOCK PA-C [facility] 06/20/19 9:58AM 10:49AM Overweight Epidural Steroid Injection Vipul Graff [facility] 03/11/20 24 02/26/2024 4:14PM 02/26/2024 11:59PM Epidural Steroid Injection Vipul Graff [employer] [facility] 03/11/20 8:49AM 9:28AM Follow Up SAI STOCK PA-C [facility] 02/26/20 9:46AM 10:22AM Overweight Insurance Includes: Active Insurance Policies Plan Name Member ID Group # Subscriber Relationship Effect alfredo Dates 1 - [facility] [id number] Wilma Canales Self 03/25/2021 - Unknown Clinical Notes Includes: Signed Clinical Notes starting from 03/08/2022 * Progress note Date Encounter Last Documented by 09/30/2024 Follow Up Last documented on 09/30/2024; 11:54 AM, Dara Cassidy PA-C; [facility] Active Problems & Conditions - Joint [...] 3 WKS 12/06/2023 L3-4 JESSE 90% 2 1/2 MTHS - Review of medications documented This [...] Care Team - MINDY DEJESUS MD - CHAIR UPHOLSTERER Health Reminders - Assess Tobacco Use satisfied [...] they are providing them good clinical results * Progress note Date Encounter Last Documented by 06/19/2024 Follow Up Last documented on 06/19/2024; 10:51 AM, SAI Lindsay; [facility], [facility] Active Problems & Conditions - Joint Pain in the Left Hip - Joint Pain in the Right Knee - Lower Back Pain Chief Complaint The Chief Complaint is: Left hip pain. Referred Here Referred by LAST PCP VISIT [...] 3 WKS 12/06/2023 L3-4 JESSE 90% 2 1/2 MTHS - - Review of medications documented Patient returns ready to schedule another lumbar epidural injection. The L3-4 epidural injection provided in the much more improvement of her back hip and groin symptoms then the SI joint injection did. Patient reporting greater than 90% relief for about 3 months before the symptoms worsened. She has had a new injury. Just earlier this week she was knocked over by her dog landing on her back. She has had some discomfort in the right lower thoracic area. This was quite severe for a day or 2 but it is already starting to show some improvement. She does not have any nerve root compression or myelopathic complaints associated with this. Current Medication - None Past Medical/Surgical History Reported: Immunization History: Recent immunization for flu 04/25/2021 and for pneumococcal pneumonia 2013. Diagnoses: Osteoporosis. Arthritis. Depression Surgical: - Past Surgical History: Gastric Sleeve Surgery - History of Gallbladder Social History Yes, current smoker. quit 2021. Current diet: Recent change in diet. Caffeine use: Caffeine use. Tobacco use: Tobacco non-user. Alcohol: Not using alcohol. Drug Use: Not using drugs. Habits: Not exercising regularly. Work: Retired [...] Complaint of seasonal allergic reaction. Physical Findings - Vitals taken 06/19/2024 10:47 am PW Height 67 in 48 - 78 Weight 189 lbs 98 - 183 Body Mass Index 29.6 kg/m2 Body Surface Area 2 m2 Skin is unremarkable. Patient does not actually have any tenderness over the SI joint currently. Most of her symptoms are more lateral and posterior. Extension of her spine we will increase symptoms down into the right buttock and hip area. Forward flexion seems to improve this. She has a normal gait and normal strength otherwise. There is some soreness and tenderness along the right lower rib facet area or paraspinous area. But she has good mobility and function otherwise. Assessment - Overweight L3-4 spinal stenosis. Patient had an excellent response to the epidural injection back in February. Lower thoracic strain/contusion. Previous Tests Imaging: X-Ray: X-ray 04/04/2023. MRI Scan: An MRI was performed 07/25/2023. Counseling/Education - Tobacco non-user - Use of tobacco assessment performed - Intervention and counseling on cessation of tobacco use - Lose weight Plan StartCited - Overweight Therapy/Physical Therapy: Thoracic Instructions: See PT order attached EndCited We will get her involved with some physical therapy for the her most recent thoracic complaints. We will arrange for a repeat L3-4 epidural injection as well. We will see her back in a few months for reassessment. No surgical indications currently. Notes This dictation was done with voice recognition software and may contain errors and omissions. Practice Management Use of tobacco assessment performed Review of medications documented. Care Team - MINDY DEJESUS MD - CHAIR UPHOLSTERER Health Reminders - Assess BMI satisfied 06/19/2024. - Assess Tobacco Use satisfied 04/17/2023. - Follow Up Plan BMI Management satisfied 06/19/2024. * Progress note Date Encounter Last Documented by 02/26/2024 Follow Up Last documented on 02/26/2024; 11:24 AM, SAI Lindsay; [facility], [facility] Active Problems & Conditions - Joint Pain in the Left Hip - Joint Pain in the Right Knee - Lower Back Pain Chief Complaint The Chief Complaint is: Left hip pain. Referred Here Referred by LAST PCP VISIT 04/03/2023. History of Present Illness Wilma Canales is a 58 year old female. - Allergy list reviewed - Problem list reviewed - Medication list reviewed - Patient pain level from 1-10: 7 - History of Home Exercise 08/12/2023 - History of Injections 09/03/2023 R SI 90% FOR 9WKS 12/06/2023 R SI 50% FOR 3 WKS - - Review of medications documented Patient returns following recent right SI joint injection. This was her 2nd injection. The 1st thing was in August. The 2nd 1 was not November. The 1st 1 worked extremely well. The 2nd 1 worked well. But she started having complaints of right lower back hip and even some groin symptoms shortly thereafter. Patient was concerned that the injection did not work well this time. She has returned back to see us for further assessment and treatment. Patient does not have any left-sided symptoms. It is all on the right side with right buttock pain with referred symptoms into the and groin area. Current Medication - None Past Medical/Surgical History Reported: Immunization History: Recent immunization for flu 04/25/2021 and for pneumococcal pneumonia 2013. Diagnoses: Osteoporosis. Arthritis. Depression Surgical: - Past Surgical History: Gastric Sleeve Surgery - History of Gallbladder Social History Yes, current smoker. quit 2021. Current diet: Recent change in diet. Caffeine use: Caffeine use. Tobacco use: Tobacco non-user. Alcohol: Not using alcohol. Never drank alcohol. [...] Complaint of seasonal allergic reaction. Physical Findings - Vitals taken 02/26/2024 10:09 am PW Height 67 in 48 - 78 Weight 193 lbs 98 - 183 Body Mass Index 30.2 kg/m2 Body Surface Area 2 m2 Skin is unremarkable. Patient does not actually have any tenderness over the SI joint currently. Most of her symptoms are more lateral and posterior. Extension of her spine we will increase symptoms down into the right buttock and hip area. Forward flexion seems to improve this. She has a normal gait and normal strength otherwise. Assessment - Overweight Sacroiliitis right side. I think currently her SI joint pain is under good control. I think she is developed some stenosis at the L3-4 level causing lot of her buttock and hip symptoms. I did review her previous MRI scan where she did have some lateral recess stenosis at this level with advanced disc degeneration. Previous Tests Imaging: X-Ray: An X-ray was performed 04/04/2023. MRI Scan: An MRI was performed 07/25/2023. Counseling/Education - Tobacco non-user - Use of tobacco assessment performed - Intervention and counseling on cessation of tobacco use - Lose weight Plan I will arrange for an L3-4 epidural injection to see if this will improve her symptoms further. We will see her in follow up thereafter for reassessment and further treatment options. In the meantime she will continue with her stretches and exercises. Anti-inflammatories as needed. Notes This dictation was done with voice recognition software and may contain errors and omissions. Practice Management Use of tobacco assessment performed Review of medications documented. Care Team - MINDY DEJESUS MD - CHAIR UPHOLSTERER Health Reminders - Assess BMI satisfied 02/26/2024. - Assess Tobacco Use satisfied 04/17/2023. - Follow Up Plan BMI Management satisfied 02/26/2024.
--- OUTSIDE RECORDS SUMMARY | 2025-01-01 07:30 | XMS_ITS | Encounter Summary ---
Author Organization [facility] Address [address] [id number] Care Team Providers Care Spool Winder Name Role Phone Thaddeus Morales MD Primary Care Provider [phone] Thaddeus Morales MD Unavailable [phone] Shelli Espinosa MD Unavailable [phone] Reason for Referral * Consultation (Routine) - Closed Specialty Diagnoses / Procedures Referred By Contac t Referred To Contact Urology Diagnoses Acquired female bladder prolapse Thaddeus Morales MD [address] [facility] [address] [place] [address] Phone: tel: fax: Shelli Espinosa MD [address] [facility] [address] [place] [address] Phone: tel: fax: Referral ID Status Reason Start Date Expiration Date V isits Requested Visits Authorized [id number] Closed Specialty Services Required 12/05/2023 06/05/2025 1 1 Encounter Details Date Type Department Care Team (Late st Contact Info) Description 12/05/2023 [facility] [address] [place] [address] Thaddeus Morales MD [address] [facility] [address] [place] [address] Acquired female bladder prolapse (Primary Dx) Social [...] [address] [place] [address] 12/20/2025 1:15 PM EDT Office Visit [facility] [address] [place] [address] Amador Reynolds MD [address] [facility] [address] [place] [address] Scheduled Referrals Name Type Priority Associated Diagnoses [...] documented as of this encounter Care Teams Spool Winder Relationship Specialty Start Date End Date Thaddeus Morales MD [address] [place] [id number] PCP - General 08/05/20 Thaddeus Morales MD [address] [place] [id number] Referring Physician Internal Medicine 11/28/23 Shelli Espinosa MD [address] [phone] Surgeon Urology 02/12/24 documented as of this encounter
--- OUTSIDE RECORDS SUMMARY | 2025-01-01 07:30 | XMS_ITS | Clinical Summary ---
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 Comment [facility] Comment: CPT . [id number] Tissue 12/07/2024 10:2 7 AM EDT 12/08/2024 Narrative [facility] - 12/15/2024 4:06 AM EDT Performed at: [facility] [address] [place] [id number] Solicitor Patent: Jose Chiang MD, Phone: [phone] Performed at: [address] [place] [address] Dermatopathology Consult [address] [place] [id number] Solicitor Patent: Marixa Gibson , Phone: [phone] Resulting Agency Comment [id number] Phylicia Armenta MD PATHOLOGY/CYTOLOGY ORDERABLES Final [...] 9:33 AM EDT 07/29/2020 1:33 PM EDT [facility] Historical Provider PATHOLOGY/CYTOLOGY LISSET PEREZ Final Result [facility] [address] [phone] from Last 3 Months or Most Recently Relevant to Health Maintenance Insurance BLUE CROSS/BLUE SHIELD
== END 2025-01-01 23:59 | disposition home or self-care (01) ==
LOC: RAD 07:27
PROVIDERS: PCP Internal Medicine Adolescent Medicine; Visit Provider Internal Medicine Adolescent Medicine
DX: N63.14 Unspecified lump in the right breast, lower inner quadrant (principal); N63.15 Unspecified lump in the right breast, overlapping quadrants; N64.89 Other specified disorders of breast; R92.321 Mammographic fibroglandular density, right breast; R59.0 Localized enlarged lymph nodes
CPT/HCPCS: 76641; 77061; 77065; G0279